=== PATIENT | female | born 1945 | race Caucasian/White ===

== ENCOUNTER → 2016-06-07 | Outpatient (CLI) | payer MEDICARE, BC, OTHER ==
[~2016-06-07] MED LIST: ALBU0.63 NEB; AMIT25TA PO; CETI-17 PO; CYCL10TA2 PO; ESOM40CA PO; ETAN50DI SQ; FLUC150T PO; FLUT1DIS3 IH; FLUT9.9S NS; HYDR25TA9 PO; INSU100V10 IJ; INSU100V8 SQ; LIRA0.6P SQ; NITR50CA11 PO; OMEP20CA9 PO; OXYM15MI4 NS; PHEN100T91 PO; POTA20PA PO; TRIA63AE TP; ZOLP10TA PO
--- NOTE | 2016-06-07 13:48 | KCIC ---
PROCEDURE MRI lumbar spine without contrast. HISTORY Low back pain and bilateral radiculopathy for 3 months. No known injury. TECHNIQUE Sagittal T1, sagittal T2, sagittal STIR, axial T1, and axial T2 sequences are provided. COMPARISON None. FINDINGS There is 4 millimeters of anterolisthesis at L4-L5. There is otherwise no malalignment. There is fatty replacement of the endplates most notably at L2-L3 and L5-S1. There are vacuum discs throughout the lumbar spine. There is diffuse disc desiccation. Disc height is narrowed diffusely as well. The conus medullaris is normal in signal intensity and in position. Subcutaneous edema is noted. Numbering system assumes 5 lumbar type vertebral bodies. Findings by individual level are as follows: L1-L2: There is no canal or foraminal compromise. L2-L3: There is a diffuse disc bulge. There is mild facet and ligamentum flavum hypertrophy. There is prominent epidural fat indenting on the thecal sac. Midline AP diameter of the thecal sac is narrowed to 7-8 millimeters. There is mild left lateral recess narrowing. There is minimal foraminal narrowing inferiorly bilaterally. L3-L4: Minimal disc bulge and mild facet and ligamentum flavum hypertrophy are noted. This does not result in canal or foraminal compromise. L4-L5: Disc bulge is eccentric to the left. There is facet hypertrophy. Epidural fat is mildly prominent. Midline AP diameter of the thecal sac is narrowed to 9-10 millimeters. There is mild left lateral recess narrowing, disc bulge is in contact with the left L5 nerve root. There is mild to moderate left foraminal narrowing. L5-S1: Disc osteophyte complex and facet hypertrophy are noted. There is no canal stenosis. There is mild left foraminal narrowing. IMPRESSION Degenerative disc disease, facet hypertrophy, and prominent epidural fat are noted throughout the lumbar spine. Canal stenosis is most notable at L2-L3. Electronically signed by: Prakash Davis MD (Jun 07, 2016 13:46:39)
== END | disposition home or self-care (01) ==
LOC: KCIC MRI 12:22
PROVIDERS: ATTEND Anesthesiology
DX: M54.16 Radiculopathy, lumbar region (principal)
CPT/HCPCS: 72148

== ENCOUNTER → 2017-09-03 | Outpatient (CLI) | payer MEDICARE, OTHER | END | disposition home or self-care (01) | LOC: PMGWOUND 09:09 | DX: T81.31XA Disruption of external operation (surgical) wound, not elsewhere classified, initial encounter (principal); E11.42 Type 2 diabetes mellitus with diabetic polyneuropathy; E11.22 Type 2 diabetes mellitus with diabetic chronic kidney disease; I12.9 Hypertensive chronic kidney disease with stage 1 through stage 4 chronic kidney disease, or unspecified chronic kidney disease; N18.3 Chronic kidney disease, stage 3 (moderate); E11.36 Type 2 diabetes mellitus with diabetic cataract; M06.9 Rheumatoid arthritis, unspecified; E27.40 Unspecified adrenocortical insufficiency; E78.5 Hyperlipidemia, unspecified; J44.9 Chronic obstructive pulmonary disease, unspecified; M17.0 Bilateral primary osteoarthritis of knee; E66.9 Obesity, unspecified; Z79.4 Long term (current) use of insulin; Z90.710 Acquired absence of both cervix and uterus; Z68.31 Body mass index [BMI] 31.0-31.9, adult; Z96.651 Presence of right artificial knee joint; Z98.42 Cataract extraction status, left eye; Z98.41 Cataract extraction status, right eye; Y83.8 Other surgical procedures as the cause of abnormal reaction of the patient, or of later complication, without mention of misadventure at the time of the procedure; Y92.89 Other specified places as the place of occurrence of the external cause | CPT/HCPCS: 99204 ==

== ENCOUNTER → 2017-09-10 | Outpatient (CLI) | payer MEDICARE, OTHER | END | disposition home or self-care (01) | LOC: PMGWOUND 09:23 | DX: T81.31XD Disruption of external operation (surgical) wound, not elsewhere classified, subsequent encounter (principal); E11.42 Type 2 diabetes mellitus with diabetic polyneuropathy; E11.22 Type 2 diabetes mellitus with diabetic chronic kidney disease; I12.9 Hypertensive chronic kidney disease with stage 1 through stage 4 chronic kidney disease, or unspecified chronic kidney disease; N18.3 Chronic kidney disease, stage 3 (moderate); E11.36 Type 2 diabetes mellitus with diabetic cataract; M06.9 Rheumatoid arthritis, unspecified; E27.40 Unspecified adrenocortical insufficiency; E78.5 Hyperlipidemia, unspecified; J44.9 Chronic obstructive pulmonary disease, unspecified; M17.0 Bilateral primary osteoarthritis of knee; E66.9 Obesity, unspecified; Z79.4 Long term (current) use of insulin; Z90.710 Acquired absence of both cervix and uterus; Z68.31 Body mass index [BMI] 31.0-31.9, adult; Z96.651 Presence of right artificial knee joint; Z98.42 Cataract extraction status, left eye; Z98.41 Cataract extraction status, right eye; Y83.8 Other surgical procedures as the cause of abnormal reaction of the patient, or of later complication, without mention of misadventure at the time of the procedure | CPT/HCPCS: 97605 ==

== ENCOUNTER → 2017-09-12 | Outpatient (CLI) | payer MEDICARE, OTHER | END | disposition home or self-care (01) | LOC: PMGWOUND 12:55 | DX: T81.31XD Disruption of external operation (surgical) wound, not elsewhere classified, subsequent encounter (principal); E11.42 Type 2 diabetes mellitus with diabetic polyneuropathy; E11.22 Type 2 diabetes mellitus with diabetic chronic kidney disease; I12.9 Hypertensive chronic kidney disease with stage 1 through stage 4 chronic kidney disease, or unspecified chronic kidney disease; N18.3 Chronic kidney disease, stage 3 (moderate); E11.36 Type 2 diabetes mellitus with diabetic cataract; M06.9 Rheumatoid arthritis, unspecified; E27.40 Unspecified adrenocortical insufficiency; R20.2 Paresthesia of skin; E78.5 Hyperlipidemia, unspecified; J44.9 Chronic obstructive pulmonary disease, unspecified; M17.0 Bilateral primary osteoarthritis of knee; E66.9 Obesity, unspecified; Z79.4 Long term (current) use of insulin; Z90.710 Acquired absence of both cervix and uterus; Z68.31 Body mass index [BMI] 31.0-31.9, adult; Z96.651 Presence of right artificial knee joint; Z98.42 Cataract extraction status, left eye; Z98.41 Cataract extraction status, right eye; Y83.8 Other surgical procedures as the cause of abnormal reaction of the patient, or of later complication, without mention of misadventure at the time of the procedure | CPT/HCPCS: 99213 ==

== ENCOUNTER → 2017-09-17 | Outpatient (CLI) | payer MEDICARE, OTHER | END | disposition home or self-care (01) | LOC: PMGWOUND 08:56 | DX: T81.31XD Disruption of external operation (surgical) wound, not elsewhere classified, subsequent encounter (principal); E11.42 Type 2 diabetes mellitus with diabetic polyneuropathy; E11.22 Type 2 diabetes mellitus with diabetic chronic kidney disease; I12.9 Hypertensive chronic kidney disease with stage 1 through stage 4 chronic kidney disease, or unspecified chronic kidney disease; N18.3 Chronic kidney disease, stage 3 (moderate); E11.36 Type 2 diabetes mellitus with diabetic cataract; M06.9 Rheumatoid arthritis, unspecified; E27.40 Unspecified adrenocortical insufficiency; R20.2 Paresthesia of skin; E78.5 Hyperlipidemia, unspecified; J44.9 Chronic obstructive pulmonary disease, unspecified; M17.0 Bilateral primary osteoarthritis of knee; E66.9 Obesity, unspecified; Z79.4 Long term (current) use of insulin; Z90.710 Acquired absence of both cervix and uterus; Z68.31 Body mass index [BMI] 31.0-31.9, adult; Z96.651 Presence of right artificial knee joint; Z98.42 Cataract extraction status, left eye; Z98.41 Cataract extraction status, right eye; Y83.8 Other surgical procedures as the cause of abnormal reaction of the patient, or of later complication, without mention of misadventure at the time of the procedure | CPT/HCPCS: 97605 ==

== ENCOUNTER → 2017-09-20 | Outpatient (CLI) | payer MEDICARE, OTHER | END | disposition home or self-care (01) | LOC: PMGWOUND 11:00 | DX: T81.31XD Disruption of external operation (surgical) wound, not elsewhere classified, subsequent encounter (principal); R20.2 Paresthesia of skin; M17.0 Bilateral primary osteoarthritis of knee; J44.9 Chronic obstructive pulmonary disease, unspecified; E78.5 Hyperlipidemia, unspecified; E66.9 Obesity, unspecified; M06.9 Rheumatoid arthritis, unspecified; E11.36 Type 2 diabetes mellitus with diabetic cataract; E11.42 Type 2 diabetes mellitus with diabetic polyneuropathy; E11.22 Type 2 diabetes mellitus with diabetic chronic kidney disease; I12.9 Hypertensive chronic kidney disease with stage 1 through stage 4 chronic kidney disease, or unspecified chronic kidney disease; N18.3 Chronic kidney disease, stage 3 (moderate); Z96.651 Presence of right artificial knee joint; Z90.710 Acquired absence of both cervix and uterus; Z68.31 Body mass index [BMI] 31.0-31.9, adult; Z79.4 Long term (current) use of insulin; Y83.8 Other surgical procedures as the cause of abnormal reaction of the patient, or of later complication, without mention of misadventure at the time of the procedure | CPT/HCPCS: 97605 ==

== ENCOUNTER → 2017-09-24 | Outpatient (CLI) | payer MEDICARE, OTHER | END | disposition home or self-care (01) | LOC: PMGWOUND 11:09 | DX: T81.31XD Disruption of external operation (surgical) wound, not elsewhere classified, subsequent encounter (principal); J44.9 Chronic obstructive pulmonary disease, unspecified; E78.5 Hyperlipidemia, unspecified; E11.22 Type 2 diabetes mellitus with diabetic chronic kidney disease; I12.9 Hypertensive chronic kidney disease with stage 1 through stage 4 chronic kidney disease, or unspecified chronic kidney disease; N18.3 Chronic kidney disease, stage 3 (moderate); E66.9 Obesity, unspecified; M06.9 Rheumatoid arthritis, unspecified; E11.42 Type 2 diabetes mellitus with diabetic polyneuropathy; E11.36 Type 2 diabetes mellitus with diabetic cataract; M17.0 Bilateral primary osteoarthritis of knee; Z90.710 Acquired absence of both cervix and uterus; Z96.651 Presence of right artificial knee joint; Z68.31 Body mass index [BMI] 31.0-31.9, adult; Z79.4 Long term (current) use of insulin; Y83.8 Other surgical procedures as the cause of abnormal reaction of the patient, or of later complication, without mention of misadventure at the time of the procedure | CPT/HCPCS: 97605 ==

== ENCOUNTER → 2017-09-27 | Outpatient (CLI) | payer MEDICARE, OTHER | END | disposition home or self-care (01) | LOC: PMGWOUND 11:47 | DX: T81.31XD Disruption of external operation (surgical) wound, not elsewhere classified, subsequent encounter (principal); M17.0 Bilateral primary osteoarthritis of knee; E78.5 Hyperlipidemia, unspecified; E11.22 Type 2 diabetes mellitus with diabetic chronic kidney disease; I12.9 Hypertensive chronic kidney disease with stage 1 through stage 4 chronic kidney disease, or unspecified chronic kidney disease; N18.3 Chronic kidney disease, stage 3 (moderate); E66.9 Obesity, unspecified; M06.9 Rheumatoid arthritis, unspecified; E11.42 Type 2 diabetes mellitus with diabetic polyneuropathy; E11.36 Type 2 diabetes mellitus with diabetic cataract; Z90.710 Acquired absence of both cervix and uterus; Z96.651 Presence of right artificial knee joint; Z68.31 Body mass index [BMI] 31.0-31.9, adult; Z79.4 Long term (current) use of insulin; Y83.8 Other surgical procedures as the cause of abnormal reaction of the patient, or of later complication, without mention of misadventure at the time of the procedure | CPT/HCPCS: 97605 ==

== ENCOUNTER → 2017-10-01 | Outpatient (CLI) | payer MEDICARE, OTHER | END | disposition home or self-care (01) | LOC: PMGWOUND 11:32 | DX: T81.31XD Disruption of external operation (surgical) wound, not elsewhere classified, subsequent encounter (principal); M17.0 Bilateral primary osteoarthritis of knee; E78.5 Hyperlipidemia, unspecified; E11.22 Type 2 diabetes mellitus with diabetic chronic kidney disease; I12.9 Hypertensive chronic kidney disease with stage 1 through stage 4 chronic kidney disease, or unspecified chronic kidney disease; N18.3 Chronic kidney disease, stage 3 (moderate); E66.9 Obesity, unspecified; M06.9 Rheumatoid arthritis, unspecified; E11.42 Type 2 diabetes mellitus with diabetic polyneuropathy; E11.36 Type 2 diabetes mellitus with diabetic cataract; J44.9 Chronic obstructive pulmonary disease, unspecified; Z96.651 Presence of right artificial knee joint; Z90.710 Acquired absence of both cervix and uterus; Z68.31 Body mass index [BMI] 31.0-31.9, adult; Z79.4 Long term (current) use of insulin; Y83.8 Other surgical procedures as the cause of abnormal reaction of the patient, or of later complication, without mention of misadventure at the time of the procedure | CPT/HCPCS: 97605 ==

== ENCOUNTER → 2017-10-04 | Outpatient (CLI) | payer MEDICARE, OTHER | END | disposition home or self-care (01) | LOC: PMGWOUND 11:13 | DX: T81.31XD Disruption of external operation (surgical) wound, not elsewhere classified, subsequent encounter (principal); E78.5 Hyperlipidemia, unspecified; E11.22 Type 2 diabetes mellitus with diabetic chronic kidney disease; I12.9 Hypertensive chronic kidney disease with stage 1 through stage 4 chronic kidney disease, or unspecified chronic kidney disease; N18.3 Chronic kidney disease, stage 3 (moderate); E66.9 Obesity, unspecified; M17.0 Bilateral primary osteoarthritis of knee; M06.9 Rheumatoid arthritis, unspecified; E11.42 Type 2 diabetes mellitus with diabetic polyneuropathy; E11.36 Type 2 diabetes mellitus with diabetic cataract; J44.9 Chronic obstructive pulmonary disease, unspecified; Z96.651 Presence of right artificial knee joint; Z90.710 Acquired absence of both cervix and uterus; Z68.31 Body mass index [BMI] 31.0-31.9, adult; Z79.4 Long term (current) use of insulin; Y83.8 Other surgical procedures as the cause of abnormal reaction of the patient, or of later complication, without mention of misadventure at the time of the procedure | CPT/HCPCS: 97605 ==

== ENCOUNTER → 2017-10-08 | Outpatient (CLI) | payer MEDICARE, OTHER | END | disposition home or self-care (01) | LOC: PMGWOUND 10:30 | DX: T81.31XD Disruption of external operation (surgical) wound, not elsewhere classified, subsequent encounter (principal); E78.5 Hyperlipidemia, unspecified; E11.22 Type 2 diabetes mellitus with diabetic chronic kidney disease; I12.9 Hypertensive chronic kidney disease with stage 1 through stage 4 chronic kidney disease, or unspecified chronic kidney disease; N18.3 Chronic kidney disease, stage 3 (moderate); E66.9 Obesity, unspecified; M17.0 Bilateral primary osteoarthritis of knee; M06.9 Rheumatoid arthritis, unspecified; E11.42 Type 2 diabetes mellitus with diabetic polyneuropathy; E11.36 Type 2 diabetes mellitus with diabetic cataract; J44.9 Chronic obstructive pulmonary disease, unspecified; Z96.651 Presence of right artificial knee joint; Z90.710 Acquired absence of both cervix and uterus; Z68.31 Body mass index [BMI] 31.0-31.9, adult; Z79.4 Long term (current) use of insulin; Y83.8 Other surgical procedures as the cause of abnormal reaction of the patient, or of later complication, without mention of misadventure at the time of the procedure | CPT/HCPCS: 99214 ==

== ENCOUNTER → 2017-10-11 | Outpatient (CLI) | payer MEDICARE, OTHER | END | disposition home or self-care (01) | LOC: PMGWOUND 11:45 | DX: T81.31XD Disruption of external operation (surgical) wound, not elsewhere classified, subsequent encounter (principal); E78.5 Hyperlipidemia, unspecified; E11.22 Type 2 diabetes mellitus with diabetic chronic kidney disease; I12.9 Hypertensive chronic kidney disease with stage 1 through stage 4 chronic kidney disease, or unspecified chronic kidney disease; N18.3 Chronic kidney disease, stage 3 (moderate); E66.9 Obesity, unspecified; M17.0 Bilateral primary osteoarthritis of knee; M06.9 Rheumatoid arthritis, unspecified; E11.42 Type 2 diabetes mellitus with diabetic polyneuropathy; E11.36 Type 2 diabetes mellitus with diabetic cataract; J44.9 Chronic obstructive pulmonary disease, unspecified; Z96.651 Presence of right artificial knee joint; Z90.710 Acquired absence of both cervix and uterus; Z68.31 Body mass index [BMI] 31.0-31.9, adult; Z79.4 Long term (current) use of insulin; Y83.8 Other surgical procedures as the cause of abnormal reaction of the patient, or of later complication, without mention of misadventure at the time of the procedure | CPT/HCPCS: 99213 ==

== ENCOUNTER → 2017-10-15 | Outpatient (CLI) | payer MEDICARE, OTHER | END | disposition home or self-care (01) | LOC: PMGWOUND 10:07 | DX: T81.31XD Disruption of external operation (surgical) wound, not elsewhere classified, subsequent encounter (principal); E78.5 Hyperlipidemia, unspecified; E11.22 Type 2 diabetes mellitus with diabetic chronic kidney disease; I12.9 Hypertensive chronic kidney disease with stage 1 through stage 4 chronic kidney disease, or unspecified chronic kidney disease; N18.3 Chronic kidney disease, stage 3 (moderate); E66.9 Obesity, unspecified; M17.0 Bilateral primary osteoarthritis of knee; M06.9 Rheumatoid arthritis, unspecified; E11.42 Type 2 diabetes mellitus with diabetic polyneuropathy; E11.36 Type 2 diabetes mellitus with diabetic cataract; J44.9 Chronic obstructive pulmonary disease, unspecified; Z96.651 Presence of right artificial knee joint; Z90.710 Acquired absence of both cervix and uterus; Z68.31 Body mass index [BMI] 31.0-31.9, adult; Z79.4 Long term (current) use of insulin; Y83.8 Other surgical procedures as the cause of abnormal reaction of the patient, or of later complication, without mention of misadventure at the time of the procedure | CPT/HCPCS: 99214 ==

== ENCOUNTER → 2017-10-18 | Outpatient (CLI) | payer MEDICARE, OTHER ==
[2017-05-18 11:00] VITALS: BP 129/86
[~2017-10-18] MED LIST changes: +AMOX1TAB61 PO; -ETAN50DI SQ; +ETAN50DI2 SQ; +INSU100I30 SQ; -INSU100V10 IJ; +INSU100V11 IJ; +PHEN-443 PO; -PHEN100T91 PO; +PRED20TA PO; +[UNRECOGNIZED DRUG - OTHER] SUBCUT
== END | disposition home or self-care (01) ==
LOC: PMGWOUND 10:20
PROVIDERS: ATTEND Preventive Medicine Undersea and Hyperbaric Medicine
DX: T81.31XD Disruption of external operation (surgical) wound, not elsewhere classified, subsequent encounter (principal); E78.5 Hyperlipidemia, unspecified; E11.22 Type 2 diabetes mellitus with diabetic chronic kidney disease; I12.9 Hypertensive chronic kidney disease with stage 1 through stage 4 chronic kidney disease, or unspecified chronic kidney disease; N18.3 Chronic kidney disease, stage 3 (moderate); E66.9 Obesity, unspecified; M17.0 Bilateral primary osteoarthritis of knee; M06.9 Rheumatoid arthritis, unspecified; E11.42 Type 2 diabetes mellitus with diabetic polyneuropathy; E11.36 Type 2 diabetes mellitus with diabetic cataract; J44.9 Chronic obstructive pulmonary disease, unspecified; Z96.651 Presence of right artificial knee joint; Z90.710 Acquired absence of both cervix and uterus; Z68.31 Body mass index [BMI] 31.0-31.9, adult; Z79.4 Long term (current) use of insulin; Y83.8 Other surgical procedures as the cause of abnormal reaction of the patient, or of later complication, without mention of misadventure at the time of the procedure
CPT/HCPCS: 99214; G0463

== ENCOUNTER 2019-08-06 16:09 | Inpatient (IN) | payer MEDICARE, OTHER ==
[~2019-08-06] VITALS: Ht 170.2 cm; Wt 91.3 kg
[2019-08-06] VITALS (7 sets, daily range): BP systolic 74–106; BP diastolic 43–67
[~2019-08-06 16:09] MED LIST changes: +HYDR-2145 PO; -HYDR25TA9 PO; +LINE600T12 PO; +OMEP20CA16 PO; -OMEP20CA9 PO; -POTA20PA PO; +POTA20PA30 PO
[2019-08-06] MEDS ORDERED: INSU100C SQ (17:23)
[2019-08-06] MEDS ORDERED: FURO-68 PO (17:23)
[2019-08-06] MEDS ORDERED: CALC-31 PO (17:23)
[2019-08-06] MEDS ORDERED: ASPI-612 PO (17:23)
[2019-08-06] MEDS ORDERED: VENL37.56 PO (17:23)
[2019-08-06] MEDS ORDERED: PANT40TA77 PO (17:23)
[2019-08-06] MEDS ORDERED: TRAM50TA PO (17:23)
[2019-08-06] MEDS ORDERED: LISI-338 PO (17:23)
[2019-08-06] MEDS ORDERED: MECL-75 PO (17:23)
[2019-08-06] MEDS ORDERED: METO25TA4 PO (17:23)
[2019-08-06] MEDS ORDERED: IV NORMAL SALINE 1000ML BAG 1,000 ML IV SCH (18:15)
[2019-08-06] MEDS ORDERED: PIP/TAZO PER PHARMACY MC PRN (18:15)
[2019-08-06] MEDS ORDERED: ACETAMINOPHEN 650 MG SUPP.RECT. PR PRN (18:15)
[2019-08-06] MEDS ORDERED: VANCOMYCIN PER PHARMACY MC PRN (18:15)
--- NOTE | 2019-08-06 18:21 | NUR ---
Pharmacy Vancomycin Dosing Note S:Consulted to monitor and dose vancomycin started 08/06/19. O:CHEIKH DUMONT is a 74 year old F with HCAP. Height: 5 feet, 7 inches Weight: 94 kg [place] Body Weight: 61.60 Adjusted Body Weight: 74.56 Dosing Weight: Actual Other Antibiotics: ZOSYN 3.375 gm q6hrs LABS: Last BUN: 41 Last Creatinine: 2.5 Creatinine Clearance: 23 mL/min Last WBC: 9 Last Procalcitonin: -- Tmax (past 24 hours): 103.1 Microbiology: 08/05: Blood cx pending (from [facility]) 08/05: Urine cx pending (from [facility]) I/O: -- Drug Levels: Vancomycin Dosing: Dosing Weight: Actual Target Trough: 15-20 A: Based on: patient's age, weight and renal function. P: 1. Initiate Vancomycin 1500 mg IV q48h 2. Follow up Trough level on 08/10/19 at 1930 3. Pharmacy will continue to monitor, follow and adjust therapy as needed. ANNE SAAVEDRA [facility], 08/06/19 [id number]
--- NOTE | 2019-08-06 18:26 | NUR ---
Notified Dr. Pyle of patient's temp and +Sepsis screen per Emerald ARAYA on 6S. Orders received for IVF, Zosyn and Vanc per Rx, labs, I.D. consult, Tylenol, BLE US per possible "clot" in leg per daughter, repeat ABG from [facility]. RN called lab and RT and asked for labs, ABG to be drawn STAT. See orders, labs. Assessments by Emerald ARAYA.
--- NOTE | 2019-08-06 18:29 | NUR ---
CXR negative, patient positive for UTI-- was patient at [facility] being treated for UTI earlier in month. SpO2 adequate on 2L NC, order confirmed with Dr. Pyle to keep patient on 6S and not do further testing r/t COVD due to fever at this time. Will continue to monitor VS, labs. Hypotension from [facility] has resolved. Received 3L NS -- which meets Sepsis criteria.
[2019-08-06] MEDS: PIPERACILLIN/TAZOBACTAM 3.375 GM in IV NORMAL SALINE 50ML 50 ML IV SCH (19:00)
[2019-08-06 19:01] LABS: BASE EXCESS ABG -3 mmol/L (-3-3); CORRECTED PCO2 ABG 34 mmHg; CORRECTED PO2 ABG 106 mmHg; HCO3 ABG 20 mmol/L (21-28); SAT O2 ABG 97 % (92-99)
[2019-08-06 19:02] LABS: PCO2 ABG 34 mmHg (35-46); PO2 ABG 106 mmHg (65-108)
[2019-08-06 19:11] LABS: HEMATOCRIT 30.7 % (36.0-47.0); RED BLOOD COUNT 3.72 x10^6/uL (3.50-5.40); RED CELL DISTRIBUTION WIDTH 16.1 % (11.5-14.5); WHITE BLOOD COUNT 10.8 x10^3/uL (4.0-11.0)
[2019-08-06 19:27] LABS: ALBUMIN 2.7 g/dL (3.4-5.0); ALBUMIN/GLOBULIN RATIO 0.7 (1.0-1.7); CALCIUM 7.8 mg/dL (8.5-10.1); CREATININE 2.3 mg/dL (0.6-1.0); GFR 20.8; TOTAL BILIRUBIN 0.3 mg/dL (0.2-1.0); TOTAL PROTEIN 6.4 g/dL (6.4-8.2)
[2019-08-06 19:29] LABS: POTASSIUM 6.3 mmol/L (3.5-5.1)
--- NOTE | 2019-08-06 19:36 | NUR ---
The patient, CHEIKH DUMONT, 74 y/o, F admitted by THAD WHIPPLE III, DO, was given written information regarding hospital policies, unit procedures and contact persons. Valuables were checked and left at beside. Patient upon admit unable to state name or any information. MD Lashanda paged. No return call page sent to Elizabeth ARAYA in ICU for positive sepsis screen. Orders received. MD Lashanda seen patient orders to send to ICU to rule out COVID 19.
--- NOTE | 2019-08-06 19:38 | RAD ---
VENOUS LOWER EXT BILATERAL 08/06/2019 6:10 PM Clinical Information: Left lower extremity pain, shortness of air and fever. Elevated d-dimer. Comparison: None. Technique: Multiple grayscale, color Doppler, and spectral Doppler sonographic images of the lower extremity venous structures were obtained. Findings: The right common femoral, femoral, and popliteal veins exhibit normal compression, respiratory phasicity, and augmentation. No intraluminal thrombi are identified. Color Doppler flow is demonstrated in the right posterior tibial veins. The left common femoral, femoral, and popliteal veins exhibit normal compression, respiratory phasicity, and augmentation. No intraluminal thrombi are identified. Color Doppler flow is demonstrated in the left posterior tibial veins. Greater saphenous veins are patent at the saphenofemoral junction. Impression: 1. No evidence of deep venous thrombosis. Electronically signed by: Jessica Clemons MD (08/06/2019 7:36 PM) REBECCA
[2019-08-06 19:53] LABS: BILIRUBIN,URINE NEGATIVE (NEG); CLARITY,URINE CLEAR; COLOR,URINE YELLOW; NITRITE,URINE NEGATIVE (NEG); PH,URINE 5.5 (<5.0-8.0); PROTEIN,URINE NEGATIVE (NEG-TRACE); UROBILINOGEN,URINE 0.2 mg/dL (0.2 mg/dL)
[2019-08-06 19:58] LABS: HYALINE CASTS, URINE FEW /HPF
[2019-08-06 19:59] LABS: BACTERIA,URINE 0 /HPF (0-FEW); RBC,URINE 0 /HPF (0-2); YEAST,URINE PRESENT /HPF
[2019-08-06] MEDS ORDERED: VANCOMYCIN 1.5 GM in IV NORMAL SALINE 500ML BAG 500 ML IV SCH (20:00)
--- NOTE | 2019-08-06 20:08 | HP ---
ADMIT DATE: 08/06/2019 CHIEF COMPLAINT: Shortness of breath, fever, weakness, mental status change, hypoxia. HISTORY OF PRESENT ILLNESS: The patient is a pleasant elderly female who was at [facility] ER, the physician in the Emergency Room called me and explained that she is hypoxic. She is having some fevers. He is concerned she could have a PE, but her creatinine is elevated. She also has a potassium of 6.3. We have transferred the patient here. I am going to be consulting Infectious Disease, Pulmonary and Nephrology. PAST MEDICAL HISTORY: Allergic rhinitis, muscle spasms, hypertension, chronic pain, arthritis, depression, anxiety, GERD and diabetes. ALLERGIES: MULTIPLE INCLUDING SULFA, CAPSAICIN, CLINDAMYCIN, CODEINE, IODINE, LEVAQUIN, METHANOL, METFORMIN, NAPROXEN. PLEASE SEE THE CHART. FAMILY HISTORY: Coronary artery disease. SOCIAL HISTORY: She does not drink, smoke or take drugs. MEDICATIONS: Reviewed, please refer to the MRAD. REVIEW OF SYSTEMS: Unable to obtain. The patient is too confused, but she complains of weakness, shortness of breath and fevers. PHYSICAL EXAMINATION: VITALS: She has a temperature of 101.3. GENERAL: No apparent distress. Alert and oriented. HEENT: Normal cephalic atraumatic, external auditory canals are patent EYES: Extraocular muscles are intact, pupils are equally round and reactive to light and accommodation MUSCULOSKELETAL: Well developed, well nourished, good range of motion ENDOCRINE: No thyromegaly was palpated LYMPHATICS: No cervical chain or axillary nodes were noted HEMATOPOIETIC: No bruising NECK: Supple, no JVD, no thyromegaly was noted. LUNGS: She has bibasilar crackles. HEART: She is little tachycardic. Peripheral pulses intact, no obvious murmurs were noted. ABDOMEN: Soft, nontender. Positive bowel sounds no organomegaly, normal bowel sounds. EXTREMITIES: Without any cyanosis, clubbing, or edema. Pedal pulses intact, Homans sign is negative. NEUROLOGIC: Normal speech, normal tone. A & O x3, moves all extremities, no obvious focal deficits. PSYCHIATRIC: Normal affect, normal mood. Stable. SKIN: No ulcerations or rashes, good skin turgor, no jaundice. VASCULAR: Good capillary refill, neurovascular bundle appears to be intact. LABORATORY DATA: Potassium 6.3. ASSESSMENT: Shortness of breath, hypoxia, hyperkalemia, renal failure, fevers, suspect possible COVID versus pulmonary embolism with acute renal failure. PLAN: The patient will be admitted. We will consult Pulmonary Medicine, Infectious Disease and Nephrology. Home meds, IV fluids, DVT prophylaxis. Full code. Prognosis is guarded. I discussed the case with her nurse. THAD WHIPPLE DO DR: RICK/samantha JOB#: [id number] / [id number]
--- NOTE | 2019-08-06 20:30 | NUR ---
Admitted patient to ICU 108, Pt awake oriented to self place and confused. Covid swab sent. Spoke to family and updated on plan of care.
[2019-08-06] MEDS ORDERED: IV NORMAL SALINE 1000ML BAG 1,000 ML IV ONE (22:00)
--- NOTE | 2019-08-06 22:14 | CONS ---
DATE OF CONSULTATION: 08/06/2019 PULMONARY CONSULTATION ATTENDING PHYSICIAN: Dr. Pyle. REASON FOR CONSULTATION: Sepsis, fever, and hypoxia. HISTORY OF PRESENT ILLNESS: The patient is a 74-year-old morbidly obese patient who has no history of tobacco use. She was brought in from [facility] Emergency Room when she presented with some dyspnea and she was noted to be hypoxic. She had high-grade fevers. The patient also had a potassium of 6.3. The patient was hospitalized about a week to 10 days ago. At that time, she had a chest x-ray, which was reviewed by me on ____. She had some mild upper lobe and lower lobe infiltrates. She had a CT chest on 07/24/2019, which was also reviewed by me. It showed some ground-glass infiltrates in the upper lobes and minimally in the lower lobes. She was treated for pneumonia and also apparently had a UTI and was subsequently discharged home. She was brought in with these complaints. I have reviewed the patient's chest x-ray, and the previously seen infiltrates have resolved. Her urinalysis also to be without any significant wbc's or bacteria. At present, she is on 3 liters of oxygen and saturations are 100%. Her T-max was 103. Infectious Disease has been consulted, and broad-spectrum antibiotics have been initiated. She also has been receiving IV fluids at 150 mL an hour. The patient's systolic blood pressure is 81 at present, I have done her consultation via telemedicine. PAST MEDICAL HISTORY: Significant for allergic rhinitis, history of hypertension, history of chronic pain, arthritis, depression, anxiety, GERD, and diabetes./ RA PAST SURGICAL HISTORY: No recent surgeries. ALLERGIES: Multiple including SULFA, CAPSAICIN, CLINDAMYCIN, CODEINE, IODINE, LEVAQUIN, METHANOL, METFORMIN, NAPROXEN, AND PIOGLITAZONE. REVIEW OF SYSTEMS: A 10-point system review obtained via telemedicine. Pertinent positives discussed in my history of present illness, otherwise, noncontributory. She denies any nausea, denies any vomiting. No diarrhea, no abdominal pain. Denies any cough, chest pains. She appears to be oriented x 2. FAMILY HISTORY: Coronary artery disease. SOCIAL HISTORY: Nonsmoker, nonalcoholic. PHYSICAL EXAMINATION: GENERAL: On examination, which was done via telemedicine, she appears to be in no obvious respiratory distress. VITAL SIGNS: Pulse ox is 100% on 3 liters. T-max of 103.1. Blood pressure in the low 80s systolic. SKIN: There is no obvious rash. She is obese. EXTREMITIES: Lower extremities have 1+ edema and signs of venous stasis. LABORATORY DATA: Reviewed. Her white blood cell count is 10.8, hemoglobin 10.0, and platelets are 233. BUN 42, creatinine 2.3, potassium 6.3. Albumin 2.7. IMPRESSION: 1. Acute hypoxic respiratory failure secondary to septic shock. 2. Fever of 103. Source is not so obvious. The chest x-ray is clear. She did have mild ground-glass infiltrates on 07/24/[address] chest and chest x-ray and these are no longer visible. One should look for other sources of infection. The urine appears to be benign so far. She needs to be ruled out for COVID. There are no obvious wounds. Infectious Disease has also been consulted. 3. No significant tobacco history. 4. Obesity contributing to hypoxia as well. 5. Hyperkalemia and acute kidney injury related to septic shock. Renal has been consulted for acute management of hyperkalemia. 6. Moderate protein-calorie malnutrition. 7. Venous Dopplers with no evidence of deep venous thrombosis. Clinical suspicion for thromboembolic disease is low and would not pursue at this point for a V/Q scan. RECOMMENDATIONS: 1. Continue with present oxygen, keep saturation 94 and above. 2. Broad-spectrum antibiotics. 3. Blood cultures and urine cultures and follow the results. 4. COVID-19 testing has been ordered and is pending. We will keep her under isolation until then. 5. Follow renal recommendation regarding hyperkalemia and AVI. 6. P.r.n. bronchodilators. 7. Aggressive IV fluid resuscitation, and if needed, initiate vasopressors. may need hydrocortisone 8. Discussed with RN, detail plan discussed. Total critical care time 35 minutes including review of the chart, lab values, imaging studies from previous admission as well as current admission, and discussion regarding plan of care and complex medical decision making. We will follow along with you. GLORIA BENNETT MD DR: COOPER/samantha JOB#: [id number] / [id number] MTDD
[2019-08-06] MEDS: NOREPINEPHRINE VIAL 8 MG in IV DEXTROSE 5% 250 ML IV PRN (22:30)
[2019-08-06] MEDS: SODIUM BICARBONATE VIAL 50 MEQ in IV 1/2 NORMAL SALINE 1,000 ML IV SCH (22:42)
[2019-08-06 23:25] LABS: CALCIUM 7.9 mg/dL (8.5-10.1); CREATININE 2.7 mg/dL (0.6-1.0); GFR 17.3; POTASSIUM 5.9 mmol/L (3.5-5.1)
[2019-08-07] VITALS (40 sets, daily range): BP systolic 79–171; BP diastolic 44–108
[2019-08-07] MEDS: PIPERACILLIN/TAZOBACTAM 3.375 GM in IV NORMAL SALINE 50ML 50 ML IV SCH ×2 (00:06→06:09)
[2019-08-07] MEDS: MORPHINE SULFATE 2 MG/ML VIAL. IV PRN ×4 (00:07→22:28)
[2019-08-07] MEDS: SODIUM BICARBONATE VIAL 50 MEQ in IV 1/2 NORMAL SALINE 1,000 ML IV SCH ×3 (05:30→21:06)
[2019-08-07] MEDS: NOREPINEPHRINE VIAL 8 MG in IV DEXTROSE 5% 250 ML IV PRN (06:08)
[2019-08-07 06:20] LABS: CREATININE 2.6 mg/dL (0.6-1.0); GFR 18.1
[2019-08-07 06:27] LABS: POTASSIUM 6.3 mmol/L (3.5-5.1)
[2019-08-07] MEDS: SODIUM POLYSTYRENE SULFON/SORB 15 GM/60 ML ORAL.SUSP PO SCH ×2 (07:00→12:51)
--- NOTE | 2019-08-07 09:01 | PDOC ---
[employer] PROGRESS NOTE Chief Complaint Chief Complaint Shortness of breath, hypoxia, hyperkalemia, renal failure, fevers, suspect possible COVID versus pulmonary embolism with acute renal failure. Allergic rhinitis, muscle spasms, hypertension, chronic pain, arthritis, depression, anxiety, GERD and diabetes. History of Present Illness History of Present Illness 08/07/2019 Patient seen and examined in the [facility]19 ICU Chart reviewed Discussed with RN She still remains quite ill and extremely confused Vitals/I&O Vitals/I&O: Vital Signs Date Time Temp Pulse Resp B/P (MAP) Pulse Ox O2 Delivery O2 Flow Rate FiO2 08/07/19 08:22 Nasal Cannula 08/07/19 08:15 122 111/58 (75) 08/07/19 08:00 99.2 31 96 2.0 99.2 I & O 08/06/19 08/06/19 08/07/19 15:00 23:00 07:00 Intake Total 2600 ml Output Total 40 ml 360 ml Balance -40 ml 2240 ml Physical Exam General: moderate distress Heart: Normal S1 Lungs: Clear, Crackles Abdomen: Soft Extremities: No clubbing Skin: No rashes, No breakdown Labs Labs: Laboratory Tests Test 08/06/19 18:30 08/06/19 18:45 08/06/19 19:40 08/06/19 23:00 O2 Saturation 97 % (92-99) Arterial Blood pH 7.40 (7.35-7.45) Arterial Blood pH (Temp corrected) 7.40 Arterial Blood pCO2 at Patient Temp 34 mmHg (35-46) Arterial Blood pCO2 (Temp correct) 34 mmHg Arterial Blood pO2 at Patient Temp 106 mmHg (65-108) Arterial Blood pO2 (Temp corrected) 106 mmHg Arterial Blood HCO3 20 mmol/L (21-28) Arterial Blood Base Excess -3 mmol/L (-3-3) White Blood Count 10.8 x10^3/uL (4.0-11.0) Red Blood Count 3.72 x10^6/uL (3.50-5.40) Hemoglobin 10.0 g/dL (12.0-15.5) Hematocrit 30.7 % (36.0-47.0) Mean Corpuscular Volume 82 fL (79-100) Mean Corpuscular Hemoglobin 27 pg (25-35) Mean Corpuscular Hemoglobin Concent 33 g/dL (31-37) Red Cell Distribution Width 16.1 % (11.5-14.5) Platelet Count 233 x10^3/uL (140-400) Sodium Level 138 mmol/L (136-145) 138 mmol/L (136-145) Potassium Level 6.3 mmol/L (3.5-5.1) 5.9 mmol/L (3.5-5.1) Chloride Level 105 mmol/L (98-107) 106 mmol/L (98-107) Carbon Dioxide Level 21 mmol/L (21-32) 21 mmol/L (21-32) Anion Gap 12 (6-14) 11 (6-14) Blood Urea Nitrogen 42 mg/dL (7-20) 41 mg/dL (7-20) Creatinine 2.3 mg/dL (0.6-1.0) 2.7 mg/dL (0.6-1.0) Estimated GFR (Cockcroft-Gault) 20.8 17.3 BUN/Creatinine Ratio 18 (6-20) Glucose Level 135 mg/dL (70-99) 112 mg/dL (70-99) Lactic Acid Level 2.3 mmol/L (0.4-2.0) 3.7 mmol/L (0.4-2.0) Calcium Level 7.8 mg/dL (8.5-10.1) 7.9 mg/dL (8.5-10.1) Total Bilirubin 0.3 mg/dL (0.2-1.0) Aspartate Amino Transf (AST/SGOT) 34 U/L (15-37) Alanine Aminotransferase (ALT/SGPT) 31 U/L (14-59) Alkaline Phosphatase 89 U/L (46-116) Total Protein 6.4 g/dL (6.4-8.2) Albumin 2.7 g/dL (3.4-5.0) Albumin/Globulin Ratio 0.7 (1.0-1.7) Urine Collection Type Unknown Urine Color Yellow Urine Clarity Clear Urine pH 5.5 (<5.0-8.0) Urine Specific Crawford 1.015 (1.000-1.030) Urine Protein Negative mg/dL (NEG-TRACE) Urine Glucose (UA) Negative mg/dL (NEG) Urine Ketones (Stick) Negative mg/dL (NEG) Urine Blood Negative (NEG) Urine Nitrite Negative (NEG) Urine Bilirubin Negative (NEG) Urine Urobilinogen Dipstick 0.2 mg/dL (0.2 mg/dL) Urine Leukocyte Esterase Small (NEG) Urine RBC 0 /HPF (0-2) Urine WBC 5-10 /HPF (0-4) Urine Bacteria 0 /HPF (0-FEW) Urine Hyaline Casts Few /HPF Urine Mucus Mod /LPF Urine Yeast Present /HPF Test 08/07/19 04:30 White Blood Count 22.4 x10^3/uL (4.0-11.0) Red Blood Count 3.38 x10^6/uL (3.50-5.40) Hemoglobin 9.0 g/dL (12.0-15.5) Hematocrit 28.1 % (36.0-47.0) Mean Corpuscular Volume 83 fL (79-100) Mean Corpuscular Hemoglobin 27 pg (25-35) Mean Corpuscular Hemoglobin Concent 32 g/dL (31-37) Red Cell Distribution Width 16.1 % (11.5-14.5) Platelet Count 242 x10^3/uL (140-400) Sodium Level 134 mmol/L (136-145) Potassium Level 6.3 mmol/L (3.5-5.1) Chloride Level 103 mmol/L (98-107) Carbon Dioxide Level 22 mmol/L (21-32) Anion Gap 9 (6-14) Blood Urea Nitrogen 41 mg/dL (7-20) Creatinine 2.6 mg/dL (0.6-1.0) Estimated GFR (Cockcroft-Gault) 18.1 Glucose Level 175 mg/dL (70-99) Lactic Acid Level 2.9 mmol/L (0.4-2.0) Calcium Level 8.0 mg/dL (8.5-10.1) Procalcitonin 39.80 ng/mL (0.00-0.10) Review of Systems Review of Systems: Unable to obtain she is too confused Assessment and Plan Assessmemt and Plan Shortness of breath, hypoxia, hyperkalemia, renal failure, fevers, suspect possible COVID versus pulmonary embolism with acute renal failure. Allergic rhinitis, muscle spasms, hypertension, chronic pain, arthritis, depression, anxiety, GERD and diabetes. Plan COVID-19 ICU monitoring Await subspecialist input (infectious disease pulmonary and nephrology) IV Zosyn O2 per nasal cannula IV fluids Await Covid-19 testing Home meds DVT prophylaxis Full code She remains critically ill Total time 31min Comment Review of Relevant I have reviewed the following items jasper (where applicable) has been applied. Medications: Current Medications Medications (Trade) Dose Ordered Sig/Manish Route PRN Reason Start Time Stop Time Status Last Admin Dose Admin Vancomycin HCl (Vanco Per Pharmacy) 1 each PRN DAILY PRN MC SEE COMMENTS 08/06/19 18:15 08/06/19 18:16 Acetaminophen (Tylenol Supp) 650 mg PRN Q6HRS PRN PA MILD PAIN / TEMP > 100.3'F 08/06/19 18:15 08/06/19 21:01 Sodium Chloride 1,000 ml @ 100 mls/hr Q10H IV 08/06/19 18:15 08/07/19 07:40 DC 08/06/19 18:15 Piperacillin Sod/ Tazobactam Sod 3.375 gm/Sodium Chloride 50 ml @ 100 mls/hr Q6HRS IV 08/06/19 19:00 08/07/19 06:09 Vancomycin HCl 1.5 gm/Sodium Chloride 500 ml @ 250 mls/hr Q48H IV 08/06/19 20:00 08/06/19 21:13 Sodium Chloride 1,000 ml @ 125 mls/hr 1X ONCE IV 08/06/19 22:00 08/07/19 05:59 DC 08/06/19 22:00 Norepinephrine Bitartrate 8 mg/ Dextrose 258 ml @ 17.454 mls/ hr CONT PRN IV PER PROTOCOL 08/06/19 22:00 08/06/19 22:30 Sodium Bicarbonate 50 meq/Sodium Chloride 1,050 ml @ 150 mls/hr Q7H IV 08/06/19 22:30 08/07/19 05:30 Morphine Sulfate (Morphine Sulfate) 4 mg PRN Q2HR PRN IV PAIN 08/06/19 23:45 08/07/19 06:45 Lorazepam (Ativan Inj) 1 mg PRN Q6HRS PRN IVP ANXIETY / AGITATION 08/06/19 23:45 08/07/19 00:59 Sodium Polystyrene Sulfonate (Kayexalate) 30 gm Q6H PO 08/07/19 07:00 08/07/19 13:01 08/07/19 07:00 THAD WHIPPLE III DO August 07, 2019 09:01
[2019-08-07 10:28] LABS: BASO # 0.2 x10^3/uL (0.0-0.2); BASO % 1 % (0-3); EOS # 0.1 x10^3/uL (0.0-0.7); EOS % 0 % (0-3); HEMATOCRIT 28.4 % (36.0-47.0); HEMOGLOBIN 8.9 g/dL (12.0-15.5); LYMPH # 1.9 x10^3/uL (1.0-4.8); LYMPH % 9 % (24-48); MEAN CORPUSCULAR HEMOGLOBIN 27 pg (25-35); MEAN CORPUSCULAR HGB CONC 32 g/dL (31-37); MEAN CORPUSCULAR VOLUME 85 fL (79-100); MONO # 1.7 x10^3/uL (0.0-1.1); MONO % 8 % (0-9); NEUT # 18.3 x10^3/uL (1.8-7.7); NEUT % 82 % (31-73); PLATELET COUNT 242 x10^3/uL (140-400); RED BLOOD COUNT 3.35 x10^6/uL (3.50-5.40); RED CELL DISTRIBUTION WIDTH 15.9 % (11.5-14.5); WHITE BLOOD COUNT 22.3 x10^3/uL (4.0-11.0)
[2019-08-07 10:30] LABS: CALCIUM 7.6 mg/dL (8.5-10.1); CREATININE 2.1 mg/dL (0.6-1.0); GFR 23.2
--- NOTE | 2019-08-07 10:30 | CONS ---
DATE OF CONSULTATION: 08/07/2019 REFERRING PHYSICIAN: Dr. Pyle. REASON FOR CONSULTATION: Antibiotic management. HISTORY OF PRESENT ILLNESS: A 74-year-old morbidly obese female with multiple medical problems, coronary artery disease, morbid obesity, hyperlipidemia, type 2 diabetes, irritable bowel syndrome, GERD, rheumatoid arthritis, recurrent urinary tract infection, depression, anxiety, recently discharged from [facility] where she was treated with pneumonia and UTI about 10 days ago, was brought in from [place] [facility] where she presented with dyspnea and was found to be hypoxic. She was febrile. Potassium was 6.3 with AVI, lactic acidosis. UA was negative. She required 3 liters of oxygen. Upon arrival to [facility], her temperature was 103. Blood culture and urine culture ordered. She was started on vancomycin and Zosyn. COVID-19 is ordered. Pulmonary was consulted. ID consult has been requested for antibiotic management. Blood culture and urine culture remained negative so far. The patient is extremely confused, states she has pain, but does not answer all the questions. Temperature is 99.2 this morning. She remains tachycardic. She is on low dose Levophed, being weaned off per RN. PAST MEDICAL HISTORY: Coronary artery disease, morbid obesity, hyperlipidemia, type 2 diabetes, irritable bowel syndrome, GERD, rheumatoid arthritis, history of recurrent urinary tract infection, history of recent pneumonia and history of recent fall. PAST SURGICAL HISTORY: Total abdominal hysterectomy, cholecystectomy, bilateral cataract extraction, bilateral foot surgery, bilateral total knee arthroplasty. SOCIAL HISTORY: , lives with her . No smoking, no alcohol, no recreational drugs. ALLERGIES: LISTED GADOLINIUM CONTRAST, INFLUENZA VACCINE, SULFA DRUGS, ALOGLIPTIN, CAPSAICIN CREAM, CLINDAMYCIN AND CODEINE. FAMILY HISTORY: As per HPI. REVIEW OF SYSTEMS: Unable to obtain. PHYSICAL EXAMINATION: VITAL SIGNS: Temperature 99.2, T-max 103, pulse 122, respiratory rate 31, blood pressure 111/58, oxygen saturation 96% on 2 liters by nasal cannula. GENERAL: Alert, awake, confused female, does not answer most of the questions, in mild distress. HEENT: Normocephalic, atraumatic, anicteric. NECK: Supple, no lymphadenopathy. LUNGS: Decreased breath sounds at the bases. No wheezing. No accessory muscle use. HEART: S1, S2. No gallops or murmurs. ABDOMEN: Mildly distended, obese, soft, nontender. No guarding, no rigidity. Bowel sounds present. DERMATOLOGIC: Warm, dry. No generalized rash. EXTREMITIES: No edema, no clubbing, no cyanosis. CENTRAL NERVOUS SYSTEM: Moves all 4 extremities. Confused. LABORATORY DATA: WBC 22.4, was 10.8, hemoglobin 9, was 10, hematocrit 28.1, platelets 242. Sodium 134, potassium 6.3, chloride 103, bicarbonate 22, BUN 41, creatinine 2.6, glucose 165. Procalcitonin 39.84. Lactate 2.9. UA: Small leukocyte esterase, wbc's 5-10. MICRO: Blood culture and urine culture pending at this time. IMAGING: Diagnostic lower extremity ultrasound negative for DVT. IMPRESSION: 1. Fever. 2. Leukocytosis and lactic acidosis. 3. Sepsis, source unclear. 4. Acute hypoxic respiratory failure. 5. Acute kidney injury, hyperkalemia. 6. History of ALLERGIES TO SULFA, CLINDAMYCIN. 7. History of kidney stone. 8. History of recent pneumonia and urinary tract infection. 9. Diabetes mellitus. 10. History of kidney stones. 11. Coronary artery disease. 12. Rheumatoid arthritis. 13. Irritable bowel syndrome, gastroesophageal reflux disease. 14. History of recurrent urinary tract infection. 15. Encephalopathy. 16. Anemia. 17. Rule out COVID. RECOMMENDATIONS: 1. Discontinue vancomycin due to AVI. 2. Continue Zosyn, adjust dose per renal function. 3. Dose daptomycin. 4. Repeat CBC. 5. Obtain abdominal ultrasound. 6. Follow up cultures and lab. 7. Maintain aspiration precaution. 8. Continue supportive care. 9. Discussed with RN. Thank you, Dr. Pyle, for consulting Infectious Disease to participate in this patient's care. If you have any questions, do not hesitate to contact me. CCT time 35 minutes. MAEGAN FRITZ MD DR: OPAL/samantha JOB#: [id number] / [id number]
[2019-08-07 10:32] LABS: POTASSIUM 6.4 mmol/L (3.5-5.1)
[2019-08-07] MEDS: MEROPENEM 500 MG in IV NORMAL SALINE 50ML 50 ML IV SCH (10:36)
[2019-08-07] MEDS ORDERED: DEXTROSE 50% 25 GM / 50ML DISP.SYRIN. IV ONE (10:45)
[2019-08-07] MEDS ORDERED: SODIUM BICARB ADULT 8.4% 50 MEQ/50 ML DISP.SYRIN. IV ONE (10:45)
--- NOTE | 2019-08-07 10:45 | NUR ---
Paged Dr. Sandoval w/ Critical K+ results 6.4. Orders received and placed.
--- NOTE | 2019-08-07 10:59 | PDOC2 ---
CONSULT Date of Consult Date of Consult DATE: 08/07/19 TIME: 10:41 Reason for Consult Reason for Consult: AVI Referring Physician Referring Physician: [email or web address] Identification/Chief Complaint Chief Complaint CONFUSION Source Source: Chart review History of Present Illness Reason for Visit: THIS IS A 74 YR OLD PT WITH FEVER AND SOB. TEMP OF 103 AT [facility]. CURRENTLY IN THE ICU SEPTIC WITH HYPOTENSION. NO CKD HX NOTED. SHE HAS AVI WITH CR OF 2.3 AND K OF 6.3. HAS BEEN NON OLIGURIC BUT HYPOTENSIVE AND HAS HAD FLUID RESUSCITATION AND NOW ON PRESSORS. RECENTLY SHE WAS DISCHARGED FROM HERE AFTER TX FOR PNEUMONIA AND AN UTI. PULMONARY AND ID EVALUATION ARE ONGOING. COVID 19 IS PENDING. SHE HAS SEVERE LEUCOCYTOSIS AND MET ACIDOSIS WELL. SHE HAS BEEN ON AN MAYNOR-I AND K SUPPLEMENTS AT HOME Past Medical History Cardiovascular: HTN Renal/: No pertinent hx, Other Endocrine: Diabetes Past Surgical History Past Surgical History: No pertinent history Family History Family History: No Significant, Stroke Social History ALCOHOL: none Drugs: None Lives: with Family Domestic Violence: Neg Current Medications Current Medications Current Medications Piperacillin Sod/ Tazobactam Sod (Zosyn Per Pharmacy) 1 each PRN DAILY PRN MC SEE COMMENTS; Start 08/06/19 at 18:15; Stop 08/07/19 at 09:50; Status DC Vancomycin HCl (Vanco Per Pharmacy) 1 each PRN DAILY PRN MC SEE COMMENTS Last administered on 08/06/19at 18:16; Start 08/06/19 at 18:15; Stop 08/07/19 at 09:50; Status DC Acetaminophen (Tylenol Supp) 650 mg PRN Q6HRS PRN ME MILD PAIN / TEMP > 100.3'F Last administered on 08/06/19at 21:01; Start 08/06/19 at 18:15 Sodium Chloride 1,000 ml @ 100 mls/hr Q10H IV Last administered on 08/06/19at 18:15; Start 08/06/19 at 18:15; Stop 08/07/19 at 07:40; Status DC Piperacillin Sod/ Tazobactam Sod 3.375 gm/Sodium Chloride 50 ml @ 100 mls/hr Q6HRS IV Last administered on 08/07/19at 06:09; Start 08/06/19 at 19:00; Stop 08/07/19 at 09:50; Status DC Vancomycin HCl 1.5 gm/Sodium Chloride 500 ml @ 250 mls/hr Q48H IV Last administered on 08/06/19at 21:13; Start 08/06/19 at 20:00; Stop 08/07/19 at 09:50; Status DC Vancomycin HCl (Vancomycin Trough Level) 1 each 1X ONCE MC ; Start 08/10/19 at 19:30; Stop 08/07/19 at 09:59; Status DC Sodium Chloride 1,000 ml @ 125 mls/hr 1X ONCE IV Last administered on 08/06/19at 22:00; Start 08/06/19 at 22:00; Stop 08/07/19 at 05:59; Status DC Norepinephrine Bitartrate 8 mg/ Dextrose 258 ml @ 17.454 mls/ hr CONT PRN IV PER PROTOCOL Last administered on 08/06/19at 22:30; Start 08/06/19 at 22:00 Sodium Bicarbonate 50 meq/Sodium Chloride 1,050 ml @ 150 mls/hr Q7H IV Last administered on 08/07/19at 05:30; Start 08/06/19 at 22:30 Morphine Sulfate (Morphine Sulfate) 4 mg PRN Q2HR PRN IV PAIN Last administered on 08/07/19at 06:45; Start 08/06/19 at 23:45 Lorazepam (Ativan Inj) 1 mg PRN Q6HRS PRN IVP ANXIETY / AGITATION Last administered on 08/07/19at 00:59; Start 08/06/19 at 23:45 Sodium Polystyrene Sulfonate (Kayexalate) 30 gm Q6H PO Last administered on 08/07/19at 07:00; Start 08/07/19 at 07:00; Stop 08/07/19 at 13:01 Meropenem 500 mg/ Sodium Chloride 50 ml @ 100 mls/hr DAILY IV Last administered on 08/07/19at 10:36; Start 08/07/19 at 10:00 Daptomycin 500 mg/ Sodium Chloride 50 ml @ 100 mls/hr QODAY IV Last administered on 08/07/19at 10:36; Start 08/07/19 at 11:00 Heparin Sodium (Porcine) (Heparin Sodium) 5,000 unit Q12HR SQ ; Start 08/07/19 at 11:00 Active Scripts Active Reported Humalog (Insulin Lispro) 100 Unit/1 Ml Cartridge 20 Unit SQ TID Tramadol Hcl 50 Mg Tablet 50 Mg PO DAILY PRN Lasix (Furosemide) 40 Mg Tablet 1 Tab PO DAILY 30 Days Lisinopril 5 Mg Tablet 1 Tab PO DAILY Meclizine Hcl 25 Mg Tablet 1 Tab PO TID Pantoprazole Sodium (Pantoprazole Sodium) 40 Mg Tablet.dr 40 Mg PO DAILYAC Venlafaxine Hcl 37.5 Mg Tablet 1 Tab PO DAILY Calcium 500 + D Tablet (Calcium Carbonate/Vitamin D3) 1 Each Tablet 1 Tab PO DAILY 30 Days Aspirin Ec (Aspirin) 81 Mg Tablet.dr 1 Tab PO DAILY Metoprolol Tartrate 25 Mg Tablet 1 Tab PO BID Prednisone 20 Mg Tablet 10 Mg PO DAILY Tresiba Flextouch U-100 (Insulin Degludec) 100 Unit/1 Ml Insuln.pen 85 Unit SQ DAILY08 Zyrtec (Cetirizine Hcl) 10 Mg Tab.chew 10 Mg PO DAILY Amitriptyline Hcl 25 Mg Tablet 25 Mg PO HS Cyclobenzaprine Hcl 10 Mg Tablet 10 Mg PO HS Klor-Con (Potassium Chloride) 20 Meq Packet Unknown Dose PO DAILY Enbrel (Etanercept) 50 Mg/1 Ml Disp.syrin 50 Mg SQ WEEKLY Allergies Allergies: Coded Allergies: Gadolinium-Containing Contrast Medi (Verified Allergy, Intermediate, Itching, 07/21/19) Pt states she has had MRI contrast here in the past and was itching afterward but did not report it to anyone until today. Office was notified. mb Sulfa (Sulfonamide Antibiotics) (Verified Allergy, Intermediate, 05/17/17) alogliptin (Verified Allergy, Intermediate, 05/17/17) capsaicin (Verified Allergy, Intermediate, 05/17/17) clindamycin (Verified Allergy, Intermediate, 05/17/17) codeine (Verified Allergy, Intermediate, 05/17/17) iodine (Verified Allergy, Intermediate, 05/18/17) levofloxacin (Verified Allergy, Intermediate, 05/17/17) menthol (Verified Allergy, Intermediate, 05/17/17) metformin (Verified Allergy, Intermediate, 05/17/17) naproxen (Verified Allergy, Intermediate, 05/17/17) pioglitazone (Verified Allergy, Intermediate, 05/17/17) ROS Review of System UNABLE TO OBTAIN Physical Exam General: Cooperative, mild distress HEENT: Atraumatic, PERRLA Lungs: Clear to auscultation, Other (TACHYPNEIC) Heart: Regular rate, Other (OCC TACHY) Abdomen: Normal bowel sounds Extremities: No clubbing, No cyanosis, No edema Skin: No breakdown Neuro: Other (CONFUSED WITH NO ASYMMETRY) Psych/Mental Status: Other (CONFUSED) MUSCULOSKELETAL: No joint tenderness, No deformity Vitals VITALS Vital Signs Date Time Temp Pulse Resp B/P (MAP) Pulse Ox O2 Delivery O2 Flow Rate FiO2 08/07/19 08:22 Nasal Cannula 08/07/19 08:15 122 111/58 (75) 08/07/19 08:00 99.2 31 96 2.0 99.2 Labs Labs Laboratory Tests Test 08/06/19 18:30 08/06/19 18:45 08/06/19 19:40 08/06/19 23:00 O2 Saturation 97 % (92-99) Arterial Blood pH 7.40 (7.35-7.45) Arterial Blood pH (Temp corrected) 7.40 Arterial Blood pCO2 at Patient Temp 34 mmHg (35-46) Arterial Blood pCO2 (Temp correct) 34 mmHg Arterial Blood pO2 at Patient Temp 106 mmHg (65-108) Arterial Blood pO2 (Temp corrected) 106 mmHg Arterial Blood HCO3 20 mmol/L (21-28) Arterial Blood Base Excess -3 mmol/L (-3-3) White Blood Count 10.8 x10^3/uL (4.0-11.0) Red Blood Count 3.72 x10^6/uL (3.50-5.40) Hemoglobin 10.0 g/dL (12.0-15.5) Hematocrit 30.7 % (36.0-47.0) Mean Corpuscular Volume 82 fL (79-100) Mean Corpuscular Hemoglobin 27 pg (25-35) Mean Corpuscular Hemoglobin Concent 33 g/dL (31-37) Red Cell Distribution Width 16.1 % (11.5-14.5) Platelet Count 233 x10^3/uL (140-400) Sodium Level 138 mmol/L (136-145) 138 mmol/L (136-145) Potassium Level 6.3 mmol/L (3.5-5.1) 5.9 mmol/L (3.5-5.1) Chloride Level 105 mmol/L (98-107) 106 mmol/L (98-107) Carbon Dioxide Level 21 mmol/L (21-32) 21 mmol/L (21-32) Anion Gap 12 (6-14) 11 (6-14) Blood Urea Nitrogen 42 mg/dL (7-20) 41 mg/dL (7-20) Creatinine 2.3 mg/dL (0.6-1.0) 2.7 mg/dL (0.6-1.0) Estimated GFR (Cockcroft-Gault) 20.8 17.3 BUN/Creatinine Ratio 18 (6-20) Glucose Level 135 mg/dL (70-99) 112 mg/dL (70-99) Lactic Acid Level 2.3 mmol/L (0.4-2.0) 3.7 mmol/L (0.4-2.0) Calcium Level 7.8 mg/dL (8.5-10.1) 7.9 mg/dL (8.5-10.1) Total Bilirubin 0.3 mg/dL (0.2-1.0) Aspartate Amino Transf (AST/SGOT) 34 U/L (15-37) Alanine Aminotransferase (ALT/SGPT) 31 U/L (14-59) Alkaline Phosphatase 89 U/L (46-116) Total Protein 6.4 g/dL (6.4-8.2) Albumin 2.7 g/dL (3.4-5.0) Albumin/Globulin Ratio 0.7 (1.0-1.7) Urine Collection Type Unknown Urine Color Yellow Urine Clarity Clear Urine pH 5.5 (<5.0-8.0) Urine Specific [place] 1.015 (1.000-1.030) Urine Protein Negative mg/dL (NEG-TRACE) Urine Glucose (UA) Negative mg/dL (NEG) Urine Ketones (Stick) Negative mg/dL (NEG) Urine Blood Negative (NEG) Urine Nitrite Negative (NEG) Urine Bilirubin Negative (NEG) Urine Urobilinogen Dipstick 0.2 mg/dL (0.2 mg/dL) Urine Leukocyte Esterase Small (NEG) Urine RBC 0 /HPF (0-2) Urine WBC 5-10 /HPF (0-4) Urine Bacteria 0 /HPF (0-FEW) Urine Hyaline Casts Few /HPF Urine Mucus Mod /LPF Urine Yeast Present /HPF Test 08/07/19 04:30 08/07/19 09:15 White Blood Count 22.3 x10^3/uL (4.0-11.0) Red Blood Count 3.35 x10^6/uL (3.50-5.40) Hemoglobin 8.9 g/dL (12.0-15.5) Hematocrit 28.4 % (36.0-47.0) Mean Corpuscular Volume 85 fL (79-100) Mean Corpuscular Hemoglobin 27 pg (25-35) Mean Corpuscular Hemoglobin Concent 32 g/dL (31-37) Red Cell Distribution Width 15.9 % (11.5-14.5) Platelet Count 242 x10^3/uL (140-400) Neutrophils (%) (Auto) 82 % (31-73) Lymphocytes (%) (Auto) 9 % (24-48) Monocytes (%) (Auto) 8 % (0-9) Eosinophils (%) (Auto) 0 % (0-3) Basophils (%) (Auto) 1 % (0-3) Neutrophils # (Auto) 18.3 x10^3/uL (1.8-7.7) Lymphocytes # (Auto) 1.9 x10^3/uL (1.0-4.8) Monocytes # (Auto) 1.7 x10^3/uL (0.0-1.1) Eosinophils # (Auto) 0.1 x10^3/uL (0.0-0.7) Basophils # (Auto) 0.2 x10^3/uL (0.0-0.2) Sodium Level 134 mmol/L (136-145) 136 mmol/L (136-145) Potassium Level 6.3 mmol/L (3.5-5.1) 6.4 mmol/L (3.5-5.1) Chloride Level 103 mmol/L (98-107) 103 mmol/L (98-107) Carbon Dioxide Level 22 mmol/L (21-32) 20 mmol/L (21-32) Anion Gap 9 (6-14) 13 (6-14) Blood Urea Nitrogen 41 mg/dL (7-20) 37 mg/dL (7-20) Creatinine 2.6 mg/dL (0.6-1.0) 2.1 mg/dL (0.6-1.0) Estimated GFR (Cockcroft-Gault) 18.1 23.2 Glucose Level 175 mg/dL (70-99) 208 mg/dL (70-99) Lactic Acid Level 2.9 mmol/L (0.4-2.0) 2.9 mmol/L (0.4-2.0) Calcium Level 8.0 mg/dL (8.5-10.1) 7.6 mg/dL (8.5-10.1) Procalcitonin 39.80 ng/mL (0.00-0.10) Laboratory Tests Test 08/06/19 18:30 08/06/19 18:45 08/06/19 19:40 08/06/19 23:00 O2 Saturation 97 % (92-99) Arterial Blood pH 7.40 (7.35-7.45) Arterial Blood pH (Temp corrected) 7.40 Arterial Blood pCO2 at Patient Temp 34 mmHg (35-46) Arterial Blood pCO2 (Temp correct) 34 mmHg Arterial Blood pO2 at Patient Temp 106 mmHg (65-108) Arterial Blood pO2 (Temp corrected) 106 mmHg Arterial Blood HCO3 20 mmol/L (21-28) Arterial Blood Base Excess -3 mmol/L (-3-3) White Blood Count 10.8 x10^3/uL (4.0-11.0) Red Blood Count 3.72 x10^6/uL (3.50-5.40) Hemoglobin 10.0 g/dL (12.0-15.5) Hematocrit 30.7 % (36.0-47.0) Mean Corpuscular Volume 82 fL (79-100) Mean Corpuscular Hemoglobin 27 pg (25-35) Mean Corpuscular Hemoglobin Concent 33 g/dL (31-37) Red Cell Distribution Width 16.1 % (11.5-14.5) Platelet Count 233 x10^3/uL (140-400) Sodium Level 138 mmol/L (136-145) 138 mmol/L (136-145) Potassium Level 6.3 mmol/L (3.5-5.1) 5.9 mmol/L (3.5-5.1) Chloride Level 105 mmol/L (98-107) 106 mmol/L (98-107) Carbon Dioxide Level 21 mmol/L (21-32) 21 mmol/L (21-32) Anion Gap 12 (6-14) 11 (6-14) Blood Urea Nitrogen 42 mg/dL (7-20) 41 mg/dL (7-20) Creatinine 2.3 mg/dL (0.6-1.0) 2.7 mg/dL (0.6-1.0) Estimated GFR (Cockcroft-Gault) 20.8 17.3 BUN/Creatinine Ratio 18 (6-20) Glucose Level 135 mg/dL (70-99) 112 mg/dL (70-99) Lactic Acid Level 2.3 mmol/L (0.4-2.0) 3.7 mmol/L (0.4-2.0) Calcium Level 7.8 mg/dL (8.5-10.1) 7.9 mg/dL (8.5-10.1) Total Bilirubin 0.3 mg/dL (0.2-1.0) Aspartate Amino Transf (AST/SGOT) 34 U/L (15-37) Alanine Aminotransferase (ALT/SGPT) 31 U/L (14-59) Alkaline Phosphatase 89 U/L (46-116) Total Protein 6.4 g/dL (6.4-8.2) Albumin 2.7 g/dL (3.4-5.0) Albumin/Globulin Ratio 0.7 (1.0-1.7) Urine Collection Type Unknown Urine Color Yellow Urine Clarity Clear Urine pH 5.5 (<5.0-8.0) Urine Specific [place] 1.015 (1.000-1.030) Urine Protein Negative mg/dL (NEG-TRACE) Urine Glucose (UA) Negative mg/dL (NEG) Urine Ketones (Stick) Negative mg/dL (NEG) Urine Blood Negative (NEG) Urine Nitrite Negative (NEG) Urine Bilirubin Negative (NEG) Urine Urobilinogen Dipstick 0.2 mg/dL (0.2 mg/dL) Urine Leukocyte Esterase Small (NEG) Urine RBC 0 /HPF (0-2) Urine WBC 5-10 /HPF (0-4) Urine Bacteria 0 /HPF (0-FEW) Urine Hyaline Casts Few /HPF Urine Mucus Mod /LPF Urine Yeast Present /HPF Test 08/07/19 04:30 08/07/19 09:15 White Blood Count 22.3 x10^3/uL (4.0-11.0) Red Blood Count 3.35 x10^6/uL (3.50-5.40) Hemoglobin 8.9 g/dL (12.0-15.5) Hematocrit 28.4 % (36.0-47.0) Mean Corpuscular Volume 85 fL (79-100) Mean Corpuscular Hemoglobin 27 pg (25-35) Mean Corpuscular Hemoglobin Concent 32 g/dL (31-37) Red Cell Distribution Width 15.9 % (11.5-14.5) Platelet Count 242 x10^3/uL (140-400) Neutrophils (%) (Auto) 82 % (31-73) Lymphocytes (%) (Auto) 9 % (24-48) Monocytes (%) (Auto) 8 % (0-9) Eosinophils (%) (Auto) 0 % (0-3) Basophils (%) (Auto) 1 % (0-3) Neutrophils # (Auto) 18.3 x10^3/uL (1.8-7.7) Lymphocytes # (Auto) 1.9 x10^3/uL (1.0-4.8) Monocytes # (Auto) 1.7 x10^3/uL (0.0-1.1) Eosinophils # (Auto) 0.1 x10^3/uL (0.0-0.7) Basophils # (Auto) 0.2 x10^3/uL (0.0-0.2) Sodium Level 134 mmol/L (136-145) 136 mmol/L (136-145) Potassium Level 6.3 mmol/L (3.5-5.1) 6.4 mmol/L (3.5-5.1) Chloride Level 103 mmol/L (98-107) 103 mmol/L (98-107) Carbon Dioxide Level 22 mmol/L (21-32) 20 mmol/L (21-32) Anion Gap 9 (6-14) 13 (6-14) Blood Urea Nitrogen 41 mg/dL (7-20) 37 mg/dL (7-20) Creatinine 2.6 mg/dL (0.6-1.0) 2.1 mg/dL (0.6-1.0) Estimated GFR (Cockcroft-Gault) 18.1 23.2 Glucose Level 175 mg/dL (70-99) 208 mg/dL (70-99) Lactic Acid Level 2.9 mmol/L (0.4-2.0) 2.9 mmol/L (0.4-2.0) Calcium Level 8.0 mg/dL (8.5-10.1) 7.6 mg/dL (8.5-10.1) Procalcitonin 39.80 ng/mL (0.00-0.10) Assessment/Plan Assessment/Plan IMP AVI - ATN-CR OF 2.3 WITH NO CKD-NON OLIGURIC HYPERKALEMIA MET ACIDOSIS SEPSIS HYPOTENSION ACUTE RESP FAILURE LEUKOCYTOSIS MET ENCEPHALOPATHY DM II PLAN ANTIBIOTICS TX HIGH K KAYEXALATE DONE EARLY TODAY WILL ALSO GIVE D50, INSULIN, HCO3 AND CALCIUM PRESSORS HCO3 GTT MAY NEED DIALYSIS HOLD LASIX, MAYNOR-I, KCL AND ANTIHYPERTENSIVES WILL FOLLOW PT IS CRITICALLY ILL JOANN LUNSFORD MD August 07, 2019 10:59
[2019-08-07] MEDS ORDERED: INSULIN REGULAR 100 UNIT/ML 3ML VIAL. IV ONE (11:00)
[2019-08-07] MEDS ORDERED: CALCIUM GLUCONATE 1,000 MG in IV NORMAL SALINE 100ML 100 ML IV ONE (11:00)
[2019-08-07] MEDS ORDERED: DAPTOmycin (GENERIC) IVPB 500 MG in IV NORMAL SALINE 50ML 50 ML IV SCH (11:00)
[2019-08-07] MEDS: HEPARIN for SUB-Q USE 5,000 UNIT/ML VIAL. SQ SCH ×2 (11:18→21:05)
[2019-08-07 11:36] LABS: % BANDS 33 % (0-9); % LYMPHS 7 % (24-48); % METAS 7 % (0-0); % MONOS 9 % (0-10); % SEGS 44 % (35-66)
[2019-08-07 11:37] LABS: PLT ESTIMATE ADEQUATE (ADEQUATE)
--- NOTE | 2019-08-07 11:45 | PDOC ---
PULMONARY PROGRESS NOTES Subjective no soa, on NC on levophed Vitals Vital Signs Date Time Temp Pulse Resp B/P (MAP) Pulse Ox O2 Delivery O2 Flow Rate FiO2 08/07/19 09:15 127/59 (81) 08/07/19 09:00 120 34 98 Nasal Cannula 2.0 08/07/19 08:00 99.2 99.2 General: Alert, No acute distress HEENT: Other Cardiovascular: S1, S2 Abdomen: Soft, Non-tender Extremities: No Edema Labs Laboratory Tests Test 08/06/19 18:30 08/06/19 18:45 08/06/19 19:40 08/06/19 23:00 O2 Saturation 97 % (92-99) Arterial Blood pH 7.40 (7.35-7.45) Arterial Blood pH (Temp corrected) 7.40 Arterial Blood pCO2 at Patient Temp 34 mmHg (35-46) Arterial Blood pCO2 (Temp correct) 34 mmHg Arterial Blood pO2 at Patient Temp 106 mmHg (65-108) Arterial Blood pO2 (Temp corrected) 106 mmHg Arterial Blood HCO3 20 mmol/L (21-28) Arterial Blood Base Excess -3 mmol/L (-3-3) White Blood Count 10.8 x10^3/uL (4.0-11.0) Red Blood Count 3.72 x10^6/uL (3.50-5.40) Hemoglobin 10.0 g/dL (12.0-15.5) Hematocrit 30.7 % (36.0-47.0) Mean Corpuscular Volume 82 fL (79-100) Mean Corpuscular Hemoglobin 27 pg (25-35) Mean Corpuscular Hemoglobin Concent 33 g/dL (31-37) Red Cell Distribution Width 16.1 % (11.5-14.5) Platelet Count 233 x10^3/uL (140-400) Sodium Level 138 mmol/L (136-145) 138 mmol/L (136-145) Potassium Level 6.3 mmol/L (3.5-5.1) 5.9 mmol/L (3.5-5.1) Chloride Level 105 mmol/L (98-107) 106 mmol/L (98-107) Carbon Dioxide Level 21 mmol/L (21-32) 21 mmol/L (21-32) Anion Gap 12 (6-14) 11 (6-14) Blood Urea Nitrogen 42 mg/dL (7-20) 41 mg/dL (7-20) Creatinine 2.3 mg/dL (0.6-1.0) 2.7 mg/dL (0.6-1.0) Estimated GFR (Cockcroft-Gault) 20.8 17.3 BUN/Creatinine Ratio 18 (6-20) Glucose Level 135 mg/dL (70-99) 112 mg/dL (70-99) Lactic Acid Level 2.3 mmol/L (0.4-2.0) 3.7 mmol/L (0.4-2.0) Calcium Level 7.8 mg/dL (8.5-10.1) 7.9 mg/dL (8.5-10.1) Total Bilirubin 0.3 mg/dL (0.2-1.0) Aspartate Amino Transf (AST/SGOT) 34 U/L (15-37) Alanine Aminotransferase (ALT/SGPT) 31 U/L (14-59) Alkaline Phosphatase 89 U/L (46-116) Total Protein 6.4 g/dL (6.4-8.2) Albumin 2.7 g/dL (3.4-5.0) Albumin/Globulin Ratio 0.7 (1.0-1.7) Urine Collection Type Unknown Urine Color Yellow Urine Clarity Clear Urine pH 5.5 (<5.0-8.0) Urine Specific [place] 1.015 (1.000-1.030) Urine Protein Negative mg/dL (NEG-TRACE) Urine Glucose (UA) Negative mg/dL (NEG) Urine Ketones (Stick) Negative mg/dL (NEG) Urine Blood Negative (NEG) Urine Nitrite Negative (NEG) Urine Bilirubin Negative (NEG) Urine Urobilinogen Dipstick 0.2 mg/dL (0.2 mg/dL) Urine Leukocyte Esterase Small (NEG) Urine RBC 0 /HPF (0-2) Urine WBC 5-10 /HPF (0-4) Urine Bacteria 0 /HPF (0-FEW) Urine Hyaline Casts Few /HPF Urine Mucus Mod /LPF Urine Yeast Present /HPF Test 08/07/19 04:30 08/07/19 09:15 White Blood Count 22.3 x10^3/uL (4.0-11.0) Red Blood Count 3.35 x10^6/uL (3.50-5.40) Hemoglobin 8.9 g/dL (12.0-15.5) Hematocrit 28.4 % (36.0-47.0) Mean Corpuscular Volume 85 fL (79-100) Mean Corpuscular Hemoglobin 27 pg (25-35) Mean Corpuscular Hemoglobin Concent 32 g/dL (31-37) Red Cell Distribution Width 15.9 % (11.5-14.5) Platelet Count 242 x10^3/uL (140-400) Neutrophils (%) (Auto) 82 % (31-73) Lymphocytes (%) (Auto) 9 % (24-48) Monocytes (%) (Auto) 8 % (0-9) Eosinophils (%) (Auto) 0 % (0-3) Basophils (%) (Auto) 1 % (0-3) Neutrophils # (Auto) 18.3 x10^3/uL (1.8-7.7) Lymphocytes # (Auto) 1.9 x10^3/uL (1.0-4.8) Monocytes # (Auto) 1.7 x10^3/uL (0.0-1.1) Eosinophils # (Auto) 0.1 x10^3/uL (0.0-0.7) Basophils # (Auto) 0.2 x10^3/uL (0.0-0.2) Segmented Neutrophils % 44 % (35-66) Band Neutrophils % 33 % (0-9) Lymphocytes % 7 % (24-48) Monocytes % 9 % (0-10) Metamyelocytes % 7 % (0-0) Platelet Estimate Adequate (ADEQUATE) Sodium Level 134 mmol/L (136-145) 136 mmol/L (136-145) Potassium Level 6.3 mmol/L (3.5-5.1) 6.4 mmol/L (3.5-5.1) Chloride Level 103 mmol/L (98-107) 103 mmol/L (98-107) Carbon Dioxide Level 22 mmol/L (21-32) 20 mmol/L (21-32) Anion Gap 9 (6-14) 13 (6-14) Blood Urea Nitrogen 41 mg/dL (7-20) 37 mg/dL (7-20) Creatinine 2.6 mg/dL (0.6-1.0) 2.1 mg/dL (0.6-1.0) Estimated GFR (Cockcroft-Gault) 18.1 23.2 Glucose Level 175 mg/dL (70-99) 208 mg/dL (70-99) Lactic Acid Level 2.9 mmol/L (0.4-2.0) 2.9 mmol/L (0.4-2.0) Calcium Level 8.0 mg/dL (8.5-10.1) 7.6 mg/dL (8.5-10.1) Procalcitonin 39.80 ng/mL (0.00-0.10) Creatine Kinase 560 U/L (26-192) Laboratory Tests Test 08/06/19 18:30 08/06/19 18:45 08/06/19 19:40 08/06/19 23:00 O2 Saturation 97 % (92-99) Arterial Blood pH 7.40 (7.35-7.45) Arterial Blood pH (Temp corrected) 7.40 Arterial Blood pCO2 at Patient Temp 34 mmHg (35-46) Arterial Blood pCO2 (Temp correct) 34 mmHg Arterial Blood pO2 at Patient Temp 106 mmHg (65-108) Arterial Blood pO2 (Temp corrected) 106 mmHg Arterial Blood HCO3 20 mmol/L (21-28) Arterial Blood Base Excess -3 mmol/L (-3-3) White Blood Count 10.8 x10^3/uL (4.0-11.0) Red Blood Count 3.72 x10^6/uL (3.50-5.40) Hemoglobin 10.0 g/dL (12.0-15.5) Hematocrit 30.7 % (36.0-47.0) Mean Corpuscular Volume 82 fL (79-100) Mean Corpuscular Hemoglobin 27 pg (25-35) Mean Corpuscular Hemoglobin Concent 33 g/dL (31-37) Red Cell Distribution Width 16.1 % (11.5-14.5) Platelet Count 233 x10^3/uL (140-400) Sodium Level 138 mmol/L (136-145) 138 mmol/L (136-145) Potassium Level 6.3 mmol/L (3.5-5.1) 5.9 mmol/L (3.5-5.1) Chloride Level 105 mmol/L (98-107) 106 mmol/L (98-107) Carbon Dioxide Level 21 mmol/L (21-32) 21 mmol/L (21-32) Anion Gap 12 (6-14) 11 (6-14) Blood Urea Nitrogen 42 mg/dL (7-20) 41 mg/dL (7-20) Creatinine 2.3 mg/dL (0.6-1.0) 2.7 mg/dL (0.6-1.0) Estimated GFR (Cockcroft-Gault) 20.8 17.3 BUN/Creatinine Ratio 18 (6-20) Glucose Level 135 mg/dL (70-99) 112 mg/dL (70-99) Lactic Acid Level 2.3 mmol/L (0.4-2.0) 3.7 mmol/L (0.4-2.0) Calcium Level 7.8 mg/dL (8.5-10.1) 7.9 mg/dL (8.5-10.1) Total Bilirubin 0.3 mg/dL (0.2-1.0) Aspartate Amino Transf (AST/SGOT) 34 U/L (15-37) Alanine Aminotransferase (ALT/SGPT) 31 U/L (14-59) Alkaline Phosphatase 89 U/L (46-116) Total Protein 6.4 g/dL (6.4-8.2) Albumin 2.7 g/dL (3.4-5.0) Albumin/Globulin Ratio 0.7 (1.0-1.7) Urine Collection Type Unknown Urine Color Yellow Urine Clarity Clear Urine pH 5.5 (<5.0-8.0) Urine Specific [place] 1.015 (1.000-1.030) Urine Protein Negative mg/dL (NEG-TRACE) Urine Glucose (UA) Negative mg/dL (NEG) Urine Ketones (Stick) Negative mg/dL (NEG) Urine Blood Negative (NEG) Urine Nitrite Negative (NEG) Urine Bilirubin Negative (NEG) Urine Urobilinogen Dipstick 0.2 mg/dL (0.2 mg/dL) Urine Leukocyte Esterase Small (NEG) Urine RBC 0 /HPF (0-2) Urine WBC 5-10 /HPF (0-4) Urine Bacteria 0 /HPF (0-FEW) Urine Hyaline Casts Few /HPF Urine Mucus Mod /LPF Urine Yeast Present /HPF Test 08/07/19 04:30 08/07/19 09:15 White Blood Count 22.3 x10^3/uL (4.0-11.0) Red Blood Count 3.35 x10^6/uL (3.50-5.40) Hemoglobin 8.9 g/dL (12.0-15.5) Hematocrit 28.4 % (36.0-47.0) Mean Corpuscular Volume 85 fL (79-100) Mean Corpuscular Hemoglobin 27 pg (25-35) Mean Corpuscular Hemoglobin Concent 32 g/dL (31-37) Red Cell Distribution Width 15.9 % (11.5-14.5) Platelet Count 242 x10^3/uL (140-400) Neutrophils (%) (Auto) 82 % (31-73) Lymphocytes (%) (Auto) 9 % (24-48) Monocytes (%) (Auto) 8 % (0-9) Eosinophils (%) (Auto) 0 % (0-3) Basophils (%) (Auto) 1 % (0-3) Neutrophils # (Auto) 18.3 x10^3/uL (1.8-7.7) Lymphocytes # (Auto) 1.9 x10^3/uL (1.0-4.8) Monocytes # (Auto) 1.7 x10^3/uL (0.0-1.1) Eosinophils # (Auto) 0.1 x10^3/uL (0.0-0.7) Basophils # (Auto) 0.2 x10^3/uL (0.0-0.2) Segmented Neutrophils % 44 % (35-66) Band Neutrophils % 33 % (0-9) Lymphocytes % 7 % (24-48) Monocytes % 9 % (0-10) Metamyelocytes % 7 % (0-0) Platelet Estimate Adequate (ADEQUATE) Sodium Level 134 mmol/L (136-145) 136 mmol/L (136-145) Potassium Level 6.3 mmol/L (3.5-5.1) 6.4 mmol/L (3.5-5.1) Chloride Level 103 mmol/L (98-107) 103 mmol/L (98-107) Carbon Dioxide Level 22 mmol/L (21-32) 20 mmol/L (21-32) Anion Gap 9 (6-14) 13 (6-14) Blood Urea Nitrogen 41 mg/dL (7-20) 37 mg/dL (7-20) Creatinine 2.6 mg/dL (0.6-1.0) 2.1 mg/dL (0.6-1.0) Estimated GFR (Cockcroft-Gault) 18.1 23.2 Glucose Level 175 mg/dL (70-99) 208 mg/dL (70-99) Lactic Acid Level 2.9 mmol/L (0.4-2.0) 2.9 mmol/L (0.4-2.0) Calcium Level 8.0 mg/dL (8.5-10.1) 7.6 mg/dL (8.5-10.1) Procalcitonin 39.80 ng/mL (0.00-0.10) Creatine Kinase 560 U/L (26-192) Medications Active Scripts Medications Dose Route/Sig Max Daily Dose Days Date Category Humalog (Insulin Lispro) 100 Unit/1 Ml Cartridge 20 Unit SQ TID 08/06/19 Reported Tramadol Hcl 50 Mg Tablet 50 Mg PO DAILY PRN 08/06/19 Reported Lasix (Furosemide) 40 Mg Tablet 1 Tab PO DAILY 30 08/06/19 Reported Lisinopril 5 Mg Tablet 1 Tab PO DAILY 08/06/19 Reported Meclizine Hcl 25 Mg Tablet 1 Tab PO TID 08/06/19 Reported Pantoprazole Sodium (Pantoprazole Sodium) 40 Mg Tablet.dr 40 Mg PO DAILYAC 08/06/19 Reported Venlafaxine Hcl 37.5 Mg Tablet 1 Tab PO DAILY 08/06/19 Reported Calcium 500 + D Tablet (Calcium Carbonate/Vitamin D3) 1 Each Tablet 1 Tab PO DAILY 30 08/06/19 Reported Aspirin Ec (Aspirin) 81 Mg Tablet.dr 1 Tab PO DAILY 08/06/19 Reported Metoprolol Tartrate 25 Mg Tablet 1 Tab PO BID 08/06/19 Reported Prednisone 20 Mg Tablet 10 Mg PO DAILY 05/16/17 Reported Tresiba Flextouch U-100 (Insulin Degludec) 100 Unit/1 Ml Insuln.pen 85 Unit SQ DAILY08 05/16/17 Reported Zyrtec (Cetirizine Hcl) 10 Mg Tab.chew 10 Mg PO DAILY 07/01/15 Reported Amitriptyline Hcl 25 Mg Tablet 25 Mg PO HS 07/01/15 Reported Cyclobenzaprine Hcl 10 Mg Tablet 10 Mg PO HS 07/01/15 Reported Klor-Con (Potassium Chloride) 20 Meq Packet Unknown Dose PO DAILY 07/01/15 Reported Enbrel (Etanercept) 50 Mg/1 Ml Disp.syrin 50 Mg SQ WEEKLY 07/01/15 Reported Impression . 1. Acute hypoxic respiratory failure secondary to septic shock. 2. Fever of 103. Source is not so obvious. The chest x-ray is clear. She did have mild ground-glass infiltrates on 07/24/[address] chest and chest x-ray and these are no longer visible. One should look for other sources of infection. The urine appears to be benign so far. She needs to be ruled out for COVID. There are no obvious wounds. Infectious Disease following. Pt is immuno-suppresed (on chronic steroids for RA.) 3. No significant tobacco history. 4. Obesity contributing to hypoxia as well. 5. Hyperkalemia and acute kidney injury related to septic shock. Renal has been consulted for acute management of hyperkalemia. 6. Moderate protein-calorie malnutrition. 7. Venous Dopplers with no evidence of deep venous thrombosis. Clinical suspicion for thromboembolic disease is low and would not pursue at this point for a V/Q scan. 8. RA, on chronic steroids Plan . 1. Continue with present oxygen, keep saturation 94 and above. 2. Broad-spectrum antibiotics per ID 3. Blood cultures and urine cultures and follow the results. 4. COVID-19 testing has been ordered and is pending. We will keep her under isolation until then. 5. Follow renal recommendation regarding hyperkalemia and AVI. 6. P.r.n. bronchodilators. 7. Aggressive IV fluid resuscitation, and vasopressors. ADD Hydrocortisone ( Pt on chronic steroids for RA) 8. Discussed with RN, detail plan discussed. Total critical care time 35 minutes including review of the chart, lab values, GLORIA BENNETT MD August 07, 2019 11:45
[2019-08-07] MEDS: ACETAMINOPHEN 325 MG TABLET. PO PRN (12:51)
[2019-08-07] MEDS: HYDROCORTISONE SOD SUCC/PF 100 MG/2 ML VIAL. IVP SCH ×2 (12:51→22:00)
--- NOTE | 2019-08-07 13:45 | NUR ---
This RN spoke on the phone with Daughter Valerie and Bereket this AM. Family voiced some concern over home medications being re-started as pt has bad RA flare ups. Pt takes Prednisone at home daily. Dr. Nolasco ordered hydrocortisone in place of prednisone due to pt's hypotension. This RN informed family that she would page the Dr. and get home medications restarted that we were able to give. Dr. Pyle paged at 1100. No call back. Dr. Pyle paged again at 1330, awaiting call back. Dr. Nolasco ordered Tylenol PO for pain management for now instead of home medication Tramadol due to kidney function. Medications administered to pt. Pt refusing to eat lunch, saying she isn't hungry. Pt drank a few drinks of water and had a few bites of rice.
--- NOTE | 2019-08-07 14:29 | NUR ---
CT called this RN wanted to wait until results of covid are back until they run her in CT scanner.
[2019-08-07] MEDS ORDERED: MECLIZINE HCL 12.5 MG TABLET. PO PRN (14:30)
--- NOTE | 2019-08-07 16:06 | NUR ---
SS following for discharge planning. SS reviewed pt chart. Pt's RN unavailable. Pt is from home with spouse and is currently requiring oxygen. Pt is on IV Daptomycin and Meropenem. Pt is COVID19 pending. SS will continue to follow for discharge planning.
--- NOTE | 2019-08-07 17:17 | NUR ---
This RN spoke with Daughter Valerie and Bereket and updated them on pt condition. Repeat K+ 5.5, covid test pending. Unable to obtain CT until covid test comes back. We discussed what home medications were restarted and what medications were substituted. Pt asleep in room, resting well.
[2019-08-07] MEDS: INSULIN LISPRO 300 UNITS/3 ML VIAL. SQ SCH (18:11)
--- NOTE | 2019-08-07 18:17 | NUR ---
Pt refusing to eat dinner-- stating "leave me alone".
[2019-08-07] MEDS: CYCLOBENZAPRINE 10 MG TABLET. PO SCH (21:05)
[2019-08-07] MEDS: AMITRIPTYLINE HCL 25 MG TABLET. PO SCH (21:05)
[2019-08-08] VITALS (14 sets, daily range): BP systolic 128–168; BP diastolic 64–92
[2019-08-08 05:20] LABS: CALCIUM 7.8 mg/dL (8.5-10.1); CREATININE 1.3 mg/dL (0.6-1.0); GFR 40.3; MAGNESIUM 1.5 mg/dL (1.8-2.4); PHOSPHORUS 3.4 mg/dL (2.6-4.7)
[2019-08-08] MEDS: HYDROCORTISONE SOD SUCC/PF 100 MG/2 ML VIAL. IVP SCH ×3 (06:16→21:20)
[2019-08-08] MEDS: SODIUM BICARBONATE VIAL 50 MEQ in IV 1/2 NORMAL SALINE 1,000 ML IV SCH (06:16)
[2019-08-08] MEDS ORDERED: INSULIN GLARGINE SYRINGE. SQ SCH (08:00)
--- NOTE | 2019-08-08 08:40 | PDOC ---
Infectious Disease Note Subjective Subjective Less fever, Tmax 100.0 2L O2 ROS ROS unobtainable Vital Sign Vital Signs Vital Signs Date Time Temp Pulse Resp B/P (MAP) Pulse Ox O2 Delivery O2 Flow Rate FiO2 08/08/19 06:00 114 18 162/87 (112) 100 Nasal Cannula 2.0 08/08/19 04:00 98.6 98.6 Physical Exam PHYSICAL EXAM GENERAL: Resting quietly, appears comfortable NECK: Supple LUNGS: Decreased breath sounds at the bases. No accessory muscle use. HEART: S1, S2. regular, tachy ABDOMEN: Obese, soft, no guarding, bowel sounds present : Benson in place EXTREMITIES: No edema, no clubbing, no cyanosis. SKIN: Warm, dry. No generalized rash. 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 PIV ok Labs Lab Laboratory Tests Test 08/07/19 09:15 08/07/19 13:07 08/07/19 14:50 08/07/19 18:06 Sodium Level 136 mmol/L (136-145) Potassium Level 6.4 mmol/L (3.5-5.1) 5.5 mmol/L (3.5-5.1) Chloride Level 103 mmol/L (98-107) Carbon Dioxide Level 20 mmol/L (21-32) Anion Gap 13 (6-14) Blood Urea Nitrogen 37 mg/dL (7-20) Creatinine 2.1 mg/dL (0.6-1.0) Estimated GFR (Cockcroft-Gault) 23.2 Glucose Level 208 mg/dL (70-99) Lactic Acid Level 2.9 mmol/L (0.4-2.0) Calcium Level 7.6 mg/dL (8.5-10.1) Creatine Kinase 560 U/L (26-192) Glucose (Fingerstick) 208 mg/dL (70-99) 250 mg/dL (70-99) Test 08/07/19 21:47 08/08/19 04:30 Glucose (Fingerstick) 215 mg/dL (70-99) Sodium Level 142 mmol/L (136-145) Potassium Level 4.0 mmol/L (3.5-5.1) Chloride Level 106 mmol/L (98-107) Carbon Dioxide Level 27 mmol/L (21-32) Anion Gap 9 (6-14) Blood Urea Nitrogen 24 mg/dL (7-20) Creatinine 1.3 mg/dL (0.6-1.0) Estimated GFR (Cockcroft-Gault) 40.3 Glucose Level 258 mg/dL (70-99) Calcium Level 7.8 mg/dL (8.5-10.1) Phosphorus Level 3.4 mg/dL (2.6-4.7) Magnesium Level 1.5 mg/dL (1.8-2.4) Impression: 1. No evidence of deep venous thrombosis. Micro Microbiology 08/06/19 Urine Culture No Growth on 08/08/19 at 0816 08/06/19 Blood Culture - Preliminary, Resulted NO GROWTH AFTER 1 DAY Objective Assessment Fever. Leukocytosis and lactic acidosis. Sepsis, source unclear. Acute hypoxic respiratory failure. Acute kidney injury, hyperkalemia. History of ALLERGIES TO SULFA, CLINDAMYCIN. History of kidney stone. History of recent pneumonia and urinary tract infection. Diabetes mellitus. History of kidney stones. Coronary artery disease. Rheumatoid arthritis. Irritable bowel syndrome, gastroesophageal reflux disease. History of recurrent urinary tract infection. Encephalopathy. Anemia. COVID-19 neg Plan Plan of Care Dapto and Zosyn, renal dosing. CPK 560 off vancomycin due to AVI. f/u today's CBC. Cultures neg to date Maintain aspiration precaution. Supportive care. D/w nursing Attending Co-Sign The patient was seen and interviewed as well as examined at the bedside. The chart was reviewed. The case was discussed. Agree with the plan of care. SHILPI CHAN APRN August 08, 2019 08:40 SUZIE FRITZ MD August 08, 2019 12:30
[2019-08-08] MEDS: MEROPENEM 500 MG in IV NORMAL SALINE 50ML 50 ML IV SCH ×3 (09:19→21:36)
[2019-08-08] MEDS: ASPIRIN ENTERIC COATED 81 MG TABLET.DR. PO SCH (09:19)
[2019-08-08] MEDS: CETIRIZINE HCL 10 MG TABLET. PO SCH (09:19)
[2019-08-08] MEDS: VENLAFAXINE XR 37.5 MG CAP.ER.24H. PO SCH (09:19)
[2019-08-08] MEDS: PANTOPRAZOLE 40 MG TABLET.DR. PO SCH (09:19)
[2019-08-08] MEDS: MORPHINE SULFATE 2 MG/ML VIAL. IV PRN ×3 (09:20→21:27)
[2019-08-08] MEDS: HEPARIN for SUB-Q USE 5,000 UNIT/ML VIAL. SQ SCH ×3 (09:26→21:30)
[2019-08-08] MEDS: INSULIN LISPRO 300 UNITS/3 ML VIAL. SQ SCH ×3 (10:18→17:38)
[2019-08-08] MEDS: DAPTOmycin (GENERIC) IVPB 500 MG in IV NORMAL SALINE 50ML 50 ML IV SCH (11:38)
[2019-08-08] MEDS: INSULIN GLARGINE SYRINGE. SQ SCH (11:39)
--- NOTE | 2019-08-08 12:18 | PDOC ---
PULMONARY PROGRESS NOTES Subjective no soa, on NC, sob cough better 0ff levophed Vitals Vital Signs Date Time Temp Pulse Resp B/P (MAP) Pulse Ox O2 Delivery O2 Flow Rate FiO2 08/08/19 11:00 116 18 160/65 (96) 100 Nasal Cannula 2.0 08/08/19 08:00 98.4 98.4 Comments ros as mentioned as above other sys otherwise neg General: Alert, No acute distress HEENT: Other (nc at perrl nose throat clear neck no lad no thyromegaly) Lungs: Clear Cardiovascular: S1, S2 Abdomen: Soft, Non-tender Neuro Exam: Alert Extremities: No Edema Skin: Warm Labs Laboratory Tests Test 08/06/19 18:30 08/06/19 18:45 08/06/19 19:40 08/06/19 20:45 O2 Saturation 97 % (92-99) Arterial Blood pH 7.40 (7.35-7.45) Arterial Blood pH (Temp corrected) 7.40 Arterial Blood pCO2 at Patient Temp 34 mmHg (35-46) Arterial Blood pCO2 (Temp correct) 34 mmHg Arterial Blood pO2 at Patient Temp 106 mmHg (65-108) Arterial Blood pO2 (Temp corrected) 106 mmHg Arterial Blood HCO3 20 mmol/L (21-28) Arterial Blood Base Excess -3 mmol/L (-3-3) White Blood Count 10.8 x10^3/uL (4.0-11.0) Red Blood Count 3.72 x10^6/uL (3.50-5.40) Hemoglobin 10.0 g/dL (12.0-15.5) Hematocrit 30.7 % (36.0-47.0) Mean Corpuscular Volume 82 fL (79-100) Mean Corpuscular Hemoglobin 27 pg (25-35) Mean Corpuscular Hemoglobin Concent 33 g/dL (31-37) Red Cell Distribution Width 16.1 % (11.5-14.5) Platelet Count 233 x10^3/uL (140-400) Sodium Level 138 mmol/L (136-145) Potassium Level 6.3 mmol/L (3.5-5.1) Chloride Level 105 mmol/L (98-107) Carbon Dioxide Level 21 mmol/L (21-32) Anion Gap 12 (6-14) Blood Urea Nitrogen 42 mg/dL (7-20) Creatinine 2.3 mg/dL (0.6-1.0) Estimated GFR (Cockcroft-Gault) 20.8 BUN/Creatinine Ratio 18 (6-20) Glucose Level 135 mg/dL (70-99) Lactic Acid Level 2.3 mmol/L (0.4-2.0) Calcium Level 7.8 mg/dL (8.5-10.1) Total Bilirubin 0.3 mg/dL (0.2-1.0) Aspartate Amino Transf (AST/SGOT) 34 U/L (15-37) Alanine Aminotransferase (ALT/SGPT) 31 U/L (14-59) Alkaline Phosphatase 89 U/L (46-116) Total Protein 6.4 g/dL (6.4-8.2) Albumin 2.7 g/dL (3.4-5.0) Albumin/Globulin Ratio 0.7 (1.0-1.7) Urine Collection Type Unknown Urine Color Yellow Urine Clarity Clear Urine pH 5.5 (<5.0-8.0) Urine Specific [place] 1.015 (1.000-1.030) Urine Protein Negative mg/dL (NEG-TRACE) Urine Glucose (UA) Negative mg/dL (NEG) Urine Ketones (Stick) Negative mg/dL (NEG) Urine Blood Negative (NEG) Urine Nitrite Negative (NEG) Urine Bilirubin Negative (NEG) Urine Urobilinogen Dipstick 0.2 mg/dL (0.2 mg/dL) Urine Leukocyte Esterase Small (NEG) Urine RBC 0 /HPF (0-2) Urine WBC 5-10 /HPF (0-4) Urine Bacteria 0 /HPF (0-FEW) Urine Hyaline Casts Few /HPF Urine Mucus Mod /LPF Urine Yeast Present /HPF Coronavirus (COVID-19)(PCR) Not detected (NOT DETECT.) Test 08/06/19 23:00 08/07/19 04:30 08/07/19 09:15 08/07/19 13:07 Sodium Level 138 mmol/L (136-145) 134 mmol/L (136-145) 136 mmol/L (136-145) Potassium Level 5.9 mmol/L (3.5-5.1) 6.3 mmol/L (3.5-5.1) 6.4 mmol/L (3.5-5.1) Chloride Level 106 mmol/L (98-107) 103 mmol/L (98-107) 103 mmol/L (98-107) Carbon Dioxide Level 21 mmol/L (21-32) 22 mmol/L (21-32) 20 mmol/L (21-32) Anion Gap 11 (6-14) 9 (6-14) 13 (6-14) Blood Urea Nitrogen 41 mg/dL (7-20) 41 mg/dL (7-20) 37 mg/dL (7-20) Creatinine 2.7 mg/dL (0.6-1.0) 2.6 mg/dL (0.6-1.0) 2.1 mg/dL (0.6-1.0) Estimated GFR (Cockcroft-Gault) 17.3 18.1 23.2 Glucose Level 112 mg/dL (70-99) 175 mg/dL (70-99) 208 mg/dL (70-99) Lactic Acid Level 3.7 mmol/L (0.4-2.0) 2.9 mmol/L (0.4-2.0) 2.9 mmol/L (0.4-2.0) Calcium Level 7.9 mg/dL (8.5-10.1) 8.0 mg/dL (8.5-10.1) 7.6 mg/dL (8.5-10.1) White Blood Count 22.3 x10^3/uL (4.0-11.0) Red Blood Count 3.35 x10^6/uL (3.50-5.40) Hemoglobin 8.9 g/dL (12.0-15.5) Hematocrit 28.4 % (36.0-47.0) Mean Corpuscular Volume 85 fL (79-100) Mean Corpuscular Hemoglobin 27 pg (25-35) Mean Corpuscular Hemoglobin Concent 32 g/dL (31-37) Red Cell Distribution Width 15.9 % (11.5-14.5) Platelet Count 242 x10^3/uL (140-400) Neutrophils (%) (Auto) 82 % (31-73) Lymphocytes (%) (Auto) 9 % (24-48) Monocytes (%) (Auto) 8 % (0-9) Eosinophils (%) (Auto) 0 % (0-3) Basophils (%) (Auto) 1 % (0-3) Neutrophils # (Auto) 18.3 x10^3/uL (1.8-7.7) Lymphocytes # (Auto) 1.9 x10^3/uL (1.0-4.8) Monocytes # (Auto) 1.7 x10^3/uL (0.0-1.1) Eosinophils # (Auto) 0.1 x10^3/uL (0.0-0.7) Basophils # (Auto) 0.2 x10^3/uL (0.0-0.2) Segmented Neutrophils % 44 % (35-66) Band Neutrophils % 33 % (0-9) Lymphocytes % 7 % (24-48) Monocytes % 9 % (0-10) Metamyelocytes % 7 % (0-0) Platelet Estimate Adequate (ADEQUATE) Procalcitonin 39.80 ng/mL (0.00-0.10) Creatine Kinase 560 U/L (26-192) Glucose (Fingerstick) 208 mg/dL (70-99) Test 08/07/19 14:50 08/07/19 18:06 08/07/19 21:47 08/08/19 04:30 Potassium Level 5.5 mmol/L (3.5-5.1) 4.0 mmol/L (3.5-5.1) Glucose (Fingerstick) 250 mg/dL (70-99) 215 mg/dL (70-99) Sodium Level 142 mmol/L (136-145) Chloride Level 106 mmol/L (98-107) Carbon Dioxide Level 27 mmol/L (21-32) Anion Gap 9 (6-14) Blood Urea Nitrogen 24 mg/dL (7-20) Creatinine 1.3 mg/dL (0.6-1.0) Estimated GFR (Cockcroft-Gault) 40.3 Glucose Level 258 mg/dL (70-99) Calcium Level 7.8 mg/dL (8.5-10.1) Phosphorus Level 3.4 mg/dL (2.6-4.7) Magnesium Level 1.5 mg/dL (1.8-2.4) Test 08/08/19 10:13 08/08/19 12:11 Glucose (Fingerstick) 232 mg/dL (70-99) 268 mg/dL (70-99) Laboratory Tests Test 08/07/19 13:07 08/07/19 14:50 08/07/19 18:06 08/07/19 21:47 Glucose (Fingerstick) 208 mg/dL (70-99) 250 mg/dL (70-99) 215 mg/dL (70-99) Potassium Level 5.5 mmol/L (3.5-5.1) Test 08/08/19 04:30 08/08/19 10:13 08/08/19 12:11 Sodium Level 142 mmol/L (136-145) Potassium Level 4.0 mmol/L (3.5-5.1) Chloride Level 106 mmol/L (98-107) Carbon Dioxide Level 27 mmol/L (21-32) Anion Gap 9 (6-14) Blood Urea Nitrogen 24 mg/dL (7-20) Creatinine 1.3 mg/dL (0.6-1.0) Estimated GFR (Cockcroft-Gault) 40.3 Glucose Level 258 mg/dL (70-99) Calcium Level 7.8 mg/dL (8.5-10.1) Phosphorus Level 3.4 mg/dL (2.6-4.7) Magnesium Level 1.5 mg/dL (1.8-2.4) Glucose (Fingerstick) 232 mg/dL (70-99) 268 mg/dL (70-99) Medications Active Scripts Medications Dose Route/Sig Max Daily Dose Days Date Category Humalog (Insulin Lispro) 100 Unit/1 Ml Cartridge 20 Unit SQ TID 08/06/19 Reported Tramadol Hcl 50 Mg Tablet 50 Mg PO DAILY PRN 08/06/19 Reported Lasix (Furosemide) 40 Mg Tablet 1 Tab PO DAILY 30 08/06/19 Reported Lisinopril 5 Mg Tablet 1 Tab PO DAILY 08/06/19 Reported Meclizine Hcl 25 Mg Tablet 1 Tab PO TID 08/06/19 Reported Pantoprazole Sodium (Pantoprazole Sodium) 40 Mg Tablet.dr 40 Mg PO DAILYAC 08/06/19 Reported Venlafaxine Hcl 37.5 Mg Tablet 1 Tab PO DAILY 08/06/19 Reported Calcium 500 + D Tablet (Calcium Carbonate/Vitamin D3) 1 Each Tablet 1 Tab PO DAILY 30 08/06/19 Reported Aspirin Ec (Aspirin) 81 Mg Tablet.dr 1 Tab PO DAILY 08/06/19 Reported Metoprolol Tartrate 25 Mg Tablet 1 Tab PO BID 08/06/19 Reported Prednisone 20 Mg Tablet 10 Mg PO DAILY 05/16/17 Reported Tresiba Flextouch U-100 (Insulin Degludec) 100 Unit/1 Ml Insuln.pen 85 Unit SQ DAILY08 05/16/17 Reported Zyrtec (Cetirizine Hcl) 10 Mg Tab.chew 10 Mg PO DAILY 07/01/15 Reported Amitriptyline Hcl 25 Mg Tablet 25 Mg PO HS 07/01/15 Reported Cyclobenzaprine Hcl 10 Mg Tablet 10 Mg PO HS 07/01/15 Reported Klor-Con (Potassium Chloride) 20 Meq Packet Unknown Dose PO DAILY 07/01/15 Reported Enbrel (Etanercept) 50 Mg/1 Ml Disp.syrin 50 Mg SQ WEEKLY 07/01/15 Reported Comments le doppelr neg Impression . 1. Acute hypoxic respiratory failure secondary to septic shock. 2. Fever of 103. Source is not so obvious. The chest x-ray is clear. She did have mild ground-glass infiltrates on 07/24/[address] chest and chest x-ray and these are no longer visible. One should look for other sources of infection. The urine appears to be benign so far. COVID neg. There are no obvious wounds. Infectious Disease following. Pt is immuno-suppresed (on chronic steroids for RA.) 3. No significant tobacco history. 4. Obesity contributing to hypoxia as well. 5. Hyperkalemia and acute kidney injury related to septic shock. Renal has been consulted for acute management of hyperkalemia. 6. Moderate protein-calorie malnutrition. 7. Venous Dopplers with no evidence of deep venous thrombosis. Clinical suspicion for thromboembolic disease is low and would not pursue at this point for a V/Q scan. 8. RA, on chronic steroids Plan . 1. Continue with present oxygen, keep saturation 94 and above. 2. Broad-spectrum antibiotics per ID 3. fu Blood cultures and urine cultures 4. COVID-19 neg, last week covid19 neg 5. Follow renal recommendation regarding hyperkalemia and AVI. 6. P.r.n. bronchodilators. 7. IV fluid resuscitation, off vasopressors. Hydrocortisone ( Pt on chronic steroids for RA) 8. hep sq and protonix for prophylaxis Discussed with RN, detail plan discussed. ELEANOR WING MD August 08, 2019 12:17
--- NOTE | 2019-08-08 12:40 | PDOC ---
SUBJECTIVE ROS Stable OBJECTIVE Vital Signs Vital Signs Date Time Temp Pulse Resp B/P (MAP) Pulse Ox O2 Delivery O2 Flow Rate FiO2 08/08/19 11:00 116 18 160/65 (96) 100 Nasal Cannula 2.0 08/08/19 08:00 98.4 98.4 I & 0 Intake and Output 08/08/19 07:00 Intake Total 3766 ml Output Total 2585 ml Balance 1181 ml Intake Oral 330 ml IV Total 3436 ml Output Urine Total 2585 ml # Bowel Movements 7 PHYSICAL EXAM Physical Exam GENERAL: NAD NECK: Supple LUNGS: Decreased breath sounds at the bases. No accessory muscle use. HEART: S1, S2. regular, tachy ABDOMEN: Obese, soft, EXTREMITIES: No edema, no clubbing, no cyanosis. SKIN: Warm, dry. No generalized rash. 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 Supportive care, Strict I/O, avoid nephrotoxins , DC IVF if oral intake adequate Hyperkalemia- resolved Met Acidosis - Currently on IV bicarb , dc Resolved Sepsis Abx Hypotension -Off pressors Resolved, BP high Ac resp Failure DM II COVID negative COMMENT/RELEVANT DATA Meds Current Medications Medications (Trade) Dose Ordered Sig/Manish Start Time Stop Time Status Last Admin Dose Admin Acetaminophen (Tylenol Supp) 650 mg PRN Q6HRS PRN 08/06/19 18:15 08/06/19 21:01 650 MG Acetaminophen (Tylenol) 650 mg PRN Q6HRS PRN 08/07/19 12:15 08/07/19 12:51 650 MG Amitriptyline HCl (Elavil) 25 mg HS 08/07/19 21:00 08/07/19 21:05 25 MG Aspirin (Ecotrin) 81 mg DAILY 08/08/19 09:00 08/08/19 09:19 81 MG Calcium Gluconate 1000 mg/Sodium Chloride 110 ml @ 220 mls/hr 1X ONCE 08/07/19 11:00 08/07/19 11:29 DC 08/07/19 11:14 220 MLS/HR Cetirizine HCl (ZyrTEC) 10 mg DAILY 08/08/19 09:00 08/08/19 09:19 10 MG Cyclobenzaprine HCl (Flexeril) 10 mg HS 08/07/19 21:00 08/07/19 21:05 10 MG Daptomycin 500 mg/ Sodium Chloride 50 ml @ 100 mls/hr Q24H 08/08/19 11:00 08/08/19 11:38 100 MLS/HR Dextrose (Dextrose 50%-Water Syringe) 25 gm 1X ONCE 08/07/19 10:45 08/07/19 10:46 DC 08/07/19 11:14 25 GM Heparin Sodium (Porcine) (Heparin Sodium) 5,000 unit Q8HRS 08/08/19 14:00 Hydrocortisone Sodium Succinate (Solu-CORTEF) 100 mg Q8HRS 08/07/19 12:19 08/08/19 06:16 100 MG Insulin Glargine (Lantus Syringe) 85 unit DAILY 08/08/19 10:18 08/08/19 11:39 85 UNIT Insulin Human Lispro (HumaLOG) 20 units TIDWMEALS 08/07/19 17:00 08/08/19 12:21 20 UNITS Insulin Human Regular (HumuLIN R VIAL) 10 unit 1X ONCE 08/07/19 11:00 08/07/19 11:01 DC 08/07/19 11:19 10 UNIT Lorazepam (Ativan Inj) 1 mg PRN Q6HRS PRN 08/06/19 23:45 08/07/19 00:59 1 MG Meclizine HCl (Antivert) 25 mg PRN Q8HRS PRN 08/07/19 14:30 Meropenem 500 mg/ Sodium Chloride 50 ml @ 100 mls/hr Q8HRS 08/08/19 15:00 Morphine Sulfate (Morphine Sulfate) 4 mg PRN Q2HR PRN 08/06/19 23:45 08/08/19 09:20 4 MG Norepinephrine Bitartrate 8 mg/ Dextrose 258 ml @ 17.454 mls/ hr CONT PRN 08/06/19 22:00 08/06/19 22:30 17.454 MLS/HR Pantoprazole Sodium (Protonix) 40 mg DAILYAC 08/08/19 07:30 08/08/19 09:19 40 MG Piperacillin Sod/ Tazobactam Sod (Zosyn Per Pharmacy) 1 each PRN DAILY PRN 08/06/19 18:15 08/07/19 09:50 DC Piperacillin Sod/ Tazobactam Sod 3.375 gm/Sodium Chloride 50 ml @ 100 mls/hr Q6HRS 08/06/19 19:00 08/07/19 09:50 DC 08/07/19 06:09 100 MLS/HR Sodium Bicarbonate 50 meq/Sodium Chloride 1,050 ml @ 150 mls/hr Q7H 08/06/19 22:30 08/08/19 06:16 150 MLS/HR Sodium Polystyrene Sulfonate (Kayexalate) 30 gm Q6H 08/07/19 07:00 08/07/19 13:01 DC 08/07/19 12:51 30 GM Sodium Bicarbonate (Sodium Bicarb Adult 8.4% Syr) 50 meq 1X ONCE 08/07/19 10:45 08/07/19 10:46 DC 08/07/19 11:14 50 MEQ Sodium Chloride 1,000 ml @ 125 mls/hr 1X ONCE 08/06/19 22:00 08/07/19 05:59 DC 08/06/19 22:00 125 MLS/HR Vancomycin HCl (Vanco Per Pharmacy) 1 each PRN DAILY PRN 08/06/19 18:15 08/07/19 09:50 DC 08/06/19 18:16 1 EACH Vancomycin HCl (Vancomycin Trough Level) 1 each 1X ONCE 08/10/19 19:30 08/07/19 09:59 DC Vancomycin HCl 1.5 gm/Sodium Chloride 500 ml @ 250 mls/hr Q48H 08/06/19 20:00 08/07/19 09:50 DC 08/06/19 21:13 250 MLS/HR Venlafaxine HCl (Effexor Xr) 37.5 mg DAILY 08/08/19 09:00 08/08/19 09:19 37.5 MG Lab Laboratory Tests Test 08/07/19 13:07 08/07/19 14:50 08/07/19 18:06 08/07/19 21:47 Glucose (Fingerstick) 208 mg/dL (70-99) 250 mg/dL (70-99) 215 mg/dL (70-99) Potassium Level 5.5 mmol/L (3.5-5.1) Test 5/30/20 04:30 08/08/19 10:13 08/08/19 12:11 Sodium Level 142 mmol/L (136-145) Potassium Level 4.0 mmol/L (3.5-5.1) Chloride Level 106 mmol/L (98-107) Carbon Dioxide Level 27 mmol/L (21-32) Anion Gap 9 (6-14) Blood Urea Nitrogen 24 mg/dL (7-20) Creatinine 1.3 mg/dL (0.6-1.0) Estimated GFR (Cockcroft-Gault) 40.3 Glucose Level 258 mg/dL (70-99) Calcium Level 7.8 mg/dL (8.5-10.1) Phosphorus Level 3.4 mg/dL (2.6-4.7) Magnesium Level 1.5 mg/dL (1.8-2.4) Glucose (Fingerstick) 232 mg/dL (70-99) 268 mg/dL (70-99) Results All relevant outside records, renal labs, imaging studies, telemetry/EKG's were reviewed. SHRUTI KILGORE MD August 08, 2019 12:40
--- NOTE | 2019-08-08 13:26 | PDOC ---
[facility] PROGRESS NOTE Chief Complaint Chief Complaint Shortness of breath, hypoxia, hyperkalemia, renal failure, fevers, suspect possible COVID versus pulmonary embolism with acute renal failure. Allergic rhinitis, muscle spasms, hypertension, chronic pain, arthritis, depression, anxiety, GERD and diabetes. History of Present Illness History of Present Illness 08/08/2019 Patient seen and examined in the [place] [address] ICU Her COVID test just came back negative Discussed with RN Chart reviewed 08/07/2019 Patient seen and examined in the [place] [address] ICU Chart reviewed Discussed with RN She still remains quite ill and extremely confused Vitals/I&O Vitals/I&O: Vital Signs Date Time Temp Pulse Resp B/P (MAP) Pulse Ox O2 Delivery O2 Flow Rate FiO2 08/08/19 11:00 116 18 160/65 (96) 100 Nasal Cannula 2.0 08/08/19 08:00 98.4 98.4 I & O 08/07/19 08/07/19 08/08/19 15:00 23:00 07:00 Intake Total 190 ml 2572 ml 1004 ml Output Total 1030 ml 805 ml 750 ml Balance -840 ml 1767 ml 254 ml Physical Exam Physical Exam: GENERAL: Resting quietly, appears comfortable NECK: Supple LUNGS: Decreased breath sounds at the bases. No accessory muscle use. HEART: S1, S2. regular, tachy ABDOMEN: Obese, soft, no guarding, bowel sounds present : Benson in place EXTREMITIES: No edema, no clubbing, no cyanosis. SKIN: Warm, dry. No generalized rash. 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 PIV ok General: Cooperative, mild distress Heart: Regular rate, Other (OCC TACHY) Abdomen: Normal bowel sounds Extremities: No clubbing, No cyanosis, No edema Skin: No breakdown Labs Labs: Laboratory Tests Test 08/07/19 14:50 08/07/19 18:06 08/07/19 21:47 08/08/19 04:30 Potassium Level 5.5 mmol/L (3.5-5.1) 4.0 mmol/L (3.5-5.1) Glucose (Fingerstick) 250 mg/dL (70-99) 215 mg/dL (70-99) Sodium Level 142 mmol/L (136-145) Chloride Level 106 mmol/L (98-107) Carbon Dioxide Level 27 mmol/L (21-32) Anion Gap 9 (6-14) Blood Urea Nitrogen 24 mg/dL (7-20) Creatinine 1.3 mg/dL (0.6-1.0) Estimated GFR (Cockcroft-Gault) 40.3 Glucose Level 258 mg/dL (70-99) Calcium Level 7.8 mg/dL (8.5-10.1) Phosphorus Level 3.4 mg/dL (2.6-4.7) Magnesium Level 1.5 mg/dL (1.8-2.4) Test 08/08/19 10:13 08/08/19 12:11 Glucose (Fingerstick) 232 mg/dL (70-99) 268 mg/dL (70-99) Assessment and Plan Assessmemt and Plan Shortness of breath, hypoxia, hyperkalemia, renal failure, fevers, suspect possible COVID versus pulmonary embolism with acute renal failure. Allergic rhinitis, muscle spasms, hypertension, chronic pain, arthritis, depression, anxiety, GERD and diabetes. Plan Will transfer out of the COVID-19 unit as her test was negative Await further subspecialist input (infectious disease pulmonary and nephrology) IV Zosyn O2 per nasal cannula IV fluids Home meds DVT prophylaxis Full code Family does not want senior living on discharge Comment Review of Relevant I have reviewed the following items jasper (where applicable) has been applied. Medications: Current Medications Medications (Trade) Dose Ordered Sig/Manish Route PRN Reason Start Time Stop Time Status Last Admin Dose Admin Amitriptyline HCl (Elavil) 25 mg HS PO 08/07/19 21:00 08/07/19 21:05 Aspirin (Ecotrin) 81 mg DAILY PO 08/08/19 09:00 08/08/19 09:19 Cyclobenzaprine HCl (Flexeril) 10 mg HS PO 08/07/19 21:00 08/07/19 21:05 Pantoprazole Sodium (Protonix) 40 mg DAILYAC PO 08/08/19 07:30 08/08/19 09:19 Cetirizine HCl (ZyrTEC) 10 mg DAILY PO 08/08/19 09:00 08/08/19 09:19 Insulin Human Lispro (HumaLOG) 20 units TIDWMEALS SQ 08/07/19 17:00 08/08/19 12:21 Venlafaxine HCl (Effexor Xr) 37.5 mg DAILY PO 08/08/19 09:00 08/08/19 09:19 Daptomycin 500 mg/ Sodium Chloride 50 ml @ 100 mls/hr Q24H IV 08/08/19 11:00 08/08/19 11:38 Insulin Glargine (Lantus Syringe) 85 unit DAILY SQ 08/08/19 10:18 08/08/19 11:39 THAD WHIPPLE III DO August 08, 2019 13:26
[2019-08-08] MEDS ORDERED: IV NORMAL SALINE 1000ML BAG 1,000 ML IV SCH (14:00)
--- NOTE | 2019-08-08 14:44 | NUR ---
Rehab screen completed. Pt would benefit from PT/OT eval and treat. Please order if you agree. Addendum: 08/08/19 at 1445 by JACKY PHILLIPS PT Amended: Links added.
--- NOTE | 2019-08-08 19:03 | RAD ---
EXAM: CT Chest, Abdomen, and Pelvis without IV contrast INDICATION: Reason: fever, kidney stones, sepsis-RN WILL BRING WHEN PT DOWNGRADED / Spl. Instructions: / History: TECHNIQUE: Multi-detector row CT images were acquired from the thoracic inlet through the ischial tuberosities without the use of IV contrast. Sagittal and coronal images were acquired from the transaxial data. All CT scans performed at this facility utilize dose optimization techniques as appropriate to the exam, including the following: Automated exposure control and adjustment of the mA and/or KV according to patient size (this includes techniques or standardized protocols for targeted exams where dose is indication/reason for exam). ORAL CONTRAST: Not administered COMPARISON: Noncontrast chest CT 07/24/2019. FINDINGS: The absence of IV contrast limits evaluation of soft tissue pathology. CHEST: CARDIOVASCULAR: Multivessel coronary calcifications. Normal heart size. No pericardial effusion. Normal caliber MEDIASTINUM & LAUREN: No adenopathy or masses. LUNGS: Mild diffuse interstitial prominence with patchy areas of groundglass attenuation most conspicuous in the bilateral upper lobes and right middle lobe. PLEURAL SPACE: No pleural effusions or pneumothorax. OSSEOUS & SOFT TISSUE: Unremarkable ABDOMEN/PELVIS: LIVER: Mild diffuse hypoattenuation to the liver compatible with diffuse fatty infiltration. Borderline hepatomegaly with the liver measuring 18 cm in craniocaudal extent. BILIARY SYSTEM: Postcholecystectomy biliary distention up to 10 mm in diameter. No radiopaque stones or intrahepatic biliary ablation. PANCREAS: Unremarkable SPLEEN: Unremarkable ADRENALS: Unremarkable KIDNEYS & URETERS: Unremarkable BLADDER: Decompressed by an indwelling Benson catheter. REPRODUCTIVE ORGANS: Unremarkable GASTROINTESTINAL: Increased density in the luminal contents of the cecum and ascending colon is present. The distal descending colon shows abnormal wall thickening [facility] fold patterns with spasm extending distally to the mid sigmoid colon. The appendix is normal. MESENTERY/PERITONEUM/RETROPERITONEUM: Unremarkable VASCULAR: Unremarkable LYMPH NODES: Calcified periportal and gastrohepatic and lymph nodes. No abdominal adenopathy. OSSEOUS & SOFT TISSUES: Unremarkable IMPRESSION: 1. CT chest shows patchy airspace opacities that could represent atypical pneumonia. Correlate clinically. 2. CT abdomen and pelvis shows findings of acute colitis in the descending colon with increased luminal density in the cecum and ascending colon of uncertain significance. Ingested diluted contrast material, medication, or intraluminal hemorrhage can all appear similar. No evidence of abscess formation or findings of bowel perforation Electronically signed by: Sue Lyons MD (08/08/2019 7:00 PM) [facility] [place]
[2019-08-08] MEDS: CYCLOBENZAPRINE 10 MG TABLET. PO SCH (21:20)
[2019-08-08] MEDS: AMITRIPTYLINE HCL 25 MG TABLET. PO SCH (21:20)
[2019-08-08] MEDS: METOPROLOL TART IMMED RELEASE 25 MG TABLET. PO SCH (21:23)
[2019-08-09] VITALS (8 sets, daily range): BP systolic 148–195; BP diastolic 71–96
[2019-08-09] MEDS: MORPHINE SULFATE 2 MG/ML VIAL. IV PRN ×2 (03:31→07:25)
[2019-08-09 04:57] LABS: BASO % 0 % (0-3); EOS % 0 % (0-3); HEMATOCRIT 25.6 % (36.0-47.0); HEMOGLOBIN 8.3 g/dL (12.0-15.5); LYMPH # 1.3 x10^3/uL (1.0-4.8); LYMPH % 11 % (24-48); MEAN CORPUSCULAR HEMOGLOBIN 27 pg (25-35); MEAN CORPUSCULAR HGB CONC 32 g/dL (31-37); MEAN CORPUSCULAR VOLUME 83 fL (79-100); MONO # 0.7 x10^3/uL (0.0-1.1); MONO % 6 % (0-9); NEUT # 10.3 x10^3/uL (1.8-7.7); NEUT % 83 % (31-73); PLATELET COUNT 196 x10^3/uL (140-400); RED BLOOD COUNT 3.11 x10^6/uL (3.50-5.40); RED CELL DISTRIBUTION WIDTH 16.4 % (11.5-14.5); WHITE BLOOD COUNT 12.4 x10^3/uL (4.0-11.0)
[2019-08-09 05:24] LABS: CALCIUM 8.2 mg/dL (8.5-10.1); CREATININE 1.2 mg/dL (0.6-1.0); GFR 44.2; POTASSIUM 3.6 mmol/L (3.5-5.1)
[2019-08-09] MEDS: HYDROCORTISONE SOD SUCC/PF 100 MG/2 ML VIAL. IVP SCH ×3 (05:42→21:48)
[2019-08-09] MEDS: MEROPENEM 500 MG in IV NORMAL SALINE 50ML 50 ML IV SCH (05:42)
[2019-08-09] MEDS: HEPARIN for SUB-Q USE 5,000 UNIT/ML VIAL. SQ SCH ×3 (06:04→21:59)
[2019-08-09] MEDS: VENLAFAXINE XR 37.5 MG CAP.ER.24H. PO SCH (07:24)
[2019-08-09] MEDS: ASPIRIN ENTERIC COATED 81 MG TABLET.DR. PO SCH (07:24)
[2019-08-09] MEDS: METOPROLOL TART IMMED RELEASE 25 MG TABLET. PO SCH ×2 (07:24→20:13)
[2019-08-09] MEDS: PANTOPRAZOLE 40 MG TABLET.DR. PO SCH (07:25)
[2019-08-09] MEDS: ACETAMINOPHEN 325 MG TABLET. PO PRN ×3 (07:25→20:13)
[2019-08-09] MEDS: CETIRIZINE HCL 10 MG TABLET. PO SCH (07:25)
[2019-08-09] MEDS: INSULIN GLARGINE SYRINGE. SQ SCH (08:15)
[2019-08-09] MEDS: INSULIN LISPRO 300 UNITS/3 ML VIAL. SQ SCH ×3 (08:16→16:38)
--- NOTE | 2019-08-09 08:58 | PDOC ---
Infectious Disease Note Subjective Subjective Transferred to Feeling good No fevers last 24 hrs Remains on 2L O2 ate 25% breakfast Recent BM ROS ROS as mentioned above Vital Sign Vital Signs Vital Signs Date Time Temp Pulse Resp B/P (MAP) Pulse Ox O2 Delivery O2 Flow Rate FiO2 08/09/19 07:38 Room Air 08/09/19 07:24 107 195/95 08/09/19 07:00 98.3 20 94 98.3 08/08/19 14:17 2.0 Physical Exam PHYSICAL EXAM GENERAL: Sitting in the chair, alert, bathing NECK: Supple LUNGS: Decreased breath sounds at the bases. No accessory muscle use. HEART: S1, S2. regular ABDOMEN: Obese, soft, no guarding, bowel sounds present : Benson in place EXTREMITIES: No edema, no clubbing, no cyanosis. SKIN: Warm, dry. No generalized rash. 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, answering appropriately PIV ok Labs Lab Laboratory Tests Test 08/08/19 10:13 08/08/19 12:11 08/08/19 16:28 08/08/19 20:42 Glucose (Fingerstick) 232 mg/dL (70-99) 268 mg/dL (70-99) 123 mg/dL (70-99) 75 mg/dL (70-99) Test 08/09/19 03:11 08/09/19 04:00 08/09/19 07:33 Glucose (Fingerstick) 129 mg/dL (70-99) 221 mg/dL (70-99) White Blood Count 12.4 x10^3/uL (4.0-11.0) Red Blood Count 3.11 x10^6/uL (3.50-5.40) Hemoglobin 8.3 g/dL (12.0-15.5) Hematocrit 25.6 % (36.0-47.0) Mean Corpuscular Volume 83 fL (79-100) Mean Corpuscular Hemoglobin 27 pg (25-35) Mean Corpuscular Hemoglobin Concent 32 g/dL (31-37) Red Cell Distribution Width 16.4 % (11.5-14.5) Platelet Count 196 x10^3/uL (140-400) Neutrophils (%) (Auto) 83 % (31-73) Lymphocytes (%) (Auto) 11 % (24-48) Monocytes (%) (Auto) 6 % (0-9) Eosinophils (%) (Auto) 0 % (0-3) Basophils (%) (Auto) 0 % (0-3) Neutrophils # (Auto) 10.3 x10^3/uL (1.8-7.7) Lymphocytes # (Auto) 1.3 x10^3/uL (1.0-4.8) Monocytes # (Auto) 0.7 x10^3/uL (0.0-1.1) Eosinophils # (Auto) 0.0 x10^3/uL (0.0-0.7) Basophils # (Auto) 0.0 x10^3/uL (0.0-0.2) Sodium Level 142 mmol/L (136-145) Potassium Level 3.6 mmol/L (3.5-5.1) Chloride Level 106 mmol/L (98-107) Carbon Dioxide Level 29 mmol/L (21-32) Anion Gap 7 (6-14) Blood Urea Nitrogen 24 mg/dL (7-20) Creatinine 1.2 mg/dL (0.6-1.0) Estimated GFR (Cockcroft-Gault) 44.2 Glucose Level 182 mg/dL (70-99) Calcium Level 8.2 mg/dL (8.5-10.1) Micro Microbiology 08/06/19 Urine Culture No Growth on 08/08/19 at 0816 08/06/19 Blood Culture - Preliminary, Resulted NO GROWTH AFTER 2 DAY Objective Assessment Fever - better Leukocytosis and lactic acidosis - better Sepsis, source unclear - improving Acute hypoxic respiratory failure Acute kidney injury, hyperkalemia. History of ALLERGIES TO SULFA, CLINDAMYCIN. History of kidney stone. History of recent pneumonia and urinary tract infection. Diabetes mellitus. History of kidney stones. Coronary artery disease. Rheumatoid arthritis. Irritable bowel syndrome, gastroesophageal reflux disease. History of recurrent urinary tract infection. Encephalopathy - improving Anemia. COVID-19 neg Plan Plan of Care Dapto and Zosyn, renal dosing. CPK 560 off vancomycin due to AVI. Cultures neg to date Maintain aspiration precaution. Supportive care. PT/OT D/w nursing Attending Co-Sign The patient was seen and interviewed as well as examined at the bedside. The chart was reviewed. The case was discussed. Agree with the plan of care. SHILPI CHAN APRN August 09, 2019 08:58 SUZIE FRITZ MD August 09, 2019 12:00
[2019-08-09] MEDS: DAPTOmycin (GENERIC) IVPB 500 MG in IV NORMAL SALINE 50ML 50 ML IV SCH (11:12)
--- NOTE | 2019-08-09 11:13 | PDOC ---
SUBJECTIVE ROS No complaints,states feeling good OBJECTIVE Vital Signs Vital Signs Date Time Temp Pulse Resp B/P (MAP) Pulse Ox O2 Delivery O2 Flow Rate FiO2 08/09/19 10:59 98.6 92 22 159/74 (102) 95 Room Air 98.6 08/08/19 14:17 2.0 I & 0 Intake and Output 08/09/19 07:00 Intake Total 1891 ml Output Total 980 ml Balance 911 ml Intake Oral 590 ml IV Total 1301 ml Output Urine Total 980 ml # Bowel Movements 1 PHYSICAL EXAM Physical Exam GENERAL: NAD NECK: Supple LUNGS: Decreased breath sounds at the bases. No accessory muscle use. HEART: S1, S2. regular, tachy ABDOMEN: Obese, soft, EXTREMITIES: No edema, no clubbing, no cyanosis. SKIN: Warm, dry. No generalized rash. 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 : Iniguez in place DIAGNOSIS/ASSESSMENT Assessment & Plan AVI - ATN, non oliguric Lasix , MAYNOR-I held Improving renal function,back to baseline , Cr peaked at 2.3 ,good uop Supportive care, Strict I/O, avoid nephrotoxins , dc iniguez, voiding trial prior to dc Hyperkalemia- at presentation, resolved Met Acidosis - Resolved Sepsis Abx Hypotension -Off pressors Resolved, BP high Ac resp Failure - resolved , On RA DM II COVID negative COMMENT/RELEVANT DATA Meds Current Medications Medications (Trade) Dose Ordered Sig/Manish Start Time Stop Time Status Last Admin Dose Admin Acetaminophen (Tylenol Supp) 650 mg PRN Q6HRS PRN 08/06/19 18:15 08/06/19 21:01 650 MG Acetaminophen (Tylenol) 650 mg PRN Q6HRS PRN 08/07/19 12:15 08/09/19 07:25 650 MG Amitriptyline HCl (Elavil) 25 mg HS 08/07/19 21:00 08/08/19 21:20 25 MG Aspirin (Ecotrin) 81 mg DAILY 08/08/19 09:00 08/09/19 07:24 81 MG Calcium Gluconate 1000 mg/Sodium Chloride 110 ml @ 220 mls/hr 1X ONCE 08/07/19 11:00 08/07/19 11:29 DC 08/07/19 11:14 220 MLS/HR Cetirizine HCl (ZyrTEC) 10 mg DAILY 08/08/19 09:00 08/09/19 07:25 10 MG Cyclobenzaprine HCl (Flexeril) 10 mg HS 08/07/19 21:00 08/08/19 21:20 10 MG Daptomycin 500 mg/ Sodium Chloride 50 ml @ 100 mls/hr Q24H 08/08/19 11:00 08/08/19 11:38 100 MLS/HR Dextrose (Dextrose 50%-Water Syringe) 25 gm 1X ONCE 08/07/19 10:45 08/07/19 10:46 DC 08/07/19 11:14 25 GM Heparin Sodium (Porcine) (Heparin Sodium) 5,000 unit Q8HRS 08/08/19 14:00 08/09/19 06:04 5,000 UNIT Hydrocortisone Sodium Succinate (Solu-CORTEF) 100 mg Q8HRS 08/07/19 12:19 08/09/19 05:42 100 MG Insulin Glargine (Lantus Syringe) 85 unit DAILY 08/08/19 10:18 08/09/19 08:15 85 UNIT Insulin Human Lispro (HumaLOG) 20 units TIDWMEALS 08/07/19 17:00 08/09/19 08:16 20 UNITS Insulin Human Regular (HumuLIN R VIAL) 10 unit 1X ONCE 08/07/19 11:00 08/07/19 11:01 DC 08/07/19 11:19 10 UNIT Lorazepam (Ativan Inj) 1 mg PRN Q6HRS PRN 08/06/19 23:45 08/07/19 00:59 1 MG Meclizine HCl (Antivert) 25 mg PRN Q8HRS PRN 08/07/19 14:30 Meropenem 500 mg/ Sodium Chloride 50 ml @ 100 mls/hr Q8HRS 08/08/19 15:00 08/09/19 05:42 100 MLS/HR Metoprolol Tartrate (Lopressor) 25 mg BID 08/08/19 21:00 08/09/19 07:24 25 MG Morphine Sulfate (Morphine Sulfate) 4 mg PRN Q2HR PRN 08/06/19 23:45 08/09/19 07:25 4 MG Norepinephrine Bitartrate 8 mg/ Dextrose 258 ml @ 17.454 mls/ hr CONT PRN 08/06/19 22:00 08/06/19 22:30 17.454 MLS/HR Pantoprazole Sodium (Protonix) 40 mg DAILYAC 08/08/19 07:30 08/09/19 07:25 40 MG Piperacillin Sod/ Tazobactam Sod (Zosyn Per Pharmacy) 1 each PRN DAILY PRN 08/06/19 18:15 08/07/19 09:50 DC Piperacillin Sod/ Tazobactam Sod 3.375 gm/Sodium Chloride 50 ml @ 100 mls/hr Q6HRS 08/06/19 19:00 08/07/19 09:50 DC 08/07/19 06:09 100 MLS/HR Sodium Bicarbonate 50 meq/Sodium Chloride 1,050 ml @ 150 mls/hr Q7H 08/06/19 22:30 08/08/19 13:54 DC 08/08/19 06:16 150 MLS/HR Sodium Polystyrene Sulfonate (Kayexalate) 30 gm Q6H 08/07/19 07:00 08/07/19 13:01 DC 08/07/19 12:51 30 GM Sodium Bicarbonate (Sodium Bicarb Adult 8.4% Syr) 50 meq 1X ONCE 08/07/19 10:45 08/07/19 10:46 DC 08/07/19 11:14 50 MEQ Sodium Chloride 1,000 ml @ 0 mls/hr Q0M 08/08/19 14:00 08/08/19 15:33 DC Vancomycin HCl (Vanco Per Pharmacy) 1 each PRN DAILY PRN 08/06/19 18:15 08/07/19 09:50 DC 08/06/19 18:16 1 EACH Vancomycin HCl (Vancomycin Trough Level) 1 each 1X ONCE 08/10/19 19:30 08/07/19 09:59 DC Vancomycin HCl 1.5 gm/Sodium Chloride 500 ml @ 250 mls/hr Q48H 08/06/19 20:00 08/07/19 09:50 DC 08/06/19 21:13 250 MLS/HR Venlafaxine HCl (Effexor Xr) 37.5 mg DAILY 08/08/19 09:00 08/09/19 07:24 37.5 MG Lab Laboratory Tests Test 08/08/19 12:11 08/08/19 16:28 08/08/19 20:42 08/09/19 03:11 Glucose (Fingerstick) 268 mg/dL (70-99) 123 mg/dL (70-99) 75 mg/dL (70-99) 129 mg/dL (70-99) Test 08/09/19 04:00 08/09/19 07:33 White Blood Count 12.4 x10^3/uL (4.0-11.0) Red Blood Count 3.11 x10^6/uL (3.50-5.40) Hemoglobin 8.3 g/dL (12.0-15.5) Hematocrit 25.6 % (36.0-47.0) Mean Corpuscular Volume 83 fL (79-100) Mean Corpuscular Hemoglobin 27 pg (25-35) Mean Corpuscular Hemoglobin Concent 32 g/dL (31-37) Red Cell Distribution Width 16.4 % (11.5-14.5) Platelet Count 196 x10^3/uL (140-400) Neutrophils (%) (Auto) 83 % (31-73) Lymphocytes (%) (Auto) 11 % (24-48) Monocytes (%) (Auto) 6 % (0-9) Eosinophils (%) (Auto) 0 % (0-3) Basophils (%) (Auto) 0 % (0-3) Neutrophils # (Auto) 10.3 x10^3/uL (1.8-7.7) Lymphocytes # (Auto) 1.3 x10^3/uL (1.0-4.8) Monocytes # (Auto) 0.7 x10^3/uL (0.0-1.1) Eosinophils # (Auto) 0.0 x10^3/uL (0.0-0.7) Basophils # (Auto) 0.0 x10^3/uL (0.0-0.2) Sodium Level 142 mmol/L (136-145) Potassium Level 3.6 mmol/L (3.5-5.1) Chloride Level 106 mmol/L (98-107) Carbon Dioxide Level 29 mmol/L (21-32) Anion Gap 7 (6-14) Blood Urea Nitrogen 24 mg/dL (7-20) Creatinine 1.2 mg/dL (0.6-1.0) Estimated GFR (Cockcroft-Gault) 44.2 Glucose Level 182 mg/dL (70-99) Calcium Level 8.2 mg/dL (8.5-10.1) Glucose (Fingerstick) 221 mg/dL (70-99) Results All relevant outside records, renal labs, imaging studies, telemetry/EKG's were reviewed. SHRUTI KILGORE MD August 09, 2019 11:13
--- NOTE | 2019-08-09 12:16 | PDOC ---
PULMONARY PROGRESS NOTES Subjective denies sob, has occ cough, no cp, on ra Vitals Vital Signs Date Time Temp Pulse Resp B/P (MAP) Pulse Ox O2 Delivery O2 Flow Rate FiO2 08/09/19 10:59 98.6 92 22 159/74 (102) 95 Room Air 98.6 08/08/19 14:17 2.0 Comments ros as mentioned as above other sys otherwise neg General: Alert, No acute distress HEENT: Other (nc at perrl nose throat clear neck no lad no thyromegaly) Lungs: Clear Cardiovascular: S1, S2 Abdomen: Soft, Non-tender Neuro Exam: Alert Extremities: No Edema Skin: Warm Labs Laboratory Tests Test 08/07/19 13:07 08/07/19 14:50 08/07/19 18:06 08/07/19 21:47 Glucose (Fingerstick) 208 mg/dL (70-99) 250 mg/dL (70-99) 215 mg/dL (70-99) Potassium Level 5.5 mmol/L (3.5-5.1) Test 08/08/19 04:30 08/08/19 10:13 08/08/19 12:11 08/08/19 16:28 Sodium Level 142 mmol/L (136-145) Potassium Level 4.0 mmol/L (3.5-5.1) Chloride Level 106 mmol/L (98-107) Carbon Dioxide Level 27 mmol/L (21-32) Anion Gap 9 (6-14) Blood Urea Nitrogen 24 mg/dL (7-20) Creatinine 1.3 mg/dL (0.6-1.0) Estimated GFR (Cockcroft-Gault) 40.3 Glucose Level 258 mg/dL (70-99) Calcium Level 7.8 mg/dL (8.5-10.1) Phosphorus Level 3.4 mg/dL (2.6-4.7) Magnesium Level 1.5 mg/dL (1.8-2.4) Glucose (Fingerstick) 232 mg/dL (70-99) 268 mg/dL (70-99) 123 mg/dL (70-99) Test 08/08/19 20:42 08/09/19 03:11 08/09/19 04:00 08/09/19 07:33 Glucose (Fingerstick) 75 mg/dL (70-99) 129 mg/dL (70-99) 221 mg/dL (70-99) White Blood Count 12.4 x10^3/uL (4.0-11.0) Red Blood Count 3.11 x10^6/uL (3.50-5.40) Hemoglobin 8.3 g/dL (12.0-15.5) Hematocrit 25.6 % (36.0-47.0) Mean Corpuscular Volume 83 fL (79-100) Mean Corpuscular Hemoglobin 27 pg (25-35) Mean Corpuscular Hemoglobin Concent 32 g/dL (31-37) Red Cell Distribution Width 16.4 % (11.5-14.5) Platelet Count 196 x10^3/uL (140-400) Neutrophils (%) (Auto) 83 % (31-73) Lymphocytes (%) (Auto) 11 % (24-48) Monocytes (%) (Auto) 6 % (0-9) Eosinophils (%) (Auto) 0 % (0-3) Basophils (%) (Auto) 0 % (0-3) Neutrophils # (Auto) 10.3 x10^3/uL (1.8-7.7) Lymphocytes # (Auto) 1.3 x10^3/uL (1.0-4.8) Monocytes # (Auto) 0.7 x10^3/uL (0.0-1.1) Eosinophils # (Auto) 0.0 x10^3/uL (0.0-0.7) Basophils # (Auto) 0.0 x10^3/uL (0.0-0.2) Sodium Level 142 mmol/L (136-145) Potassium Level 3.6 mmol/L (3.5-5.1) Chloride Level 106 mmol/L (98-107) Carbon Dioxide Level 29 mmol/L (21-32) Anion Gap 7 (6-14) Blood Urea Nitrogen 24 mg/dL (7-20) Creatinine 1.2 mg/dL (0.6-1.0) Estimated GFR (Cockcroft-Gault) 44.2 Glucose Level 182 mg/dL (70-99) Calcium Level 8.2 mg/dL (8.5-10.1) Test 08/09/19 11:14 Glucose (Fingerstick) 205 mg/dL (70-99) Laboratory Tests Test 08/08/19 16:28 08/08/19 20:42 08/09/19 03:11 08/09/19 04:00 Glucose (Fingerstick) 123 mg/dL (70-99) 75 mg/dL (70-99) 129 mg/dL (70-99) White Blood Count 12.4 x10^3/uL (4.0-11.0) Red Blood Count 3.11 x10^6/uL (3.50-5.40) Hemoglobin 8.3 g/dL (12.0-15.5) Hematocrit 25.6 % (36.0-47.0) Mean Corpuscular Volume 83 fL (79-100) Mean Corpuscular Hemoglobin 27 pg (25-35) Mean Corpuscular Hemoglobin Concent 32 g/dL (31-37) Red Cell Distribution Width 16.4 % (11.5-14.5) Platelet Count 196 x10^3/uL (140-400) Neutrophils (%) (Auto) 83 % (31-73) Lymphocytes (%) (Auto) 11 % (24-48) Monocytes (%) (Auto) 6 % (0-9) Eosinophils (%) (Auto) 0 % (0-3) Basophils (%) (Auto) 0 % (0-3) Neutrophils # (Auto) 10.3 x10^3/uL (1.8-7.7) Lymphocytes # (Auto) 1.3 x10^3/uL (1.0-4.8) Monocytes # (Auto) 0.7 x10^3/uL (0.0-1.1) Eosinophils # (Auto) 0.0 x10^3/uL (0.0-0.7) Basophils # (Auto) 0.0 x10^3/uL (0.0-0.2) Sodium Level 142 mmol/L (136-145) Potassium Level 3.6 mmol/L (3.5-5.1) Chloride Level 106 mmol/L (98-107) Carbon Dioxide Level 29 mmol/L (21-32) Anion Gap 7 (6-14) Blood Urea Nitrogen 24 mg/dL (7-20) Creatinine 1.2 mg/dL (0.6-1.0) Estimated GFR (Cockcroft-Gault) 44.2 Glucose Level 182 mg/dL (70-99) Calcium Level 8.2 mg/dL (8.5-10.1) Test 08/09/19 07:33 08/09/19 11:14 Glucose (Fingerstick) 221 mg/dL (70-99) 205 mg/dL (70-99) Medications Active Scripts Medications Dose Route/Sig Max Daily Dose Days Date Category Humalog (Insulin Lispro) 100 Unit/1 Ml Cartridge 20 Unit SQ TID 08/06/19 Reported Tramadol Hcl 50 Mg Tablet 50 Mg PO DAILY PRN 08/06/19 Reported Lasix (Furosemide) 40 Mg Tablet 1 Tab PO DAILY 30 08/06/19 Reported Lisinopril 5 Mg Tablet 1 Tab PO DAILY 08/06/19 Reported Meclizine Hcl 25 Mg Tablet 1 Tab PO TID 08/06/19 Reported Pantoprazole Sodium (Pantoprazole Sodium) 40 Mg Tablet.dr 40 Mg PO DAILYAC 08/06/19 Reported Venlafaxine Hcl 37.5 Mg Tablet 1 Tab PO DAILY 08/06/19 Reported Calcium 500 + D Tablet (Calcium Carbonate/Vitamin D3) 1 Each Tablet 1 Tab PO DAILY 30 08/06/19 Reported Aspirin Ec (Aspirin) 81 Mg Tablet.dr 1 Tab PO DAILY 08/06/19 Reported Metoprolol Tartrate 25 Mg Tablet 1 Tab PO BID 08/06/19 Reported Prednisone 20 Mg Tablet 10 Mg PO DAILY 05/16/17 Reported Tresiba Flextouch U-100 (Insulin Degludec) 100 Unit/1 Ml Insuln.pen 85 Unit SQ DAILY08 05/16/17 Reported Zyrtec (Cetirizine Hcl) 10 Mg Tab.chew 10 Mg PO DAILY 07/01/15 Reported Amitriptyline Hcl 25 Mg Tablet 25 Mg PO HS 07/01/15 Reported Cyclobenzaprine Hcl 10 Mg Tablet 10 Mg PO HS 07/01/15 Reported Klor-Con (Potassium Chloride) 20 Meq Packet Unknown Dose PO DAILY 07/01/15 Reported Enbrel (Etanercept) 50 Mg/1 Ml Disp.syrin 50 Mg SQ WEEKLY 07/01/15 Reported Comments le doppelr neg Impression . 1. Acute hypoxic respiratory failure secondary to septic shock. 2. Fever of 103, resolved. Source is not so obvious. The chest x-ray is clear. She did have mild ground-glass infiltrates on 07/24/[address] chest and chest x-ray and these are no longer visible. One should look for other sources of infection. The urine appears to be benign so far. COVID neg. There are no obvious wounds. Infectious Disease following. Pt is immuno-suppresed (on chronic steroids for RA.) 3. No significant tobacco history. 4. Obesity contributing to hypoxia as well. 5. Hyperkalemia and acute kidney injury related to septic shock. Renal has been consulted for acute management of hyperkalemia. 6. Moderate protein-calorie malnutrition. 7. Venous Dopplers with no evidence of deep venous thrombosis. Clinical suspicion for thromboembolic disease is low and would not pursue at this point for a V/Q scan. 8. RA, on chronic steroids Plan . 1. Continue with present oxygen, keep saturation 94 and above. 2. Broad-spectrum antibiotics per ID, Dapto and Zosyn, renal dosing. CPK 560 off vancomycin due to AVI. 3. fu Blood cultures and urine cultures, Cultures neg to date 4. COVID-19 neg, last week covid19 neg 5. Follow renal recommendation regarding hyperkalemia and AVI. 6. P.r.n. bronchodilators. 7. taper Hydrocortisone ( Pt on chronic steroids for RA) 8. hep sq and protonix for prophylaxis Discussed with RN, detail plan discussed. ELEANOR WING MD August 09, 2019 12:16
--- NOTE | 2019-08-09 12:58 | PDOC ---
[employer] PROGRESS NOTE Chief Complaint Chief Complaint Respiratory failure Shortness of breath, hypoxia, hyperkalemia, renal failure, fevers, suspect possible acute renal failure. Allergic rhinitis, muscle spasms, hypertension, chronic pain, arthritis, depression, anxiety, GERD and diabetes. Her COVID test was negative1. Acute hypoxic respiratory failure secondary to septic shock. Fever of 103. ( Fever of unknown origin) Obesity Hyperkalemia Acute kidney injury Resolving sepsis Malnutrition Rheumatoid arthritis on steroids chronically History of Present Illness History of Present Illness 08/09/2019 Patient seen and examined She is resting with no apparent stress Chart reviewed 08/08/2019 Patient seen and examined in the [facility] [id number] ICU Her COVID test just came back negative Discussed with RN Chart reviewed 08/07/2019 Patient seen and examined in the [facility] [id number] ICU Chart reviewed Discussed with RN She still remains quite ill and extremely confused Vitals/I&O Vitals/I&O: Vital Signs Date Time Temp Pulse Resp B/P (MAP) Pulse Ox O2 Delivery O2 Flow Rate FiO2 08/09/19 10:59 98.6 92 22 159/74 (102) 95 Room Air 98.6 08/08/19 14:17 2.0 I & O 08/08/19 08/08/19 08/09/19 15:00 23:00 07:00 Intake Total 1551 ml 100 ml 240 ml Output Total 430 ml 150 ml 400 ml Balance 1121 ml -50 ml -160 ml Physical Exam Physical Exam: GENERAL: Resting with no apparent distress NECK: Supple LUNGS: Decreased breath sounds at the bases. No accessory muscle use. HEART: S1, S2. regular ABDOMEN: Obese, soft, no guarding, bowel sounds present : Benson in place EXTREMITIES: No edema, no clubbing, no cyanosis. SKIN: Warm, dry. No generalized rash. General: No acute distress Heart: Regular rate, Other (OCC TACHY) Lungs: Clear Abdomen: Normal bowel sounds Extremities: No clubbing, No cyanosis, No edema Skin: No breakdown Labs Labs: Laboratory Tests Test 08/08/19 16:28 08/08/19 20:42 08/09/19 03:11 08/09/19 04:00 Glucose (Fingerstick) 123 mg/dL (70-99) 75 mg/dL (70-99) 129 mg/dL (70-99) White Blood Count 12.4 x10^3/uL (4.0-11.0) Red Blood Count 3.11 x10^6/uL (3.50-5.40) Hemoglobin 8.3 g/dL (12.0-15.5) Hematocrit 25.6 % (36.0-47.0) Mean Corpuscular Volume 83 fL (79-100) Mean Corpuscular Hemoglobin 27 pg (25-35) Mean Corpuscular Hemoglobin Concent 32 g/dL (31-37) Red Cell Distribution Width 16.4 % (11.5-14.5) Platelet Count 196 x10^3/uL (140-400) Neutrophils (%) (Auto) 83 % (31-73) Lymphocytes (%) (Auto) 11 % (24-48) Monocytes (%) (Auto) 6 % (0-9) Eosinophils (%) (Auto) 0 % (0-3) Basophils (%) (Auto) 0 % (0-3) Neutrophils # (Auto) 10.3 x10^3/uL (1.8-7.7) Lymphocytes # (Auto) 1.3 x10^3/uL (1.0-4.8) Monocytes # (Auto) 0.7 x10^3/uL (0.0-1.1) Eosinophils # (Auto) 0.0 x10^3/uL (0.0-0.7) Basophils # (Auto) 0.0 x10^3/uL (0.0-0.2) Sodium Level 142 mmol/L (136-145) Potassium Level 3.6 mmol/L (3.5-5.1) Chloride Level 106 mmol/L (98-107) Carbon Dioxide Level 29 mmol/L (21-32) Anion Gap 7 (6-14) Blood Urea Nitrogen 24 mg/dL (7-20) Creatinine 1.2 mg/dL (0.6-1.0) Estimated GFR (Cockcroft-Gault) 44.2 Glucose Level 182 mg/dL (70-99) Calcium Level 8.2 mg/dL (8.5-10.1) Test 08/09/19 07:33 08/09/19 11:14 Glucose (Fingerstick) 221 mg/dL (70-99) 205 mg/dL (70-99) Assessment and Plan Assessmemt and Plan Respiratory failure Shortness of breath, hypoxia, hyperkalemia, renal failure, fevers, suspect possible acute renal failure. Allergic rhinitis, muscle spasms, hypertension, chronic pain, arthritis, depression, anxiety, GERD and diabetes. Her COVID test was negative1. Acute hypoxic respiratory failure secondary to septic shock. Fever of 103. ( Fever of unknown origin) Obesity Hyperkalemia Acute kidney injury Resolving sepsis Malnutrition Rheumatoid arthritis on steroids chronically Plan Await further subspecialist input (infectious disease pulmonary and nephrology) IV Zosyn O2 per nasal cannula IV fluids Home meds DVT prophylaxis Full code Family does not want long term on discharge Per pulmonary see the following; 1. Continue with present oxygen, keep saturation 94 and above. 2. Broad-spectrum antibiotics per ID, Dapto and Zosyn, renal dosing. CPK 560 off vancomycin due to AVI. 3. fu Blood cultures and urine cultures, Cultures neg to date 4. COVID-19 neg, last week covid19 neg 5. Follow renal recommendation regarding hyperkalemia and AVI. 6. P.r.n. bronchodilators. 7. taper Hydrocortisone ( Pt on chronic steroids for RA) 8. hep sq and protonix for prophylaxis Comment Review of Relevant I have reviewed the following items jasper (where applicable) has been applied. Medications: Current Medications Medications (Trade) Dose Ordered Sig/Manish Route PRN Reason Start Time Stop Time Status Last Admin Dose Admin Meropenem 500 mg/ Sodium Chloride 50 ml @ 100 mls/hr Q8HRS IV 08/08/19 15:00 08/09/19 12:54 DC 08/09/19 05:42 Heparin Sodium (Porcine) (Heparin Sodium) 5,000 unit Q8HRS SQ 08/08/19 14:00 08/09/19 06:04 Metoprolol Tartrate (Lopressor) 25 mg BID PO 08/08/19 21:00 08/09/19 07:24 THAD WHIPPLE III DO August 09, 2019 12:58
[2019-08-09] MEDS: cloNIDine HCL 0.2 MG TABLET PO PRN ×2 (15:22→17:38)
[2019-08-09] MEDS: traMADol 50 MG TABLET PO PRN (17:30)
[2019-08-09] MEDS: AMOXICILLIN/K CLAV 875/125MG TABLET. PO SCH (20:13)
[2019-08-09] MEDS: CYCLOBENZAPRINE 10 MG TABLET. PO SCH (20:13)
[2019-08-09] MEDS: AMITRIPTYLINE HCL 25 MG TABLET. PO SCH (20:13)
[2019-08-10] MEDS: traMADol 50 MG TABLET PO PRN ×2 (00:16→11:35)
[2019-08-10 02:30] VITALS: BP 169/80
[2019-08-10 05:22] LABS: CALCIUM 7.4 mg/dL (8.5-10.1); CREATININE 1.6 mg/dL (0.6-1.0); GFR 31.7; MAGNESIUM 1.8 mg/dL (1.8-2.4); POTASSIUM 3.6 mmol/L (3.5-5.1)
[2019-08-10] MEDS: HYDROCORTISONE SOD SUCC/PF 100 MG/2 ML VIAL. IVP SCH (06:24)
[2019-08-10] MEDS: HEPARIN for SUB-Q USE 5,000 UNIT/ML VIAL. SQ SCH ×2 (06:27→14:04)
[2019-08-10 06:59] VITALS: BP 182/96
[2019-08-10] MEDS: PANTOPRAZOLE 40 MG TABLET.DR. PO SCH (08:22)
[2019-08-10] MEDS: AMOXICILLIN/K CLAV 875/125MG TABLET. PO SCH (08:23)
[2019-08-10] MEDS: CETIRIZINE HCL 10 MG TABLET. PO SCH (08:23)
[2019-08-10] MEDS: ACETAMINOPHEN 325 MG TABLET. PO PRN (08:23)
[2019-08-10] MEDS: ASPIRIN ENTERIC COATED 81 MG TABLET.DR. PO SCH (08:24)
[2019-08-10] MEDS: VENLAFAXINE XR 37.5 MG CAP.ER.24H. PO SCH (08:24)
[2019-08-10] MEDS: METOPROLOL TART IMMED RELEASE 25 MG TABLET. PO SCH (08:24)
[2019-08-10] MEDS: INSULIN GLARGINE SYRINGE. SQ SCH (08:31)
[2019-08-10] MEDS: INSULIN LISPRO 300 UNITS/3 ML VIAL. SQ SCH ×2 (08:31→12:08)
--- NOTE | 2019-08-10 08:56 | PDOC ---
Infectious Disease Note Subjective Subjective feeling good, wants to go home ROS ROS no n/v/d/sob/fever Vital Sign Vital Signs Vital Signs Date Time Temp Pulse Resp B/P (MAP) Pulse Ox O2 Delivery O2 Flow Rate FiO2 08/10/19 08:24 100 182/96 08/10/19 06:59 98.1 16 96 Room Air 98.1 08/10/19 01:16 2.0 Physical Exam PHYSICAL EXAM GENERAL: Resting with no apparent distress NECK: Supple LUNGS: Decreased breath sounds at the bases. No accessory muscle use. HEART: S1, S2. regular ABDOMEN: Obese, soft, no guarding, bowel sounds present : Benson in place EXTREMITIES: No edema, no clubbing, no cyanosis. SKIN: Warm, dry. No generalized rash. 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 Lab Laboratory Tests Test 08/09/19 11:14 08/09/19 16:09 08/09/19 20:51 08/10/19 04:02 Glucose (Fingerstick) 205 mg/dL (70-99) 74 mg/dL (70-99) 150 mg/dL (70-99) Sodium Level 139 mmol/L (136-145) Potassium Level 3.6 mmol/L (3.5-5.1) Chloride Level 102 mmol/L (98-107) Carbon Dioxide Level 26 mmol/L (21-32) Anion Gap 11 (6-14) Blood Urea Nitrogen 38 mg/dL (7-20) Creatinine 1.6 mg/dL (0.6-1.0) Estimated GFR (Cockcroft-Gault) 31.7 Glucose Level 297 mg/dL (70-99) Calcium Level 7.4 mg/dL (8.5-10.1) Magnesium Level 1.8 mg/dL (1.8-2.4) Test 08/10/19 07:03 Glucose (Fingerstick) 232 mg/dL (70-99) Micro Microbiology 08/06/19 Urine Culture - Final, Complete 08/06/19 Blood Culture - Preliminary, Resulted NO GROWTH AFTER 3 DAYS Objective Assessment Fever - better Leukocytosis and lactic acidosis - better Sepsis, source unclear - improving Acute hypoxic respiratory failure Acute kidney injury, hyperkalemia. History of ALLERGIES TO SULFA, CLINDAMYCIN. History of kidney stone. History of recent pneumonia and urinary tract infection. Diabetes mellitus. History of kidney stones. Coronary artery disease. Rheumatoid arthritis. Irritable bowel syndrome, gastroesophageal reflux disease. History of recurrent urinary tract infection. Encephalopathy - improving Anemia. COVID-19 neg Plan Plan of Care po augmentin for 5 days Cultures neg to date Supportive care. PT/OT ok to d/c home D/w nursing SUZIE FRITZ MD Aug 10, 2019 08:55
--- NOTE | 2019-08-10 09:16 | PDOC ---
SUBJECTIVE ROS No complaints,states feeling good OBJECTIVE Vital Signs Vital Signs Date Time Temp Pulse Resp B/P (MAP) Pulse Ox O2 Delivery O2 Flow Rate FiO2 08/10/19 08:24 100 182/96 08/10/19 08:00 Room Air 2.0 08/10/19 06:59 98.1 16 96 98.1 I & 0 Intake and Output 08/10/19 07:00 Intake Total 1380 ml Output Total 400 ml Balance 980 ml Intake Oral 1280 ml IV Total 100 ml Output Urine Total 400 ml # Bowel Movements 1 PHYSICAL EXAM Physical Exam GENERAL: NAD NECK: Supple LUNGS: Decreased breath sounds at the bases. No accessory muscle use. HEART: S1, S2. regular, tachy ABDOMEN: Obese, soft, EXTREMITIES: No edema, no clubbing, no cyanosis. SKIN: Warm, dry. No generalized rash. TIN WORKER: Briefly opens eyes to name : Iniguez in place DIAGNOSIS/ASSESSMENT Assessment & Plan AVI - ATN, non oliguric Lasix , MAYNOR-I held Improving renal function was back to baseline , noted increase in Cr to 1.6 this am, Supportive care, avoid nephrotoxins ? UOP accuracy after iniguez removal , bladder scan to r/o retention Hyperkalemia- at presentation, resolved Met Acidosis - Resolved Sepsis Abx Hypotension -Off pressors Resolved, BP high Ac resp Failure - resolved , On RA DM II COVID negative Discharge planning per primary. Recommend FU renal function with PCP in 1-2 weeks FU with Renal as OP next available COMMENT/RELEVANT DATA Meds Current Medications Medications (Trade) Dose Ordered Sig/Manish Start Time Stop Time Status Last Admin Dose Admin Acetaminophen (Tylenol Supp) 650 mg PRN Q6HRS PRN 08/06/19 18:15 08/06/19 21:01 650 MG Acetaminophen (Tylenol) 650 mg PRN Q6HRS PRN 08/07/19 12:15 08/10/19 08:23 650 MG Amitriptyline HCl (Elavil) 25 mg HS 08/07/19 21:00 08/09/19 20:13 25 MG Amoxicillin/ Clavulanate Potassium (Augmentin 875/ 125mg) 1 tab BID 08/09/19 21:00 08/10/19 08:23 1 TAB Aspirin (Ecotrin) 81 mg DAILY 08/08/19 09:00 08/10/19 08:24 81 MG Calcium Gluconate 1000 mg/Sodium Chloride 110 ml @ 220 mls/hr 1X ONCE 08/07/19 11:00 08/07/19 11:29 DC 08/07/19 11:14 220 MLS/HR Cetirizine HCl (ZyrTEC) 10 mg DAILY 08/08/19 09:00 08/10/19 08:23 10 MG Clonidine HCl (Catapres) 0.2 mg PRN Q2HRS PRN 08/09/19 11:30 08/09/19 17:38 0.2 MG Cyclobenzaprine HCl (Flexeril) 10 mg HS 08/07/19 21:00 08/09/19 20:13 10 MG Daptomycin 500 mg/ Sodium Chloride 50 ml @ 100 mls/hr Q24H 08/08/19 11:00 08/09/19 12:54 DC 08/09/19 11:12 100 MLS/HR Dextrose (Dextrose 50%-Water Syringe) 25 gm 1X ONCE 08/07/19 10:45 08/07/19 10:46 DC 08/07/19 11:14 25 GM Heparin Sodium (Porcine) (Heparin Sodium) 5,000 unit Q8HRS 08/08/19 14:00 08/10/19 06:27 5,000 UNIT Hydrocortisone Sodium Succinate (Solu-CORTEF) 50 mg Q8HRS 08/09/19 14:00 08/10/19 06:24 50 MG Insulin Glargine (Lantus Syringe) 85 unit DAILY 08/08/19 10:18 08/10/19 08:31 85 UNIT Insulin Human Lispro (HumaLOG) 20 units TIDWMEALS 08/07/19 17:00 08/10/19 08:31 20 UNITS Insulin Human Regular (HumuLIN R VIAL) 10 unit 1X ONCE 08/07/19 11:00 08/07/19 11:01 DC 08/07/19 11:19 10 UNIT Lorazepam (Ativan Inj) 1 mg PRN Q6HRS PRN 08/06/19 23:45 08/07/19 00:59 1 MG Meclizine HCl (Antivert) 25 mg PRN Q8HRS PRN 08/07/19 14:30 Meropenem 500 mg/ Sodium Chloride 50 ml @ 100 mls/hr Q8HRS 08/08/19 15:00 08/09/19 12:54 DC 08/09/19 05:42 100 MLS/HR Metoprolol Tartrate (Lopressor) 25 mg BID 08/08/19 21:00 08/10/19 08:24 25 MG Morphine Sulfate (Morphine Sulfate) 4 mg PRN Q2HR PRN 08/06/19 23:45 08/09/19 07:25 4 MG Norepinephrine Bitartrate 8 mg/ Dextrose 258 ml @ 17.454 mls/ hr CONT PRN 08/06/19 22:00 08/06/19 22:30 17.454 MLS/HR Pantoprazole Sodium (Protonix) 40 mg DAILYAC 08/08/19 07:30 08/10/19 08:22 40 MG Piperacillin Sod/ Tazobactam Sod (Zosyn Per Pharmacy) 1 each PRN DAILY PRN 08/06/19 18:15 08/07/19 09:50 DC Piperacillin Sod/ Tazobactam Sod 3.375 gm/Sodium Chloride 50 ml @ 100 mls/hr Q6HRS 08/06/19 19:00 08/07/19 09:50 DC 08/07/19 06:09 100 MLS/HR Sodium Bicarbonate 50 meq/Sodium Chloride 1,050 ml @ 150 mls/hr Q7H 08/06/19 22:30 08/08/19 13:54 DC 08/08/19 06:16 150 MLS/HR Sodium Polystyrene Sulfonate (Kayexalate) 30 gm Q6H 08/07/19 07:00 08/07/19 13:01 DC 08/07/19 12:51 30 GM Sodium Bicarbonate (Sodium Bicarb Adult 8.4% Syr) 50 meq 1X ONCE 08/07/19 10:45 08/07/19 10:46 DC 08/07/19 11:14 50 MEQ Sodium Chloride 1,000 ml @ 0 mls/hr Q0M 08/08/19 14:00 08/08/19 15:33 DC Tramadol HCl (Ultram) 50 mg PRN Q6HRS PRN 08/09/19 11:45 08/10/19 00:16 50 MG Vancomycin HCl (Vanco Per Pharmacy) 1 each PRN DAILY PRN 08/06/19 18:15 08/07/19 09:50 DC 08/06/19 18:16 1 EACH Vancomycin HCl (Vancomycin Trough Level) 1 each 1X ONCE 08/10/19 19:30 08/07/19 09:59 DC Vancomycin HCl 1.5 gm/Sodium Chloride 500 ml @ 250 mls/hr Q48H 08/06/19 20:00 08/07/19 09:50 DC 08/06/19 21:13 250 MLS/HR Venlafaxine HCl (Effexor Xr) 37.5 mg DAILY 08/08/19 09:00 08/10/19 08:24 37.5 MG Lab Laboratory Tests Test 08/09/19 11:14 08/09/19 16:09 08/09/19 20:51 08/10/19 04:02 Glucose (Fingerstick) 205 mg/dL (70-99) 74 mg/dL (70-99) 150 mg/dL (70-99) Sodium Level 139 mmol/L (136-145) Potassium Level 3.6 mmol/L (3.5-5.1) Chloride Level 102 mmol/L (98-107) Carbon Dioxide Level 26 mmol/L (21-32) Anion Gap 11 (6-14) Blood Urea Nitrogen 38 mg/dL (7-20) Creatinine 1.6 mg/dL (0.6-1.0) Estimated GFR (Cockcroft-Gault) 31.7 Glucose Level 297 mg/dL (70-99) Calcium Level 7.4 mg/dL (8.5-10.1) Magnesium Level 1.8 mg/dL (1.8-2.4) Test 08/10/19 07:03 Glucose (Fingerstick) 232 mg/dL (70-99) Results All relevant outside records, renal labs, imaging studies, telemetry/EKG's were reviewed. SHRUTI KILGORE MD Aug 10, 2019 09:16
--- NOTE | 2019-08-10 09:48 | PDOC ---
PULMONARY PROGRESS NOTES Subjective denies sob, has occ cough, no cp, on ra Vitals Vital Signs Date Time Temp Pulse Resp B/P (MAP) Pulse Ox O2 Delivery O2 Flow Rate FiO2 08/10/19 08:24 100 182/96 08/10/19 08:00 Room Air 2.0 08/10/19 06:59 98.1 16 96 98.1 Comments ros as mentioned as above other sys otherwise neg General: Alert, No acute distress HEENT: Other (nc at perrl nose throat clear neck no lad no thyromegaly) Lungs: Clear Cardiovascular: S1, S2 Abdomen: Soft, Non-tender Neuro Exam: Alert Extremities: No Edema Skin: Warm Labs Laboratory Tests Test 08/08/19 10:13 08/08/19 12:11 08/08/19 16:28 08/08/19 20:42 Glucose (Fingerstick) 232 mg/dL (70-99) 268 mg/dL (70-99) 123 mg/dL (70-99) 75 mg/dL (70-99) Test 08/09/19 03:11 08/09/19 04:00 08/09/19 07:33 08/09/19 11:14 Glucose (Fingerstick) 129 mg/dL (70-99) 221 mg/dL (70-99) 205 mg/dL (70-99) White Blood Count 12.4 x10^3/uL (4.0-11.0) Red Blood Count 3.11 x10^6/uL (3.50-5.40) Hemoglobin 8.3 g/dL (12.0-15.5) Hematocrit 25.6 % (36.0-47.0) Mean Corpuscular Volume 83 fL (79-100) Mean Corpuscular Hemoglobin 27 pg (25-35) Mean Corpuscular Hemoglobin Concent 32 g/dL (31-37) Red Cell Distribution Width 16.4 % (11.5-14.5) Platelet Count 196 x10^3/uL (140-400) Neutrophils (%) (Auto) 83 % (31-73) Lymphocytes (%) (Auto) 11 % (24-48) Monocytes (%) (Auto) 6 % (0-9) Eosinophils (%) (Auto) 0 % (0-3) Basophils (%) (Auto) 0 % (0-3) Neutrophils # (Auto) 10.3 x10^3/uL (1.8-7.7) Lymphocytes # (Auto) 1.3 x10^3/uL (1.0-4.8) Monocytes # (Auto) 0.7 x10^3/uL (0.0-1.1) Eosinophils # (Auto) 0.0 x10^3/uL (0.0-0.7) Basophils # (Auto) 0.0 x10^3/uL (0.0-0.2) Sodium Level 142 mmol/L (136-145) Potassium Level 3.6 mmol/L (3.5-5.1) Chloride Level 106 mmol/L (98-107) Carbon Dioxide Level 29 mmol/L (21-32) Anion Gap 7 (6-14) Blood Urea Nitrogen 24 mg/dL (7-20) Creatinine 1.2 mg/dL (0.6-1.0) Estimated GFR (Cockcroft-Gault) 44.2 Glucose Level 182 mg/dL (70-99) Calcium Level 8.2 mg/dL (8.5-10.1) Test 08/09/19 16:09 08/09/19 20:51 08/10/19 04:02 08/10/19 07:03 Glucose (Fingerstick) 74 mg/dL (70-99) 150 mg/dL (70-99) 232 mg/dL (70-99) Sodium Level 139 mmol/L (136-145) Potassium Level 3.6 mmol/L (3.5-5.1) Chloride Level 102 mmol/L (98-107) Carbon Dioxide Level 26 mmol/L (21-32) Anion Gap 11 (6-14) Blood Urea Nitrogen 38 mg/dL (7-20) Creatinine 1.6 mg/dL (0.6-1.0) Estimated GFR (Cockcroft-Gault) 31.7 Glucose Level 297 mg/dL (70-99) Calcium Level 7.4 mg/dL (8.5-10.1) Magnesium Level 1.8 mg/dL (1.8-2.4) Laboratory Tests Test 08/09/19 11:14 08/09/19 16:09 08/09/19 20:51 08/10/19 04:02 Glucose (Fingerstick) 205 mg/dL (70-99) 74 mg/dL (70-99) 150 mg/dL (70-99) Sodium Level 139 mmol/L (136-145) Potassium Level 3.6 mmol/L (3.5-5.1) Chloride Level 102 mmol/L (98-107) Carbon Dioxide Level 26 mmol/L (21-32) Anion Gap 11 (6-14) Blood Urea Nitrogen 38 mg/dL (7-20) Creatinine 1.6 mg/dL (0.6-1.0) Estimated GFR (Cockcroft-Gault) 31.7 Glucose Level 297 mg/dL (70-99) Calcium Level 7.4 mg/dL (8.5-10.1) Magnesium Level 1.8 mg/dL (1.8-2.4) Test 08/10/19 07:03 Glucose (Fingerstick) 232 mg/dL (70-99) Medications Active Scripts Medications Dose Route/Sig Max Daily Dose Days Date Category Humalog (Insulin Lispro) 100 Unit/1 Ml Cartridge 20 Unit SQ TID 08/06/19 Reported Tramadol Hcl 50 Mg Tablet 50 Mg PO DAILY PRN 08/06/19 Reported Lasix (Furosemide) 40 Mg Tablet 1 Tab PO DAILY 30 08/06/19 Reported Lisinopril 5 Mg Tablet 1 Tab PO DAILY 08/06/19 Reported Meclizine Hcl 25 Mg Tablet 1 Tab PO TID 08/06/19 Reported Pantoprazole Sodium (Pantoprazole Sodium) 40 Mg Tablet.dr 40 Mg PO DAILYAC 08/06/19 Reported Venlafaxine Hcl 37.5 Mg Tablet 1 Tab PO DAILY 08/06/19 Reported Calcium 500 + D Tablet (Calcium Carbonate/Vitamin D3) 1 Each Tablet 1 Tab PO DAILY 30 08/06/19 Reported Aspirin Ec (Aspirin) 81 Mg Tablet.dr 1 Tab PO DAILY 08/06/19 Reported Metoprolol Tartrate 25 Mg Tablet 1 Tab PO BID 08/06/19 Reported Prednisone 20 Mg Tablet 10 Mg PO DAILY 05/16/17 Reported Tresiba Flextouch U-100 (Insulin Degludec) 100 Unit/1 Ml Insuln.pen 85 Unit SQ DAILY08 05/16/17 Reported Zyrtec (Cetirizine Hcl) 10 Mg Tab.chew 10 Mg PO DAILY 07/01/15 Reported Amitriptyline Hcl 25 Mg Tablet 25 Mg PO HS 07/01/15 Reported Cyclobenzaprine Hcl 10 Mg Tablet 10 Mg PO HS 07/01/15 Reported Klor-Con (Potassium Chloride) 20 Meq Packet Unknown Dose PO DAILY 07/01/15 Reported Enbrel (Etanercept) 50 Mg/1 Ml Disp.syrin 50 Mg SQ WEEKLY 07/01/15 Reported Comments le doppelr neg Impression . 1. Acute hypoxic respiratory failure secondary to septic shock. 2. Fever of 103, resolved. Source is not so obvious. The chest x-ray is clear. She did have mild ground-glass infiltrates on 07/24/[address] chest and chest x-ray and these are no longer visible. One should look for other sources of infection. The urine appears to be benign so far. COVID neg. There are no obvious wounds. Infectious Disease following. Pt is immuno-suppresed (on chronic steroids for RA.) 3. No significant tobacco history. 4. Obesity contributing to hypoxia as well. 5. Hyperkalemia and acute kidney injury related to septic shock. Renal has been following 6. Moderate protein-calorie malnutrition. 7. Venous Dopplers with no evidence of deep venous thrombosis. Clinical suspicion for thromboembolic disease is low and would not pursue at this point for a V/Q scan. 8. RA, on chronic steroids 9. Worsening AVI 10. Anemia Plan . 1. on RA now 2. antibiotics per ID 3. fu Blood cultures and urine cultures, Cultures neg to date 4. COVID-19 neg, last week covid19 neg 5. Follow renal recommendation regarding AVI. 6. P.r.n. bronchodilators. 7. taper Hydrocortisone ( Pt on chronic steroids for RA) 8. hep sq and protonix for prophylaxis 9. Monitor Hb Discussed with RN, detail plan discussed. GLORIA BENNETT MD Aug 10, 2019 09:48
[2019-08-10 10:05] VITALS: BP 181/85
[2019-08-10] MEDS: cloNIDine HCL 0.2 MG TABLET PO PRN ×2 (10:21→14:06)
--- NOTE | 2019-08-10 11:21 | NUR ---
SS following up with discharge planning. SS reviewed pt chart and discussed with pt RN. Pt is currently on room air. PT/OT recommended home with assistance. Pt has twenty four hour caregiver at home. Per RN, pt should discharge today. SS will continue to follow for discharge planning.
--- NOTE | 2019-08-10 11:43 | SNU/HH DC ---
DISCHARGE WITH HOME HEALTH DISCHARGE INFORMATION: Condition on Discharge: Stable CODE STATUS: Code Status: Full HOME HEALTH: Face to Face: I certify this patient is under my care and that I, or a nurse practitioner or physician's educational/development assistant working with me, had a face to face encounter that meets the physician face to face encounter requirements with this patient on []. Medical Complications: Pneumonia, Other (Debility) Residential For: Assess & Educate Safety RN For Eval/Treatment: Yes Physical Therapy For: Evalulation/Treatment Occupational Therapy For: Evaluation/Treatment Speech Language Pathology For: Evaluation/Treatment Home Health Aide For: Self-care CONSUMER AFFAIRS SPECIALIST For: Community Resources Pt Meets Homebound Status: Poor coordination w/ amb. POST DISCHARGE ORDERS: Activity Instructions for Disc: Activity as tolerated Weight Bearing Status after Di: As tolerated DIET AFTER DISCHARGE: Cardiac Wound/Incision Care: Ice to area for comfort CHECKS AFTER DISCHARGE: Checks after discharge: Check blood press - daily, Check blood sugar, ac/hs, Check your Temp as needed TREATMENT/EQUIPMENT ORDERS: Adaptive Equipment Issued: None CERTIFICATION STATEMENT: Certification Statement: Certification Statement: Based on the above finding, I certify that this patient is confined to the home and needs intermittent alf care, physical therapy and/or speech therapy, or continues to need occupational therapy.~ This patient is under my care, and I have initiated the establishment of the plan of care.~ This patient will be followed by myself or a community physician who will periodically review the plan of care. Home Meds Reported Medications Insulin Lispro (HUMALOG) 100 Unit/1 Ml Cartridge, 20 UNIT SQ TID for DM, EACH 08/06/19 Tramadol Hcl (TRAMADOL HCL) 50 Mg Tablet, 50 MG PO DAILY PRN for PAIN, TAB 0 Refills 08/06/19 Furosemide (LASIX) 40 Mg Tablet, 1 TAB PO DAILY for CHF for 30 Days, #30 TAB 0 Refills 08/06/19 Lisinopril (LISINOPRIL) 5 Mg Tablet, 1 TAB PO DAILY for HTN, #30 TAB 5 Refills 08/06/19 Meclizine Hcl (MECLIZINE HCL) 25 Mg Tablet, 1 TAB PO TID for dizzy , #90 TAB 08/06/19 Pantoprazole Sodium (PANTOPRAZOLE SODIUM ) 40 Mg Tablet.dr, 40 MG PO DAILYAC for GERD, TAB 08/06/19 Venlafaxine Hcl (VENLAFAXINE HCL) 37.5 Mg Tablet, 1 TAB PO DAILY for h, #60 TAB 1 Refill 08/06/19 Calcium Carbonate/Vitamin D3 (CALCIUM 500 + D TABLET) 1 Each Tablet, 1 TAB PO DAILY for supplement for 30 Days, #30 TAB 0 Refills 08/06/19 Aspirin (ASPIRIN EC) 81 Mg Tablet.dr, 1 TAB PO DAILY for HH, #30 TAB 3 Refills 08/06/19 Metoprolol Tartrate (METOPROLOL TARTRATE) 25 Mg Tablet, 1 TAB PO BID for HTN, #180 TAB 1 Refill 08/06/19 Prednisone (PREDNISONE) 20 Mg Tablet, 10 MG PO DAILY, TAB 05/16/17 Insulin Degludec (Tresiba Flextouch U-100) 100 Unit/1 Ml Insuln.pen, 85 UNIT SQ DAILY08, EACH 05/16/17 Cetirizine Hcl (ZYRTEC) 10 Mg Tab.chew, 10 MG PO DAILY, TAB.CHEW 07/01/15 Amitriptyline Hcl (AMITRIPTYLINE HCL) 25 Mg Tablet, 25 MG PO HS, TAB 07/01/15 Cyclobenzaprine Hcl (CYCLOBENZAPRINE HCL) 10 Mg Tablet, 10 MG PO HS, TAB 07/01/15 Potassium Chloride (KLOR-CON) 20 Meq Packet, PO DAILY, PACKET 07/01/15 Etanercept (ENBREL) 50 Mg/1 Ml Disp.syrin, 50 MG SQ WEEKLY 07/01/15 THAD WHIPPLE III DO Aug 10, 2019 11:43
--- NOTE | 2019-08-10 12:15 | DS ---
DATE OF DISCHARGE: 08/10/2019 ADMISSION DIAGNOSIS: Sepsis. DISCHARGE DIAGNOSIS: Resolving sepsis. CONSULTS: Infectious Disease, Nephrology, and Pulmonary. PROCEDURES: None. HOSPITAL COURSE: The patient is a pleasant elderly female who presented with mental status change, fever, shortness of breath and appeared to possibly have COVID-19. She was admitted to the ICU. We ruled out COVID-19, but she did have pneumonia. We gave her IV antibiotics, breathing treatments, oxygen, home meds, DVT prophylaxis, and over the next few days, she returned to her baseline. Today, I saw her and examined her. She is doing much better. We plan to discharge to home with home health. PHYSICAL EXAMINATION: HEART: Tones are normal. LUNGS: Clear. ABDOMEN: Soft. EXTREMITIES: No edema. DISPOSITION: Home with home health. ACTIVITY: As tolerated. DIET: Low sodium. MEDICATIONS: Please see the MRAD. TOTAL TIME: 32 minutes THAD WHIPPLE DO DR: RICK/samantha JOB#: [id number] / [id number]
--- NOTE | 2019-08-10 12:16 | NUR ---
SS following up with discharge planning. Discharge order received for home healthcare. SS met with pt and discussed home healthcare. Pt declining home healthcare stating that she has a lot of jewelry in her home and does not want strangers in her home. Pt's RN notified.
[2019-08-10] MEDS ORDERED: hydrALAZINE 20 MG/ML VIAL. IVP PRN (13:00)
[2019-08-10] MEDS ORDERED: METOPROLOL TART IMMED RELEASE 50 MG TABLET. PO ONE (13:45)
[2019-08-10 14:13] VITALS: BP 187/85
[2019-08-10] MEDS ORDERED: METO50TA6 PO (15:05)
--- NOTE | 2019-08-10 17:13 | NUR ---
Discharge Note: CHEI[facility] DUMONT [address] Discharge instructions and discharge home medications reviewed with Patient and a copy given. All questions have been answered and understanding verbalized. The following instructions and handouts were given: AVI and HTN Discontinued IV line Patient discharged to home with self care via wheelchair
[2019-08-10] MEDS ORDERED: HYDROCORTISONE SOD SUCC/PF 100 MG/2 ML VIAL. IVP SCH (18:00)
== END 2019-08-10 17:14 | disposition home or self-care (01) | DRG 871 ==
LOC: 6 SOUTH 16:09 → 1 WEST ICU 20:44 → 2 NORTH 08-08 14:50
PROVIDERS: ADMIT Internal Medicine; ATTEND Internal Medicine
DX: A41.9 Sepsis, unspecified organism (principal); G93.41 Metabolic encephalopathy; J96.01 Acute respiratory failure with hypoxia; N17.0 Acute kidney failure with tubular necrosis; R65.21 Severe sepsis with septic shock; J18.9 Pneumonia, unspecified organism; E44.0 Moderate protein-calorie malnutrition; E87.2 Acidosis; I10 Essential (primary) hypertension; G89.29 Other chronic pain; M19.90 Unspecified osteoarthritis, unspecified site; F41.9 Anxiety disorder, unspecified; F32.9 Major depressive disorder, single episode, unspecified; K21.9 Gastro-esophageal reflux disease without esophagitis; E11.9 Type 2 diabetes mellitus without complications; Z88.5 Allergy status to narcotic agent; Z88.2 Allergy status to sulfonamides; Z88.8 Allergy status to other drugs, medicaments and biological substances; Z91.041 Radiographic dye allergy status; Z82.49 Family history of ischemic heart disease and other diseases of the circulatory system; E87.5 Hyperkalemia; Z20.828 Contact with and (suspected) exposure to other viral communicable diseases; E66.01 Morbid (severe) obesity due to excess calories; Z68.31 Body mass index [BMI] 31.0-31.9, adult; J30.9 Allergic rhinitis, unspecified; M06.9 Rheumatoid arthritis, unspecified; I25.10 Atherosclerotic heart disease of native coronary artery without angina pectoris; K58.9 Irritable bowel syndrome, unspecified; Z87.01 Personal history of pneumonia (recurrent); Z87.440 Personal history of urinary (tract) infections; E78.5 Hyperlipidemia, unspecified; Z90.710 Acquired absence of both cervix and uterus; Z90.49 Acquired absence of other specified parts of digestive tract; Z98.42 Cataract extraction status, left eye; Z98.41 Cataract extraction status, right eye; Z96.653 Presence of artificial knee joint, bilateral; Z87.442 Personal history of urinary calculi; D64.9 Anemia, unspecified; Z82.3 Family history of stroke; Z79.52 Long term (current) use of systemic steroids
CPT/HCPCS: 36415; 71250; 74176; 80048; 80053; 81001; 82550; 82805; 82962; 83605; 83735; 84100; 84132; 84145; 85007; 85025; 85027; 87040; 87086; 93970; J0360; J0610; J0878; J1644; J1720; J1815; J2060; J2185; J2270; J2543; J3370; J3490; J7030; J7040; J7042; J7060; 97110-GP; 97535-GO; G0378; U0003-CS

== ENCOUNTER 2019-08-20 17:15 | Inpatient (IN) | payer MEDICARE, OTHER ==
[~2019-08-20] VITALS: Ht 170.2 cm; Wt 94.4 kg
[~2019-08-20 17:15] MED LIST changes: +ASPI-612 PO; +CALC-31 PO; +FURO-68 PO; +INSU100C SQ; +LISI-338 PO; +MECL-75 PO; +METO25TA4 PO; +METO50TA6 PO; +PANT40TA77 PO; +TRAM50TA PO; +VENL37.56 PO
[2019-08-20 17:34] VITALS: BP 122/58
[2019-08-20] MEDS ORDERED: ALBUTEROL SULFATE 2.5 MG/3 ML NEBU. NEB PRN (17:45)
[2019-08-20] MEDS ORDERED: MECLIZINE HCL 12.5 MG TABLET. PO PRN (17:45)
[2019-08-20] MEDS ORDERED: 0.9 % SODIUM CHLORIDE 10 ML DISP.SYRIN. IV PRN (17:45)
[2019-08-20] MEDS: VANCOMYCIN PER PHARMACY MC PRN (18:34)
[2019-08-20 19:00] VITALS: BP 120/55
[2019-08-20] MEDS: INSULIN LISPRO 300 UNITS/3 ML VIAL. SQ SCH (19:00)
--- NOTE | 2019-08-20 19:58 | NUR ---
Received report from Josie at [facility]. Patient was brought to the room by EMS from [facility] at approximately 1725 hours. The patient received a food tray - Glucose 60. Patient's vitals were taken, placed on telemetry, medications entered, consult orders placed in the computer for Cardiology and Ortho Surgery, admit orders entered. Patient's admission is incomplete, medication reconciliation incomplete, consults were placed on the Greene's desk, Head to Toe will be completed by MARSHAL Casper night nurse.
[2019-08-20] MEDS ORDERED: INSULIN GLARGINE SYRINGE. SQ SCH (21:00)
[2019-08-20] MEDS: LACTOBACILLUS RHAMNOSUS GG 1 CAPSULE. PO SCH (22:02)
[2019-08-20] MEDS: METOPROLOL TART IMMED RELEASE 25 MG TABLET. PO SCH (22:03)
[2019-08-20] MEDS: AMITRIPTYLINE HCL 25 MG TABLET. PO SCH (22:03)
[2019-08-20] MEDS: CEFEPIME HCL IV Push 1 GM VIAL. IVP SCH (22:04)
[2019-08-20] MEDS: TRESIBA 200 UNIT/ML SQ SCH (22:06)
[2019-08-20 23:00] VITALS: BP 141/66
[2019-08-20] MEDS: DICLOFENAC SODIUM 1% TOPICAL GEL 100GM TUBE. TP SCH (23:08)
[2019-08-21 03:00] VITALS: BP 156/79
[2019-08-21] MEDS: traMADol 50 MG TABLET PO PRN ×2 (03:15→04:06)
[2019-08-21] MEDS: HYDROcodone/APAP 5/325MG 1 TAB TABLET PO PRN ×4 (04:20→19:52)
[2019-08-21] MEDS: VANCOMYCIN 1 GM in IV NORMAL SALINE 250ML 250 ML IV SCH ×2 (06:12→23:06)
[2019-08-21 07:00] VITALS: BP 152/71
[2019-08-21] MEDS: INSULIN LISPRO 300 UNITS/3 ML VIAL. SQ SCH ×3 (08:00→17:43)
[2019-08-21] MEDS ORDERED: predniSONE 20 MG TABLET PO SCH (09:00)
[2019-08-21] MEDS: CALCIUM CARB/VIT D3 500/200 TABLET. PO SCH (09:00)
[2019-08-21] MEDS: CETIRIZINE HCL 10 MG TABLET. PO SCH (09:00)
[2019-08-21] MEDS ORDERED: FUROSEMIDE 40 MG TABLET. PO SCH (09:00)
[2019-08-21] MEDS: CHOLECALCIFEROL (VITAMIN D3) 1,000 UNIT TABLET PO SCH (09:00)
[2019-08-21] MEDS: ASPIRIN ENTERIC COATED 81 MG TABLET.DR. PO SCH (09:00)
[2019-08-21] MEDS: ENOXAPARIN 40 MG/0.4 ML SYRINGE. SQ SCH (09:01)
[2019-08-21] MEDS: LACTOBACILLUS RHAMNOSUS GG 1 CAPSULE. PO SCH ×2 (09:01→20:40)
[2019-08-21] MEDS: METOPROLOL TART IMMED RELEASE 25 MG TABLET. PO SCH (09:01)
[2019-08-21] MEDS: VENLAFAXINE XR 37.5 MG CAP.ER.24H. PO SCH (09:02)
[2019-08-21] MEDS: DICLOFENAC SODIUM 1% TOPICAL GEL 100GM TUBE. TP SCH ×4 (09:02→20:42)
[2019-08-21] MEDS: PANTOPRAZOLE 40 MG TABLET.DR. PO SCH (09:02)
[2019-08-21] MEDS: CEFEPIME HCL IV Push 1 GM VIAL. IVP SCH ×2 (09:03→20:43)
[2019-08-21 11:22] VITALS: BP 141/54
--- NOTE | 2019-08-21 11:26 | HP ---
ADMIT DATE: HISTORY OF PRESENT ILLNESS: The patient is a 74-year-old female patient who was admitted to [facility] to the Emergency Room. She apparently had fallen. She was walking with her walker and lost her balance and fell to the ground, landing on her left side. Her primary complaint was her left hip pain. There was also apparently a puncture wound to that area. CT scan showed possible gas in that area, so there is a possibility of an infection as well as avascular necrosis, perhaps fracture. The patient also had a problem with an elevated temperature as well as blood pressure was vacillating. The patient was admitted with possible sepsis as her blood pressure was low at 90/45 with a heart rate of 120 and temperature of 100.6. She was treated with IV vancomycin as well as cefepime. She continued to have pain in her left hip joint. A decision was made to transfer her to [facility] to arrange for an MRI. Consult the orthopedic surgeon as well as the Infectious Disease specialist. PAST MEDICAL HISTORY: Significant for coronary artery disease, morbid obesity, hyperlipidemia, type 2 diabetes, previous episode of pneumonia, irritable bowel syndrome, gastroesophageal reflux disease, chronic deforming rheumatoid arthritis and frequent urinary tract infection. PAST SURGICAL HISTORY: Significant for total abdominal hysterectomy, cholecystectomy, bilateral cataract extraction, bilateral foot surgery and bilateral total knee arthroplasty. SOCIAL HISTORY: She is and lives with her . She does not smoke, drink alcohol or use recreational drugs. FAMILY HISTORY: Noncontributory. ALLERGIES: SHE IS ALLERGIC TO GADOLINIUM CONTRAST, INFLUENZA VACCINE, SULFA DRUGS, ALOGLIPTIN, CAPSAICIN, CLINDAMYCIN AND CODEINE. MEDICATIONS: She is currently on following medications: She is on prednisone 20 mg once a day, venlafaxine 37.5 mg once a day, furosemide 40 mg once a day, Lovenox 40 mg subcutaneously once a day, vitamin D 1000 units daily, cetirizine 10 mg once a day, calcium with vitamin D 1 tablet once a day with breakfast, aspirin 81 mg once a day, Protonix 40 mg once a day, vancomycin 1 gram IV q. 18 hours, hydrocodone/APAP 5/325 one tablet every 4 hours as needed. She is on metoprolol tartrate 25 mg twice a day, lactobacillus rhamnosus 1 capsule b.i.d., diclofenac sodium 1 application 4 times a day, cefepime 1 gram IV q. 12 hourly, amitriptyline 25 mg at bedtime, Humalog insulin 20 units before meals, tramadol 50 mg every 8 hours, meclizine 25 mg every 8 hours, ibuprofen 400 mg at bedtime, cyclobenzaprine 10 mg 3 times a day, albuterol sulfate 2.5 mg 4 times a day. REVIEW OF SYSTEMS: As per history of present illness. PHYSICAL EXAMINATION: GENERAL: When I examined her, she looked well and was clearly in no apparent respiratory distress, pale, but no jaundice or cyanosis. No lymphadenopathy, no thyromegaly. No jugular venous distention. No lower limb edema. VITAL SIGNS: Her heart rate was 100, blood pressure 152/71, temperature was 98.5, respiratory rate was 17 and oxygen saturation was 96% on room air. HEAD, EYES, EARS, NOSE AND THROAT: Showed normocephalic, atraumatic. NECK: Supple. HEART: Normal first and second heart sounds. No gallop, rub or murmur. CHEST: Showed central trachea, equal bilateral expansion, air entry, vesicular sounds. No crepitation or rhonchi. ABDOMEN: Distended, soft, nontender. No guarding or rigidity. No organomegaly. All hernial orifices intact. Bowel sounds normal. NEUROLOGIC: She is awake, alert, responding appropriately. All cranial nerves intact. She moves all extremities except her left lower extremity where both passive and active movement of her left hip joint elicits severe pain. She has marked tenderness on the left trochanteric area. ASSESSMENT AND PLAN: In summary, this is a 74-year-old female patient who was admitted after a fall with complaint of severe pain in her left hip joint. She had had a CT scan at [facility] of the abdomen and pelvis, which basically showed that she has gas in the pelvic soft tissue and deformity to the left femoral head that could reflect changes, recent blunt trauma, correlate clinically, penetrating trauma and right hip avascular necrosis. Skin appears similar. My plan is to consult the orthopedic surgeon to arrange for an MRI of the left hip joint. Continue with IV antibiotic. Continue with all her other medications. Consult the Infectious Disease specialist. MAGUE PALAFOX MD DR: ROMULO/samantha JOB#: [id number] / [id number]
[2019-08-21] MEDS ORDERED: PANTOPRAZOLE 40 MG TABLET.DR. PO SCH (11:30)
[2019-08-21] MEDS ORDERED: CETIRIZINE HCL 10 MG PO SCH (12:00)
[2019-08-21] MEDS ORDERED: CETIRIZINE HCL 10 MG TABLET. PO SCH (12:00)
[2019-08-21] MEDS: LISINOPRIL 5 MG TABLET. PO SCH (12:43)
[2019-08-21 12:44] LABS: BASO # 0.1 x10^3/uL (0.0-0.2); BASO % 1 % (0-3); EOS # 0.1 x10^3/uL (0.0-0.7); EOS % 1 % (0-3); HEMATOCRIT 27.8 % (36.0-47.0); HEMOGLOBIN 8.9 g/dL (12.0-15.5); LYMPH # 0.6 x10^3/uL (1.0-4.8); LYMPH % 7 % (24-48); MEAN CORPUSCULAR HEMOGLOBIN 26 pg (25-35); MEAN CORPUSCULAR HGB CONC 32 g/dL (31-37); MEAN CORPUSCULAR VOLUME 80 fL (79-100); MONO # 0.5 x10^3/uL (0.0-1.1); MONO % 5 % (0-9); NEUT # 7.6 x10^3/uL (1.8-7.7); NEUT % 86 % (31-73); PLATELET COUNT 427 x10^3/uL (140-400); RED BLOOD COUNT 3.47 x10^6/uL (3.50-5.40); RED CELL DISTRIBUTION WIDTH 17.6 % (11.5-14.5); WHITE BLOOD COUNT 8.8 x10^3/uL (4.0-11.0)
[2019-08-21] MEDS: POTASSIUM CHLORIDE 20 MEQ TABLET.ER. PO SCH (12:44)
[2019-08-21] MEDS: METOPROLOL TART IMMED RELEASE 50 MG TABLET. PO SCH ×2 (12:44→20:42)
[2019-08-21 13:12] LABS: % BANDS 2 % (0-9); % BASOS 1 % (0-3); % EOS 2 % (0-5); % LYMPHS 5 % (24-48); % MONOS 4 % (0-10); % SEGS 86 % (35-66)
[2019-08-21 13:13] LABS: ANISOCYTOSIS SLIGHT; PLT ESTIMATE INCREASED (ADEQUATE)
[2019-08-21 13:16] LABS: ALBUMIN 2.3 g/dL (3.4-5.0); ALBUMIN/GLOBULIN RATIO 0.5 (1.0-1.7); C-REACTIVE PROTEIN 118.1 mg/L (0-3.3); CALCIUM 8.3 mg/dL (8.5-10.1); CREATININE 1.2 mg/dL (0.6-1.0); GFR 44.2; POTASSIUM 4.1 mmol/L (3.5-5.1); TOTAL BILIRUBIN 0.3 mg/dL (0.2-1.0); TOTAL PROTEIN 7.4 g/dL (6.4-8.2)
--- NOTE | 2019-08-21 13:16 | NUR ---
Wound Care Wound care consult for coccyx wound, pt has a scratch on her coccyx. Pictured and measured and redressed with xeroform and foam dressing. Recommend to change every 3days and as needed. WC will follow up next week to reassess. No other wounds noted. Pt educated on PU prevention, left on right side.
[2019-08-21] MEDS: MECLIZINE HCL 12.5 MG TABLET. PO SCH ×2 (14:00→20:41)
[2019-08-21] MEDS ORDERED: INSULIN LISPRO 20 UNIT SQ SCH (14:00)
[2019-08-21] MEDS: VANCOMYCIN PER PHARMACY MC PRN (14:11)
--- NOTE | 2019-08-21 14:48 | NUR ---
SW following for discharge planning. SW spoke with RN and reviewed chart. SW met with pt and pt's spouse. Pt from home with spouse. Pt stated she has an adult dtr that lives close and can check on her daily. Pt on room air. PT/OT on hold at this time. Ortho and Infectious Disease has been consulted. Pt on IV Vancomycin. SW to continue following.
[2019-08-21 14:51] VITALS: BP 132/66
--- NOTE | 2019-08-21 15:15 | PDOC2 ---
CONSULT Date of Consult Date of Consult DATE: 08/21/19 TIME: 15:05 Reason for Consult Reason for Consult: CAD, labile blood pressure Referring Physician Referring Physician: Dr. Barreto Identification/Chief Complaint Chief Complaint Hip pain Source Source: Chart review, Patient History of Present Illness Reason for Visit: The patient is a 74-year-old female with an extensive medical history who recently fell and developed left hip pain. She was admitted to [facility] and had a mild fever of 100.6 as well as developing episodes of hypotension with a blood pressure of 90/45 and a heart rate of 120. Reportedly a CT scan showed possible gas in the area of the left hip. She therefore was transferred to [facility] for orthopedic and ID evaluation as well as for an MRI. We have been asked to see patient due to a history of coronary disease and hypertension. She denies any interventions on her heart. She possibly has had a distant heart catheterization although she was unsure of the results. She is resting fairly comfortably in bed except for hip pain. Past Medical History Cardiovascular: CAD, HTN, Hyperlipidemia GI: GERD Musculoskeletal: low back pain Rheumatologic: Rheumatoid arthritis Renal/: No pertinent hx, Other Endocrine: Diabetes Past Surgical History Past Surgical History: Cholecystectomy, Cataract Removal, Total knee replacement, Hysterectomy, Other (Bilateral foot surgery) Family History Family History: No Significant, Hypertension, Stroke Social History No ALCOHOL: none Drugs: None Lives: with Family Domestic Violence: Neg Current Medications Current Medications Current Medications Acetaminophen (Tylenol) 1,000 mg PRN BID PRN PO mild pain 1-3; Start 08/20/19 at 17:45 Albuterol Sulfate (Ventolin Neb Soln) 2.5 mg PRN QID PRN NEB shortness of breath; Start 08/20/19 at 17:45 Amitriptyline HCl (Elavil) 25 mg QHS PO Last administered on 08/20/19at 22:03; Start 08/20/19 at 21:00 Aspirin (Ecotrin) 81 mg DAILYWBKFT PO Last administered on 08/21/19at 09:00; Start 08/21/19 at 08:00 Calcium/Vitamin D (Oscal D 500mg/ 200uts) 1 tab DAILYWBKFT PO Last administered on 08/21/19at 09:00; Start 08/21/19 at 08:00 Cefepime HCl (Maxipime) 1 gm Q12HR IVP Last administered on 08/21/19at 09:03; Start 08/20/19 at 21:00 Cetirizine HCl (ZyrTEC) 10 mg DAILY PO Last administered on 08/21/19at 09:00; Start 08/21/19 at 09:00 Vitamin D (Vitamin D3) 1,000 unit DAILY PO Last administered on 08/21/19at 09:00; Start 08/21/19 at 09:00 Sodium Chloride (Normal Saline Flush) 3 ml QSHIFT PRN IV AFTER MEDS AND BLOOD DRAWS; Start 08/20/19 at 17:45 Enoxaparin Sodium (Lovenox 40mg Syringe) 40 mg Q24H SQ Last administered on 08/21/19at 09:01; Start 08/21/19 at 09:00 Vancomycin HCl (Vanco Per Pharmacy) 1 each PRN DAILY PRN MC SEE COMMENTS Last administered on 08/21/19at 14:11; Start 08/20/19 at 17:45 Cyclobenzaprine HCl (Flexeril) 10 mg PRN TID PRN PO MUSCLE SPASMS; Start 08/20/19 at 17:45 Diclofenac Sodium (Voltaren) 1 gage QID TP Last administered on 08/21/19at 12:50; Start 08/20/19 at 21:00 Furosemide (Lasix) 40 mg DAILY PO Last administered on 08/21/19at 09:01; Start 08/21/19 at 09:00; Stop 08/21/19 at 11:25; Status DC Ibuprofen (Motrin) 400 mg PRN QHS PRN PO INFLAMMATION; Start 08/20/19 at 17:45 Insulin Human Lispro (HumaLOG) 20 units TIDWMEALS SQ Last administered on 08/21/19at 12:49; Start 08/20/19 at 19:00 Lactobacillus Rhamnosus (Culturelle) 1 cap BID PO Last administered on 08/21/19at 09:01; Start 08/20/19 at 21:00 Meclizine HCl (Antivert) 25 mg PRN Q8HRS PRN PO dizziness; Start 08/20/19 at 17:45; Stop 08/21/19 at 11:30; Status DC Metoprolol Tartrate (Lopressor) 25 mg TID PO Last administered on 08/21/19at 09:01; Start 08/20/19 at 21:00; Stop 08/21/19 at 11:23; Status DC Insulin Glargine (Lantus Syringe) 98 unit QHS SQ ; Start 08/20/19 at 21:00; Status Cancel Pantoprazole Sodium (Protonix) 40 mg DAILYAC PO Last administered on 08/21/19at 09:02; Start 08/21/19 at 07:30 Vancomycin HCl 1 gm/Sodium Chloride 250 ml @ 250 mls/hr Q18H IV Last admini stered on 08/21/19at 06:12; Start 08/21/19 at 05:30 Venlafaxine HCl (Effexor Xr) 37.5 mg DAILY PO Last administered on 08/21/19at 09:02; Start 08/21/19 at 09:00 Prednisone (Prednisone) 20 mg DAILY PO Last administered on 08/21/19at 09:01; Start 08/21/19 at 09:00; Stop 08/21/19 at 11:28; Status DC Tramadol HCl (Ultram) 50 mg PRN Q8HRS PRN PO moderate pain Last administered on 08/21/19at 03:15; Start 08/20/19 at 17:45 Non-Formulary Medication 1 ea QHS SQ Last administered on 08/20/19at 22:06; Start 08/20/19 at 21:00 Acetaminophen/ Hydrocodone Bitart (Lortab 5/325) 1 tab PRN Q4HRS PRN PO PAIN Last administered on 08/21/19at 14:03; Start 08/21/19 at 04:15 Furosemide (Lasix) 40 mg DAILY PO ; Start 08/22/19 at 09:00 Lisinopril (Prinivil) 5 mg DAILY PO Last administered on 08/21/19at 12:43; Start 08/21/19 at 12:00 Metoprolol Tartrate (Lopressor) 50 mg BID PO Last administered on 08/21/19at 12:44; Start 08/21/19 at 12:00 Pantoprazole Sodium (Protonix) 40 mg DAILYAC PO ; Start 08/21/19 at 11:30; Stop 08/21/19 at 11:26; Status DC Prednisone (Prednisone) 10 mg DAILY PO ; Start 08/22/19 at 09:00 Non-Formulary Medication (Calcium Carbonate/Vitamin D3 (Calcium 500 + D Tablet)) 1 tab DAILY PO ; Start 08/22/19 at 09:00; Status UNV Non-Formulary Medication (Cetirizine Hcl (Zyrtec)) 10 mg DAILY PO ; Start 08/21/19 at 12:00; Stop 08/21/19 at 11:32; Status DC Non-Formulary Medication (Etanercept (Enbrel)) 50 mg WEEKLY SQ ; Start 08/28/19 at 09:00; Status UNV Non-Formulary Medication (Insulin Lispro (Humalog)) 20 unit TID SQ ; Start 08/21/19 at 14:00; Status UNV Meclizine HCl (Antivert) 25 mg TID PO ; Start 08/21/19 at 14:00 Non-Formulary Medication (Venlafaxine Hcl ) 1 tab DAILY PO ; Start 08/22/19 at 09:00; Status UNV Potassium Chloride (Klor-Con) 20 meq DAILYWBKFT PO Last administered on 08/21/19at 12:44; Start 08/21/19 at 12:00 Fentanyl Citrate (Fentanyl 2ml Vial) 50 mcg PRN Q3HRS PRN IVP MODERATE T0 SEVERE PAIN; Start 08/21/19 at 11:30 Cetirizine HCl (ZyrTEC) 10 mg DAILY PO ; Start 08/21/19 at 12:00; Status Cancel Active Scripts Active Reported Metoprolol Tartrate 50 Mg Tablet 1 Tab PO BID Humalog (Insulin Lispro) 100 Unit/1 Ml Cartridge 20 Unit SQ TID Tramadol Hcl 50 Mg Tablet 50 Mg PO DAILY PRN Lasix (Furosemide) 40 Mg Tablet 1 Tab PO DAILY 30 Days Lisinopril 5 Mg Tablet 1 Tab PO DAILY Meclizine Hcl 25 Mg Tablet 1 Tab PO TID Pantoprazole Sodium (Pantoprazole Sodium) 40 Mg Tablet.dr 40 Mg PO DAILYAC Venlafaxine Hcl 37.5 Mg Tablet 1 Tab PO DAILY Calcium 500 + D Tablet (Calcium Carbonate/Vitamin D3) 1 Each Tablet 1 Tab PO DAILY 30 Days Aspirin Ec (Aspirin) 81 Mg Tablet.dr 1 Tab PO DAILY Prednisone 20 Mg Tablet 10 Mg PO DAILY Tresiba Flextouch U-100 (Insulin Degludec) 100 Unit/1 Ml Insuln.pen 85 Unit SQ DAILY08 Zyrtec (Cetirizine Hcl) 10 Mg Tab.chew 10 Mg PO DAILY Amitriptyline Hcl 25 Mg Tablet 25 Mg PO HS Cyclobenzaprine Hcl 10 Mg Tablet 10 Mg PO HS Klor-Con (Potassium Chloride) 20 Meq Packet Unknown Dose PO DAILY Enbrel (Etanercept) 50 Mg/1 Ml Disp.syrin 50 Mg SQ WEEKLY Allergies Allergies: Coded Allergies: Gadolinium-Containing Contrast Medi (Verified Allergy, Intermediate, Itching, 07/21/19) Pt states she has had MRI contrast here in the past and was itching afterward but did not report it to anyone until today. Office was notified. mb Sulfa (Sulfonamide Antibiotics) (Verified Allergy, Intermediate, 05/17/17) alogliptin (Verified Allergy, Intermediate, 05/17/17) capsaicin (Verified Allergy, Intermediate, 05/17/17) clindamycin (Verified Allergy, Intermediate, 05/17/17) codeine (Verified Allergy, Intermediate, 05/17/17) iodine (Verified Allergy, Intermediate, 05/18/17) levofloxacin (Verified Allergy, Intermediate, 05/17/17) menthol (Verified Allergy, Intermediate, 05/17/17) metformin (Verified Allergy, Intermediate, 05/17/17) naproxen (Verified Allergy, Intermediate, 05/17/17) pioglitazone (Verified Allergy, Intermediate, 05/17/17) ROS General: YES: Fatigue Musculoskeletal: Yes Other (Hip pain) Physical Exam General: mild distress HEENT: Atraumatic Lungs: Clear to auscultation Heart: Regular rate Abdomen: Normal bowel sounds Vitals VITALS Vital Signs Date Time Temp Pulse Resp B/P (MAP) Pulse Ox O2 Delivery O2 Flow Rate FiO2 08/21/19 14:51 98.8 92 16 132/66 (88) 98 Room Air 98.8 Labs Labs Laboratory Tests Test 08/20/19 18:06 08/20/19 20:54 08/21/19 03:19 08/21/19 07:21 Glucose (Fingerstick) 60 mg/dL (70-99) 174 mg/dL (70-99) 114 mg/dL (70-99) 67 mg/dL (70-99) Test 08/21/19 07:58 08/21/19 11:36 08/21/19 12:35 Glucose (Fingerstick) 79 mg/dL (70-99) 181 mg/dL (70-99) White Blood Count 8.8 x10^3/uL (4.0-11.0) Red Blood Count 3.47 x10^6/uL (3.50-5.40) Hemoglobin 8.9 g/dL (12.0-15.5) Hematocrit 27.8 % (36.0-47.0) Mean Corpuscular Volume 80 fL (79-100) Mean Corpuscular Hemoglobin 26 pg (25-35) Mean Corpuscular Hemoglobin Concent 32 g/dL (31-37) Red Cell Distribution Width 17.6 % (11.5-14.5) Platelet Count 427 x10^3/uL (140-400) Neutrophils (%) (Auto) 86 % (31-73) Lymphocytes (%) (Auto) 7 % (24-48) Monocytes (%) (Auto) 5 % (0-9) Eosinophils (%) (Auto) 1 % (0-3) Basophils (%) (Auto) 1 % (0-3) Neutrophils # (Auto) 7.6 x10^3/uL (1.8-7.7) Lymphocytes # (Auto) 0.6 x10^3/uL (1.0-4.8) Monocytes # (Auto) 0.5 x10^3/uL (0.0-1.1) Eosinophils # (Auto) 0.1 x10^3/uL (0.0-0.7) Basophils # (Auto) 0.1 x10^3/uL (0.0-0.2) Segmented Neutrophils % 86 % (35-66) Band Neutrophils % 2 % (0-9) Lymphocytes % 5 % (24-48) Monocytes % 4 % (0-10) Eosinophils % 2 % (0-5) Basophils % 1 % (0-3) Platelet Estimate Increased (ADEQUATE) Large Platelets Occ Anisocytosis Slight Sodium Level 138 mmol/L (136-145) Potassium Level 4.1 mmol/L (3.5-5.1) Chloride Level 101 mmol/L (98-107) Carbon Dioxide Level 25 mmol/L (21-32) Anion Gap 12 (6-14) Blood Urea Nitrogen 15 mg/dL (7-20) Creatinine 1.2 mg/dL (0.6-1.0) Estimated GFR (Cockcroft-Gault) 44.2 BUN/Creatinine Ratio 13 (6-20) Glucose Level 201 mg/dL (70-99) Calcium Level 8.3 mg/dL (8.5-10.1) Total Bilirubin 0.3 mg/dL (0.2-1.0) Aspartate Amino Transf (AST/SGOT) 37 U/L (15-37) Alanine Aminotransferase (ALT/SGPT) 24 U/L (14-59) Alkaline Phosphatase 111 U/L (46-116) C-Reactive Protein, Quantitative 118.1 mg/L (0-3.3) Total Protein 7.4 g/dL (6.4-8.2) Albumin 2.3 g/dL (3.4-5.0) Albumin/Globulin Ratio 0.5 (1.0-1.7) Laboratory Tests Test 08/20/19 18:06 08/20/19 20:54 08/21/19 03:19 08/21/19 07:21 Glucose (Fingerstick) 60 mg/dL (70-99) 174 mg/dL (70-99) 114 mg/dL (70-99) 67 mg/dL (70-99) Test 08/21/19 07:58 08/21/19 11:36 08/21/19 12:35 Glucose (Fingerstick) 79 mg/dL (70-99) 181 mg/dL (70-99) White Blood Count 8.8 x10^3/uL (4.0-11.0) Red Blood Count 3.47 x10^6/uL (3.50-5.40) Hemoglobin 8.9 g/dL (12.0-15.5) Hematocrit 27.8 % (36.0-47.0) Mean Corpuscular Volume 80 fL (79-100) Mean Corpuscular Hemoglobin 26 pg (25-35) Mean Corpuscular Hemoglobin Concent 32 g/dL (31-37) Red Cell Distribution Width 17.6 % (11.5-14.5) Platelet Count 427 x10^3/uL (140-400) Neutrophils (%) (Auto) 86 % (31-73) Lymphocytes (%) (Auto) 7 % (24-48) Monocytes (%) (Auto) 5 % (0-9) Eosinophils (%) (Auto) 1 % (0-3) Basophils (%) (Auto) 1 % (0-3) Neutrophils # (Auto) 7.6 x10^3/uL (1.8-7.7) Lymphocytes # (Auto) 0.6 x10^3/uL (1.0-4.8) Monocytes # (Auto) 0.5 x10^3/uL (0.0-1.1) Eosinophils # (Auto) 0.1 x10^3/uL (0.0-0.7) Basophils # (Auto) 0.1 x10^3/uL (0.0-0.2) Segmented Neutrophils % 86 % (35-66) Band Neutrophils % 2 % (0-9) Lymphocytes % 5 % (24-48) Monocytes % 4 % (0-10) Eosinophils % 2 % (0-5) Basophils % 1 % (0-3) Platelet Estimate Increased (ADEQUATE) Large Platelets Occ Anisocytosis Slight Sodium Level 138 mmol/L (136-145) Potassium Level 4.1 mmol/L (3.5-5.1) Chloride Level 101 mmol/L (98-107) Carbon Dioxide Level 25 mmol/L (21-32) Anion Gap 12 (6-14) Blood Urea Nitrogen 15 mg/dL (7-20) Creatinine 1.2 mg/dL (0.6-1.0) Estimated GFR (Cockcroft-Gault) 44.2 BUN/Creatinine Ratio 13 (6-20) Glucose Level 201 mg/dL (70-99) Calcium Level 8.3 mg/dL (8.5-10.1) Total Bilirubin 0.3 mg/dL (0.2-1.0) Aspartate Amino Transf (AST/SGOT) 37 U/L (15-37) Alanine Aminotransferase (ALT/SGPT) 24 U/L (14-59) Alkaline Phosphatase 111 U/L (46-116) C-Reactive Protein, Quantitative 118.1 mg/L (0-3.3) Total Protein 7.4 g/dL (6.4-8.2) Albumin 2.3 g/dL (3.4-5.0) Albumin/Globulin Ratio 0.5 (1.0-1.7) Assessment/Plan Assessment/Plan 1. Status post fall with hip pain. Previous history as noted above including fever, hypotension and abnormal CT scan. Patient states she is feeling better at this time but still has hip pain. Her blood pressure and heart rate are significantly improved. We will continue present treatment. Orthopedic and ID evaluations are pending. 2. History of possible coronary artery disease. No episodes of chest pain. Some hypotension with fever as noted above. Will continue as per ID and orthopedics. Will check an echocardiogram for LV function. 3. Hyperlipidemia. Will check lab. Continue present medications. 4. Diabetes mellitus. As per the primary service. 5. Rheumatoid arthritis. Thank you for allowing us to participate in the care of your patient. HARINI LOPEZ MD Aug 21, 2019 15:14
[2019-08-21 19:40] VITALS: BP 108/52
[2019-08-21] MEDS: AMITRIPTYLINE HCL 25 MG TABLET. PO SCH (20:42)
[2019-08-21] MEDS: TRESIBA 200 UNIT/ML SQ SCH (20:43)
--- NOTE | 2019-08-21 21:40 | CONS ---
DATE OF CONSULTATION: 08/21/2019 REQUESTING PHYSICIAN: Kaleigh Barreto MD REASON FOR CONSULTATION: Left hip pain. HISTORY OF PRESENT ILLNESS: The patient is a 74-year-old female who reports that she has had symptoms of rheumatoid arthritis for about 50 years and also is a diabetic. She has had bilateral total knees in the past that are working well and has had left hip pain for several years, but indicates that it had been significantly worse for approximately the 6 months prior to a fall that happened to her in October, timeframe of last year. She said ever since that fall, now about 9-10 months ago, the hip is much worse. It grinds and clunks and as a result, she actually saw an orthopedic surgeon, Dr. Olmos in [place], [place], who acknowledged that she would need a total hip arthroplasty, but was concerned with her poorly controlled diabetes and as she had a hemoglobin A1c at that time of around 11 and she wanted it under a threshold of about 8 prior to planning a procedure. In the interim, unfortunately, and just recently she had just fallen again and had a significant increase again and left hip pain and difficulty walking, resulting in her evaluation at [facility]. She is normally a patient of Dr. Nicole. PAST MEDICAL HISTORY: Significant for poorly controlled, although better recently controlled type 2 diabetes, episode of hospital admission for kidney infection and pneumonia in and 06/2019 timeframe. History of heart disease, hyperlipidemia, reflux, irritable bowel syndrome, rheumatoid arthritis and recurrent urinary tract infections. PAST SURGICAL HISTORY: Significant for bilateral total knee arthroplasties, a left third toe amputation, which she had in about 2004, hysterectomy, cholecystectomy, and cataract surgery. SOCIAL HISTORY: Denies smoking, alcohol or drug use. , lives at home with her . FAMILY HISTORY: Denies any significant family history. ALLERGIES: SHE HAS MULTIPLE ALLERGIES INCLUDING GADOLINIUM CONTRAST, SULFA, CODEINE, CLINDAMYCIN AND INFLUENZA VACCINE. MEDICATIONS: List is reviewed. REVIEW OF SYSTEMS: She denies any recent febrile illness. No chills or night sweats. She does indicate a better control of her blood sugar with a recent hemoglobin A1c of 9, improved from 11 previously. She does have left groin area pain, does not radiate. She notes no focal weakness, numbness, tingling or any circulation problems. Denies any head injury associated with her fall or other joint related pain. PHYSICAL EXAMINATION: GENERAL: A pleasant, cooperative 74-year-old female, resting comfortably in bed, no acute distress. EXTREMITIES: On examination of the left hip, leg lengths are equal. No instability is present. She is able to gently flex and extend the hip as long as there is no rotation. She is very tender in the left groin area with any type of rotation, which is minimal. Negative straight leg raise is present. There is no tenderness over the trochanteric bursa. Normal examination of the right hip in terms of her range of motion and stability. Well-healed incisions over both knees from total knee arthroplasties, which otherwise has good patellofemoral tracking alignment, stability. She has good alignment, stability of both ankles. Has a healed left third toe amputation. Distal pulses and sensation are intact in both lower extremities. I see no skin compromise in the lower extremities on my evaluation. LABORATORY DATA: Currently, her white blood cell count is 8.8. IMAGING: CT scan of the pelvis by my review of the images shows significant narrowing and some mild superior collapse of the femoral head. There is obliteration of the joint space constituting severe degenerative arthritis of the left hip and perhaps an element of some avascular necrosis. On radiology interpretation, there is some concern for gas, although there was some report of a CT scan at [facility] of the abdomen and pelvis showing gas in some of the pelvic soft tissues. IMPRESSION: 1. 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 2. Improving, but still poorly controlled type 2 diabetes. Hemoglobin A1c of 9 versus 11 previously. TREATMENT PLAN: I went over with her that overall, although she has severe hip pain markedly worsened following a fall that my concern in terms of more definitive treatment of her arthritis and avascular necrosis would be a total hip arthroplasty, but would have to be subjected to ongoing medical treatment to optimize her condition. Otherwise, she faces high degrees of possible complications and possible infection. I do not think there is any clear evidence of infection in the hip area based on her history, presentation or the CT findings and while I noted that doctor had contemplated an MRI of the left hip. I do not think this is going to be OF much more use than her current imaging in terms of the condition of the hip itself if there is concern for infection in the pelvic area. I note that she is ALLERGIC TO GADOLINIUM CONTRAST, which would be most useful in terms of any further imaging and MRI, but since that is not available, I am not really sure of the utility of MRI at this point and if any joint infection is suspected, which my degree of suspicion is very low. We could instead perhaps attempt a CT-guided aspiration of the hip joint or other concerning areas as necessary. Otherwise, I think ongoing medical treatment and optimization would be recommended in accordance with Dr. Pelaez's previous evaluation and recommendations. Otherwise, mobilization with assistance as symptomatically tolerated would be allowed and follow up per Dr. Pelaez's ongoing treatment plan as above. DIEUDONNE AYALA MD DR: ALLEGRA/samantha JOB#: [id number] / [id number] ANSON Edouard MD
[2019-08-21 23:21] VITALS: BP 142/64
[2019-08-21] MEDS: fentaNYL PF VIAL 100 MCG/2 ML VIAL IVP PRN (23:28)
[2019-08-21] MEDS: CYCLOBENZAPRINE 10 MG TABLET. PO PRN (23:28)
[2019-08-22 03:59] VITALS: BP 182/53
[2019-08-22 04:36] LABS: BASO # 0.1 x10^3/uL (0.0-0.2); BASO % 1 % (0-3); EOS # 0.2 x10^3/uL (0.0-0.7); EOS % 2 % (0-3); HEMATOCRIT 27.6 % (36.0-47.0); HEMOGLOBIN 8.8 g/dL (12.0-15.5); LYMPH # 2.1 x10^3/uL (1.0-4.8); LYMPH % 24 % (24-48); MEAN CORPUSCULAR HEMOGLOBIN 26 pg (25-35); MEAN CORPUSCULAR HGB CONC 32 g/dL (31-37); MEAN CORPUSCULAR VOLUME 80 fL (79-100); MONO # 0.8 x10^3/uL (0.0-1.1); MONO % 10 % (0-9); NEUT # 5.3 x10^3/uL (1.8-7.7); NEUT % 63 % (31-73); PLATELET COUNT 442 x10^3/uL (140-400); RED BLOOD COUNT 3.43 x10^6/uL (3.50-5.40); RED CELL DISTRIBUTION WIDTH 17.5 % (11.5-14.5); WHITE BLOOD COUNT 8.4 x10^3/uL (4.0-11.0)
[2019-08-22 04:58] LABS: CALCIUM 8.2 mg/dL (8.5-10.1); GFR 54.5; POTASSIUM 3.8 mmol/L (3.5-5.1)
[2019-08-22 05:03] LABS: CHOLESTEROL/HDL RATIO 5.6
[2019-08-22] MEDS: HYDROcodone/APAP 5/325MG 1 TAB TABLET PO PRN ×2 (05:34→20:43)
[2019-08-22 07:15] VITALS: BP 171/70
--- NOTE | 2019-08-22 08:22 | PDOC ---
Infectious Disease Note Vital Sign Vital Signs Vital Signs Date Time Temp Pulse Resp B/P (MAP) Pulse Ox O2 Delivery O2 Flow Rate FiO2 08/22/19 07:15 98.3 95 16 171/70 (103) 99 Room Air 98.3 Labs Lab Laboratory Tests Test 08/21/19 11:36 08/21/19 12:35 08/21/19 16:34 08/21/19 20:13 Glucose (Fingerstick) 181 mg/dL (70-99) 171 mg/dL (70-99) 75 mg/dL (70-99) White Blood Count 8.8 x10^3/uL (4.0-11.0) Red Blood Count 3.47 x10^6/uL (3.50-5.40) Hemoglobin 8.9 g/dL (12.0-15.5) Hematocrit 27.8 % (36.0-47.0) Mean Corpuscular Volume 80 fL (79-100) Mean Corpuscular Hemoglobin 26 pg (25-35) Mean Corpuscular Hemoglobin Concent 32 g/dL (31-37) Red Cell Distribution Width 17.6 % (11.5-14.5) Platelet Count 427 x10^3/uL (140-400) Neutrophils (%) (Auto) 86 % (31-73) Lymphocytes (%) (Auto) 7 % (24-48) Monocytes (%) (Auto) 5 % (0-9) Eosinophils (%) (Auto) 1 % (0-3) Basophils (%) (Auto) 1 % (0-3) Neutrophils # (Auto) 7.6 x10^3/uL (1.8-7.7) Lymphocytes # (Auto) 0.6 x10^3/uL (1.0-4.8) Monocytes # (Auto) 0.5 x10^3/uL (0.0-1.1) Eosinophils # (Auto) 0.1 x10^3/uL (0.0-0.7) Basophils # (Auto) 0.1 x10^3/uL (0.0-0.2) Segmented Neutrophils % 86 % (35-66) Band Neutrophils % 2 % (0-9) Lymphocytes % 5 % (24-48) Monocytes % 4 % (0-10) Eosinophils % 2 % (0-5) Basophils % 1 % (0-3) Platelet Estimate Increased (ADEQUATE) Large Platelets Occ Anisocytosis Slight Sodium Level 138 mmol/L (136-145) Potassium Level 4.1 mmol/L (3.5-5.1) Chloride Level 101 mmol/L (98-107) Carbon Dioxide Level 25 mmol/L (21-32) Anion Gap 12 (6-14) Blood Urea Nitrogen 15 mg/dL (7-20) Creatinine 1.2 mg/dL (0.6-1.0) Estimated GFR (Cockcroft-Gault) 44.2 BUN/Creatinine Ratio 13 (6-20) Glucose Level 201 mg/dL (70-99) Calcium Level 8.3 mg/dL (8.5-10.1) Total Bilirubin 0.3 mg/dL (0.2-1.0) Aspartate Amino Transf (AST/SGOT) 37 U/L (15-37) Alanine Aminotransferase (ALT/SGPT) 24 U/L (14-59) Alkaline Phosphatase 111 U/L (46-116) C-Reactive Protein, Quantitative 118.1 mg/L (0-3.3) Total Protein 7.4 g/dL (6.4-8.2) Albumin 2.3 g/dL (3.4-5.0) Albumin/Globulin Ratio 0.5 (1.0-1.7) Test 08/21/19 23:49 08/22/19 03:50 08/22/19 07:19 Glucose (Fingerstick) 184 mg/dL (70-99) 164 mg/dL (70-99) White Blood Count 8.4 x10^3/uL (4.0-11.0) Red Blood Count 3.43 x10^6/uL (3.50-5.40) Hemoglobin 8.8 g/dL (12.0-15.5) Hematocrit 27.6 % (36.0-47.0) Mean Corpuscular Volume 80 fL (79-100) Mean Corpuscular Hemoglobin 26 pg (25-35) Mean Corpuscular Hemoglobin Concent 32 g/dL (31-37) Red Cell Distribution Width 17.5 % (11.5-14.5) Platelet Count 442 x10^3/uL (140-400) Neutrophils (%) (Auto) 63 % (31-73) Lymphocytes (%) (Auto) 24 % (24-48) Monocytes (%) (Auto) 10 % (0-9) Eosinophils (%) (Auto) 2 % (0-3) Basophils (%) (Auto) 1 % (0-3) Neutrophils # (Auto) 5.3 x10^3/uL (1.8-7.7) Lymphocytes # (Auto) 2.1 x10^3/uL (1.0-4.8) Monocytes # (Auto) 0.8 x10^3/uL (0.0-1.1) Eosinophils # (Auto) 0.2 x10^3/uL (0.0-0.7) Basophils # (Auto) 0.1 x10^3/uL (0.0-0.2) Sodium Level 138 mmol/L (136-145) Potassium Level 3.8 mmol/L (3.5-5.1) Chloride Level 102 mmol/L (98-107) Carbon Dioxide Level 26 mmol/L (21-32) Anion Gap 10 (6-14) Blood Urea Nitrogen 22 mg/dL (7-20) Creatinine 1.0 mg/dL (0.6-1.0) Estimated GFR (Cockcroft-Gault) 54.5 Glucose Level 163 mg/dL (70-99) Calcium Level 8.2 mg/dL (8.5-10.1) Triglycerides Level 128 mg/dL (0-150) Cholesterol Level 95 mg/dL (0-200) LDL Cholesterol, Calculated 52 mg/dL (0-100) VLDL Cholesterol, Calculated 26 mg/dL (0-40) Non-HDL Cholesterol Calculated 78 mg/dL (0-129) HDL Cholesterol 17 mg/dL (40-60) Cholesterol/HDL Ratio 5.6 Objective Assessment Left sacral/coccyx wound Severe L hip pain with ? AVN pain is worse since her fall 3 days ago abx allergies - sulfa mouth swelling. Clinda and Levoflox - itch Dm h/o recurrent UTI Plan Plan of Care Cont Vanc Change to meropenem Check procal F/u labs and cults Local wound care D/w Thank you # [id number] EVE SUTHERLAND MD Aug 22, 2019 08:22
--- NOTE | 2019-08-22 08:41 | CONS ---
DATE OF CONSULTATION: 08/22/2019 PATIENT'S ROOM: 665. REQUESTING PHYSICIAN: Dr. Barreto. REASON FOR CONSULTATION: Left hip puncture wound, questionable infected hip. HISTORY OF PRESENT ILLNESS: The patient is a 74-year-old female with a history of diabetes, also a longstanding left hip pain with avascular necrosis and in need of a hip replacement; however, it has been delayed secondary to elevation of her hemoglobin A1c. She usually ambulates with a walker, but 2 days ago fell and fell on top of her walker and had developed a cut on her wound. She did not realize that she had a wound until she noticed some blood on the sheet pill. Apparently, she presented to [facility] on the because of pain. She underwent a CT scan that showed some gas in the pelvic soft tissues and deformity of the left femoral head, reflective of either recent blunt trauma or penetrating trauma to the right avascular necrosis could appear similar. She did not have any fracture or focal infiltrate seen on her chest. CT scan of her head was negative. She had no fracture of her hip. No abnormalities of her superior thoracic vertebral bodies on lateral view, she had a white blood cell count of 12.9. On arrival her urinalysis was clean. Her glucose was 66. Lactic acid was 2.1. Creatinine was 1.2. She has been admitted and placed on vancomycin and cefepime. She has since been transferred to [facility]. Currently, she is lying in bed. She is more comfortable. She denies any current fevers, chills, sweats, nausea, vomiting, diarrhea or constipation. Denies any rash, but she does have continued left hip pain. PAST MEDICAL HISTORY: Positive for coronary artery disease, morbid obesity, hyperlipidemia, type 2 diabetes, irritable bowel, gastroesophageal reflux disease, rheumatoid arthritis, recurrent UTIs, recent pneumonia, history of falls. PAST SURGICAL HISTORY: Positive for total abdominal hysterectomy, cholecystectomy, bilateral cataract extractions, bilateral foot surgery, bilateral total knee arthroplasties. Her left third toe has a previous amputation site. REVIEW OF SYSTEMS: Otherwise negative. ALLERGIES: LISTED CLINDAMYCIN AND LEVAQUIN, WHICH CAUSE ITCHING. SULFA CAUSES SWELLING. GADOLINIUM LISTED INFLUENZA. CODEINE, CAPSAICIN CREAM AND ALOGLIPTIN. SOCIAL HISTORY: She is and lives with her . No tobacco or alcohol. She does have a dog at home. FAMILY HISTORY: Noncontributory. CURRENT MEDICATIONS: Include vancomycin, cefepime, Ventolin, Elavil, Ecotrin, calcium carbonate, Zyrtec, vitamin D3, Flexeril, Lovenox, Lasix, Motrin, insulin, lactobacillus, Prinivil, Antivert, metoprolol, Protonix, prednisone, tramadol, Effexor XR. PHYSICAL EXAMINATION: VITAL SIGNS: She is afebrile, temperature is 98.3, pulse 95, respirations 16, blood pressure 171/70, satting 99% on room air. CONSTITUTIONAL: She is very pleasant. She is cooperative. She is in no acute distress. She is lying in bed. HEENT: Pupils are status post cataract surgery. Oral cavity, pharynx is dry. She has dentures. NECK: Supple, no JVD. LUNGS: Decreased in bases. HEART: S1, S2. ABDOMEN: Obese, soft, no guarding. GENITOURINARY: Benson in place. EXTREMITIES: Without clubbing, cyanosis. Her left third toe has a previous amputation site. SKIN: Warm without generalized signs of rash. On her left coccyx sacral area she has a wound that appears more like a scratch, it is approximately 5 cm or so, it is healed over. There is no purulence. There is no drainage. There is no surrounding gross erythema. She does move her extremities, but has severe pain in her left hip, but it is fairly standard, she states but has worsened since her fall. NEUROLOGIC: She is nonfocal. PSYCHIATRIC: Affect is appropriate. LABORATORY VALUES: White count 8.4, hemoglobin 8.8, platelets of 442, neutrophils 63, lymphs are 424, creatinine 1, glucose of 163. Normal liver function study tests. No imaging here since the . IMPRESSION: 1. Left sacral coccyx wound. 2. Severe left hip pain with questionable avascular necrosis, pain is worse since her fall 3 days ago. 3. Antibiotic allergies as mentioned above. 4. Diabetes. 5. History of recurrent urinary tract infections, but cultures here did not show that she has had any positive recent cultures. She had been evaluated by Orthopedics who believes she has severe avascular necrosis. RECOMMENDATIONS: For now, continue vancomycin. We will change to meropenem from cefepime given her recurrent urinary tract infections and risk for resistance. We will check a procalcitonin. Follow up labs and cultures. Continue local wound care. This was discussed with nursing as well as her . Thank you for allowing me to participate in the patient's care. Should you have any questions, please do not hesitate to contact me.. EVE SUTHERLAND MD DR: ALISA/samantha JOB#: [id number] / [id number]
[2019-08-22] MEDS: ASPIRIN ENTERIC COATED 81 MG TABLET.DR. PO SCH (08:58)
[2019-08-22] MEDS: MECLIZINE HCL 12.5 MG TABLET. PO SCH ×3 (08:58→20:43)
[2019-08-22] MEDS: LACTOBACILLUS RHAMNOSUS GG 1 CAPSULE. PO SCH ×2 (08:59→20:44)
[2019-08-22] MEDS: CALCIUM CARB/VIT D3 500/200 TABLET. PO SCH (08:59)
[2019-08-22] MEDS: FUROSEMIDE 40 MG TABLET. PO SCH (08:59)
[2019-08-22] MEDS: CHOLECALCIFEROL (VITAMIN D3) 1,000 UNIT TABLET PO SCH (08:59)
[2019-08-22] MEDS: PANTOPRAZOLE 40 MG TABLET.DR. PO SCH (08:59)
[2019-08-22] MEDS: POTASSIUM CHLORIDE 20 MEQ TABLET.ER. PO SCH (08:59)
[2019-08-22] MEDS: CETIRIZINE HCL 10 MG TABLET. PO SCH (08:59)
[2019-08-22] MEDS: predniSONE 10 MG TABLET PO SCH (09:00)
[2019-08-22] MEDS: DICLOFENAC SODIUM 1% TOPICAL GEL 100GM TUBE. TP SCH ×4 (09:00→20:44)
[2019-08-22] MEDS ORDERED: VITAMIN D3 PO SCH (09:00)
[2019-08-22] MEDS: VENLAFAXINE XR 37.5 MG CAP.ER.24H. PO SCH (09:00)
[2019-08-22] MEDS: LISINOPRIL 5 MG TABLET. PO SCH (09:00)
[2019-08-22] MEDS: METOPROLOL TART IMMED RELEASE 50 MG TABLET. PO SCH ×2 (09:00→20:44)
[2019-08-22] MEDS ORDERED: CALCIUM CARBONATE PO SCH (09:00)
[2019-08-22] MEDS ORDERED: VENLAFAXINE HCL PO SCH (09:00)
[2019-08-22] MEDS: ENOXAPARIN 40 MG/0.4 ML SYRINGE. SQ SCH (09:01)
[2019-08-22] MEDS: INSULIN LISPRO 300 UNITS/3 ML VIAL. SQ SCH ×3 (09:10→17:00)
--- NOTE | 2019-08-22 10:21 | PN ---
DATE: 08/22/2019 SUBJECTIVE: The patient is sitting at the edge of the bed comfortably in no apparent distress. She continued to complain of pain in her left hip joint. She was seen by Dr. Barker and apparently, he does not think that there is any evidence of infection in her hip joint and that most of her findings are consistent with severe osteoarthritis and avascular necrosis and that ultimately, she needs her hip to be replaced. She was seen also by Dr. Fernando and he switched her antibiotic to meropenem. PHYSICAL EXAMINATION: GENERAL: So far, when I saw her this morning, she looked pale, but no jaundice, cyanosis or thyromegaly. No jugular venous distention. No lower limb edema. VITAL SIGNS: Her heart rate was 95, blood pressure was 171/70, temperature was 98.3, respiratory rate was 16, and oxygen saturation was 99% on room air. HEAD, EYES, EARS, NOSE AND THROAT: Normocephalic, atraumatic. NECK: Supple. HEART: Showed normal first and second heart sounds. No gallop or murmur. CHEST: Clear to auscultation. No crepitation or rhonchi. ABDOMEN: Distended, soft, nontender. NEUROLOGIC: She was awake, alert, responding appropriately. All cranial nerves intact. She moves extremities without difficulty, although she has severe pain in her left hip joint. Her intake and output were incompletely recorded. LABORATORY DATA: As of this morning showed a white cell count of 8400, hemoglobin 8.8, hematocrit 27.6, MCV 80 and platelet count of 442,000. Her serum sodium was 138, potassium 3.8, chloride 102, bicarbonate 26, anion gap of 10, BUN 22, creatinine 1, estimated GFR was 54 mL per minute. Her glucose 163, calcium was 8.2. Serum triglycerides 128, total cholesterol 95, LDL was 52, VLDL was 26, HDL was 17 and the ratio was 5.6. Her procalcitonin was 0.25. ASSESSMENT: 1. Left sacrococcygeal wound. 2. Severe left hip pain with questionable avascular necrosis. Her pain is worse since she fell about 4 days ago. 3. Type 2 diabetes mellitus seems to be well controlled. 4. Recurrent urinary tract infection. PLAN: To continue with IV vancomycin as well as meropenem. Her cultures at [facility] showed no growth after 3 days. Plan is to continue with IV antibiotic. Continue with DVT prophylaxis. Continue with physical and occupational therapy. Continue with pain management. Apparently, she follows with Dr. Pelaez, orthopedic surgeon, at [place] in [facility] and once she is stable and can be discharged. She should follow with her orthopedic surgeon there. MAGUE PALAFOX MD DR: ROMULO/samantha JOB#: [id number] / [id number]
[2019-08-22 11:00] VITALS: BP 133/53
[2019-08-22] MEDS: VANCOMYCIN PER PHARMACY MC PRN ×2 (13:21→13:23)
[2019-08-22] MEDS: MEROPENEM 500 MG in IV NORMAL SALINE 50ML 50 ML IV SCH ×2 (13:29→18:25)
[2019-08-22 15:02] VITALS: BP 142/68
[2019-08-22] MEDS: VANCOMYCIN 1 GM in IV NORMAL SALINE 250ML 250 ML IV SCH (19:21)
[2019-08-22 19:30] VITALS: BP 179/72
[2019-08-22] MEDS: AMITRIPTYLINE HCL 25 MG TABLET. PO SCH (20:44)
[2019-08-22] MEDS: TRESIBA 200 UNIT/ML SQ SCH (21:00)
--- NOTE | 2019-08-22 22:00 | NUR ---
There were no more of pt's home medication Tresiba, so schedule 2100 was not administered. Pt stated that she is okay with not taking it tonight. Pt called her and stated he will bring her home medications in the AM. Will continue to monitor pt closely.
[2019-08-22 23:14] VITALS: BP 140/73
[2019-08-23] MEDS: HYDROcodone/APAP 5/325MG 1 TAB TABLET PO PRN ×4 (03:26→23:41)
[2019-08-23 04:10] VITALS: BP 159/52
[2019-08-23 05:12] LABS: HEMATOCRIT 30.6 % (36.0-47.0); HEMOGLOBIN 9.8 g/dL (12.0-15.5); RED BLOOD COUNT 3.85 x10^6/uL (3.50-5.40); RED CELL DISTRIBUTION WIDTH 18.2 % (11.5-14.5); WHITE BLOOD COUNT 8.6 x10^3/uL (4.0-11.0)
[2019-08-23 05:38] LABS: CALCIUM 8.3 mg/dL (8.5-10.1); CREATININE 1.2 mg/dL (0.6-1.0); GFR 44.2; POTASSIUM 3.8 mmol/L (3.5-5.1)
[2019-08-23] MEDS: MEROPENEM 500 MG in IV NORMAL SALINE 50ML 50 ML IV SCH ×5 (05:44→17:26)
[2019-08-23] MEDS: CYCLOBENZAPRINE 10 MG TABLET. PO PRN (05:50)
[2019-08-23] MEDS: fentaNYL PF VIAL 100 MCG/2 ML VIAL IVP PRN ×2 (06:16→12:06)
[2019-08-23 07:00] VITALS: BP 144/106
--- NOTE | 2019-08-23 07:32 | PDOC ---
Infectious Disease Note Subjective Subjective Feels at baseline No F/c/S/N/V/D/SOA Doesn't eat much and hip same ROS ROS o/w neg Vital Sign Vital Signs Vital Signs Date Time Temp Pulse Resp B/P (MAP) Pulse Ox O2 Delivery O2 Flow Rate FiO2 08/23/19 07:00 97 Room Air 08/23/19 04:10 98.8 85 22 159/52 (87) 98.8 Physical Exam PHYSICAL EXAM CONSTITUTIONAL: She is very pleasant. She is cooperative. She is in no acute distress. She is lying in bed. HEENT: Pupils are status post cataract surgery. Oral cavity, pharynx is dry. She has dentures. NECK: Supple, no JVD. LUNGS: Decreased in bases. HEART: S1, S2. ABDOMEN: Obese, soft, no guarding. GENITOURINARY: Benson in place. EXTREMITIES: Without clubbing, cyanosis. Her left third toe has a previous amputation site. SKIN: Warm without generalized signs of rash. On her left coccyx sacral area she has a wound that appears more like a scratch, it is approximately 5 cm or so, it is healed over. There is no purulence. There is no drainage. There is no surrounding gross erythema. She does move her extremities, but has severe pain in her left hip, but it is fairly standard, she states but has worsened since her fall. NEUROLOGIC: She is nonfocal. PSYCHIATRIC: Affect is appropriate Labs Lab Laboratory Tests Test 08/22/19 11:46 08/22/19 16:29 08/22/19 21:01 08/23/19 04:00 Glucose (Fingerstick) 84 mg/dL (70-99) 76 mg/dL (70-99) 211 mg/dL (70-99) White Blood Count 8.6 x10^3/uL (4.0-11.0) Red Blood Count 3.85 x10^6/uL (3.50-5.40) Hemoglobin 9.8 g/dL (12.0-15.5) Hematocrit 30.6 % (36.0-47.0) Mean Corpuscular Volume 80 fL (79-100) Mean Corpuscular Hemoglobin 26 pg (25-35) Mean Corpuscular Hemoglobin Concent 32 g/dL (31-37) Red Cell Distribution Width 18.2 % (11.5-14.5) Platelet Count 435 x10^3/uL (140-400) Sodium Level 136 mmol/L (136-145) Potassium Level 3.8 mmol/L (3.5-5.1) Chloride Level 98 mmol/L (98-107) Carbon Dioxide Level 27 mmol/L (21-32) Anion Gap 11 (6-14) Blood Urea Nitrogen 20 mg/dL (7-20) Creatinine 1.2 mg/dL (0.6-1.0) Estimated GFR (Cockcroft-Gault) 44.2 Glucose Level 175 mg/dL (70-99) Calcium Level 8.3 mg/dL (8.5-10.1) Objective Assessment Left sacral/coccyx wound Severe L hip pain with ? AVN pain is worse since her fall 3 days ago procal only mild elevation but could reflect renal change abx allergies - sulfa mouth swelling. Clinda and Levoflox - itch Dm h/o recurrent UTI Plan Plan of Care Discont Vanc with Cr elevation and begin Dapto Change to meropenem F/u labs and cults Local wound care D/w EVE SUTHERLAND MD Aug 23, 2019 07:32
[2019-08-23] MEDS: ENOXAPARIN 40 MG/0.4 ML SYRINGE. SQ SCH (08:19)
[2019-08-23] MEDS: ASPIRIN ENTERIC COATED 81 MG TABLET.DR. PO SCH (08:19)
[2019-08-23] MEDS: DICLOFENAC SODIUM 1% TOPICAL GEL 100GM TUBE. TP SCH ×4 (08:19→21:00)
[2019-08-23] MEDS: METOPROLOL TART IMMED RELEASE 50 MG TABLET. PO SCH ×2 (08:20→21:39)
[2019-08-23] MEDS: POTASSIUM CHLORIDE 20 MEQ TABLET.ER. PO SCH (08:20)
[2019-08-23] MEDS: PANTOPRAZOLE 40 MG TABLET.DR. PO SCH (08:21)
[2019-08-23] MEDS: LISINOPRIL 5 MG TABLET. PO SCH (08:21)
[2019-08-23] MEDS: predniSONE 10 MG TABLET PO SCH (08:21)
[2019-08-23] MEDS: MECLIZINE HCL 12.5 MG TABLET. PO SCH ×3 (08:21→21:39)
[2019-08-23] MEDS: CALCIUM CARB/VIT D3 500/200 TABLET. PO SCH (08:21)
[2019-08-23] MEDS: CHOLECALCIFEROL (VITAMIN D3) 1,000 UNIT TABLET PO SCH (08:21)
[2019-08-23] MEDS: FUROSEMIDE 40 MG TABLET. PO SCH (08:21)
[2019-08-23] MEDS: VENLAFAXINE XR 37.5 MG CAP.ER.24H. PO SCH (08:22)
[2019-08-23] MEDS: CETIRIZINE HCL 10 MG TABLET. PO SCH (08:22)
[2019-08-23] MEDS: LACTOBACILLUS RHAMNOSUS GG 1 CAPSULE. PO SCH ×2 (08:22→21:39)
[2019-08-23] MEDS: INSULIN LISPRO 300 UNITS/3 ML VIAL. SQ SCH ×3 (08:35→17:31)
[2019-08-23] MEDS: DAPTOmycin (GENERIC) IVPB 450 MG in IV NORMAL SALINE 50ML 50 ML IV SCH (09:00)
--- NOTE | 2019-08-23 10:36 | PN ---
DATE: 08/23/2019 SUBJECTIVE: The patient is resting, slightly propped up in bed, sleeping comfortably, in no apparent respiratory distress. She is arousable. On questioning her, she denied any complaints; however, she has just now received her pain medication. Nursing staff stated that she has been restless, agitated. PHYSICAL EXAMINATION: GENERAL: When I examined her this morning, she was pale, but no jaundice, cyanosis or thyromegaly. No jugular venous distention. No lower limb edema. VITAL SIGNS: Her heart rate was 85, blood pressure was 159/52, temperature 97.8, respiratory rate 20, and oxygen saturation was 97% on room air. HEAD, EYES, EARS, NOSE AND THROAT: Showed normocephalic, atraumatic. NECK: Supple. CARDIAC: Normal first and second heart sounds. No gallop or murmur. CHEST: Clear to auscultation. No crepitation or rhonchi. ABDOMEN: Distended, soft, nontender. NEUROLOGIC: She was sleepy, but arousable. All cranial nerves are intact. She moves extremities without difficulty. She continued to have pain in her left hip joint, although she apparently managed to walk with a walker yesterday with physical therapy. Her intake was 780, output was 3025. LABORATORY DATA: Her lab work this morning showed a serum sodium 136, potassium 3.8, chloride 98, bicarbonate 27, anion gap of 11, BUN 20, creatinine 1.2, estimated GFR was 44 mL per minute. Her glucose 175, calcium was 8.3. Her white cell count was 8600, hemoglobin 9.8, hematocrit 30, MCV 80 and platelet count 435,000. ASSESSMENT: 1. Left sacrococcygeal wound. 2. Severe left hip pain with questionable avascular necrosis. Her pain is worse and so she fell about 4 days ago. 3. Type 2 diabetes mellitus, seems to be well controlled. 4. Recurrent urinary tract infection. Other medical problems include: 1. Coronary artery disease, she apparently has no angioplasty or stent deployment. 2. Morbid obesity. 3. Hyperlipidemia. 4. Irritable bowel syndrome. 5. Gastroesophageal reflux disease. 6. Chronic deforming rheumatoid arthritis. PLAN: To continue with IV meropenem as well as daptomycin as recommended by the Infectious Disease specialist. Her cultures at [facility] are so far negative and has not shown any growth after 4 days. MAGUE PALAFOX MD DR: ROMULO/samantha JOB#: [id number] / [id number]
[2019-08-23] MEDS: OLANZapine 2.5 MG TABLET PO PRN (10:41)
[2019-08-23 11:00] VITALS: BP 182/53
[2019-08-23] MEDS: ACETAMINOPHEN 500 MG TABLET PO PRN (12:02)
[2019-08-23] MEDS: IV NORMAL SALINE 1000ML BAG 1,000 ML IV SCH (12:30)
[2019-08-23 15:00] VITALS: BP 106/41
[2019-08-23 19:46] VITALS: BP 141/61
[2019-08-23] MEDS: TRESIBA 200 UNIT/ML SQ SCH (21:00)
[2019-08-23] MEDS: AMITRIPTYLINE HCL 25 MG TABLET. PO SCH (21:39)
[2019-08-23 23:26] VITALS: BP 113/52
[2019-08-24] MEDS: MEROPENEM 500 MG in IV NORMAL SALINE 50ML 50 ML IV SCH ×5 (00:44→23:54)
[2019-08-24] MEDS: fentaNYL PF VIAL 100 MCG/2 ML VIAL IVP PRN ×2 (00:49→13:41)
[2019-08-24] MEDS: IV NORMAL SALINE 1000ML BAG 1,000 ML IV SCH ×3 (00:52→23:55)
[2019-08-24 03:29] LABS: CALCIUM 7.9 mg/dL (8.5-10.1); CREATININE 1.2 mg/dL (0.6-1.0); GFR 44.2; POTASSIUM 4.3 mmol/L (3.5-5.1)
[2019-08-24 03:35] VITALS: BP 142/64
[2019-08-24] MEDS: HYDROcodone/APAP 5/325MG 1 TAB TABLET PO PRN ×2 (06:13→10:12)
[2019-08-24 07:00] VITALS: BP 141/70
[2019-08-24] MEDS: INSULIN LISPRO 300 UNITS/3 ML VIAL. SQ SCH ×3 (08:00→17:08)
[2019-08-24] MEDS: METOPROLOL TART IMMED RELEASE 50 MG TABLET. PO SCH ×2 (08:36→20:42)
[2019-08-24] MEDS: MECLIZINE HCL 12.5 MG TABLET. PO SCH ×3 (08:36→20:42)
[2019-08-24] MEDS: LISINOPRIL 5 MG TABLET. PO SCH (08:36)
[2019-08-24] MEDS: CHOLECALCIFEROL (VITAMIN D3) 1,000 UNIT TABLET PO SCH (08:36)
[2019-08-24] MEDS: ASPIRIN ENTERIC COATED 81 MG TABLET.DR. PO SCH (08:36)
[2019-08-24] MEDS: VENLAFAXINE XR 37.5 MG CAP.ER.24H. PO SCH (08:36)
[2019-08-24] MEDS: LACTOBACILLUS RHAMNOSUS GG 1 CAPSULE. PO SCH ×2 (08:36→20:42)
[2019-08-24] MEDS: CALCIUM CARB/VIT D3 500/200 TABLET. PO SCH (08:36)
[2019-08-24] MEDS: predniSONE 10 MG TABLET PO SCH (08:36)
[2019-08-24] MEDS: IBUPROFEN 400 MG TABLET. PO PRN ×2 (08:37→20:44)
[2019-08-24] MEDS: POTASSIUM CHLORIDE 20 MEQ TABLET.ER. PO SCH (08:37)
[2019-08-24] MEDS: CETIRIZINE HCL 10 MG TABLET. PO SCH (08:37)
[2019-08-24] MEDS: PANTOPRAZOLE 40 MG TABLET.DR. PO SCH (08:37)
[2019-08-24] MEDS: FUROSEMIDE 40 MG TABLET. PO SCH (08:37)
[2019-08-24] MEDS: ENOXAPARIN 40 MG/0.4 ML SYRINGE. SQ SCH (08:55)
[2019-08-24] MEDS: DICLOFENAC SODIUM 1% TOPICAL GEL 100GM TUBE. TP SCH ×4 (09:00→20:43)
[2019-08-24] MEDS: DAPTOmycin (GENERIC) IVPB 450 MG in IV NORMAL SALINE 50ML 50 ML IV SCH (10:09)
[2019-08-24 11:02] VITALS: BP 116/50
--- NOTE | 2019-08-24 11:51 | PN ---
DATE: 08/24/2019 SUBJECTIVE: The patient is resting, slightly propped up in bed, in no apparent respiratory distress. She is awake, alert. She obviously continued to have pain in her left hip joint. She did spike her temperature yesterday up to 101.6, however, Dr. Barker did not think that the patient has any infection in her hip joint and that the CT scan findings are more consistent with avascular necrosis. PHYSICAL EXAMINATION: GENERAL: When I examined her, she looked pale, but no jaundice or cyanosis. No lymphadenopathy. No thyromegaly. No jugular venous distention. No lower limb edema. VITAL SIGNS: Her heart rate was 91, blood pressure was 141/70, temperature 98.2, respiratory rate was 17 and oxygen saturation was 98% on room air. HEAD, EYES, EARS, NOSE AND THROAT: Showed normocephalic, atraumatic. NECK: Supple. HEART: Showed normal first and second heart sounds. No gallop, rub or murmur. CHEST: Clear to auscultation. No crepitation or rhonchi. ABDOMEN: Distended, soft, nontender. No guarding or rigidity. No organomegaly. All hernial orifice intact. Bowel sounds normal. NEUROLOGIC: She was awake, alert, responding appropriately. All cranial nerves intact. She moves extremities without difficulty, although she is obviously having severe pain in her left hip joint. Her intake over the last 24 hours was 960 and output was 4150. LABORATORY DATA: As of this morning, her serum sodium was 139, potassium 4.3, chloride 104, bicarbonate 28, anion gap of 7, BUN 22, creatinine 1.2, estimated GFR was 44 mL per minute. Her glucose 144, calcium was 7.9. Her white cell count was 8600; hemoglobin 10; hematocrit 30; MCV 80; and platelet count 435,000. ASSESSMENT: 1. Left sacrococcygeal wound. 2. Severe left hip pain with questionable avascular necrosis. Her pain is worse since she fell about 5 days ago. 3. Type 2 diabetes mellitus, seems to be well controlled. 4. Recurrent urinary tract infection. 5. The patient has other medical problems, including: A. Coronary artery disease. B. Morbid obesity. C. Hyperlipidemia. D. Irritable bowel syndrome. E. Gastroesophageal reflux disease. F. Chronic deforming rheumatoid arthritis. PLAN: Is to continue IV meropenem as well as daptomycin. Continue with pain management. Her blood cultures done at [facility] showed no growth after 5 days. MAGUE PALAFOX MD DR: ROMULO/samantha JOB#: [id number] / [id number]
--- NOTE | 2019-08-24 12:02 | NUR ---
SW following for discharge planning. SW reviewed chart and spoke with RN. SW met with pt and her dtr today. Pt continues to decline HH at discharge. 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 Pt's dtr stated she works from home and will be with pt daily. Pt remains on room air. SW to continue following for possible home infusion needs.
--- NOTE | 2019-08-24 12:10 | PDOC ---
Infectious Disease Note Subjective Subjective Feels actually better today No F/c/S/N/V/D/SOA Eating more and hip same Vital Sign Vital Signs Vital Signs Date Time Temp Pulse Resp B/P (MAP) Pulse Ox O2 Delivery O2 Flow Rate FiO2 08/24/19 11:02 97.7 76 16 116/50 (72) 99 Room Air 97.7 Physical Exam PHYSICAL EXAM CONSTITUTIONAL: She is very pleasant. She is cooperative. She is in no acute distress. She is lying in bed. looks better HEENT: Pupils are status post cataract surgery. Oral cavity, pharynx is dry. She has dentures. NECK: Supple, no JVD. LUNGS: Decreased in bases. HEART: S1, S2. ABDOMEN: Obese, soft, no guarding. GENITOURINARY: Benson in place. EXTREMITIES: Without clubbing, cyanosis. Her left third toe has a previous amputation site. SKIN: Warm without generalized signs of rash. On her left coccyx sacral area she has a wound that appears more like a scratch, it is approximately 5 cm or so, it is healed over. There is no purulence. There is no drainage. There is no surrounding gross erythema. She does move her extremities, but has severe pain in her left hip, but it is fairly standard, she states but has worsened since her fall. No edema/induration/warmth or erythema NEUROLOGIC: She is nonfocal. PSYCHIATRIC: Affect is appropriate Labs Lab Laboratory Tests Test 08/23/19 13:05 08/23/19 16:52 08/23/19 20:16 08/24/19 02:35 Lactic Acid Level 1.4 mmol/L (0.4-2.0) Glucose (Fingerstick) 333 mg/dL (70-99) 258 mg/dL (70-99) Sodium Level 139 mmol/L (136-145) Potassium Level 4.3 mmol/L (3.5-5.1) Chloride Level 104 mmol/L (98-107) Carbon Dioxide Level 28 mmol/L (21-32) Anion Gap 7 (6-14) Blood Urea Nitrogen 22 mg/dL (7-20) Creatinine 1.2 mg/dL (0.6-1.0) Estimated GFR (Cockcroft-Gault) 44.2 Glucose Level 144 mg/dL (70-99) Calcium Level 7.9 mg/dL (8.5-10.1) Test 08/24/19 07:17 08/24/19 11:27 Glucose (Fingerstick) 126 mg/dL (70-99) 235 mg/dL (70-99) Objective Assessment Left sacral/coccyx wound - clean Fever times one - ? Vanc Solo - stable Severe L hip pain with ? AVN pain is worse since her fall 3 days ago procal only mild elevation but could reflect renal change abx allergies - sulfa mouth swelling. Clinda and Levoflox - itch Dm h/o recurrent UTI Plan Plan of Care Discont Vanc with Cr elevation and begin Dapto 08/22 Changed to meropenem F/u labs and cults Local wound care D/w family D/w EVE SUTHERLAND MD Aug 24, 2019 12:10
--- NOTE | 2019-08-24 12:16 | PDOC ---
CARDIO Progress Notes Date and Time Date of Service 08/24/19 Time of Evaluation 1215 Subjective Subjective: No Chest Pain, No shortness of breath, No Palpitations, Other (left hip pain) Vitals Vitals Vital Signs Date Time Temp Pulse Resp B/P (MAP) Pulse Ox O2 Delivery O2 Flow Rate FiO2 08/24/19 11:02 97.7 76 16 116/50 (72) 99 Room Air 97.7 Weight Weight [ ] Input and Output Intake and Output Intake and Output 08/24/19 07:00 Intake Total 900 ml Output Total 2300 ml Balance -1400 ml IV Total 900 ml Output Urine Total 2300 ml Laboratory Labs Laboratory Tests Test 08/23/19 13:05 08/23/19 16:52 08/23/19 20:16 08/24/19 02:35 Lactic Acid Level 1.4 mmol/L (0.4-2.0) Glucose (Fingerstick) 333 mg/dL (70-99) 258 mg/dL (70-99) Sodium Level 139 mmol/L (136-145) Potassium Level 4.3 mmol/L (3.5-5.1) Chloride Level 104 mmol/L (98-107) Carbon Dioxide Level 28 mmol/L (21-32) Anion Gap 7 (6-14) Blood Urea Nitrogen 22 mg/dL (7-20) Creatinine 1.2 mg/dL (0.6-1.0) Estimated GFR (Cockcroft-Gault) 44.2 Glucose Level 144 mg/dL (70-99) Calcium Level 7.9 mg/dL (8.5-10.1) Test 08/24/19 07:17 08/24/19 11:27 Glucose (Fingerstick) 126 mg/dL (70-99) 235 mg/dL (70-99) Physical Exam HEENT: Neck Supple W Full Motion Chest: Symmetric LUNGS: Clear to Auscultation Heart: S1S2, RRR Abdomen: Soft N/T Extremities: No Edema Neurology: alert, oriented, follow commands Assessment Assessment 1. Mechanical fall with left hip pain 2. Left hip degenerative changes . CT with concerns for possible avascular necrosis 3. Left sacral/coccyx wound 4. Leukocytosis, lactic acidosis, fevers. resolved 5. Arrythmia; PSVT vs AFIB. Few brief bursts noted on tele. Otherwise, maintaining SR. Recent echo with preserved LV systolic function. TSH WNL. Event monitor 01/27 without AFIB. PSVT noted 6. Poorly controlled DM2: due to poor diet compliance 7. Hypertension; controlled 8. Hx of RA on immunosuppressive therapy Recommendations Continue metoprolol for rate control ASA therapy. Poor candidate for OAC given fall risk Ongoing antibiotic therapy Supportive care Justicifation of Admission Dx: Justifications for Admission: Justification of Admission Dx: Yes CHF: Cardiac Arrhythmias VALENTINA SIMPSON APRN Aug 24, 2019 12:16
[2019-08-24 15:22] VITALS: BP 143/63
[2019-08-24 19:20] VITALS: BP 139/53
[2019-08-24] MEDS: AMITRIPTYLINE HCL 25 MG TABLET. PO SCH (20:42)
[2019-08-24] MEDS: TRESIBA 200 UNIT/ML SQ SCH (21:00)
--- NOTE | 2019-08-24 21:10 | NUR ---
insulin (tresiba) not able to administer, no pen available from patient. Pt called to bring some but claimed not able to come back to hospital.
[2019-08-24 23:00] VITALS: BP 154/62
[2019-08-25] MEDS: HYDROcodone/APAP 5/325MG 1 TAB TABLET PO PRN ×3 (03:29→18:17)
[2019-08-25 03:30] VITALS: BP 157/95
[2019-08-25 04:12] LABS: BASO # 0.1 x10^3/uL (0.0-0.2); BASO % 1 % (0-3); EOS # 0.3 x10^3/uL (0.0-0.7); EOS % 4 % (0-3); HEMATOCRIT 29.9 % (36.0-47.0); HEMOGLOBIN 9.6 g/dL (12.0-15.5); LYMPH # 1.9 x10^3/uL (1.0-4.8); LYMPH % 22 % (24-48); MEAN CORPUSCULAR HEMOGLOBIN 26 pg (25-35); MEAN CORPUSCULAR HGB CONC 32 g/dL (31-37); MEAN CORPUSCULAR VOLUME 80 fL (79-100); MONO # 0.4 x10^3/uL (0.0-1.1); MONO % 5 % (0-9); NEUT # 5.7 x10^3/uL (1.8-7.7); NEUT % 68 % (31-73); PLATELET COUNT 398 x10^3/uL (140-400); RED BLOOD COUNT 3.73 x10^6/uL (3.50-5.40); RED CELL DISTRIBUTION WIDTH 17.8 % (11.5-14.5); WHITE BLOOD COUNT 8.4 x10^3/uL (4.0-11.0)
[2019-08-25 04:42] LABS: ALBUMIN 2.2 g/dL (3.4-5.0); ALBUMIN/GLOBULIN RATIO 0.5 (1.0-1.7); CALCIUM 8.5 mg/dL (8.5-10.1); CREATININE 1.1 mg/dL (0.6-1.0); GFR 48.8; POTASSIUM 3.9 mmol/L (3.5-5.1); TOTAL BILIRUBIN 0.2 mg/dL (0.2-1.0)
[2019-08-25] MEDS: CYCLOBENZAPRINE 10 MG TABLET. PO PRN (05:46)
[2019-08-25] MEDS: MEROPENEM 500 MG in IV NORMAL SALINE 50ML 50 ML IV SCH ×4 (05:48→23:56)
[2019-08-25] MEDS: PANTOPRAZOLE 40 MG TABLET.DR. PO SCH (05:48)
[2019-08-25] MEDS: ACETAMINOPHEN 500 MG TABLET PO PRN (07:10)
[2019-08-25] MEDS: OLANZapine 2.5 MG TABLET PO PRN ×2 (07:10→19:18)
--- NOTE | 2019-08-25 07:16 | NUR ---
pt refused pain med/tylenol @ this time.
[2019-08-25 07:30] VITALS: BP 168/58
[2019-08-25] MEDS: INSULIN LISPRO 300 UNITS/3 ML VIAL. SQ SCH ×3 (08:00→17:07)
[2019-08-25] MEDS: FUROSEMIDE 40 MG TABLET. PO SCH (08:50)
[2019-08-25] MEDS: ASPIRIN ENTERIC COATED 81 MG TABLET.DR. PO SCH (08:50)
[2019-08-25] MEDS: MECLIZINE HCL 12.5 MG TABLET. PO SCH ×3 (08:50→21:01)
[2019-08-25] MEDS: CALCIUM CARB/VIT D3 500/200 TABLET. PO SCH (08:50)
[2019-08-25] MEDS: CHOLECALCIFEROL (VITAMIN D3) 1,000 UNIT TABLET PO SCH (08:50)
[2019-08-25] MEDS: METOPROLOL TART IMMED RELEASE 50 MG TABLET. PO SCH ×2 (08:50→21:01)
[2019-08-25] MEDS: LACTOBACILLUS RHAMNOSUS GG 1 CAPSULE. PO SCH ×2 (08:51→21:01)
[2019-08-25] MEDS: VENLAFAXINE XR 37.5 MG CAP.ER.24H. PO SCH (08:51)
[2019-08-25] MEDS: CETIRIZINE HCL 10 MG TABLET. PO SCH (08:51)
[2019-08-25] MEDS: predniSONE 10 MG TABLET PO SCH (08:51)
[2019-08-25] MEDS: LISINOPRIL 5 MG TABLET. PO SCH (08:51)
[2019-08-25] MEDS: ENOXAPARIN 40 MG/0.4 ML SYRINGE. SQ SCH (08:52)
[2019-08-25] MEDS: DICLOFENAC SODIUM 1% TOPICAL GEL 100GM TUBE. TP SCH ×4 (08:52→21:00)
[2019-08-25] MEDS: POTASSIUM CHLORIDE 20 MEQ TABLET.ER. PO SCH (08:52)
[2019-08-25] MEDS: DAPTOmycin (GENERIC) IVPB 450 MG in IV NORMAL SALINE 50ML 50 ML IV SCH (08:53)
--- NOTE | 2019-08-25 09:14 | PDOC ---
Infectious Disease Note Subjective Subjective Feels actually better today No F/c/S/N/V/D/SOA Eating some and hip same ROS ROS o/w neg Vital Sign Vital Signs Vital Signs Date Time Temp Pulse Resp B/P (MAP) Pulse Ox O2 Delivery O2 Flow Rate FiO2 08/25/19 08:51 110 168/58 08/25/19 08:51 93 Room Air 08/25/19 07:30 99.3 18 99.3 Physical Exam PHYSICAL EXAM CONSTITUTIONAL: She is very pleasant. She is cooperative. She is in no acute distress. She is sitting on side of bed. looks better HEENT: Pupils are status post cataract surgery. Oral cavity, pharynx is dry. She has dentures. NECK: Supple, no JVD. LUNGS: Decreased in bases. HEART: S1, S2. ABDOMEN: Obese, soft, no guarding. GENITOURINARY: Benson in place. EXTREMITIES: Without clubbing, cyanosis. Her left third toe has a previous amputation site. SKIN: Warm without generalized signs of rash. On her left coccyx sacral area she has a wound that appears more like a scratch, it is approximately 5 cm or so, it is healed over. There is no purulence. There is no drainage. There is no surrounding gross erythema. She does move her extremities, but has severe pain in her left hip, but it is fairly standard, she states but has worsened since her fall. No edema/induration/warmth or erythema NEUROLOGIC: She is nonfocal. PSYCHIATRIC: Affect is appropriate Labs Lab Laboratory Tests Test 08/24/19 11:27 08/24/19 16:43 08/24/19 20:38 08/25/19 03:05 Glucose (Fingerstick) 235 mg/dL (70-99) 214 mg/dL (70-99) 150 mg/dL (70-99) White Blood Count 8.4 x10^3/uL (4.0-11.0) Red Blood Count 3.73 x10^6/uL (3.50-5.40) Hemoglobin 9.6 g/dL (12.0-15.5) Hematocrit 29.9 % (36.0-47.0) Mean Corpuscular Volume 80 fL (79-100) Mean Corpuscular Hemoglobin 26 pg (25-35) Mean Corpuscular Hemoglobin Concent 32 g/dL (31-37) Red Cell Distribution Width 17.8 % (11.5-14.5) Platelet Count 398 x10^3/uL (140-400) Neutrophils (%) (Auto) 68 % (31-73) Lymphocytes (%) (Auto) 22 % (24-48) Monocytes (%) (Auto) 5 % (0-9) Eosinophils (%) (Auto) 4 % (0-3) Basophils (%) (Auto) 1 % (0-3) Neutrophils # (Auto) 5.7 x10^3/uL (1.8-7.7) Lymphocytes # (Auto) 1.9 x10^3/uL (1.0-4.8) Monocytes # (Auto) 0.4 x10^3/uL (0.0-1.1) Eosinophils # (Auto) 0.3 x10^3/uL (0.0-0.7) Basophils # (Auto) 0.1 x10^3/uL (0.0-0.2) Sodium Level 141 mmol/L (136-145) Potassium Level 3.9 mmol/L (3.5-5.1) Chloride Level 104 mmol/L (98-107) Carbon Dioxide Level 27 mmol/L (21-32) Anion Gap 10 (6-14) Blood Urea Nitrogen 18 mg/dL (7-20) Creatinine 1.1 mg/dL (0.6-1.0) Estimated GFR (Cockcroft-Gault) 48.8 BUN/Creatinine Ratio 16 (6-20) Glucose Level 88 mg/dL (70-99) Calcium Level 8.5 mg/dL (8.5-10.1) Total Bilirubin 0.2 mg/dL (0.2-1.0) Aspartate Amino Transf (AST/SGOT) 24 U/L (15-37) Alanine Aminotransferase (ALT/SGPT) 19 U/L (14-59) Alkaline Phosphatase 110 U/L (46-116) Total Protein 7.0 g/dL (6.4-8.2) Albumin 2.2 g/dL (3.4-5.0) Albumin/Globulin Ratio 0.5 (1.0-1.7) Test 08/25/19 07:14 Glucose (Fingerstick) 129 mg/dL (70-99) Objective Assessment Left sacral/coccyx wound - clean Fever times one - ? Vanc Afib AVI - better Severe L hip pain with ? AVN pain is worse since her fall 3 days ago procal only mild elevation but could reflect renal change abx allergies - sulfa mouth swelling. Clinda and Levoflox - itch Dm h/o recurrent UTI Plan Plan of Care Clinically better. Hip without clear signs of infection. cults neg. D/w - will d/c abx and monitor to see if anything declares but avoid risk of C-diff and over exposure to abx F/u labs and cults Local wound care D/w /nursing and Dr. Estevan SUTHERLAND,EVE Helms MD Aug 25, 2019 09:14
--- NOTE | 2019-08-25 10:14 | PDOC ---
VALENTINA SIMPSON MEDICAL CLINIC MANAGER 08/25/19 1014: CARDIO Progress Notes Date and Time Date of Service 08/25/19 Time of Evaluation 1100 Subjective Subjective: No Chest Pain, No shortness of breath, No Palpitations Vitals Vitals Vital Signs Date Time Temp Pulse Resp B/P (MAP) Pulse Ox O2 Delivery O2 Flow Rate FiO2 08/25/19 08:51 110 168/58 08/25/19 08:51 93 Room Air 08/25/19 07:30 99.3 18 99.3 Weight Weight [ ] Input and Output Intake and Output Intake and Output 08/25/19 07:00 Intake Total 600 ml Output Total 3150 ml Balance -2550 ml Intake Oral 600 ml Output Urine Total 3150 ml # Bowel Movements 1 Laboratory Labs Laboratory Tests Test 08/24/19 11:27 08/24/19 16:43 08/24/19 20:38 08/25/19 03:05 Glucose (Fingerstick) 235 mg/dL (70-99) 214 mg/dL (70-99) 150 mg/dL (70-99) White Blood Count 8.4 x10^3/uL (4.0-11.0) Red Blood Count 3.73 x10^6/uL (3.50-5.40) Hemoglobin 9.6 g/dL (12.0-15.5) Hematocrit 29.9 % (36.0-47.0) Mean Corpuscular Volume 80 fL (79-100) Mean Corpuscular Hemoglobin 26 pg (25-35) Mean Corpuscular Hemoglobin Concent 32 g/dL (31-37) Red Cell Distribution Width 17.8 % (11.5-14.5) Platelet Count 398 x10^3/uL (140-400) Neutrophils (%) (Auto) 68 % (31-73) Lymphocytes (%) (Auto) 22 % (24-48) Monocytes (%) (Auto) 5 % (0-9) Eosinophils (%) (Auto) 4 % (0-3) Basophils (%) (Auto) 1 % (0-3) Neutrophils # (Auto) 5.7 x10^3/uL (1.8-7.7) Lymphocytes # (Auto) 1.9 x10^3/uL (1.0-4.8) Monocytes # (Auto) 0.4 x10^3/uL (0.0-1.1) Eosinophils # (Auto) 0.3 x10^3/uL (0.0-0.7) Basophils # (Auto) 0.1 x10^3/uL (0.0-0.2) Sodium Level 141 mmol/L (136-145) Potassium Level 3.9 mmol/L (3.5-5.1) Chloride Level 104 mmol/L (98-107) Carbon Dioxide Level 27 mmol/L (21-32) Anion Gap 10 (6-14) Blood Urea Nitrogen 18 mg/dL (7-20) Creatinine 1.1 mg/dL (0.6-1.0) Estimated GFR (Cockcroft-Gault) 48.8 BUN/Creatinine Ratio 16 (6-20) Glucose Level 88 mg/dL (70-99) Calcium Level 8.5 mg/dL (8.5-10.1) Total Bilirubin 0.2 mg/dL (0.2-1.0) Aspartate Amino Transf (AST/SGOT) 24 U/L (15-37) Alanine Aminotransferase (ALT/SGPT) 19 U/L (14-59) Alkaline Phosphatase 110 U/L (46-116) Total Protein 7.0 g/dL (6.4-8.2) Albumin 2.2 g/dL (3.4-5.0) Albumin/Globulin Ratio 0.5 (1.0-1.7) Test 08/25/19 07:14 Glucose (Fingerstick) 129 mg/dL (70-99) Physical Exam HEENT: Neck Supple W Full Motion Chest: Symmetric LUNGS: Clear to Auscultation Heart: S1S2, RRR Abdomen: Soft N/T Extremities: No Edema Neurology: alert, follow commands, confused Assessment Assessment 1. Mechanical fall with left hip pain 2. Left hip degenerative changes . CT with concerns for possible avascular necrosis 3. Left sacral/coccyx wound 4. Leukocytosis, lactic acidosis, fevers. resolved 5. Arrythmia; PSVT vs AFIB. Few brief bursts noted on tele. Otherwise, maintaining SR. Recent echo with preserved LV systolic function. TSH WNL. Event monitor 01/27 without AFIB. PSVT noted 6. Poorly controlled DM2 7. Hypertension; controlled 8. Hx of RA on immunosuppressive therapy Recommendations Continue metoprolol for rate control ASA therapy. Poor candidate for OAC given fall risk Supportive care Follow up with Dr. Michael as scheduled Supportive care Justicifation of Admission Dx: Justifications for Admission: Justification of Admission Dx: Yes CHF: Cardiac Arrhythmias NAHOMY MICHAEL MD 08/25/19 1649: CARDIO Progress Notes Plan Plan Pt. seen and examined. Agree with above COMMISSARY OFFICER note. Supportive care. Discussed plan of care from CV standpoint with daughter. No acute cardiac issues. Thanks VALENTINA SIMPSON APRN Aug 25, 2019 10:14 NAHOMY MICHAEL MD Aug 25, 2019 16:49
[2019-08-25 11:30] VITALS: BP 100/54
[2019-08-25] MEDS: IV NORMAL SALINE 1000ML BAG 1,000 ML IV SCH ×3 (13:40→23:54)
[2019-08-25 15:02] LABS: BILIRUBIN,URINE NEGATIVE (NEG); CLARITY,URINE CLEAR; COLOR,URINE YELLOW; NITRITE,URINE NEGATIVE (NEG); PROTEIN,URINE NEGATIVE (NEG-TRACE); UROBILINOGEN,URINE 0.2 mg/dL (0.2 mg/dL)
[2019-08-25 15:08] LABS: HYALINE CASTS, URINE FEW /HPF; SQUAMOUS EPITHELIAL CELL,UR FEW /LPF
[2019-08-25 15:09] VITALS: BP 124/60
[2019-08-25 15:09] LABS: BACTERIA,URINE 0 /HPF (0-FEW); YEAST,URINE PRESENT /HPF
--- NOTE | 2019-08-25 15:17 | RAD ---
EXAM: CT Abdomen and Pelvis without IV contrast INDICATION: Reason: elevated temperature / Spl. Instructions: / History: TECHNIQUE: Multi-detector row CT images were acquired from the lung bases through the abdomen and pelvis without the use of IV contrast. Sagittal and coronal images were acquired from the transaxial data. All CT scans performed at this facility utilize dose optimization techniques as appropriate to the exam, including the following: Automated exposure control and adjustment of the mA and/or KV according to patient size (this includes techniques or standardized protocols for targeted exams where dose is indication/reason for exam). ORAL CONTRAST: None COMPARISON: Chest CT of 08/08/2019 FINDINGS: The absence of IV contrast limits evaluation of soft tissue pathology. LOWER CHEST: Right greater than left bilateral patchy airspace opacities are present, new or more conspicuous in the interval. No pleural effusion. LIVER: Unremarkable BILIARY SYSTEM: Gallbladder is surgically absent.. Bile ducts are not dilated. PANCREAS: Unremarkable SPLEEN: Unremarkable ADRENALS: Unremarkable KIDNEYS & URETERS: Unremarkable BLADDER: Decompressed by an indwelling Benson catheter. REPRODUCTIVE ORGANS: Hysterectomy. GASTROINTESTINAL: Stomach and small bowel are unremarkable. The large bowel shows mild wall thickening in the descending colon with very subtle pericolonic soft tissue stranding, best illustrated on axial image 71 of series 2. The appendix is normal.. No dilated fluid-filled bowel loops. MESENTERY/PERITONEUM/RETROPERITONEUM: Unremarkable VASCULAR: Unremarkable LYMPH NODES: No adenopathy OSSEOUS & SOFT TISSUES: There is sclerosis of the left femoral head with partial femoral head collapse in a pattern suggesting avascular necrosis. A moderate left hip joint effusion is present. There is degenerative change in the lower lumbar spine results in degrees of central canal and foraminal narrowing. At L4-L5 in particular, a broad disc protrusion likely flattens the ventral thecal sac. IMPRESSION: 1. Worsening bilateral patchy airspace opacities of the lung bases, compatible with pneumonia in the appropriate clinical context. 2. Mild wall thickening in the distal descending colon with subtle pericolonic stranding could reflect mild colitis. No bowel obstruction, perforation or associated fluid collection. 3. Left femoral head collapse and sclerosis is favored sequelae of avascular necrosis with a moderate joint effusion. Correlate with symptoms. The hip is amenable to aspiration by ultrasound or fluoroscopy guided imaging if clinically warranted. Electronically signed by: Sue Lyons MD (08/25/2019 3:13 PM) [id number]
--- NOTE | 2019-08-25 16:12 | PN ---
DATE: 08/25/2019 SUBJECTIVE: The patient is resting, slightly propped up in bed, no apparent distress. She is awake, alert, complaining of pain in her left hip joint. OBJECTIVE: GENERAL: When I examined her, she looked pale, no jaundice, cyanosis or thyromegaly. No jugular venous distention. No limb edema. VITAL SIGNS: Her heart rate was 110, blood pressure was 168/58, temperature was 99.3, respiratory rate was 18 and oxygen saturation was 93% on room air. HEAD, EYES, EARS, NOSE AND THROAT: Showed normocephalic, atraumatic. NECK: Supple. HEART: Showed normal first and second heart sounds. No gallop or murmur. CHEST: Shows central trachea, equal bilateral expansion, air entry. No crepitation or rhonchi. ABDOMEN: Distended, soft, nontender. No guarding or rigidity. No organomegaly. All hernial orifice intact. Bowel sounds normal. NEUROLOGIC: She was awake, alert, responding appropriately. All cranial nerves are intact. She moves extremities without difficulty. She is able to ambulate with assistance. She managed to get out of the bed to her wheelchair. She did have a shower today. Her intake was 900, output was 2300. LABORATORY DATA: As of this morning, her white cell count was 8400, hemoglobin 9.6, hematocrit 29.9, MCV 80 and platelet count 398,000. Her serum sodium was 141, potassium 3.9, chloride 104, bicarbonate 27, anion gap of 10, BUN 18, creatinine 1.1, estimated GFR was 48 mL per minute. Her glucose was 88, calcium was 8.5. Total bilirubin, AST, ALT, alkaline phosphatase were normal. Total protein 7, albumin was 2.2. ASSESSMENT: 1. Left sacrococcygeal wound. 2. Severe left hip pain with questionable avascular necrosis. Her pain is worse since she fell about 5 days ago. 3. Type 2 diabetes mellitus seems to be well controlled. 4. Recurrent urinary tract infection. 5. The patient has multiple other medical problems including: A. Coronary artery disease. B. Morbid obesity. C. Hyperlipidemia. D. Irritable bowel syndrome. E. Gastroesophageal reflux disease. F. Chronic deforming rheumatoid arthritis. PLAN: The plan is to discontinue her IV antibiotic as per Dr. Fernando's recommendation. She was seen by the Cardiology team. Apparently, the patient has a brief burst of paroxysmal supraventricular tachycardia versus atrial fibrillation that subsides. She is now in sinus rhythm. Recent echocardiogram showed preserved left ventricular systolic function. Her TSH was normal. The plan is to continue monitoring her for next 24-48 hours. I will contact Dr. Pelaez and also check her hemoglobin A1c and see whether she is a candidate for hip replacement. MAGUE PALAFOX MD DR: ROMULO/samantha JOB#: [id number] / [id number]
--- NOTE | 2019-08-25 16:43 | NUR ---
SW following. Reviewed chart and coordinated care with RN and CM. SW phoned and faxed referral to [facility], , (fax) for out-patient infusion r/t IV abx per approval from patient. Pt's dtr is an RN and plans to stay with pt and work from her home during the day. SW completed Patient Choice of Vendor form. SW to continue following.
[2019-08-25 19:00] VITALS: BP 129/51
[2019-08-25] MEDS: IBUPROFEN 400 MG TABLET. PO PRN (19:20)
[2019-08-25] MEDS: AMITRIPTYLINE HCL 25 MG TABLET. PO SCH (21:00)
[2019-08-25] MEDS: TRESIBA 200 UNIT/ML SQ SCH (21:00)
[2019-08-25] MEDS: DEXTROSE 50% 25 GM / 50ML DISP.SYRIN. IV PRN (21:14)
[2019-08-25 23:00] VITALS: BP 142/72
[2019-08-26 01:08] LABS: HEMOGLOBIN A1C 8.9 % (4.8-5.6)
[2019-08-26] MEDS: HYDROcodone/APAP 5/325MG 1 TAB TABLET PO PRN ×2 (01:31→06:38)
[2019-08-26 03:00] VITALS: BP 145/70
[2019-08-26] MEDS: MEROPENEM 500 MG in IV NORMAL SALINE 50ML 50 ML IV SCH ×4 (06:03→23:54)
[2019-08-26] MEDS: PANTOPRAZOLE 40 MG TABLET.DR. PO SCH (06:04)
[2019-08-26 07:50] VITALS: BP 124/48
[2019-08-26] MEDS: INSULIN LISPRO 300 UNITS/3 ML VIAL. SQ SCH ×3 (08:00→16:47)
--- NOTE | 2019-08-26 08:38 | PDOC ---
Infectious Disease Note Subjective Subjective Feels ok. Has some cough with swallowing water Also hands are getting a little more painful with " RA flare" No F/c/S/N/V/D/SOA Eating some and hip same Vital Sign Vital Signs Vital Signs Date Time Temp Pulse Resp B/P (MAP) Pulse Ox O2 Delivery O2 Flow Rate FiO2 08/26/19 07:50 98.2 117 22 124/48 (73) 92 Room Air 98.2 Physical Exam PHYSICAL EXAM CONSTITUTIONAL: She is very pleasant. She is cooperative. She is in no acute distress. She is sitting on side of bed. looks well HEENT: Pupils are status post cataract surgery. Oral cavity, pharynx is dry. She has dentures. NECK: Supple, no JVD. LUNGS: Decreased in bases. HEART: S1, S2. ABDOMEN: Obese, soft, no guarding. GENITOURINARY: Benson in place. EXTREMITIES: Without clubbing, cyanosis. Her left third toe has a previous amputation site. SKIN: Warm without generalized signs of rash. On her left coccyx sacral area she has a wound that appears more like a scratch, it is approximately 5 cm or so, it is healed over. There is no purulence. There is no drainage. There is no surrounding gross erythema. She does move her extremities, but has severe pain in her left hip, but it is fairly standard, she states but has worsened since her fall. No edema/induration/warmth or erythema NEUROLOGIC: She is nonfocal. PSYCHIATRIC: Affect is appropriate Labs Lab Laboratory Tests Test 08/25/19 11:30 08/25/19 12:10 08/25/19 14:30 08/25/19 16:34 Glucose (Fingerstick) 240 mg/dL (70-99) 197 mg/dL (70-99) C-Reactive Protein, Quantitative 91.5 mg/L (0-3.3) Urine Collection Type Unknown Urine Color Yellow Urine Clarity Clear Urine pH 6.0 (<5.0-8.0) Urine Specific [place] 1.010 (1.000-1.030) Urine Protein Negative mg/dL (NEG-TRACE) Urine Glucose (UA) 250 mg/dL (NEG) Urine Ketones (Stick) Negative mg/dL (NEG) Urine Blood Negative (NEG) Urine Nitrite Negative (NEG) Urine Bilirubin Negative (NEG) Urine Urobilinogen Dipstick 0.2 mg/dL (0.2 mg/dL) Urine Leukocyte Esterase Negative (NEG) Urine RBC 1-2 /HPF (0-2) Urine WBC 1-4 /HPF (0-4) Urine Squamous Epithelial Cells Few /LPF Urine Bacteria 0 /HPF (0-FEW) Urine Hyaline Casts Few /HPF Urine Mucus Slight /LPF Urine Yeast Present /HPF Test 08/25/19 21:03 08/25/19 21:28 08/26/19 07:09 Glucose (Fingerstick) 59 mg/dL (70-99) 99 mg/dL (70-99) 214 mg/dL (70-99) Micro IMPRESSION: 1. Worsening bilateral patchy airspace opacities of the lung bases, compatible with pneumonia in the appropriate clinical context. 2. Mild wall thickening in the distal descending colon with subtle pericolonic stranding could reflect mild colitis. No bowel obstruction, perforation or associated fluid collection. 3. Left femoral head collapse and sclerosis is favored sequelae of avascular necrosis with a moderate joint effusion. Correlate with symptoms. The hip is amenable to aspiration by ultrasound or fluoroscopy guided imaging if clinically warranted. Objective Assessment Fever returned - ? RA flare vs possible aspiration with increased Procal and CT with joint effusion and ? pneumonia Left sacral/coccyx wound - clean Afib AVI - better Severe L hip pain with ? AVN pain is worse since her fall 3 days ago procal only mild elevation but could reflect renal change abx allergies - sulfa mouth swelling. Clinda and Levoflox - itch Dm h/o recurrent UTI Plan Plan of Care With Fever ordered CT of pelvis/Procal/CRP and given joint effusion restarted Dapto and Meropenem and requested IR for aspiration Cults/Cell count/Glucose ordered this am on synovial fluid Will Add CK and Sed rate to this am labs With CT suggesting pneumonia now will add Zyvox and D/c Elavil and Zyprexa Speech eval F/u labs and cults Local wound care D/w /nursing EVE SUTHERLAND MD Aug 26, 2019 08:38
[2019-08-26] MEDS: fentaNYL PF VIAL 100 MCG/2 ML VIAL IVP PRN ×3 (09:06→16:46)
[2019-08-26] MEDS: ASPIRIN ENTERIC COATED 81 MG TABLET.DR. PO SCH (09:08)
[2019-08-26] MEDS: LACTOBACILLUS RHAMNOSUS GG 1 CAPSULE. PO SCH ×2 (09:08→21:34)
[2019-08-26] MEDS: predniSONE 10 MG TABLET PO SCH ×2 (09:08→11:40)
[2019-08-26] MEDS: CHOLECALCIFEROL (VITAMIN D3) 1,000 UNIT TABLET PO SCH (09:08)
[2019-08-26] MEDS: CALCIUM CARB/VIT D3 500/200 TABLET. PO SCH (09:08)
[2019-08-26] MEDS: CETIRIZINE HCL 10 MG TABLET. PO SCH (09:09)
[2019-08-26] MEDS: LISINOPRIL 5 MG TABLET. PO SCH (09:09)
[2019-08-26] MEDS: MECLIZINE HCL 12.5 MG TABLET. PO SCH ×3 (09:09→21:34)
[2019-08-26] MEDS: VENLAFAXINE XR 37.5 MG CAP.ER.24H. PO SCH (09:10)
[2019-08-26] MEDS: METOPROLOL TART IMMED RELEASE 50 MG TABLET. PO SCH ×2 (09:10→21:35)
[2019-08-26] MEDS: FUROSEMIDE 40 MG TABLET. PO SCH (09:10)
[2019-08-26] MEDS: POTASSIUM CHLORIDE 20 MEQ TABLET.ER. PO SCH (09:10)
[2019-08-26] MEDS: DAPTOmycin (GENERIC) IVPB 450 MG in IV NORMAL SALINE 50ML 50 ML IV SCH (09:11)
[2019-08-26] MEDS: ENOXAPARIN 40 MG/0.4 ML SYRINGE. SQ SCH (09:19)
[2019-08-26] MEDS: LINEZOLID 600 MG TABLET PO SCH ×2 (09:19→21:34)
[2019-08-26] MEDS: DICLOFENAC SODIUM 1% TOPICAL GEL 100GM TUBE. TP SCH ×4 (09:20→21:34)
[2019-08-26] MEDS ORDERED: IOHEXOL 300 MG/ML 50 ML VIAL. IJ ONE (10:00)
[2019-08-26] MEDS ORDERED: predniSONE 20 MG TABLET PO ONE (11:30)
[2019-08-26] MEDS: IV NORMAL SALINE 1000ML BAG 1,000 ML IV SCH ×2 (11:38→21:33)
[2019-08-26 11:43] VITALS: BP 103/46
[2019-08-26 12:55] LABS: BF CLARITY HAZY; BF COLOR COLORLESS; BF SOURCE SYNOVIAL
[2019-08-26 12:56] LABS: BF MON % 1 %; BF PMN % 99 %; BF RBC COUNT 145 /cmm (Not Established); BF WBC COUNT 1720 /cmm (Not Established)
--- NOTE | 2019-08-26 14:37 | RAD ---
EXAM: Fluoroscopically guided left hip aspiration. HISTORY: 74-year-old woman with history of rheumatoid arthritis previously on DMARD therapy complaining of left-sided hip pain and found to have a left hip effusion and fracture. Request made for imaging guided aspiration to exclude infection. TECHNIQUE: The risks and benefits of the procedure were discussed with the patient and written and verbal consent were obtained. A time out procedure was performed. Fluoroscopic imaging of the left hip was performed. The overlying skin was sterilely prepped and infiltrated with 1% lidocaine for local anesthesia. A 22-gauge spinal needle was then advanced into the joint space under fluoroscopic guidance. Intra-articular positioning positioning was confirmed with a small injection of iodinated contrast. Following confirmation of appropriate needle tip positioning, attempted aspiration was performed with little success. Therefore, a total of 10 mL of sterile saline was injected into the hip joint and a total of 4 mL of slightly milky fluid was collected in 2 vials for laboratory analysis. 4 images were obtained. Total fluoroscopy time was 0.9 minutes. IMPRESSION: Successful fluoroscopically guided left hip joint lavage and aspiration for microbiological culture. Follow-up per patient's referring physician. Electronically signed by: Sue Lyons MD (08/26/2019 2:35 PM) [id number]
--- NOTE | 2019-08-26 14:43 | CARD ---
MR#: [id number] Date of Study: 08/26/2019 Ordering Physician: DOLORES HUNTER, Referring Physician: DOLORES HUNTER Tech: Margaret Garcia [facility] APPROVED REPORT EXAM: Two-dimensional and M-mode echocardiogram with Doppler and color Doppler. Other Information Quality : Good INDICATION Arrythmia, Fever 2D DIMENSIONS RVDd2.8 (2.9-3.5cm)Left Atrium(2D)4.0 (1.6-4.0cm) IVSd0.9 (0.7-1.1cm)Aortic Root(2D)3.6 (2.0-3.7cm) LVDd5.3 (3.9-5.9cm)LVOT Diameter2.3 (1.8-2.4cm) PWd0.8 (0.7-1.1cm)LVDs3.3 (2.5-4.0cm) FS (%) 37.2 %SV90.4 ml LVEF(%)60.0 (>50%) Aortic Valve AoV Peak Jordy.154.5cm/sAoV VTI24.1cm AO Peak GR.9.5mmHgLVOT VTI 18.37cm AO Mean GR.6mmHgAVA (VTI)3.20cm2 Mitral Valve MV E Ppzpnayr597.3cm/sMV DECEL COND683xl MV A Vhmnxwef06.6cm/sE/A Ratio1.6 TDI Lateral E' P. V11.97cm/sMedial E' P. V5.66cm/s E/Lateral E'10.1E/Medial E'21.3 Tricuspid Valve TR P. Gismuqat668al/sRAP [id number] TR Peak Gr.58fvHpNRDO15tuAy LEFT VENTRICLE The left ventricle is normal size. There is normal left ventricular wall thickness. The left ventricu lar systolic function is normal. The Ejection Fraction is 50-55%. Septal motion consistent with condu ction abnormality. Transmitral Doppler flow pattern is Grade II-pseudonormal filling dynamics. RIGHT VENTRICLE The right ventricle is normal size. The right ventricular systolic function is normal. ATRIA The left atrium is mildly dilated. The right atrium size is normal. The interatrial septum is intact with no evidence for an atrial septal defect or patent foramen ovale as noted on 2-D or Doppler imagi ng. AORTIC VALVE The aortic valve is calcified but opens well. Doppler and Color Flow revealed no significant aortic r egurgitation. There is no significant aortic valvular stenosis. MITRAL VALVE The mitral valve is normal in structure and function. There is no evidence of mitral valve prolapse. There is no mitral valve stenosis. Doppler and Color-flow revealed mild mitral regurgitation. TRICUSPID VALVE The tricuspid valve is normal in structure and function. Doppler and Color Flow revealed trace tricus pid regurgitation. The PA pressure was estimated at 25 mmHg. There is no tricuspid valve stenosis. PULMONIC VALVE The pulmonic valve is not well visualized. Doppler and Color Flow revealed trace to mild pulmonic megan vular regurgitation. There is no pulmonic valvular stenosis. GREAT VESSELS The aortic root is normal in size. The ascending aorta is not well seen. The IVC is normal in size an d collapses >50% with inspiration. PERICARDIAL EFFUSION There is no evidence of significant pericardial effusion. Critical Notification Critical Value: No <Conclusion> The left ventricular systolic function is normal. The Ejection Fraction is 50-55%. Mild mitral regurgitation. Trace tricuspid regurgitation. The PA pressure was estimated at 25 mmHg. There is no evidence of significant pericardial effusion. Signed by : Meet Fox, Electronically Approved : 08/26/2019 14:43:37
[2019-08-26 15:24] VITALS: BP 109/46
--- NOTE | 2019-08-26 16:32 | NUR ---
SW following. Reviewed chart and spoke with RN and Dr. Mooney. Dr. Mooney stated pt is not ready for discharge. SW did follow up with [facility] and if pt goes home with IV dapto and IV alayna it will be $228 per day until out of pocket max of $3k is met. Pt currently has met $548 of the out of pocket expense. Pt does not have coverage under Medicare Part D so this would be under pt's . Pt will need a PICC line placed prior to discharge if pt discharges home on IV meds. SW to continue following.
--- NOTE | 2019-08-26 17:17 | PN ---
DATE: 08/26/2019 SUBJECTIVE: The patient is resting, slightly propped up in bed, in no apparent distress. She has just came back from x-ray department where she underwent left hip aspiration and injection. She did spike her temperature yesterday up to 102.7, so we did send blood and urine for culture and sensitivity. She was seen by the Infectious Disease and she was continued on meropenem, daptomycin, and Zyvox. The IR consulted to aspirate left hip joint to make sure that there is no joint infection. When I saw her this morning, she was pale, continued to complain of stiffness and pain in her small joints of both hands. She normally increases her steroids when this happens. There was no jaundice, cyanosis, or thyromegaly. No jugular venous distention. No limb edema. PHYSICAL EXAMINATION: VITAL SIGNS: Her heart rate was 105, blood pressure was 124/48, temperature was 98.2, respiratory rate was 12, and oxygen saturation was 92% on room air. HEAD, EYES, EARS, NOSE, AND THROAT: Normocephalic, atraumatic. NECK: Supple. HEART: Showed normal first and second heart sounds. No gallop, rub, or murmur. CHEST: Clear to auscultation. No crepitation or rhonchi. ABDOMEN: Distended, soft, nontender. No guarding or rigidity. No organomegaly. All hernial orifices intact. Bowel sounds normal. NEUROLOGIC: She is awake, alert, responding appropriately. All cranial nerves intact. She moves extremities without difficulty. LABORATORY DATA: She has no lab work done this morning except that her procalcitonin was up to 1.86 from as low as 0.25. C-reactive protein was up to 91.5. Her hemoglobin A1c was 8.9. ASSESSMENT AND PLAN: In summary, this is a 74-year-old with chronic deforming rheumatoid arthritis, she is on Enbrel and who spiked her temperature yesterday. Her rheumatoid arthritis seems to be flaring up, so I increased her prednisone to 20 mg once a day. She has had her hip joint aspirated and Dr. Recinos started her back on her daptomycin, Zyvox as well as meropenem, where the possibilities are that she has either hip joint infection versus pneumonia. I will repeat all her labs tomorrow and obviously monitor the result of her cultures that we obtained yesterday. MAGUE PALAFOX MD DR: ROMULO/samantha JOB#: [id number] / [id number]
[2019-08-26] MEDS: CYCLOBENZAPRINE 10 MG TABLET. PO PRN (19:20)
[2019-08-26 19:52] VITALS: BP 140/50
--- NOTE | 2019-08-26 20:17 | NUR ---
Bereket- Spouse wants education on how to properly transfer the patient at home.
[2019-08-26] MEDS: TRESIBA 200 UNIT/ML SQ SCH (21:00)
[2019-08-26] MEDS: guaiFENesin DM 200MG/20MG 10 ML SYRUP PO PRN (21:34)
[2019-08-26 23:34] VITALS: BP 150/75
[2019-08-27] VITALS (22 sets, daily range): BP systolic 61–168; BP diastolic 42–93
[2019-08-27] MEDS: guaiFENesin DM 200MG/20MG 10 ML SYRUP PO PRN ×2 (02:37→07:11)
--- NOTE | 2019-08-27 03:00 | NUR ---
Resumed pt. care at this time.
[2019-08-27 04:42] LABS: BASO % 0 % (0-3); EOS % 0 % (0-3); HEMATOCRIT 29.4 % (36.0-47.0); HEMOGLOBIN 9.2 g/dL (12.0-15.5); LYMPH # 1.7 x10^3/uL (1.0-4.8); LYMPH % 14 % (24-48); MEAN CORPUSCULAR HEMOGLOBIN 25 pg (25-35); MEAN CORPUSCULAR HGB CONC 31 g/dL (31-37); MEAN CORPUSCULAR VOLUME 80 fL (79-100); MONO # 0.5 x10^3/uL (0.0-1.1); MONO % 4 % (0-9); NEUT # 9.5 x10^3/uL (1.8-7.7); NEUT % 81 % (31-73); PLATELET COUNT 363 x10^3/uL (140-400); RED CELL DISTRIBUTION WIDTH 18.7 % (11.5-14.5); WHITE BLOOD COUNT 11.7 x10^3/uL (4.0-11.0)
[2019-08-27 05:18] LABS: ALBUMIN/GLOBULIN RATIO 0.4 (1.0-1.7); CALCIUM 8.2 mg/dL (8.5-10.1); CREATININE 1.3 mg/dL (0.6-1.0); GFR 40.3; POTASSIUM 4.3 mmol/L (3.5-5.1); TOTAL BILIRUBIN 0.3 mg/dL (0.2-1.0); TOTAL PROTEIN 6.9 g/dL (6.4-8.2)
[2019-08-27] MEDS: MEROPENEM 500 MG in IV NORMAL SALINE 50ML 50 ML IV SCH ×3 (05:42→18:27)
[2019-08-27] MEDS: PANTOPRAZOLE 40 MG TABLET.DR. PO SCH (05:42)
[2019-08-27] MEDS: IV NORMAL SALINE 1000ML BAG 1,000 ML IV SCH ×3 (05:42→18:27)
[2019-08-27] MEDS: HYDROcodone/APAP 5/325MG 1 TAB TABLET PO PRN ×2 (05:59→11:51)
[2019-08-27] MEDS: CYCLOBENZAPRINE 10 MG TABLET. PO PRN (05:59)
[2019-08-27] MEDS: POTASSIUM CHLORIDE 20 MEQ TABLET.ER. PO SCH (08:57)
[2019-08-27] MEDS: ASPIRIN ENTERIC COATED 81 MG TABLET.DR. PO SCH (08:57)
[2019-08-27] MEDS: predniSONE 10 MG TABLET PO SCH (08:58)
[2019-08-27] MEDS: LACTOBACILLUS RHAMNOSUS GG 1 CAPSULE. PO SCH ×2 (08:58→21:51)
[2019-08-27] MEDS: DAPTOmycin (GENERIC) IVPB 450 MG in IV NORMAL SALINE 50ML 50 ML IV SCH (08:58)
[2019-08-27] MEDS: CALCIUM CARB/VIT D3 500/200 TABLET. PO SCH (08:58)
[2019-08-27] MEDS: VENLAFAXINE XR 37.5 MG CAP.ER.24H. PO SCH (08:58)
[2019-08-27] MEDS: CHOLECALCIFEROL (VITAMIN D3) 1,000 UNIT TABLET PO SCH (08:58)
[2019-08-27] MEDS: FUROSEMIDE 40 MG TABLET. PO SCH (08:59)
[2019-08-27] MEDS: CETIRIZINE HCL 10 MG TABLET. PO SCH (08:59)
[2019-08-27] MEDS: LISINOPRIL 5 MG TABLET. PO SCH (08:59)
[2019-08-27] MEDS: MECLIZINE HCL 12.5 MG TABLET. PO SCH ×3 (08:59→21:50)
[2019-08-27] MEDS: LINEZOLID 600 MG TABLET PO SCH (08:59)
[2019-08-27] MEDS: METOPROLOL TART IMMED RELEASE 50 MG TABLET. PO SCH ×2 (08:59→21:51)
[2019-08-27] MEDS: DICLOFENAC SODIUM 1% TOPICAL GEL 100GM TUBE. TP SCH ×4 (09:00→21:53)
[2019-08-27] MEDS: ENOXAPARIN 40 MG/0.4 ML SYRINGE. SQ SCH (09:00)
[2019-08-27] MEDS: INSULIN LISPRO 300 UNITS/3 ML VIAL. SQ SCH ×3 (09:01→17:00)
--- NOTE | 2019-08-27 09:26 | PDOC ---
Infectious Disease Note Subjective Subjective Feels a little SOA. Has some cough Hands - better Ate a little No F/c/S/N/V/D/SOA Hip same Vital Sign Vital Signs Vital Signs Date Time Temp Pulse Resp B/P (MAP) Pulse Ox O2 Delivery O2 Flow Rate FiO2 08/27/19 08:59 112 166/80 08/27/19 08:30 Room Air 08/27/19 07:29 99.2 18 93 99.2 Physical Exam PHYSICAL EXAM CONSTITUTIONAL: She is very pleasant. She is cooperative. She is mild SOA HEENT: Pupils are status post cataract surgery. Oral cavity, pharynx is dry. She has dentures. NECK: Supple, no JVD. LUNGS: crackles on right HEART: S1, S2. ABDOMEN: Obese, soft, no guarding. GENITOURINARY: Benson in place. EXTREMITIES: Without clubbing, cyanosis. Her left third toe has a previous amputation site. SKIN: Warm without generalized signs of rash. On her left coccyx sacral area she has a wound that appears more like a scratch, it is approximately 5 cm or so, it is healed over. There is no purulence. There is no drainage. There is no surrounding gross erythema. She does move her extremities, but has severe pain in her left hip, but it is fairly standard, she states but has worsened since her fall. No edema/induration/warmth or erythema NEUROLOGIC: She is nonfocal. PSYCHIATRIC: Affect is appropriate Labs Lab Laboratory Tests Test 08/26/19 11:20 08/26/19 11:32 08/26/19 16:25 08/26/19 21:29 Body Fluid Source Synovial Body Fluid Color Colorless Body Fluid Clarity Hazy Body Fluid Nucleated Cells 1720 /cmm (Not Established) Body Fluid Mononuclear WBCs (%) 1 % Body Fluid Polymorphonuclear Cells 99 % Body Fluid Total RBCs Counted 145 /cmm (Not Established) Glucose (Fingerstick) 144 mg/dL (70-99) 109 mg/dL (70-99) 304 mg/dL (70-99) Test 08/27/19 03:45 08/27/19 07:22 White Blood Count 11.7 x10^3/uL (4.0-11.0) Red Blood Count 3.70 x10^6/uL (3.50-5.40) Hemoglobin 9.2 g/dL (12.0-15.5) Hematocrit 29.4 % (36.0-47.0) Mean Corpuscular Volume 80 fL (79-100) Mean Corpuscular Hemoglobin 25 pg (25-35) Mean Corpuscular Hemoglobin Concent 31 g/dL (31-37) Red Cell Distribution Width 18.7 % (11.5-14.5) Platelet Count 363 x10^3/uL (140-400) Neutrophils (%) (Auto) 81 % (31-73) Lymphocytes (%) (Auto) 14 % (24-48) Monocytes (%) (Auto) 4 % (0-9) Eosinophils (%) (Auto) 0 % (0-3) Basophils (%) (Auto) 0 % (0-3) Neutrophils # (Auto) 9.5 x10^3/uL (1.8-7.7) Lymphocytes # (Auto) 1.7 x10^3/uL (1.0-4.8) Monocytes # (Auto) 0.5 x10^3/uL (0.0-1.1) Eosinophils # (Auto) 0.0 x10^3/uL (0.0-0.7) Basophils # (Auto) 0.0 x10^3/uL (0.0-0.2) Sodium Level 135 mmol/L (136-145) Potassium Level 4.3 mmol/L (3.5-5.1) Chloride Level 101 mmol/L (98-107) Carbon Dioxide Level 22 mmol/L (21-32) Anion Gap 12 (6-14) Blood Urea Nitrogen 23 mg/dL (7-20) Creatinine 1.3 mg/dL (0.6-1.0) Estimated GFR (Cockcroft-Gault) 40.3 BUN/Creatinine Ratio 18 (6-20) Glucose Level 296 mg/dL (70-99) Calcium Level 8.2 mg/dL (8.5-10.1) Total Bilirubin 0.3 mg/dL (0.2-1.0) Aspartate Amino Transf (AST/SGOT) 33 U/L (15-37) Alanine Aminotransferase (ALT/SGPT) 15 U/L (14-59) Alkaline Phosphatase 96 U/L (46-116) Total Protein 6.9 g/dL (6.4-8.2) Albumin 2.0 g/dL (3.4-5.0) Albumin/Globulin Ratio 0.4 (1.0-1.7) Glucose (Fingerstick) 260 mg/dL (70-99) Micro IMPRESSION: 1. Worsening bilateral patchy airspace opacities of the lung bases, compatible with pneumonia in the appropriate clinical context. 2. Mild wall thickening in the distal descending colon with subtle pericolonic stranding could reflect mild colitis. No bowel obstruction, perforation or associated fluid collection. 3. Left femoral head collapse and sclerosis is favored sequelae of avascular necrosis with a moderate joint effusion. Correlate with symptoms. The hip is amenable to aspiration by ultrasound or fluoroscopy guided imaging if clinically warranted. Objective Assessment Acute Hypoxic resp failure 02 sats 50s - COVID neg at [facility] Constipation Fever better - ? RA flare vs possible aspiration with increased Procal and CT with joint effusion and ? pneumonia Leukocytosis - S/p Steroid increase 08/25 Left sacral/coccyx wound - clean Afib AVI - Severe L hip pain with ? AVN pain is worse since her fall 3 days ago procal only mild elevation but could reflect renal change - s/p joint aspiration 08/25 - desc ribed as milky but only 1720 WBC - had been on abx abx allergies - sulfa mouth swelling. Clinda and Levoflox - itch Dm h/o recurrent UTI Plan Plan of Care Supplemental oxygen CXR/BNP/ABG/LDH/CRP/Troponin/Legionella/Mycoplasma Consult Pulm - d/w Dr. Nolasco Suppository Add Azithromycin/Micafungin Check Legionella/Mycoplama Cont Dapto/Zyvox and Meropenem and requested IR for aspiration Cults and Glucose ordered on synovial fluid May need Ortho f/u Appreciate Speech eval F/u labs and cults Local wound care D/w /nursing EVE SUTHERLAND MD Aug 27, 2019 09:26
[2019-08-27] MEDS ORDERED: AZITHRMYCN 500MG IVPB FOR OMNI 250 ML IV ONE (10:15)
--- NOTE | 2019-08-27 10:27 | NUR ---
Pt SOB, increasing O2 demand. This RN placed pt on 4 L NC, Dr. Nolasco notified in person. Verbal orders given to keep pt's O2 sat 92% and above, up to 6 L NC or Venti mask at 50% if <92%.
[2019-08-27] MEDS ORDERED: BISACODYL 10 MG SUPP.RECT. PR PRN (10:30)
[2019-08-27 11:09] LABS: C-REACTIVE PROTEIN 229.8 mg/L (0-3.3)
--- NOTE | 2019-08-27 11:24 | RAD ---
CT of the head Axial CT images of the head were obtained without IV contrast. Exposure: One or more of the following individualized dose reduction techniques were utilized for this examination: 1. Automated exposure control 2. Adjustment of the mA and/or kV according to patient size 3. Use of iterative reconstruction technique Comparison: 07/20/2019. Indication: Mental status changes Findings: No mass, mass effect or hemorrhage is seen. The ventricles and cortical sulci are mildly enlarged. There are diffuse periventricular white matter hypodensities. The basilar cisterns are unremarkable. No midline shift is noted. There is no intra or extra axial fluid collection. There is diffuse calcification of the bilateral internal carotid arteries and vertebral arteries. No bony or soft tissue abnormality is seen. The visualized paranasal sinuses are clear. Impression: 1. No acute mass, mass effect or hemorrhage. 2. Periventricular white matter ischemic change. Age appropriate brain atrophy. 3. Diffuse mild atherosclerotic disease of the intracranial vessels. Electronically signed by: Allan Gutierrez MD (08/27/2019 11:21 AM) [id number]
[2019-08-27 12:00] LABS: MYCOPLASMA PATIENT NEGATIVE (NEGATIVE)
--- NOTE | 2019-08-27 12:06 | CONS ---
DATE OF CONSULTATION: PULMONARY CONSULTATION ATTENDING PHYSICIAN: Dr. Barreto. REASON FOR CONSULTATION: Hypoxia. HISTORY OF PRESENT ILLNESS: The patient is a 74-year-old female who is obese and no significant tobacco history. She has history of rheumatoid arthritis for which she has been on low dose prednisone. The patient was admitted at [facility] Emergency Room when she fell after walking with her walker. She lost her balance. She reportedly had avascular necrosis of her hip and she had fever as well. The patient has been seen by Orthopedics. She had a joint aspiration on 08/25. It was reportedly milky. She has been on broad-spectrum antibiotics per Infectious Disease. She was noted to have increased shortness of breath and hypoxia today. Her oxygen requirement increased. She was saturating in the 60s and 70s, now currently on 4 liters with saturation in the low 90s. She had a fever of 99.2. She had a CT abdomen and pelvis, which was reviewed by me, which showed a lower portion of the lungs with bilateral interstitial infiltrates. I have been asked to see her for further evaluation. No headaches, no nausea, vomiting, no diarrhea, no dysuria. No focal weakness. PAST MEDICAL HISTORY: Significant for history of coronary artery disease, history of morbid obesity, hyperlipidemia, and type 2 diabetes. Previous history of pneumonia, irritable bowel syndrome, history of chronic deforming rheumatoid arthritis. History of immunosuppression, on steroids. PAST SURGICAL HISTORY: Total abdominal hysterectomy, cholecystectomy, bilateral foot surgery and bilateral total knee arthroplasties. SOCIAL HISTORY: No significant tobacco history. Lives with her . FAMILY HISTORY: Noncontributory to lungs. ALLERGIES: All reviewed as listed in the MRAD. MEDICATIONS: Were all reviewed as listed in the MRAD including oral prednisone, micafungin, azithromycin was added and meropenem and daptomycin. PHYSICAL EXAMINATION: GENERAL: She is mildly tachypneic. VITAL SIGNS: Blood pressure 166/80, T-max of 99.2, pulse ox 92 on 4 liters. HEENT: Sclerae nonicteric. NECK: Supple. LUNGS: With diminished breath sounds with few crackles posteriorly. CARDIOVASCULAR: With a regular rate. ABDOMEN: Soft, obese. EXTREMITIES: With no pitting edema. LABORATORY DATA: Reviewed. White cell count 11.7, hemoglobin 9.2 and platelets are 363. BUN 23 and a creatinine of 1.3. IMPRESSION: 1. Acute hypoxic respiratory failure, likely secondary to bilateral diffuse interstitial pneumonitis in a patient who is immunocompromised from rheumatoid arthritis and on chronic prednisone./ enbrel. She has been ruled out for COVID-19 at [facility].Differential Dx would include PCP pneumonia/ acute flare up of RA induced ILD/ COVID pneumonia. 2. 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 3. Low-grade fever, monitor closely. 4. No significant tobacco history. 5. History of rheumatoid arthritis, on chronic prednisone/ Enbrel and immunocompromised status. RECOMMENDATIONS: 1. d/w RN/RTand patients daughter. Her respiratory status has deteriorated rapidly. Will transfer her to ICU. 2. BIPAP, stat ABG. May need intubation. 3. She is currently on very broad-spectrum antibiotic and antifungal. d/w Dr Red , will add emperic coverage for PCP and start IV steroids 4. Dean culture. 5. DVT prophylaxis with Lovenox. 6. CT chest reviewed. Diffuse GG interstitial pneumonitis, rapidly worse since her recent ct abd 2 days ago 6. Discussed with and RN and . d/w daughter. full code. transfer to ICU/ cct 40 min GLORIA BENNETT MD DR: COOPER/samantha JOB#: [id number] / [id number] BRYANT
--- NOTE | 2019-08-27 12:30 | NUR ---
Pt's O2 requirements continuing to increase. This RN was informed by Calista nurse sales and marketing manager/RN that pt was going to be transferring to ICU. Orders for transfer put in by nurse Ana sales and marketing manager/RN. Awaiting bed. Orders for a stat ABG and COVID swab also put in by nurse Ana sales and marketing manager/RN. Pt on 6 L NC, O2 sats low 80s to mid 70's. Venti mask placed on pt with no changes. Ejnnifer, RT came to pt's room, nonrebreather placed on pt, O2 sat increased to 85%. DaughterValerie and , Bereket at bedside; aware of transfer and pt condition. This RN and nurse Ana sales and marketing manager/RN transferred pt to ICU, room 111. Addendum: 08/27/19 at 1403 by CHARLIE OSWALD RN Continue from previous note: Dr. Nolasco and Dr. Red at bedside, spoke with family.
--- NOTE | 2019-08-27 12:56 | NUR ---
Patient was transferred to ICU, cell phone went with patient to ICU(per family request)as well as service rig operator. Clothes and walker taken home by family.
[2019-08-27 13:05] LABS: BASE EXCESS ABG -8 mmol/L (-3-3); HCO3 ABG 17 mmol/L (21-28); PCO2 ABG 32 mmHg (35-46); PO2 ABG 232 mmHg (65-108); SAT O2 ABG 99 % (92-99)
--- NOTE | 2019-08-27 13:05 | PDOC ---
DOLORES HUNTER CARPET FLOOR LAYER APPRENTICE 08/27/19 1305: CARDIO Progress Notes Date and Time Date of Service 08/27/2019 Time of Evaluation 1210 Subjective Subjective: No Chest Pain, No Palpitations, Other (anxious and SOA) Vitals Vitals Vital Signs Date Time Temp Pulse Resp B/P (MAP) Pulse Ox O2 Delivery O2 Flow Rate FiO2 08/27/19 11:00 98.1 24 112/55 (74) 90 Nasal Cannula 6.0 98.1 08/27/19 07:29 18 Weight Weight [ ] Input and Output Intake and Output Intake and Output 08/27/19 06:59 Intake Total 1290 ml Output Total 1650 ml Balance -360 ml Intake Oral 1290 ml Output Urine Total 1650 ml # Bowel Movements 1 Laboratory Labs Laboratory Tests Test 08/26/19 16:25 08/26/19 21:29 08/27/19 03:45 08/27/19 07:22 Glucose (Fingerstick) 109 mg/dL (70-99) 304 mg/dL (70-99) 260 mg/dL (70-99) White Blood Count 11.7 x10^3/uL (4.0-11.0) Red Blood Count 3.70 x10^6/uL (3.50-5.40) Hemoglobin 9.2 g/dL (12.0-15.5) Hematocrit 29.4 % (36.0-47.0) Mean Corpuscular Volume 80 fL (79-100) Mean Corpuscular Hemoglobin 25 pg (25-35) Mean Corpuscular Hemoglobin Concent 31 g/dL (31-37) Red Cell Distribution Width 18.7 % (11.5-14.5) Platelet Count 363 x10^3/uL (140-400) Neutrophils (%) (Auto) 81 % (31-73) Lymphocytes (%) (Auto) 14 % (24-48) Monocytes (%) (Auto) 4 % (0-9) Eosinophils (%) (Auto) 0 % (0-3) Basophils (%) (Auto) 0 % (0-3) Neutrophils # (Auto) 9.5 x10^3/uL (1.8-7.7) Lymphocytes # (Auto) 1.7 x10^3/uL (1.0-4.8) Monocytes # (Auto) 0.5 x10^3/uL (0.0-1.1) Eosinophils # (Auto) 0.0 x10^3/uL (0.0-0.7) Basophils # (Auto) 0.0 x10^3/uL (0.0-0.2) Sodium Level 135 mmol/L (136-145) Potassium Level 4.3 mmol/L (3.5-5.1) Chloride Level 101 mmol/L (98-107) Carbon Dioxide Level 22 mmol/L (21-32) Anion Gap 12 (6-14) Blood Urea Nitrogen 23 mg/dL (7-20) Creatinine 1.3 mg/dL (0.6-1.0) Estimated GFR (Cockcroft-Gault) 40.3 BUN/Creatinine Ratio 18 (6-20) Glucose Level 296 mg/dL (70-99) Calcium Level 8.2 mg/dL (8.5-10.1) Total Bilirubin 0.3 mg/dL (0.2-1.0) Aspartate Amino Transf (AST/SGOT) 33 U/L (15-37) Alanine Aminotransferase (ALT/SGPT) 15 U/L (14-59) Alkaline Phosphatase 96 U/L (46-116) Lactate Dehydrogenase 307 U/L (81-234) Troponin I Quantitative < 0.017 ng/mL (0.000-0.055) C-Reactive Protein, Quantitative 229.8 mg/L (0-3.3) ZR-Uli-Y-Type Natriuretic Peptide 3734 pg/mL (0-124) Total Protein 6.9 g/dL (6.4-8.2) Albumin 2.0 g/dL (3.4-5.0) Albumin/Globulin Ratio 0.4 (1.0-1.7) Mycoplasma Serology (LAB) Negative (NEGATIVE) Test 08/27/19 11:24 Glucose (Fingerstick) 166 mg/dL (70-99) Microbiology Micro Microbiology 08/25/19 Blood Culture - Preliminary, Resulted NO GROWTH AFTER 2 DAYS Physical Exam HEENT: Neck Supple W Full Motion Chest: Symmetric LUNGS: Other (diminished;tachypneic) Heart: S1S2, RRR (SR) Abdomen: Soft N/T Extremities: No Edema Neurology: alert, oriented, follow commands, other (periods of confusion) Assessment Assessment 1. Mechanical fall with left hip pain/possible AVN 2. Left sacral/coccyx wound: ID following 3. Acute respiratory failure with pneumonia: presently SOA and tachypneic 4. Arrhythmia; SR. Further delineation noted with WAP/MAT. 5. Poorly controlled DM2 6. Hypertension; controlled 7. Chronic immunosuppression for RA: enbrel and steroids 8. Mild AVI Recommendations 1. Transferring to ICU, ABGs and covid testing initiated. CT chest pending. Antibotics per ID and pulmonary 2. Continue metoprolol and ASA. Monitor rhythm 3. Supportive care Justicifation of Admission Dx: Justifications for Admission: Justification of Admission Dx: Yes CHF: Cardiac Arrhythmias NAHOMY MILTON MD 08/27/19 1427: CARDIO Progress Notes Plan Plan Pt. seen and examined. Agree with above SAS DEVELOPER ANALYST note. Supportive care. Echo wnl. Spoke to patient. DOLORES HUNTER APRN Aug 27, 2019 13:05 NAHOMY MILTON MD Aug 27, 2019 14:27
[2019-08-27] MEDS ORDERED: SODIUM BICARB ADULT 8.4% 50 MEQ/50 ML DISP.SYRIN. ONE (13:07)
[2019-08-27] MEDS ORDERED: SODIUM BICARB ADULT 8.4% 50 MEQ/50 ML DISP.SYRIN. IV ONE (13:15)
--- NOTE | 2019-08-27 13:16 | NUR ---
Pt transferred from 6S, room 656 to ICU, room 111. This RN gave report to MARSHAL Downs in ICU.
[2019-08-27 13:31] LABS: FIO2 ABG 100
[2019-08-27] MEDS: MICAFUNGIN 100 MG in IV DEXTROSE 5% 100ML 100 ML IV SCH (13:33)
[2019-08-27] MEDS: fentaNYL PF VIAL 100 MCG/2 ML VIAL IVP PRN (13:45)
[2019-08-27] MEDS ORDERED: DEXTROSE IV SCH (14:00)
[2019-08-27] MEDS ORDERED: SULFAMETH IV SCH (14:00)
[2019-08-27] MEDS ORDERED: IV NORMAL SALINE 500ML BAG 500 ML IV PRN (14:00)
[2019-08-27] MEDS ORDERED: ATROPINE 0.5 MG/5 ML DISP.SYRINGE. IV PRN (14:00)
[2019-08-27] MEDS ORDERED: methylPREDNISolone SOD SUCC PF 125 MG/2 ML VIAL. IV SCH (14:00)
[2019-08-27] MEDS ORDERED: TRIMETH IV SCH (14:00)
[2019-08-27] MEDS: DEXMEDETOMIDINE 400 MCG in IV NORMAL SALINE 100ML 96 ML IV PRN ×2 (14:48→18:53)
[2019-08-27] MEDS: methylPREDNISolone SOD SUCC PF 125 MG/2 ML VIAL. IV SCH ×2 (14:56→18:31)
[2019-08-27] MEDS ORDERED: NOREPINEPHRINE VIAL 8 MG in IV DEXTROSE 5% 250 ML IV PRN (15:00)
--- NOTE | 2019-08-27 15:11 | RAD ---
CHEST AP ONLY History: Reason: soa / Spl. Instructions: / History: Comparison: July 22, 2019 Findings: Diffuse interstitial and alveolar opacities, right greater than left. No pleural effusion. Normal heart size. No pneumothorax. Impression: 1. Diffuse interstitial and alveolar opacities, may represent pulmonary edema or infection such as viral pneumonia. Electronically signed by: Veto Paige DO (08/27/2019 3:08 PM) [facility]
[2019-08-27] MEDS: DAPSONE 100 MG TABLET PO SCH (15:40)
[2019-08-27] MEDS: ATOVAQUONE 750 MG/5 ML ORAL.SUSP. PO SCH ×2 (15:40→21:00)
--- NOTE | 2019-08-27 16:09 | RAD ---
CT CHEST WO CONTRAST History: Pneumonia. Technique: Noncontrast CT of the chest was performed. Coronal and sagittal reconstructions were performed. Exposure: One or more of the following individualized dose reduction techniques were utilized for this examination: 1. Automated exposure control 2. Adjustment of the mA and/or kV according to patient size 3. Use of iterative reconstruction technique. Comparison: Radiograph August 27, 2019. CT August 08, 2019 Findings: Chest: No pathologic lymphadenopathy. Enlarged pulmonary artery measures 3.6 cm. Coronary artery calcification. Multifocal septal thickening with groundglass opacities and consolidations (crazy paving pattern). No pleural effusion. Upper abdomen: Prior cholecystectomy. Anterior abdominal wall fat-containing hernia. Bones: No pathologic osseous lesions. Impression: 1. Multifocal septal thickening with groundglass opacities and consolidations (crazy paving pattern). Differential considerations include ARDS, pneumonia including viral pneumonia or pulmonary edema. 2. Enlarged pulmonary artery, may indicate pulmonary artery hypertension. Electronically signed by: Veto Paige DO (08/27/2019 4:06 PM) [facility]
[2019-08-27 16:20] LABS: BASE EXCESS ABG -2 mmol/L (-3-3); HCO3 ABG 23 mmol/L (21-28); PCO2 ABG 37 mmHg (35-46); PO2 ABG 82 mmHg (65-108); SAT O2 ABG 95 % (92-99)
--- NOTE | 2019-08-27 16:20 | NUR ---
SS following up with discharge planning. SS reviewed pt chart and discussed with RN. Pt transferred to ICU 111 due to decline. Pt now on BIPAP. Pt on IV Meropenem and Micafungin. SS will continue to follow for discharge planning.
[2019-08-27 16:21] LABS: FIO2 ABG 50%
--- NOTE | 2019-08-27 16:22 | RAD ---
Single view of the abdomen 08/27/2019 INDICATION: Feeding tube placement Discussion: There is a weighted feeding tube with tip projecting over the stomach. The bowel gas pattern is nonspecific. Patchy infiltrates throughout the bilateral lung bases noted. No gross pneumoperitoneum is identified. IMPRESSION: Tip of the weighted feeding tube projects over the stomach Electronically signed by: Keith Gramajo MD (08/27/2019 4:19 PM) [id number]
--- NOTE | 2019-08-27 16:32 | NUR ---
Wound Care Attempted to see pt for wound care f/u, pt has just been transferred to ICU d/t decline and staff psychiatrist stated pt is unstable at this time. Will attempt to f/u with pt tomorrow.
[2019-08-27] MEDS ORDERED: IV NORMAL SALINE 500ML BAG 500 ML IV ONE (17:00)
--- NOTE | 2019-08-27 17:00 | NUR ---
[id number] Received pt from 6S, pt alert to self, mumbles incoherent. Placed on Bipap 20/6 20 100%, blood gas obtained called to Dr Nolasco, orders to give 1 amp of bicarb, pt hypotensive, levophed initiated, low urine output reported to brendan and castro orders to give 500ml bolus. Family updated on status, all questions answered, all agree to plan of care.
--- NOTE | 2019-08-27 18:16 | PDOC ---
Provider Note Provider Note Anesthesiology Called to place a central line in pt requiring access. Requiring BiPap mask, unable to remove neck strap, therefore Right subclavian sight chosen. Multiple unsuccessful attempts due to pt.combativeness and inability to pass J-wire. Suggest PICC line for access. CXR Pending to rule out PTX. Angel Hannah MD Justicifation of Admission Dx: Justifications for Admission: Justification of Admission Dx: Yes CHF: Cardiac Arrhythmias AJ HANNAH MD Aug 27, 2019 18:16
--- NOTE | 2019-08-27 19:06 | RAD ---
AP portable chest radiograph 08/27/2019 Clinical History: Lung infiltrates. An AP erect portable digital radiograph of the chest was obtained. Comparison is made to a CT scan of the chest dated 08/27/2019. A feeding tube has been placed. The tip of this tube is off this radiograph in the region of the body/antrum of the stomach. The cardiac silhouette is mildly enlarged. The thoracic aorta is tortuous. Bilateral perihilar infiltrates are seen right greater than left which appear increased slightly. No pleural effusion or pneumothorax is noted. The osseous structures are unchanged. IMPRESSION: 1. Post feeding tube placement. 2. No pneumothorax is seen. 3. Bilateral perihilar infiltrates which appear increased slightly. Electronically signed by: Koby Matt MD (08/27/2019 7:02 PM) [id number]
[2019-08-27] MEDS: TRESIBA 200 UNIT/ML SQ SCH (21:00)
[2019-08-28] VITALS (24 sets, daily range): BP systolic 87–164; BP diastolic 47–88
[2019-08-28] MEDS: MEROPENEM 500 MG in IV NORMAL SALINE 50ML 50 ML IV SCH ×4 (00:05→18:15)
[2019-08-28] MEDS: methylPREDNISolone SOD SUCC PF 125 MG/2 ML VIAL. IV SCH ×4 (00:08→18:16)
[2019-08-28] MEDS: DEXMEDETOMIDINE 400 MCG in IV NORMAL SALINE 100ML 96 ML IV PRN ×5 (02:34→19:47)
--- NOTE | 2019-08-28 03:40 | PN ---
DATE: 08/27/2019 SUBJECTIVE: The patient developed acute hypoxic respiratory failure secondary to bilateral diffuse interstitial pneumonitis in a patient who is immunocompromised. For rheumatoid arthritis, on chronic prednisone, Enbrel. She presented initially with pain in her left hip joint after she fell. The patient has severe osteoarthritis as well as avascular necrosis. She underwent aspiration of her left hip joint effusion, continued to spike her temperature. Her rheumatoid arthritis has flared up and I did increase her steroids from 10 to 20 mg daily. She apparently has had chest x-ray and also CT scan of the chest ordered by Dr. Nolasco and she was also seen in consultation by the Cardiology team. Cardiologically, it looks like she has pulmonary edema. The patient was transferred to the ICU, started on BiPAP machine and was basically tested again for COVID and we will obviously continue the antibiotic as per Infectious Disease. She is now on dapsone 100 mg once a day, atovaquone 750 mg p.o. b.i.d. She is on steroids and micafungin, meropenem. PHYSICAL EXAMINATION: VITAL SIGNS: When I saw her this, she was definitely tachypneic, tachycardic. Her heart rate was 111, blood pressure was 112/55, temperature was 98.1, respiratory rate 24 and oxygen saturation was 90% on 6 liters of oxygen. HEAD, EYES, EARS, NOSE AND THROAT: Showed she is normocephalic, atraumatic. NECK: Supple. HEART: Showed normal first and second heart sounds. No gallop, rub or murmur. CHEST: Clear to auscultation. No crepitation or rhonchi. ABDOMEN: Distended, soft, nontender. NEUROLOGIC: She is grossly intact. EXTREMITIES: Examination of the extremities shows chronic deforming rheumatoid arthritis. No clubbing, cyanosis or edema. LABORATORY DATA: Her lab work this morning showed a white cell count of 11,700, hemoglobin 9.2, hematocrit 29, MCV 80 and platelet count 363,000. Her chemistry showed a serum sodium 135, potassium 4.3, chloride 101, bicarbonate 22, anion gap of 12, BUN 23, creatinine 1.3, estimated GFR was 40 mL per minute. Her glucose was 296. Calcium was 8.2. Total bilirubin, AST, ALT, alkaline phosphatase were normal. Total protein was 6.9, albumin was 2. Her synovial fluid was colorless, hazy with 1720 of which 99% were polymorphs. Her mycoplasma serology was negative. ASSESSMENT: In summary, acute hypoxic respiratory failure secondary to bilateral diffuse interstitial pneumonitis in a patient who is immunocompromised with rheumatoid arthritis, on chronic prednisone and Enbrel. She has been ruled out for COVID-19 at [facility]. However, differential diagnosis included pneumocystis pneumonia, acute flareup of rheumatoid ____ induced interstitial lung disease, COVID pneumonia. She is status post fall with avascular necrosis of the left femoral head, joint effusion, status post aspiration. PLAN: To continue with all the antibiotic that Dr. Fernando has added dapsone, atovaquone together with meropenem and micafungin. MAGUE PALAFOX MD DR: ROMULO/samantha JOB#: [id number] / [id number]
[2019-08-28] MEDS ORDERED: IV NORMAL SALINE 1000ML BAG 1,000 ML IV ONE (04:30)
[2019-08-28 04:53] LABS: BASO % 0 % (0-3); EOS % 0 % (0-3); HEMATOCRIT 33.8 % (36.0-47.0); HEMOGLOBIN 10.2 g/dL (12.0-15.5); LYMPH # 1.5 x10^3/uL (1.0-4.8); LYMPH % 11 % (24-48); MEAN CORPUSCULAR HEMOGLOBIN 25 pg (25-35); MEAN CORPUSCULAR HGB CONC 30 g/dL (31-37); MEAN CORPUSCULAR VOLUME 81 fL (79-100); MONO # 0.4 x10^3/uL (0.0-1.1); MONO % 3 % (0-9); NEUT # 11.7 x10^3/uL (1.8-7.7); NEUT % 86 % (31-73); PLATELET COUNT 461 x10^3/uL (140-400); RED BLOOD COUNT 4.16 x10^6/uL (3.50-5.40); RED CELL DISTRIBUTION WIDTH 18.6 % (11.5-14.5); WHITE BLOOD COUNT 13.7 x10^3/uL (4.0-11.0)
[2019-08-28 05:10] LABS: ALBUMIN/GLOBULIN RATIO 0.4 (1.0-1.7); CALCIUM 8.2 mg/dL (8.5-10.1); CREATININE 1.9 mg/dL (0.6-1.0); TOTAL BILIRUBIN 0.8 mg/dL (0.2-1.0); TOTAL PROTEIN 7.4 g/dL (6.4-8.2)
[2019-08-28 05:31] LABS: POTASSIUM 6.5 mmol/L (3.5-5.1)
[2019-08-28] MEDS ORDERED: IV NORMAL SALINE 500ML BAG 500 ML IV ONE ×2 (06:00→06:30)
[2019-08-28] MEDS ORDERED: DEXTROSE 50% 25 GM / 50ML DISP.SYRIN. IV ONE (06:30)
[2019-08-28] MEDS ORDERED: SODIUM BICARB ADULT 8.4% 50 MEQ/50 ML DISP.SYRIN. IV ONE ×2 (06:30→09:00)
[2019-08-28] MEDS ORDERED: CALCIUM GLUCONATE 1,000 MG/10 ML VIAL. IVP ONE (06:30)
[2019-08-28] MEDS ORDERED: INSULIN REGULAR 100 UNIT/ML 3ML VIAL. IV ONE (06:30)
--- NOTE | 2019-08-28 07:34 | PDOC ---
Infectious Disease Note Subjective Subjective On precidex and on Bipap ROS ROS o/w neg Vital Sign Vital Signs Vital Signs Date Time Temp Pulse Resp B/P (MAP) Pulse Ox O2 Delivery O2 Flow Rate FiO2 08/28/19 06:00 88 36 146/71 (96) 97 BiPAP/CPAP 08/28/19 04:00 6.0 08/28/19 04:00 98.1 98.1 Physical Exam PHYSICAL EXAM CONSTITUTIONAL: She is on Bipap and appears comfortable HEENT: Pupils are status post cataract surgery. NECK: Supple, no JVD. LUNGS: crackles on right HEART: S1, S2. ABDOMEN: Obese, soft, no guarding.Dobhoff - in place GENITOURINARY: Benson in place. EXTREMITIES: Without clubbing, cyanosis. Her left third toe has a previous amputation site. SKIN: Warm without generalized signs of rash. Coccyx area not seen NEUROLOGIC: She is post precedex bolus PSYCHIATRIC: Affect unable to assess Labs Lab Laboratory Tests Test 08/27/19 07:22 08/27/19 10:10 08/27/19 11:24 08/27/19 13:24 Glucose (Fingerstick) 260 mg/dL (70-99) 166 mg/dL (70-99) 194 mg/dL (70-99) O2 Saturation 99 % (92-99) Arterial Blood pH 7.33 (7.35-7.45) Arterial Blood pCO2 at Patient Temp 32 mmHg (35-46) Arterial Blood pO2 at Patient Temp 232 mmHg (65-108) Arterial Blood HCO3 17 mmol/L (21-28) Arterial Blood Base Excess -8 mmol/L (-3-3) FiO2 100 Test 08/27/19 16:11 08/27/19 17:08 08/27/19 21:50 08/27/19 23:54 O2 Saturation 95 % (92-99) Arterial Blood pH 7.41 (7.35-7.45) Arterial Blood pCO2 at Patient Temp 37 mmHg (35-46) Arterial Blood pO2 at Patient Temp 82 mmHg (65-108) Arterial Blood HCO3 23 mmol/L (21-28) Arterial Blood Base Excess -2 mmol/L (-3-3) FiO2 50% Glucose (Fingerstick) 115 mg/dL (70-99) 211 mg/dL (70-99) Lactic Acid Level 1.7 mmol/L (0.4-2.0) Test 08/28/19 04:30 08/28/19 06:07 White Blood Count 13.7 x10^3/uL (4.0-11.0) Red Blood Count 4.16 x10^6/uL (3.50-5.40) Hemoglobin 10.2 g/dL (12.0-15.5) Hematocrit 33.8 % (36.0-47.0) Mean Corpuscular Volume 81 fL (79-100) Mean Corpuscular Hemoglobin 25 pg (25-35) Mean Corpuscular Hemoglobin Concent 30 g/dL (31-37) Red Cell Distribution Width 18.6 % (11.5-14.5) Platelet Count 461 x10^3/uL (140-400) Neutrophils (%) (Auto) 86 % (31-73) Lymphocytes (%) (Auto) 11 % (24-48) Monocytes (%) (Auto) 3 % (0-9) Eosinophils (%) (Auto) 0 % (0-3) Basophils (%) (Auto) 0 % (0-3) Neutrophils # (Auto) 11.7 x10^3/uL (1.8-7.7) Lymphocytes # (Auto) 1.5 x10^3/uL (1.0-4.8) Monocytes # (Auto) 0.4 x10^3/uL (0.0-1.1) Eosinophils # (Auto) 0.0 x10^3/uL (0.0-0.7) Basophils # (Auto) 0.0 x10^3/uL (0.0-0.2) Sodium Level 137 mmol/L (136-145) Potassium Level 6.5 mmol/L (3.5-5.1) Chloride Level 103 mmol/L (98-107) Carbon Dioxide Level 18 mmol/L (21-32) Anion Gap 16 (6-14) Blood Urea Nitrogen 33 mg/dL (7-20) Creatinine 1.9 mg/dL (0.6-1.0) Estimated GFR (Cockcroft-Gault) 26.0 BUN/Creatinine Ratio 17 (6-20) Glucose Level 174 mg/dL (70-99) Calcium Level 8.2 mg/dL (8.5-10.1) Total Bilirubin 0.8 mg/dL (0.2-1.0) Aspartate Amino Transf (AST/SGOT) 394 U/L (15-37) Alanine Aminotransferase (ALT/SGPT) 97 U/L (14-59) Alkaline Phosphatase 200 U/L (46-116) Total Protein 7.4 g/dL (6.4-8.2) Albumin 2.0 g/dL (3.4-5.0) Albumin/Globulin Ratio 0.4 (1.0-1.7) Glucose (Fingerstick) 110 mg/dL (70-99) Micro CT Chest 08/26 Impression: 1. Multifocal septal thickening with groundglass opacities and consolidations (crazy paving pattern). Differential considerations include ARDS, pneumonia including viral pneumonia or pulmonary edema. 2. Enlarged pulmonary artery, may indicate pulmonary artery hypertension. IMPRESSION: 1. Worsening bilateral patchy airspace opacities of the lung bases, compatible with pneumonia in the appropriate clinical context. 2. Mild wall thickening in the distal descending colon with subtle pericolonic stranding could reflect mild colitis. No bowel obstruction, perforation or associated fluid collection. 3. Left femoral head collapse and sclerosis is favored sequelae of avascular necrosis with a moderate joint effusion. Correlate with symptoms. The hip is amenable to aspiration by ultrasound or fluoroscopy guided imaging if clinically warranted. Objective Assessment Acute Hypoxic resp failure on Bipap 08/26 - COVID neg at [place] previously- rapid progression of infiltrates on CT 08/26.? etiology but differential includes RA/PCP/COVID among others. No peripheral 08/26 or 08/27 Eosinophilia to suggest eosinophilic pneumonia from Dapto. Mycoplasma neg. Speech has evaluated. Steroids increased 08/26 AVI - worse Hypotension on approx 7 mcg of Levophed currently Leukocytosis - S/p Steroid 08/25 but increased 08/26 Transaminitis - ? shock liver Fever - better Constipation - not resolved mild ? colitis on CT 08/25- suppository ordered but not given 08/26 Encephaloapthy - CT head neg 08/26 RA - h/o Enbrel use Fever better - ? RA flare vs possible aspiration with increased Procal and CT with joint effusion and ? pneumonia Left sacral/coccyx wound - clean Afib Severe L hip pain with ? AVN pain is worse since her fall 3 days ago procal only mild elevation but could reflect renal change - s/p joint aspiration 08/25 - described as milky but only 1720 WBC - had been on abx abx allergies - sulfa mouth swelling. Clinda and Levoflox - itch Dm h/o recurrent UTI Plan Plan of Care Add lipase/LDH/TSH//G6PD (miscellanous lab) to this ams labs Renal consulted Central line today - family does not want a PICC line per nursing Suppository today F/u repeat COVID/Legionella Added Azithromycin/Micafungin 08/26 for fungal coverage avoiding Azoles with h/o Afib and dosing Azithro. redose Azithro today Cont meropenem Added Atovoquone and Dapsone 08/26 to cover potential PJP given limited options- allergic to bactrim and Clindamycin Had been on Dapto and Zyvox stopped 08/26 Consider staring Bactrim desensitization if intubated however there is concern from Pulm standpoint that if she is intubated then it will difficult to get her extubated. D/w family risks 08/26 but she will be getting steroids and be on Ventilator - d/w pharmacy will have to monitor renal function F/u Cults and Glucose ordered on synovial fluid from 08/25 Daughter Valerie [phone] EVE SUTHERLAND MD Aug 28, 2019 07:34
[2019-08-28] MEDS: INSULIN LISPRO 300 UNITS/3 ML VIAL. SQ SCH ×3 (08:00→17:00)
[2019-08-28] MEDS: POTASSIUM CHLORIDE 20 MEQ TABLET.ER. PO SCH (08:00)
[2019-08-28] MEDS: IV NORMAL SALINE 1000ML BAG 1,000 ML IV SCH ×2 (08:30→19:46)
[2019-08-28 08:51] LABS: BASE EXCESS ABG -12 mmol/L (-3-3); CORRECTED PCO2 ABG 21 mmHg; CORRECTED PH ABG 7.36; CORRECTED PO2 ABG 77 mmHg; HCO3 ABG 12 mmol/L (21-28); PCO2 ABG 22 mmHg (35-46); PO2 ABG 82 mmHg (65-108); SAT O2 ABG 94 % (92-99)
[2019-08-28] MEDS: ATOVAQUONE 750 MG/5 ML ORAL.SUSP. PO SCH ×2 (09:00→20:04)
[2019-08-28] MEDS ORDERED: NON FORMULARY ITEM (Etanercept (Enbrel) 50 MG) SQ SCH (09:00)
[2019-08-28 09:02] LABS: FIO2 ABG 50
--- NOTE | 2019-08-28 09:18 | PDOC2 ---
CONSULT Date of Consult Date of Consult DATE: 08/28/19 TIME: 09:00 Reason for Consult Reason for Consult: AVI Identification/Chief Complaint Chief Complaint Unable to Obtain, currently on Bipap Source Source: Chart review History of Present Illness Reason for Visit: Hx Obtained from chart review Pt is 74 yo Female admitted on 08/19, has history of diabetes, RA and longstanding left hip pain with avascular necrosis and in need of a hip replacement; it has been delayed secondary to elevation of A1C . She usually ambulates with a walker, but 2 days prior to admission fell on top of her walker and had developed a cut She presented to [facility] on the because of pain,underwent a CT scan that showed some gas in the pelvic soft tissues and deformity of the left femoral head, reflective of either recent blunt trauma or penetrating trauma to the right avascular necrosis could appear similar. . She was transferred to [facility] She developed acute hypoxic respiratory failure , bilateral diffuse interstitial pneumonitis She is on Chronic chronic prednisone, Enbrel for RA She underwent aspiration of her left hip joint effusion, continued to spike temp, currently on Bipap Her baseline Cr is 1.2, has hx AVI in past . She was noted to have decrease UOP and elevation of Cr and K this morning . Past Medical History Cardiovascular: CAD, HTN, Hyperlipidemia GI: GERD Musculoskeletal: low back pain Rheumatologic: Rheumatoid arthritis Renal/: No pertinent hx, Other Endocrine: Diabetes Past Surgical History Past Surgical History: Cholecystectomy, Cataract Removal, Total knee replacement, Hysterectomy, Other (Bilateral foot surgery) Family History Family History: No Significant, Hypertension, Stroke Social History No ALCOHOL: none Drugs: None Lives: with Family Domestic Violence: Neg Current Medications Current Medications Current Medications Acetaminophen (Tylenol) 1,000 mg PRN BID PRN PO mild pain 1-3 Last administered on 08/23/19at 12:02; Start 08/20/19 at 17:45 Albuterol Sulfate (Ventolin Neb Soln) 2.5 mg PRN QID PRN NEB shortness of breath Last administered on 08/27/19at 06:28; Start 08/20/19 at 17:45 Amitriptyline HCl (Elavil) 25 mg QHS PO Last administered on 08/25/19at 21:00; Start 08/20/19 at 21:00; Stop 08/26/19 at 08:39; Status DC Aspirin (Ecotrin) 81 mg DAILYWBKFT PO Last administered on 08/27/19 08:57; Start 08/21/19 at 08:00; Stop 08/28/19 at 08:20; Status DC Calcium/Vitamin D (Oscal D 500mg/ 200uts) 1 tab DAILYWBKFT PO Last administered on 08/27/19 08:58; Start 08/21/19 at 08:00 Cefepime HCl (Maxipime) 1 gm Q12HR IVP Last administered on 08/21/19at 20:43; Start 08/20/19 at 21:00; Stop 08/22/19 at 08:11; Status DC Cetirizine HCl (ZyrTEC) 10 mg DAILY PO Last administered on 08/27/19 08:59; Start 08/21/19 at 09:00 Vitamin D (Vitamin D3) 1,000 unit DAILY PO Last administered on 08/27/19 08:58; Start 08/21/19 at 09:00 Sodium Chloride (Normal Saline Flush) 3 ml QSHIFT PRN IV AFTER MEDS AND BLOOD DRAWS; Start 08/20/19 at 17:45 Enoxaparin Sodium (Lovenox 40mg Syringe) 40 mg Q24H SQ Last administered on 08/27/19 09:00; Start 08/21/19 at 09:00 Vancomycin HCl (Vanco Per Pharmacy) 1 each PRN DAILY PRN MC SEE COMMENTS Last administered on 08/22/19at 13:23; Start 08/20/19 at 17:45; Stop 08/23/19 at 07:26; Status DC Cyclobenzaprine HCl (Flexeril) 10 mg PRN TID PRN PO MUSCLE SPASMS Last administered on 08/27/19 05:59; Start 08/20/19 at 17:45 Diclofenac Sodium (Voltaren) 1 gage QID TP Last administered on 08/27/19 21:53; Start 08/20/19 at 21:00 Furosemide (Lasix) 40 mg DAILY PO Last administered on 08/21/19at 09:01; Start 08/21/19 at 09:00; Stop 08/21/19 at 11:25; Status DC Ibuprofen (Motrin) 400 mg PRN QHS PRN PO INFLAMMATION Last administered on 08/25/19at 19:20; Start 08/20/19 at 17:45 Insulin Human Lispro (HumaLOG) 20 units TIDWMEALS SQ Last administered on 08/27/19at 12:40; Start 08/20/19 at 19:00 Lactobacillus Rhamnosus (Culturelle) 1 cap BID PO Last administered on 08/27/19at 21:51; Start 08/20/19 at 21:00 Meclizine HCl (Antivert) 25 mg PRN Q8HRS PRN PO dizziness; Start 08/20/19 at 17:45; Stop 08/21/19 at 11:30; Status DC Metoprolol Tartrate (Lopressor) 25 mg TID PO Last administered on 08/21/19at 09:01; Start 08/20/19 at 21:00; Stop 08/21/19 at 11:23; Status DC Insulin Glargine (Lantus Syringe) 98 unit QHS SQ ; Start 08/20/19 at 21:00; Status Cancel Pantoprazole Sodium (Protonix) 40 mg DAILYAC PO Last administered on 08/27/19at 05:42; Start 08/21/19 at 07:30; Stop 08/28/19 at 08:20; Status DC Vancomycin HCl 1 gm/Sodium Chloride 250 ml @ 250 mls/hr Q18H IV Last administered on 08/22/19at 19:21; Start 08/21/19 at 05:30; Stop 08/23/19 at 07:26; Status DC Venlafaxine HCl (Effexor Xr) 37.5 mg DAILY PO Last administered on 08/27/19at 08:58; Start 08/21/19 at 09:00 Prednisone (Prednisone) 20 mg DAILY PO Last administered on 08/21/19at 09:01; Start 08/21/19 at 09:00; Stop 08/21/19 at 11:28; Status DC Tramadol HCl (Ultram) 50 mg PRN Q8HRS PRN PO moderate pain Last administered on 08/21/19at 03:15; Start 08/20/19 at 17:45; Stop 08/22/19 at 09:44; Status DC Non-Formulary Medication 1 ea QHS SQ Last administered on 08/27/19at 21:00; Start 08/20/19 at 21:00 Acetaminophen/ Hydrocodone Bitart (Lortab 5/325) 1 tab PRN Q4HRS PRN PO MODERATE PAIN, SEVERE PAIN Last administered on 08/27/19at 11:51; Start 08/21/19 at 04:15 Furosemide (Lasix) 40 mg DAILY PO Last administered on 08/27/19at 08:59; Start 08/22/19 at 09:00 Lisinopril (Prinivil) 5 mg DAILY PO Last administered on 08/27/19at 08:59; Start 08/21/19 at 12:00 Metoprolol Tartrate (Lopressor) 50 mg BID PO Last administered on 08/27/19at 21:51; Start 08/21/19 at 12:00 Pantoprazole Sodium (Protonix) 40 mg DAILYAC PO ; Start 08/21/19 at 11:30; Stop 08/21/19 at 11:26; Status DC Prednisone (Prednisone) 10 mg DAILY PO Last administered on 08/26/19at 09:08; Start 08/22/19 at 09:00; Stop 08/26/19 at 11:20; Status DC Non-Formulary Medication (Calcium Carbonate/Vitamin D3 (Calcium 500 + D Tablet)) 1 tab DAILY PO ; Start 08/22/19 at 09:00; Status UNV Non-Formulary Medication (Cetirizine Hcl (Zyrtec)) 10 mg DAILY PO ; Start 08/21/19 at 12:00; Stop 08/21/19 at 11:32; Status DC Non-Formulary Medication (Etanercept (Enbrel)) 50 mg WEEKLY SQ ; Start 08/28/19 at 09:00; Status UNV Non-Formulary Medication (Insulin Lispro (Humalog)) 20 unit TID SQ ; Start 08/21/19 at 14:00; Status UNV Meclizine HCl (Antivert) 25 mg TID PO Last administered on 08/27/19at 21:50; Start 08/21/19 at 14:00 Non-Formulary Medication (Venlafaxine Hcl ) 1 tab DAILY PO ; Start 08/22/19 at 09:00; Status UNV Potassium Chloride (Klor-Con) 20 meq DAILYWBKFT PO Last administered on 08/27/19at 08:57; Start 08/21/19 at 12:00 Fentanyl Citrate (Fentanyl 2ml Vial) 50 mcg PRN Q3HRS PRN IVP MODERATE T0 SEVERE PAIN Last administered on 08/27/19at 13:45; Start 08/21/19 at 11:30 Cetirizine HCl (ZyrTEC) 10 mg DAILY PO ; Start 08/21/19 at 12:00; Status Cancel Meropenem 500 mg/ Sodium Chloride 50 ml @ 100 mls/hr Q6HRS IV Last administered on 08/28/19at 06:11; Start 08/22/19 at 12:00 Daptomycin 450 mg/ Sodium Chloride 50 ml @ 100 mls/hr Q24H IV Last administered on 08/25/19at 08:53; Start 08/23/19 at 09:00; Stop 08/25/19 at 09:42; Status DC Olanzapine (ZyPREXA) 2.5 mg PRN Q4HRS PRN PO ANXIETY / AGITATION Last administered on 08/25/19at 19:18; Start 08/23/19 at 10:45; Stop 08/26/19 at 08:39; Status DC Sodium Chloride 1,000 ml @ 100 mls/hr Q10H IV Last administered on 08/28/19at 08:30; Start 08/23/19 at 12:30 Daptomycin 450 mg/ Sodium Chloride 50 ml @ 100 mls/hr Q24H IV Last administered on 08/27/19at 08:58; Start 08/26/19 at 09:00; Stop 08/27/19 at 12:36; Status DC Dextrose (Dextrose 50%-Water Syringe) 12.5 gm PRN Q15MIN PRN IV SEE COMMENTS Last administered on 08/25/19at 21:14; Start 08/25/19 at 21:15 Linezolid (Zyvox) 600 mg BID PO Last administered on 08/27/19at 08:59; Start 08/26/19 at 09:00; Stop 08/27/19 at 12:36; Status DC Iohexol (Omnipaque 300 Mg/ml) 10 ml 1X ONCE IJ Last administered on 08/26/19at 10:35; Start 08/26/19 at 10:00; Stop 08/26/19 at 10:03; Status DC Prednisone (Prednisone) 20 mg DAILY PO Last administered on 08/27/19at 08:58; Start 08/26/19 at 12:00; Stop 08/27/19 at 12:17; Status DC Prednisone (Prednisone) 20 mg 1X ONCE PO Last administered on 08/26/19at 11:39; Start 08/26/19 at 11:30; Stop 08/26/19 at 11:31; Status DC Guaifenesin (Robitussin Dm) 5 ml PRN Q4HRS PRN PO COUGH Last administered on 08/27/19at 07:11; Start 08/26/19 at 21:00 Azithromycin 250 ml @ 250 mls/hr 1X ONCE IV Last administered on 08/27/19at 11:35; Start 08/27/19 at 10:15; Stop 08/27/19 at 11:14; Status DC Micafungin Sodium 100 mg/Dextrose 100 ml @ 100 mls/hr Q24H IV Last administered on 08/27/19at 13:33; Start 08/27/19 at 11:00 Bisacodyl (Dulcolax Supp) [address] CONSTIPATION; Start 08/27/19 at 10:30 Methylprednisolone Sodium Succinate (SOLU-Medrol 125MG VIAL) 80 mg Q8HRS IV ; Start 08/27/19 at 14:00; Stop 08/27/19 at 13:41; Status DC Trimethoprim/ Sulfamethoxazole 31.25 ml/Dextrose 531.25 ml @ 354.167 mls/hr Q8HRS IV ; Start 08/27/19 at 14:00; Status Cancel Atovaquone (Mepron) 750 mg BID PO Last administered on 08/27/19at 21:00; Start 08/27/19 at 14:00 Dapsone (Aczone) 100 mg DAILY PO Last administered on 08/27/19at 15:40; Start 08/27/19 at 14:00 Sodium Bicarbonate (Sodium Bicarb Adult 8.4% Syr) 50 meq STK-MED ONCE .ROUTE ; Start 08/27/19 at 13:07; Stop 08/27/19 at 13:07; Status DC Methylprednisolone Sodium Succinate (SOLU-Medrol 125MG VIAL) 80 mg Q6HRS IV Last administered on 08/28/19at 06:11; Start 08/27/19 at 13:15 Sodium Bicarbonate (Sodium Bicarb Adult 8.4% Syr) 50 meq 1X ONCE IV Last administered on 08/27/19at 13:33; Start 08/27/19 at 13:15; Stop 08/27/19 at 13:16; Status DC Dexmedetomidine HCl 400 mcg/ Sodium Chloride 100 ml @ 0 mls/hr CONT PRN IV SEE COMMENTS Last administered on 08/28/19at 07:14; Start 08/27/19 at 14:00 Sodium Chloride 500 ml @ 500 mls/hr 1X PRN PRN IV SEDATION; Start 08/27/19 at 14:00 Atropine Sulfate (ATROPINE 0.5mg SYRINGE) 0.5 mg PRN Q5MIN PRN IV SEE COMMENTS; Start 08/27/19 at 14:00 Norepinephrine Bitartrate 8 mg/ Dextrose 258 ml @ 17.028 mls/ hr CONT PRN IV PER PROTOCOL Last administered on 08/28/19at 05:05; Start 08/27/19 at 15:00 Sodium Chloride 500 ml @ 500 mls/hr 1X ONCE IV Last administered on 08/27/19at 17:00; Start 08/27/19 at 17:00; Stop 08/27/19 at 17:59; Status DC Sodium Chloride 1,000 ml @ 500 mls/hr Q2H ONCE IV Last administered on 08/28/19at 04:24; Start 08/28/19 at 04:30; Stop 08/28/19 at 06:29; Status DC Sodium Chloride 500 ml @ 500 mls/hr 1X ONCE IV ; Start 08/28/19 at 06:00; Stop 08/28/19 at 06:59; Status Cancel Calcium Gluconate (Calcium Gluconate) 1,000 mg 1X ONCE IVP Last administered on 08/28/19at 06:46; Start 08/28/19 at 06:30; Stop 08/28/19 at 06:31; Status DC Sodium Bicarbonate (Sodium Bicarb Adult 8.4% Syr) 50 meq 1X ONCE IV Last administered on 08/28/19at 06:46; Start 08/28/19 at 06:30; Stop 08/28/19 at 06:31; Status DC Dextrose (Dextrose 50%-Water Syringe) 25 gm 1X ONCE IV Last administered on 08/28/19at 06:46; Start 08/28/19 at 06:30; Stop 08/28/19 at 06:31; Status DC Insulin Human Regular (HumuLIN R VIAL) 10 unit 1X ONCE IV Last administered on 08/28/19at 08:32; Start 08/28/19 at 06:30; Stop 08/28/19 at 06:31; Status DC Sodium Chloride 500 ml @ 500 mls/hr 1X ONCE IV Last administered on 08/28/19at 06:00; Start 08/28/19 at 06:30; Stop 08/28/19 at 07:29; Status DC Pantoprazole Sodium (PROTONIX VIAL for IV PUSH) 40 mg DAILYAC IVP ; Start 08/28/19 at 08:30 Active Scripts Active Reported Metoprolol Tartrate 50 Mg Tablet 1 Tab PO BID Humalog (Insulin Lispro) 100 Unit/1 Ml Cartridge 20 Unit SQ TID Tramadol Hcl 50 Mg Tablet 50 Mg PO DAILY PRN Lasix (Furosemide) 40 Mg Tablet 1 Tab PO DAILY 30 Days Lisinopril 5 Mg Tablet 1 Tab PO DAILY Meclizine Hcl 25 Mg Tablet 1 Tab PO TID Pantoprazole Sodium (Pantoprazole Sodium) 40 Mg Tablet.dr 40 Mg PO DAILYAC Venlafaxine Hcl 37.5 Mg Tablet 1 Tab PO DAILY Calcium 500 + D Tablet (Calcium Carbonate/Vitamin D3) 1 Each Tablet 1 Tab PO DAILY 30 Days Aspirin Ec (Aspirin) 81 Mg Tablet.dr 1 Tab PO DAILY Prednisone 20 Mg Tablet 10 Mg PO DAILY Tresiba Flextouch U-100 (Insulin Degludec) 100 Unit/1 Ml Insuln.pen 85 Unit SQ DAILY08 Zyrtec (Cetirizine Hcl) 10 Mg Tab.chew 10 Mg PO DAILY Amitriptyline Hcl 25 Mg Tablet 25 Mg PO HS Cyclobenzaprine Hcl 10 Mg Tablet 10 Mg PO HS Klor-Con (Potassium Chloride) 20 Meq Packet Unknown Dose PO DAILY Enbrel (Etanercept) 50 Mg/1 Ml Disp.syrin 50 Mg SQ WEEKLY Allergies Allergies: Coded Allergies: Gadolinium-Containing Contrast Medi (Verified Allergy, Intermediate, Itching, 07/21/19) Pt states she has had MRI contrast here in the past and was itching afterward but did not report it to anyone until today. Office was notified. mb Sulfa (Sulfonamide Antibiotics) (Verified Allergy, Intermediate, 05/17/17) alogliptin (Verified Allergy, Intermediate, 05/17/17) capsaicin (Verified Allergy, Intermediate, 05/17/17) clindamycin (Verified Allergy, Intermediate, 05/17/17) codeine (Verified Allergy, Intermediate, 05/17/17) iodine (Verified Allergy, Intermediate, 05/18/17) levofloxacin (Verified Allergy, Intermediate, 05/17/17) menthol (Verified Allergy, Intermediate, 05/17/17) metformin (Verified Allergy, Intermediate, 05/17/17) naproxen (Verified Allergy, Intermediate, 05/17/17) pioglitazone (Verified Allergy, Intermediate, 05/17/17) ROS Review of System Unable to obtain 2/2 above Physical Exam Physical Exam GEN : on Bipap and appears comfortable HEENT: On Bipap NECK: Supple, LUNGS: crackles on right HEART: S1, S2. ABDOMEN: Obese, soft, .Dobhoff - in place GENITOURINARY: Benson in place. EXTREMITIES: No edema, left third toe amputation site . SKIN: No rash. 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 likely secondary to bilateral diffuse interstitial pneumonitis in a patient who is immunocompromised from rheumatoid arthritis and Hypotension - was on levophed , currently off Transaminitis - ? shock liver Encephaloapthy - CT head neg 08/26 Afib Severe L hip pain with ? AVN pain is worse since her fall s/p joint aspiration 08/25 - - had been on abx Hx of Urinary retention at last hospitalization with AVI DM- poorly controlled HTN- currently hypotensive , on pressors Hx of recurrent UTI RA - On steroids and Enbrel at home COVid Negative x 2, Repeat Pending ( 2/2 worsening resp status) Labs Labs Laboratory Tests Test 08/26/19 11:20 08/26/19 11:32 08/26/19 16:25 08/26/19 21:29 Body Fluid Source Synovial Body Fluid Color Colorless Body Fluid Clarity Hazy Body Fluid Nucleated Cells 1720 /cmm (Not Established) Body Fluid Mononuclear WBCs (%) 1 % Body Fluid Polymorphonuclear Cells 99 % Body Fluid Total RBCs Counted 145 /cmm (Not Established) Glucose (Fingerstick) 144 mg/dL (70-99) 109 mg/dL (70-99) 304 mg/dL (70-99) Test 08/27/19 03:45 08/27/19 07:22 08/27/19 10:10 08/27/19 11:24 White Blood Count 11.7 x10^3/uL (4.0-11.0) Red Blood Count 3.70 x10^6/uL (3.50-5.40) Hemoglobin 9.2 g/dL (12.0-15.5) Hematocrit 29.4 % (36.0-47.0) Mean Corpuscular Volume 80 fL (79-100) Mean Corpuscular Hemoglobin 25 pg (25-35) Mean Corpuscular Hemoglobin Concent 31 g/dL (31-37) Red Cell Distribution Width 18.7 % (11.5-14.5) Platelet Count 363 x10^3/uL (140-400) Neutrophils (%) (Auto) 81 % (31-73) Lymphocytes (%) (Auto) 14 % (24-48) Monocytes (%) (Auto) 4 % (0-9) Eosinophils (%) (Auto) 0 % (0-3) Basophils (%) (Auto) 0 % (0-3) Neutrophils # (Auto) 9.5 x10^3/uL (1.8-7.7) Lymphocytes # (Auto) 1.7 x10^3/uL (1.0-4.8) Monocytes # (Auto) 0.5 x10^3/uL (0.0-1.1) Eosinophils # (Auto) 0.0 x10^3/uL (0.0-0.7) Basophils # (Auto) 0.0 x10^3/uL (0.0-0.2) Sodium Level 135 mmol/L (136-145) Potassium Level 4.3 mmol/L (3.5-5.1) Chloride Level 101 mmol/L (98-107) Carbon Dioxide Level 22 mmol/L (21-32) Anion Gap 12 (6-14) Blood Urea Nitrogen 23 mg/dL (7-20) Creatinine 1.3 mg/dL (0.6-1.0) Estimated GFR (Cockcroft-Gault) 40.3 BUN/Creatinine Ratio 18 (6-20) Glucose Level 296 mg/dL (70-99) Calcium Level 8.2 mg/dL (8.5-10.1) Total Bilirubin 0.3 mg/dL (0.2-1.0) Aspartate Amino Transf (AST/SGOT) 33 U/L (15-37) Alanine Aminotransferase (ALT/SGPT) 15 U/L (14-59) Alkaline Phosphatase 96 U/L (46-116) Lactate Dehydrogenase 307 U/L (81-234) Troponin I Quantitative < 0.017 ng/mL (0.000-0.055) C-Reactive Protein, Quantitative 229.8 mg/L (0-3.3) GN-Llm-U-Type Natriuretic Peptide 3734 pg/mL (0-124) Total Protein 6.9 g/dL (6.4-8.2) Albumin 2.0 g/dL (3.4-5.0) Albumin/Globulin Ratio 0.4 (1.0-1.7) Mycoplasma Serology (LAB) Negative (NEGATIVE) Glucose (Fingerstick) 260 mg/dL (70-99) 166 mg/dL (70-99) O2 Saturation 99 % (92-99) Arterial Blood pH 7.33 (7.35-7.45) Arterial Blood pCO2 at Patient Temp 32 mmHg (35-46) Arterial Blood pO2 at Patient Temp 232 mmHg (65-108) Arterial Blood HCO3 17 mmol/L (21-28) Arterial Blood Base Excess -8 mmol/L (-3-3) FiO2 100 Test 08/27/19 13:24 08/27/19 16:11 08/27/19 17:08 08/27/19 21:50 Glucose (Fingerstick) 194 mg/dL (70-99) 115 mg/dL (70-99) O2 Saturation 95 % (92-99) Arterial Blood pH 7.41 (7.35-7.45) Arterial Blood pCO2 at Patient Temp 37 mmHg (35-46) Arterial Blood pO2 at Patient Temp 82 mmHg (65-108) Arterial Blood HCO3 23 mmol/L (21-28) Arterial Blood Base Excess -2 mmol/L (-3-3) FiO2 50% Lactic Acid Level 1.7 mmol/L (0.4-2.0) Test 08/27/19 23:54 08/28/19 04:30 08/28/19 06:07 Glucose (Fingerstick) 211 mg/dL (70-99) 110 mg/dL (70-99) White Blood Count 13.7 x10^3/uL (4.0-11.0) Red Blood Count 4.16 x10^6/uL (3.50-5.40) Hemoglobin 10.2 g/dL (12.0-15.5) Hematocrit 33.8 % (36.0-47.0) Mean Corpuscular Volume 81 fL (79-100) Mean Corpuscular Hemoglobin 25 pg (25-35) Mean Corpuscular Hemoglobin Concent 30 g/dL (31-37) Red Cell Distribution Width 18.6 % (11.5-14.5) Platelet Count 461 x10^3/uL (140-400) Neutrophils (%) (Auto) 86 % (31-73) Lymphocytes (%) (Auto) 11 % (24-48) Monocytes (%) (Auto) 3 % (0-9) Eosinophils (%) (Auto) 0 % (0-3) Basophils (%) (Auto) 0 % (0-3) Neutrophils # (Auto) 11.7 x10^3/uL (1.8-7.7) Lymphocytes # (Auto) 1.5 x10^3/uL (1.0-4.8) Monocytes # (Auto) 0.4 x10^3/uL (0.0-1.1) Eosinophils # (Auto) 0.0 x10^3/uL (0.0-0.7) Basophils # (Auto) 0.0 x10^3/uL (0.0-0.2) Sodium Level 137 mmol/L (136-145) Potassium Level 6.5 mmol/L (3.5-5.1) Chloride Level 103 mmol/L (98-107) Carbon Dioxide Level 18 mmol/L (21-32) Anion Gap 16 (6-14) Blood Urea Nitrogen 33 mg/dL (7-20) Creatinine 1.9 mg/dL (0.6-1.0) Estimated GFR (Cockcroft-Gault) 26.0 BUN/Creatinine Ratio 17 (6-20) Glucose Level 174 mg/dL (70-99) Calcium Level 8.2 mg/dL (8.5-10.1) Total Bilirubin 0.8 mg/dL (0.2-1.0) Aspartate Amino Transf (AST/SGOT) 394 U/L (15-37) Alanine Aminotransferase (ALT/SGPT) 97 U/L (14-59) Alkaline Phosphatase 200 U/L (46-116) Total Protein 7.4 g/dL (6.4-8.2) Albumin 2.0 g/dL (3.4-5.0) Albumin/Globulin Ratio 0.4 (1.0-1.7) Laboratory Tests Test 08/27/19 10:10 08/27/19 11:24 08/27/19 13:24 08/27/19 16:11 O2 Saturation 99 % (92-99) 95 % (92-99) Arterial Blood pH 7.33 (7.35-7.45) 7.41 (7.35-7.45) Arterial Blood pCO2 at Patient Temp 32 mmHg (35-46) 37 mmHg (35-46) Arterial Blood pO2 at Patient Temp 232 mmHg (65-108) 82 mmHg (65-108) Arterial Blood HCO3 17 mmol/L (21-28) 23 mmol/L (21-28) Arterial Blood Base Excess -8 mmol/L (-3-3) -2 mmol/L (-3-3) FiO2 100 50% Glucose (Fingerstick) 166 mg/dL (70-99) 194 mg/dL (70-99) Test 08/27/19 17:08 08/27/19 21:50 08/27/19 23:54 08/28/19 04:30 Glucose (Fingerstick) 115 mg/dL (70-99) 211 mg/dL (70-99) Lactic Acid Level 1.7 mmol/L (0.4-2.0) White Blood Count 13.7 x10^3/uL (4.0-11.0) Red Blood Count 4.16 x10^6/uL (3.50-5.40) Hemoglobin 10.2 g/dL (12.0-15.5) Hematocrit 33.8 % (36.0-47.0) Mean Corpuscular Volume 81 fL (79-100) Mean Corpuscular Hemoglobin 25 pg (25-35) Mean Corpuscular Hemoglobin Concent 30 g/dL (31-37) Red Cell Distribution Width 18.6 % (11.5-14.5) Platelet Count 461 x10^3/uL (140-400) Neutrophils (%) (Auto) 86 % (31-73) Lymphocytes (%) (Auto) 11 % (24-48) Monocytes (%) (Auto) 3 % (0-9) Eosinophils (%) (Auto) 0 % (0-3) Basophils (%) (Auto) 0 % (0-3) Neutrophils # (Auto) 11.7 x10^3/uL (1.8-7.7) Lymphocytes # (Auto) 1.5 x10^3/uL (1.0-4.8) Monocytes # (Auto) 0.4 x10^3/uL (0.0-1.1) Eosinophils # (Auto) 0.0 x10^3/uL (0.0-0.7) Basophils # (Auto) 0.0 x10^3/uL (0.0-0.2) Sodium Level 137 mmol/L (136-145) Potassium Level 6.5 mmol/L (3.5-5.1) Chloride Level 103 mmol/L (98-107) Carbon Dioxide Level 18 mmol/L (21-32) Anion Gap 16 (6-14) Blood Urea Nitrogen 33 mg/dL (7-20) Creatinine 1.9 mg/dL (0.6-1.0) Estimated GFR (Cockcroft-Gault) 26.0 BUN/Creatinine Ratio 17 (6-20) Glucose Level 174 mg/dL (70-99) Calcium Level 8.2 mg/dL (8.5-10.1) Total Bilirubin 0.8 mg/dL (0.2-1.0) Aspartate Amino Transf (AST/SGOT) 394 U/L (15-37) Alanine Aminotransferase (ALT/SGPT) 97 U/L (14-59) Alkaline Phosphatase 200 U/L (46-116) Total Protein 7.4 g/dL (6.4-8.2) Albumin 2.0 g/dL (3.4-5.0) Albumin/Globulin Ratio 0.4 (1.0-1.7) Test 08/28/19 06:07 Glucose (Fingerstick) 110 mg/dL (70-99) Review All relevant outside records, renal labs, imaging studies, telemetry/EKG's were reviewed. Images Images CT Chest 08/26 Impression: 1. Multifocal septal thickening with groundglass opacities and consolidations (crazy paving pattern). Differential considerations include ARDS, pneumonia including viral pneumonia or pulmonary edema. 2. Enlarged pulmonary artery, may indicate pulmonary artery hypertension. IMPRESSION: 1. Worsening bilateral patchy airspace opacities of the lung bases, compatible with pneumonia in the appropriate clinical context. 2. Mild wall thickening in the distal descending colon with subtle pericolonic stranding could reflect mild colitis. No bowel obstruction, perforation or associated fluid collection. 3. Left femoral head collapse and sclerosis is favored sequelae of avascular necrosis with a moderate joint effusion. Correlate with symptoms. The hip is amenable to aspiration by ultrasound or fluoroscopy guided imaging if clinically warranted. SHRUTI KILGORE MD Aug 28, 2019 09:18
--- NOTE | 2019-08-28 09:25 | PDOC ---
DOLORES HUNTER B[employer]K [employer] HANDLER 08/28/19 0925: CARDIO Progress Notes Date and Time Date of Service 08/28/2019 Time of Evaluation 0850 Subjective Subjective: Other (asleep with bipap in place; no discomfort) Vitals Vitals Vital Signs Date Time Temp Pulse Resp B/P (MAP) Pulse Ox O2 Delivery O2 Flow Rate FiO2 08/28/19 07:47 Bi-pap 08/28/19 07:39 97 08/28/19 07:00 94 38 157/77 (103) 08/28/19 04:00 6.0 08/28/19 04:00 98.1 98.1 Weight Weight [ ] Input and Output Intake and Output Intake and Output 08/28/19 07:00 Intake Total 5498.0 ml Output Total 340 ml Balance 5158.0 ml Intake Oral 240 ml IV Total 5258.0 ml Output Urine Total 340 ml Laboratory Labs Laboratory Tests Test 08/27/19 10:10 08/27/19 11:24 08/27/19 13:24 08/27/19 16:11 O2 Saturation 99 % (92-99) 95 % (92-99) Arterial Blood pH 7.33 (7.35-7.45) 7.41 (7.35-7.45) Arterial Blood pCO2 at Patient Temp 32 mmHg (35-46) 37 mmHg (35-46) Arterial Blood pO2 at Patient Temp 232 mmHg (65-108) 82 mmHg (65-108) Arterial Blood HCO3 17 mmol/L (21-28) 23 mmol/L (21-28) Arterial Blood Base Excess -8 mmol/L (-3-3) -2 mmol/L (-3-3) FiO2 100 50% Glucose (Fingerstick) 166 mg/dL (70-99) 194 mg/dL (70-99) Test 08/27/19 17:08 08/27/19 21:50 08/27/19 23:54 08/28/19 04:30 Glucose (Fingerstick) 115 mg/dL (70-99) 211 mg/dL (70-99) Lactic Acid Level 1.7 mmol/L (0.4-2.0) White Blood Count 13.7 x10^3/uL (4.0-11.0) Red Blood Count 4.16 x10^6/uL (3.50-5.40) Hemoglobin 10.2 g/dL (12.0-15.5) Hematocrit 33.8 % (36.0-47.0) Mean Corpuscular Volume 81 fL (79-100) Mean Corpuscular Hemoglobin 25 pg (25-35) Mean Corpuscular Hemoglobin Concent 30 g/dL (31-37) Red Cell Distribution Width 18.6 % (11.5-14.5) Platelet Count 461 x10^3/uL (140-400) Neutrophils (%) (Auto) 86 % (31-73) Lymphocytes (%) (Auto) 11 % (24-48) Monocytes (%) (Auto) 3 % (0-9) Eosinophils (%) (Auto) 0 % (0-3) Basophils (%) (Auto) 0 % (0-3) Neutrophils # (Auto) 11.7 x10^3/uL (1.8-7.7) Lymphocytes # (Auto) 1.5 x10^3/uL (1.0-4.8) Monocytes # (Auto) 0.4 x10^3/uL (0.0-1.1) Eosinophils # (Auto) 0.0 x10^3/uL (0.0-0.7) Basophils # (Auto) 0.0 x10^3/uL (0.0-0.2) Sodium Level 137 mmol/L (136-145) Potassium Level 6.5 mmol/L (3.5-5.1) Chloride Level 103 mmol/L (98-107) Carbon Dioxide Level 18 mmol/L (21-32) Anion Gap 16 (6-14) Blood Urea Nitrogen 33 mg/dL (7-20) Creatinine 1.9 mg/dL (0.6-1.0) Estimated GFR (Cockcroft-Gault) 26.0 BUN/Creatinine Ratio 17 (6-20) Glucose Level 174 mg/dL (70-99) Calcium Level 8.2 mg/dL (8.5-10.1) Total Bilirubin 0.8 mg/dL (0.2-1.0) Aspartate Amino Transf (AST/SGOT) 394 U/L (15-37) Alanine Aminotransferase (ALT/SGPT) 97 U/L (14-59) Alkaline Phosphatase 200 U/L (46-116) Total Protein 7.4 g/dL (6.4-8.2) Albumin 2.0 g/dL (3.4-5.0) Albumin/Globulin Ratio 0.4 (1.0-1.7) Test 08/28/19 06:07 08/28/19 08:48 Glucose (Fingerstick) 110 mg/dL (70-99) O2 Saturation 94 % (92-99) Arterial Blood pH 7.35 (7.35-7.45) Arterial Blood pH (Temp corrected) 7.36 Arterial Blood pCO2 at Patient Temp 22 mmHg (35-46) Arterial Blood pCO2 (Temp correct) 21 mmHg Arterial Blood pO2 at Patient Temp 82 mmHg (65-108) Arterial Blood pO2 (Temp corrected) 77 mmHg Arterial Blood HCO3 12 mmol/L (21-28) Arterial Blood Base Excess -12 mmol/L (-3-3) FiO2 50 Microbiology Micro Microbiology 08/25/19 Blood Culture - Preliminary, Resulted NO GROWTH AFTER 2 DAYS Physical Exam HEENT: Neck Supple W Full Motion Chest: Symmetric LUNGS: Other (Bipap in place, CXR reviwed ) Heart: RRR (SR without ectopies) Abdomen: Soft N/T Neurology: other (asleep; on precedex) Other Exams Discussed with RN, oliguric, BP stable with levophed. diminished lungs. Visual exam performed Assessment Assessment 1. Mechanical fall with left hip pain/possible AVN 2. Left sacral/coccyx wound: ID following 3. Acute respiratory failure with pneumonia: was covid neg x2 from prior testing, awaiting repeat with significant respiratory changes. Per pulmonary 4. Arrhythmia; SR.noted previously with WAP/MAT. No significnat arrhythmia so far 5. Poorly controlled DM2 6. Hypertension; needing levophed 7. Chronic immunosuppression for RA: enbrel and steroids 8. AVI with hyperkalemia: worsening Cr 9. Transaminitis Recommendations 1. Multiorgan failure, Covid pending. on Bipap. Levophed in place. 2. Hold BB for now. Stop K and ACEi. Hold lasix. Likely ATN, oliguric despite volume repletion. K correction in place. Consult nephrology. 3. Supportive care Justicifation of Admission Dx: Justifications for Admission: Justification of Admission Dx: Yes CHF: Cardiac Arrhythmias NAHOMY MILTON MD 08/30/19 1614: CARDIO Progress Notes Plan Plan Late entry for 08/28/2019 Pt. 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 Supportive care. No new CV issues. DOLORES HUNTER APRN Aug 28, 2019 09:25 NAHOMY MILTON MD Aug 30, 2019 16:14
[2019-08-28] MEDS ORDERED: LACTULOSE 20 GM/30 ML SOLUTION. PO PRN (09:30)
[2019-08-28] MEDS ORDERED: CALCIUM GLUCONATE 1,000 MG in IV NORMAL SALINE 100ML 100 ML IV ONE (09:30)
[2019-08-28] MEDS: SODIUM POLYSTYRENE SULFON/SORB 15 GM/60 ML ORAL.SUSP PO ONE ×2 (09:30→09:50)
[2019-08-28] MEDS ORDERED: FUROSEMIDE 40 MG TABLET. PO PRN (09:30)
[2019-08-28] MEDS: MECLIZINE HCL 12.5 MG TABLET. PO SCH ×3 (09:50→20:04)
[2019-08-28] MEDS: CHOLECALCIFEROL (VITAMIN D3) 1,000 UNIT TABLET PO SCH (09:50)
[2019-08-28] MEDS: PANTOPRAZOLE IV PUSH 40 MG VIAL. IVP SCH (09:51)
[2019-08-28] MEDS: VENLAFAXINE XR 37.5 MG CAP.ER.24H. PO SCH (09:51)
[2019-08-28] MEDS: DAPSONE 100 MG TABLET PO SCH (09:51)
[2019-08-28] MEDS: CETIRIZINE HCL 10 MG TABLET. PO SCH (09:51)
[2019-08-28] MEDS: CALCIUM CARB/VIT D3 500/200 TABLET. PO SCH (09:51)
[2019-08-28] MEDS: LACTOBACILLUS RHAMNOSUS GG 1 CAPSULE. PO SCH ×2 (09:51→20:04)
[2019-08-28] MEDS: ENOXAPARIN 40 MG/0.4 ML SYRINGE. SQ SCH (09:52)
--- NOTE | 2019-08-28 10:41 | NUR ---
Morning insulin not given r/t patient not eating and regular insulin being given this AM. BS 183. Dr. Barreto notified. Will check again at 1200
--- NOTE | 2019-08-28 10:43 | PN ---
DATE: 08/28/2019 SUBJECTIVE: The patient is resting, propped up in bed, apparently continued to be encephalopathic, restless, agitated, requiring mittens. She was started also on Precedex. Unfortunately, her kidney function is worsening as her creatinine has risen from 1.3 to 1.9. Her liver enzymes also has risen. Her AST, ALT, alkaline phosphatase were normal yesterday and today. Her liver enzymes has dramatically risen to an AST of 394, ALT of 97 and alkaline phosphatase of 200 although the bilirubin is normal. She also developed hyperkalemia with potassium of 6.5 for which she received 3 amps of sodium bicarbonate and insulin and dextrose. She is also on a small dose of Levophed. PHYSICAL EXAMINATION: GENERAL: When I examined her, she looked pale, but no jaundice, cyanosis or thyromegaly. No jugular venous distention. No lower limb edema. VITAL SIGNS: Her heart rate was 94, blood pressure 157/77, temperature was 98.1, respiratory rate was 38, and oxygen saturation was 96% on 6 liters per minute. HEAD, EYES, EARS, NOSE AND THROAT: Showed normocephalic, atraumatic. NECK: Supple. HEART: Showed normal first and second heart sounds. No gallop or murmur. CHEST: Showed central trachea, equal bilateral expansion, air entry, vesicular sounds with bilateral basal crepitation. I could not appreciate any rhonchi. ABDOMEN: Distended, soft, nontender. NEUROLOGIC: She was confused, agitated, but without any obvious lateralizing sign. Her intake over the last 24 hours was almost 1300, output was 1650. LABORATORY DATA: Her lab work this morning shows a white cell count of 13,700, hemoglobin 10, hematocrit 33, MCV 81 and platelet count 461,000. Her chemistry showed a serum sodium 137, potassium 6.5, chloride 103, bicarbonate 18, anion gap of 16, BUN 33, creatinine 1.9, estimated GFR was 26 mL per minute. Her glucose 174, calcium was 8.2. Total bilirubin is normal. AST, ALT, alkaline phosphatase have dramatically risen. Her total protein was 7.4, albumin 2. Her blood gases showed a pH of 7.35, pCO2 of 22, pO2 of 82 and oxygen saturation was 94% on FiO2 of 50%. ASSESSMENT: 1. Acute hypoxic respiratory failure secondary to bilateral diffuse interstitial pneumonitis in a patient who is immunocompromised with rheumatoid arthritis, on chronic prednisone and Enbrel. 2. Her COVID-19 test was negative at [facility] As the result of that COVID testing is still pending at the time of this dictation. 3. Acute kidney injury with marked oliguria and her output was only 340 after she received a total of almost 5500. 4. Hyperkalemia, serum potassium 6.5. 5. Deranged liver enzyme that could be related to the fact that she was started on dapsone and atovaquone. I will definitely discontinue obviously her potassium and lisinopril and also ibuprofen. I have also ordered calcium gluconate and Kayexalate with lactulose through her NG tube. I have already consulted the Nephrology team and she was also seen by the roving marker as well as Infectious Disease specialist. MAGUE PALAFOX MD DR: ROMULO/samantha JOB#: [id number] / [id number]
--- NOTE | 2019-08-28 10:45 | RAD ---
EXAM: PORTABLE CHEST 1V INDICATION: Reason: PNA/BiPAP / Spl. Instructions: / History: . TECHNIQUE: Single view COMPARISON: 08/27/2019 chest x-ray FINDINGS: An enteric tube is present passing below the diaphragms. The heart size is mildly enlarged. Great vessels show mild engorgement of the SVC. There is no hilar or mediastinal mass. Lungs show slight interval worsening of diffuse patchy airspace opacities. There is no pleural effusion or pneumothorax. There are no significant osseous abnormalities. IMPRESSION: Slight worsening of patchy bilateral airspace opacities compatible with pneumonia Electronically signed by: Sue Lyons MD (08/28/2019 10:42 AM) [id number]
[2019-08-28] MEDS: MICAFUNGIN 100 MG in IV DEXTROSE 5% 100ML 100 ML IV SCH (10:47)
[2019-08-28] MEDS ORDERED: ALBUMIN HUMAN 5% 500 ML IV ONE (11:00)
--- NOTE | 2019-08-28 11:08 | PDOC ---
PULMONARY PROGRESS NOTES Subjective remains on BIPAP/ lethargic developed AVI, with severe met acidosis. no sig response to IVF improving cxr and oxygenation Vitals Vital Signs Date Time Temp Pulse Resp B/P (MAP) Pulse Ox O2 Delivery O2 Flow Rate FiO2 08/28/19 10:00 84 38 140/73 (95) 97 BiPAP/CPAP 08/28/19 08:00 96.9 96.9 08/28/19 04:00 6.0 Comments visual exam done due to COVID-19 pandemia lethargic, on BIPAP mild increase R/R/ obese/ mild leg edema General: Lethargic, Mild Distress Labs Laboratory Tests Test 08/26/19 11:20 08/26/19 11:32 08/26/19 16:25 08/26/19 21:29 Body Fluid Source Synovial Body Fluid Color Colorless Body Fluid Clarity Hazy Body Fluid Nucleated Cells 1720 /cmm (Not Established) Body Fluid Mononuclear WBCs (%) 1 % Body Fluid Polymorphonuclear Cells 99 % Body Fluid Total RBCs Counted 145 /cmm (Not Established) Glucose (Fingerstick) 144 mg/dL (70-99) 109 mg/dL (70-99) 304 mg/dL (70-99) Test 08/27/19 03:45 08/27/19 07:22 08/27/19 10:10 08/27/19 11:24 White Blood Count 11.7 x10^3/uL (4.0-11.0) Red Blood Count 3.70 x10^6/uL (3.50-5.40) Hemoglobin 9.2 g/dL (12.0-15.5) Hematocrit 29.4 % (36.0-47.0) Mean Corpuscular Volume 80 fL (79-100) Mean Corpuscular Hemoglobin 25 pg (25-35) Mean Corpuscular Hemoglobin Concent 31 g/dL (31-37) Red Cell Distribution Width 18.7 % (11.5-14.5) Platelet Count 363 x10^3/uL (140-400) Neutrophils (%) (Auto) 81 % (31-73) Lymphocytes (%) (Auto) 14 % (24-48) Monocytes (%) (Auto) 4 % (0-9) Eosinophils (%) (Auto) 0 % (0-3) Basophils (%) (Auto) 0 % (0-3) Neutrophils # (Auto) 9.5 x10^3/uL (1.8-7.7) Lymphocytes # (Auto) 1.7 x10^3/uL (1.0-4.8) Monocytes # (Auto) 0.5 x10^3/uL (0.0-1.1) Eosinophils # (Auto) 0.0 x10^3/uL (0.0-0.7) Basophils # (Auto) 0.0 x10^3/uL (0.0-0.2) Sodium Level 135 mmol/L (136-145) Potassium Level 4.3 mmol/L (3.5-5.1) Chloride Level 101 mmol/L (98-107) Carbon Dioxide Level 22 mmol/L (21-32) Anion Gap 12 (6-14) Blood Urea Nitrogen 23 mg/dL (7-20) Creatinine 1.3 mg/dL (0.6-1.0) Estimated GFR (Cockcroft-Gault) 40.3 BUN/Creatinine Ratio 18 (6-20) Glucose Level 296 mg/dL (70-99) Calcium Level 8.2 mg/dL (8.5-10.1) Total Bilirubin 0.3 mg/dL (0.2-1.0) Aspartate Amino Transf (AST/SGOT) 33 U/L (15-37) Alanine Aminotransferase (ALT/SGPT) 15 U/L (14-59) Alkaline Phosphatase 96 U/L (46-116) Lactate Dehydrogenase 307 U/L (81-234) Troponin I Quantitative < 0.017 ng/mL (0.000-0.055) C-Reactive Protein, Quantitative 229.8 mg/L (0-3.3) NU-Ssb-L-Type Natriuretic Peptide 3734 pg/mL (0-124) Total Protein 6.9 g/dL (6.4-8.2) Albumin 2.0 g/dL (3.4-5.0) Albumin/Globulin Ratio 0.4 (1.0-1.7) Mycoplasma Serology (LAB) Negative (NEGATIVE) Glucose (Fingerstick) 260 mg/dL (70-99) 166 mg/dL (70-99) O2 Saturation 99 % (92-99) Arterial Blood pH 7.33 (7.35-7.45) Arterial Blood pCO2 at Patient Temp 32 mmHg (35-46) Arterial Blood pO2 at Patient Temp 232 mmHg (65-108) Arterial Blood HCO3 17 mmol/L (21-28) Arterial Blood Base Excess -8 mmol/L (-3-3) FiO2 100 Test 08/27/19 13:24 08/27/19 16:11 08/27/19 17:08 08/27/19 21:50 Glucose (Fingerstick) 194 mg/dL (70-99) 115 mg/dL (70-99) O2 Saturation 95 % (92-99) Arterial Blood pH 7.41 (7.35-7.45) Arterial Blood pCO2 at Patient Temp 37 mmHg (35-46) Arterial Blood pO2 at Patient Temp 82 mmHg (65-108) Arterial Blood HCO3 23 mmol/L (21-28) Arterial Blood Base Excess -2 mmol/L (-3-3) FiO2 50% Lactic Acid Level 1.7 mmol/L (0.4-2.0) Test 08/27/19 23:54 08/28/19 04:30 08/28/19 06:07 08/28/19 08:48 Glucose (Fingerstick) 211 mg/dL (70-99) 110 mg/dL (70-99) White Blood Count 13.7 x10^3/uL (4.0-11.0) Red Blood Count 4.16 x10^6/uL (3.50-5.40) Hemoglobin 10.2 g/dL (12.0-15.5) Hematocrit 33.8 % (36.0-47.0) Mean Corpuscular Volume 81 fL (79-100) Mean Corpuscular Hemoglobin 25 pg (25-35) Mean Corpuscular Hemoglobin Concent 30 g/dL (31-37) Red Cell Distribution Width 18.6 % (11.5-14.5) Platelet Count 461 x10^3/uL (140-400) Neutrophils (%) (Auto) 86 % (31-73) Lymphocytes (%) (Auto) 11 % (24-48) Monocytes (%) (Auto) 3 % (0-9) Eosinophils (%) (Auto) 0 % (0-3) Basophils (%) (Auto) 0 % (0-3) Neutrophils # (Auto) 11.7 x10^3/uL (1.8-7.7) Lymphocytes # (Auto) 1.5 x10^3/uL (1.0-4.8) Monocytes # (Auto) 0.4 x10^3/uL (0.0-1.1) Eosinophils # (Auto) 0.0 x10^3/uL (0.0-0.7) Basophils # (Auto) 0.0 x10^3/uL (0.0-0.2) Sodium Level 137 mmol/L (136-145) Potassium Level 6.5 mmol/L (3.5-5.1) Chloride Level 103 mmol/L (98-107) Carbon Dioxide Level 18 mmol/L (21-32) Anion Gap 16 (6-14) Blood Urea Nitrogen 33 mg/dL (7-20) Creatinine 1.9 mg/dL (0.6-1.0) Estimated GFR (Cockcroft-Gault) 26.0 BUN/Creatinine Ratio 17 (6-20) Glucose Level 174 mg/dL (70-99) Calcium Level 8.2 mg/dL (8.5-10.1) Total Bilirubin 0.8 mg/dL (0.2-1.0) Aspartate Amino Transf (AST/SGOT) 394 U/L (15-37) Alanine Aminotransferase (ALT/SGPT) 97 U/L (14-59) Alkaline Phosphatase 200 U/L (46-116) Total Protein 7.4 g/dL (6.4-8.2) Albumin 2.0 g/dL (3.4-5.0) Albumin/Globulin Ratio 0.4 (1.0-1.7) Thyroid Stimulating Hormone (TSH) 0.629 uIU/mL (0.358-3.74) O2 Saturation 94 % (92-99) Arterial Blood pH 7.35 (7.35-7.45) Arterial Blood pH (Temp corrected) 7.36 Arterial Blood pCO2 at Patient Temp 22 mmHg (35-46) Arterial Blood pCO2 (Temp correct) 21 mmHg Arterial Blood pO2 at Patient Temp 82 mmHg (65-108) Arterial Blood pO2 (Temp corrected) 77 mmHg Arterial Blood HCO3 12 mmol/L (21-28) Arterial Blood Base Excess -12 mmol/L (-3-3) FiO2 50 Test 08/28/19 10:30 Glucose (Fingerstick) 183 mg/dL (70-99) Laboratory Tests Test 08/27/19 11:24 08/27/19 13:24 08/27/19 16:11 08/27/19 17:08 Glucose (Fingerstick) 166 mg/dL (70-99) 194 mg/dL (70-99) 115 mg/dL (70-99) O2 Saturation 95 % (92-99) Arterial Blood pH 7.41 (7.35-7.45) Arterial Blood pCO2 at Patient Temp 37 mmHg (35-46) Arterial Blood pO2 at Patient Temp 82 mmHg (65-108) Arterial Blood HCO3 23 mmol/L (21-28) Arterial Blood Base Excess -2 mmol/L (-3-3) FiO2 50% Test 08/27/19 21:50 08/27/19 23:54 08/28/19 04:30 08/28/19 06:07 Lactic Acid Level 1.7 mmol/L (0.4-2.0) Glucose (Fingerstick) 211 mg/dL (70-99) 110 mg/dL (70-99) White Blood Count 13.7 x10^3/uL (4.0-11.0) Red Blood Count 4.16 x10^6/uL (3.50-5.40) Hemoglobin 10.2 g/dL (12.0-15.5) Hematocrit 33.8 % (36.0-47.0) Mean Corpuscular Volume 81 fL (79-100) Mean Corpuscular Hemoglobin 25 pg (25-35) Mean Corpuscular Hemoglobin Concent 30 g/dL (31-37) Red Cell Distribution Width 18.6 % (11.5-14.5) Platelet Count 461 x10^3/uL (140-400) Neutrophils (%) (Auto) 86 % (31-73) Lymphocytes (%) (Auto) 11 % (24-48) Monocytes (%) (Auto) 3 % (0-9) Eosinophils (%) (Auto) 0 % (0-3) Basophils (%) (Auto) 0 % (0-3) Neutrophils # (Auto) 11.7 x10^3/uL (1.8-7.7) Lymphocytes # (Auto) 1.5 x10^3/uL (1.0-4.8) Monocytes # (Auto) 0.4 x10^3/uL (0.0-1.1) Eosinophils # (Auto) 0.0 x10^3/uL (0.0-0.7) Basophils # (Auto) 0.0 x10^3/uL (0.0-0.2) Sodium Level 137 mmol/L (136-145) Potassium Level 6.5 mmol/L (3.5-5.1) Chloride Level 103 mmol/L (98-107) Carbon Dioxide Level 18 mmol/L (21-32) Anion Gap 16 (6-14) Blood Urea Nitrogen 33 mg/dL (7-20) Creatinine 1.9 mg/dL (0.6-1.0) Estimated GFR (Cockcroft-Gault) 26.0 BUN/Creatinine Ratio 17 (6-20) Glucose Level 174 mg/dL (70-99) Calcium Level 8.2 mg/dL (8.5-10.1) Total Bilirubin 0.8 mg/dL (0.2-1.0) Aspartate Amino Transf (AST/SGOT) 394 U/L (15-37) Alanine Aminotransferase (ALT/SGPT) 97 U/L (14-59) Alkaline Phosphatase 200 U/L (46-116) Total Protein 7.4 g/dL (6.4-8.2) Albumin 2.0 g/dL (3.4-5.0) Albumin/Globulin Ratio 0.4 (1.0-1.7) Thyroid Stimulating Hormone (TSH) 0.629 uIU/mL (0.358-3.74) Test 08/28/19 08:48 08/28/19 10:30 O2 Saturation 94 % (92-99) Arterial Blood pH 7.35 (7.35-7.45) Arterial Blood pH (Temp corrected) 7.36 Arterial Blood pCO2 at Patient Temp 22 mmHg (35-46) Arterial Blood pCO2 (Temp correct) 21 mmHg Arterial Blood pO2 at Patient Temp 82 mmHg (65-108) Arterial Blood pO2 (Temp corrected) 77 mmHg Arterial Blood HCO3 12 mmol/L (21-28) Arterial Blood Base Excess -12 mmol/L (-3-3) FiO2 50 Glucose (Fingerstick) 183 mg/dL (70-99) Medications Active Scripts Medications Dose Route/Sig Max Daily Dose Days Date Category Metoprolol Tartrate 50 Mg Tablet 1 Tab PO BID 08/10/19 Reported Humalog (Insulin Lispro) 100 Unit/1 Ml Cartridge 20 Unit SQ TID 08/06/19 Reported Tramadol Hcl 50 Mg Tablet 50 Mg PO DAILY PRN 08/06/19 Reported Lasix (Furosemide) 40 Mg Tablet 1 Tab PO DAILY 30 08/06/19 Reported Lisinopril 5 Mg Tablet 1 Tab PO DAILY 08/06/19 Reported Meclizine Hcl 25 Mg Tablet 1 Tab PO TID 08/06/19 Reported Pantoprazole Sodium (Pantoprazole Sodium) 40 Mg Tablet. 40 Mg PO DAILYAC 08/06/19 Reported Venlafaxine Hcl 37.5 Mg Tablet 1 Tab PO DAILY 08/06/19 Reported Calcium 500 + D Tablet (Calcium Carbonate/Vitamin D3) 1 Each Tablet 1 Tab PO DAILY 30 08/06/19 Reported Aspirin Ec (Aspirin) 81 Mg Tablet.dr 1 Tab PO DAILY 08/06/19 Reported Prednisone 20 Mg Tablet 10 Mg PO DAILY 05/16/17 Reported Tresiba Flextouch U-100 (Insulin Degludec) 100 Unit/1 Ml Insuln.pen 85 Unit SQ DAILY08 05/16/17 Reported Zyrtec (Cetirizine Hcl) 10 Mg Tab.chew 10 Mg PO DAILY 07/01/15 Reported Amitriptyline Hcl 25 Mg Tablet 25 Mg PO HS 07/01/15 Reported Cyclobenzaprine Hcl 10 Mg Tablet 10 Mg PO HS 07/01/15 Reported Klor-Con (Potassium Chloride) 20 Meq Packet Unknown Dose PO DAILY 07/01/15 Reported Enbrel (Etanercept) 50 Mg/1 Ml Disp.syrin 50 Mg SQ WEEKLY 07/01/15 Reported Comments cxr 08/27 improving bilateral infiltrates Impression . 1. Acute hypoxic respiratory failure, likely secondary to bilateral diffuse interstitial pneumonitis in a patient who is immunocompromised from rheumatoid arthritis and on chronic prednisone./ Enbrel. CT chest with diffuse interstitial infiltrates. She has been ruled out for COVID-19 at [facility]. Differential Dx would include highly likely PCP pneumonia/ acute flare up of RA induced ILD/ COVID pneumonia.less likely 2. 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 3. Low-grade fever, monitor closely. 4. No significant tobacco history. 5. History of rheumatoid arthritis, on chronic prednisone/ Enbrel and immunocompromised status. 6. New AVI with severe metabolic acidosis/ likely due to hypotension, off levo now 7. Abnormal LFT , likely shock liver Plan . 1. d/w RN/RTand patients daughter. 2. BIPAP/ alternating with Vapotherm 3. She is currently on very broad-spectrum antibiotic and antifungal. d/w oksana Renteria added emperic coverage for PCP and started IV steroids/ improving cxr and oxygenation 4. Dean culture. 5. DVT prophylaxis with Lovenox. 6. CT chest reviewed. Diffuse GG interstitial pneumonitis, rapidly worse since her recent ct abd 2 days ago, cxr 08/27 improving 7. Will continue with IVF 8. IV bicarb prn 9. Will need HD today with high bicarb 6. Discussed with daughter and RN and . full code. cct 35 min GLORIA BENNETT MD Aug 28, 2019 11:08
--- NOTE | 2019-08-28 11:21 | NUR ---
SS following up with discharge planning. SS reviewed pt chart and discussed with pt RN. Pt is currently on BIPAP and getting dialysis cath today. Pt on IV Micafungin and Meropenem. SS met with family in ER waiting room and discussed discharge planning and possible LTACH need. Pt's family reporting that they will discuss together over the weekend. Pt's family understanding of why LTACH may be necessary. SS discussed options for LTACH and pt's family reported that they would not want pt outside of the [place], [place] area so [facility] would be there only option. Family provided with contact information for [facility] if questions arise in regards to facility. SS phoned and faxed referral to [facility]. SS will continue to follow for discharge planning.
[2019-08-28] MEDS ORDERED: LIDOCAINE WITH 8.4% SOD BICARB 3 ML DISP.SYRIN. ONE (11:55)
[2019-08-28] MEDS ORDERED: LIDOCAINE WITH 8.4% SOD BICARB 3 ML DISP.SYRIN. INJ ONE (12:30)
--- NOTE | 2019-08-28 12:57 | RAD ---
Single AP view of the chest. Comparison: 08/28/2019 at 9:38 AM. Indication: Dialysis catheter placement Findings: New right internal jugular hemodialysis catheter seen with the tip in the right atrium which is well seated The heart is enlarged but stable. There is no pneumothorax or effusion. Pulmonary vascular congestion is seen. Dobbhoff tube is reidentified with tip not seen. Impression: 1. Stable cardiopulmonary findings. 2. Right internal jugular hemodialysis catheter seen with the tip well situated in the right atrium. No pneumothorax. Electronically signed by: Allan Gutierrez MD (08/28/2019 12:54 PM) [id number]
--- NOTE | 2019-08-28 14:06 | NUR ---
MANSI contacted by [facility] r/t discharge planning. MANSI informed Jacquie with [facility], that pt is not ready for discharge and may no be able to return home from the hospital at this time. MANSI also spoke with Lisa from [facility] as she called to confirm that she received LTAC referral. SW to continue following. Pt remains in ICU.
--- NOTE | 2019-08-28 15:38 | RAD ---
Procedure: Ultrasound-guided placement of right internal jugular central venous catheter08/28/2019 1:34 PM Clinical Indication: Temporary Dialysis Catheter Placement Discussion: The risks and benefits of the procedure were discussed the patient and/or their physician relations representative. Informed consent was obtained. A timeout procedure was performed. All elements of maximal sterile barrier technique including the use of a cap, mask, sterile gown, sterile gloves, large sterile sheet, appropriate hand hygiene, and 2% chlorhexidine for cutaneous antisepsis (or acceptable alternative antiseptic per current guidelines) were followed for this procedure. The patient was prepped and draped in the usual sterile fashion. Ultrasound interrogation of the right neck revealed patency and compressibility of the right internal jugular vein. A 21-gauge micropuncture was then used to gain access to this vein under ultrasound guidance. A hard copy ultrasound image was recorded. A guidewire was advanced centrally. 5 [place] sheath was placed. Over a wire following dilatation, a triple-lumen central venous catheter was advanced centrally. Catheter was found to flush and aspirate normally. Follow-up chest radiograph demonstrates tip at the cavoatrial junction. Catheter secured in place and a sterile dressing was applied. No immediate complications were identified. Impression: Successful ultrasound-guided placement of right internal jugular triple-lumen central venous catheter
--- NOTE | 2019-08-28 15:57 | NUR ---
Wound Care Attempted to see pt for wound care f/u, pt has just been transferred to ICU d/t decline and staff home therapy rn stated pt is just being hooked up to dialysis. Will attempt to f/u with pt saturday.
--- NOTE | 2019-08-28 16:03 | RAD ---
PORTABLE CHEST 1V History: Reason: Decreased SPO2 post Dobhoff attempt. / Spl. Instructions: / History: Comparison: August 28, 2019 Findings: Diffuse interstitial and alveolar opacities. No pneumothorax. No pleural effusion. Unchanged heart size. Stable right IJ central line. Impression: 1. No significant interval change compared to prior. Electronically signed by: Veto Paige DO (08/28/2019 4:00 PM) [facility]
--- NOTE | 2019-08-28 16:20 | NUR ---
Patient's dobhoff tube was clogged, unable to unclog. Dobhoff was removed. Attempted to place a new dobhoff, patient vagaled with HR in the low 40s with occasional PVCs, SPO2 decreased to the mid 60s, patient's lips turned blue and was gasping. Dobhoff was removed, placed back on BiPAP at 100%, stat CXR ordered. Patient's SPO2 quickly recovered, and when CXR resulted in no change, patient's FIO2 was titrated back to 50%.
[2019-08-28] MEDS ORDERED: IV NORMAL SALINE 1000ML BAG 1,000 ML IV PRN ×2 (17:01)
[2019-08-28] MEDS ORDERED: ALBUMIN HUMAN 25% 200 ML IV PRN (17:15)
[2019-08-28] MEDS ORDERED: DIALYSIS PATIENT. MC PRN (17:15)
[2019-08-28] MEDS ORDERED: diphenhydrAMINE 50 MG/ML VIAL IV PRN ×2 (17:15)
[2019-08-28] MEDS: TRESIBA 200 UNIT/ML SQ SCH (21:00)
--- NOTE | 2019-08-28 21:23 | NUR ---
Lengthy phone conversation with several family members on conference call including daughter Beata. Updated on current pt. status including dialysis, pt. resting comfortably on BiPAP at this time, etc. Informed family that pt. would not be receiving oral medications this evening as she is unable to take PO and will not be attempting Dobhoff tube placement at this time due to pt's poor toleration of attempted placement this afternoon. Family very concerned about pt. missing prescribed medications, stated that I would attempt to place tube at the if the family requested me to do so, declined at this time. Pt's daughter who is a respiratory therapist concerned that pt. does not have an NGT to decompress stomach and concerned pt. is dyssynchronous with BiPAP, I stated that it is not typical to place an NGT to decompress stomach on pt's requiring BiPAP and that the pt. 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 Family also upset that no central line was placed today, lengthy discussion including that a temporary dialysis catheter had been placed as dialysis today was a high priority given pt's hyperkalemia and that orders had been obtained that dialysis access could be used for medication infusion tonight. Stated that there was a PICC nurse available this evening to place a central like, the family was not interested in a nurse placing a central like and stated they would prefer a physician. Stated that I will speak with the day RN to contact anesthesia for line placement. Family member voiced her frustration that she felt I was not hearing them and that I was interrupting them when they were speaking, apologized for this appearance and stated I am available at any time to address the families questions and concerns.
[2019-08-28 21:29] LABS: CALCIUM 7.5 mg/dL (8.5-10.1); CREATININE 1.7 mg/dL (0.6-1.0); GFR 29.5; POTASSIUM 4.3 mmol/L (3.5-5.1)
[2019-08-28] MEDS: fentaNYL PF VIAL 100 MCG/2 ML VIAL IVP PRN (22:02)
--- NOTE | 2019-08-28 23:20 | RAD ---
AP abdomen radiograph 08/28/2019 CLINICAL HISTORY: NG tube placement. AP portable erect digital radiograph of the upper abdomen was obtained. Comparison is made to chest radiograph performed earlier today at 1528 hours. The right internal jugular central venous catheter is unchanged position. A NG tube is seen with its tip overlying the expected location of the mid thoracic esophagus. Surgical clips overlie the right upper quadrant abdomen consistent with a cholecystectomy. Diffuse perihilar infiltrates are seen. Air distention of the stomach scattered small large bowel loops is noted. The visualized abdominal bowel gas pattern is nonspecific. The osseous structures are unchanged. IMPRESSION: The tip of the NG tube extends to overlie the mid thoracic esophagus. Electronically signed by: Koby Matt MD (08/28/2019 11:17 PM) [id number]
--- NOTE | 2019-08-28 23:48 | RAD ---
AP abdomen radiograph 08/28/2019 CLINICAL HISTORY: NG tube placement. Two AP portable digital radiographs of the upper abdomen/lower chest were obtained. Comparison study is dated 1013 hours. Surgical clips overlie the right upper quadrant abdomen consistent with a cholecystectomy. A right internal jugular large bore central venous catheter is unchanged in position. The NG tube appears to been advanced slightly. Tip of this tube is difficult to localize but appears to overlie the mid thoracic esophagus. Bilateral perihilar infiltrates are seen. The cardiac silhouette is mildly enlarged. The abdominal bowel gas pattern is nonspecific. The osseous structures are unchanged. IMPRESSION: The tip of the NG tube overlies the mid thoracic esophagus. Electronically signed by: Koby Matt MD (08/28/2019 11:45 PM) [id number]
[2019-08-29] VITALS (23 sets, daily range): BP systolic 118–168; BP diastolic 60–92
--- NOTE | 2019-08-29 02:39 | NUR ---
Placed NGT, KUB obtained, NGT not in proper position, removed. Attempted to place Dobhoff, pt. became apneic and bradycardic, immediately withdrew tube and replaced BiPAP mask, pt. recovered quickly.
[2019-08-29] MEDS: methylPREDNISolone SOD SUCC PF 125 MG/2 ML VIAL. IV SCH ×4 (05:33→21:40)
[2019-08-29] MEDS: MEROPENEM 500 MG in IV NORMAL SALINE 50ML 50 ML IV SCH ×5 (05:33→18:00)
[2019-08-29] MEDS: DEXMEDETOMIDINE 400 MCG in IV NORMAL SALINE 100ML 96 ML IV PRN ×5 (05:35→22:46)
[2019-08-29 06:43] LABS: ALBUMIN 2.1 g/dL (3.4-5.0); ALBUMIN/GLOBULIN RATIO 0.5 (1.0-1.7); GFR 24.5; POTASSIUM 4.8 mmol/L (3.5-5.1); TOTAL BILIRUBIN 0.4 mg/dL (0.2-1.0); TOTAL PROTEIN 6.1 g/dL (6.4-8.2)
[2019-08-29] MEDS: DEXTROSE 50% 25 GM / 50ML DISP.SYRIN. IV PRN ×4 (06:48→16:17)
[2019-08-29 07:11] LABS: BASO % 0 % (0-3); EOS % 0 % (0-3); HEMATOCRIT 26.7 % (36.0-47.0); HEMOGLOBIN 8.5 g/dL (12.0-15.5); LYMPH # 0.9 x10^3/uL (1.0-4.8); LYMPH % 8 % (24-48); MEAN CORPUSCULAR HEMOGLOBIN 25 pg (25-35); MEAN CORPUSCULAR HGB CONC 32 g/dL (31-37); MEAN CORPUSCULAR VOLUME 77 fL (79-100); MONO # 0.2 x10^3/uL (0.0-1.1); MONO % 2 % (0-9); NEUT # 10.1 x10^3/uL (1.8-7.7); NEUT % 90 % (31-73); PLATELET COUNT 299 x10^3/uL (140-400); RED BLOOD COUNT 3.45 x10^6/uL (3.50-5.40); RED CELL DISTRIBUTION WIDTH 18.6 % (11.5-14.5); WHITE BLOOD COUNT 11.2 x10^3/uL (4.0-11.0)
--- NOTE | 2019-08-29 07:34 | RAD ---
PORTABLE CHEST 1V History: Pneumonia Comparison: August 28, 2019 Findings: Single view of the chest is submitted. There is again right internal jugular venous catheter with the tip in the right atrium. No convincing pneumothorax is identified although there is some new gas in the right neck soft tissues. There is fairly diffuse airspace opacity of the bilateral hemithoraces, right greater than left overall fairly similar. Pericardial cardiac silhouette is somewhat enlarged although similar. There is degenerative change of the shoulders greater on the right. Impression: 1. There is new gas in the right neck soft tissues, no convincing pneumothorax identified. There is again airspace opacity of the bilateral hemithoraces, not convincingly changed. Electronically signed by: Lang Velez MD (08/29/2019 7:31 AM) [id number]
[2019-08-29] MEDS: fentaNYL PF VIAL 100 MCG/2 ML VIAL IVP PRN ×2 (07:45→10:50)
[2019-08-29] MEDS: INSULIN LISPRO 300 UNITS/3 ML VIAL. SQ SCH (08:00)
[2019-08-29] MEDS: CALCIUM CARB/VIT D3 500/200 TABLET. PO SCH (08:00)
[2019-08-29] MEDS: PANTOPRAZOLE IV PUSH 40 MG VIAL. IVP SCH (08:26)
[2019-08-29] MEDS: IV NORMAL SALINE 1000ML BAG 1,000 ML IV SCH ×2 (08:27→20:14)
--- NOTE | 2019-08-29 08:34 | PDOC ---
PULMONARY PROGRESS NOTES Subjective remains on BIPAP/ fio2 40%, lethargic developed AVI, with severe met acidosis. no sig response to IVF improving oxygenation Vitals Vital Signs Date Time Temp Pulse Resp B/P (MAP) Pulse Ox O2 Delivery O2 Flow Rate FiO2 08/29/19 07:45 29 97 BiPAP/CPAP 08/29/19 06:00 75 137/75 (95) 08/29/19 04:00 99.0 99.0 Comments ros unable to obtain on bipap lethargic General: Lethargic, Mild Distress HEENT: Other (nc at perrl bipap mask on neck no lad) Lungs: Crackles Cardiovascular: S1, S2 Abdomen: Soft, Non-tender Extremities: Other (edema) Skin: Warm Labs Laboratory Tests Test 08/27/19 10:10 08/27/19 11:24 08/27/19 13:24 08/27/19 15:45 O2 Saturation 99 % (92-99) Arterial Blood pH 7.33 (7.35-7.45) Arterial Blood pCO2 at Patient Temp 32 mmHg (35-46) Arterial Blood pO2 at Patient Temp 232 mmHg (65-108) Arterial Blood HCO3 17 mmol/L (21-28) Arterial Blood Base Excess -8 mmol/L (-3-3) FiO2 100 Glucose (Fingerstick) 166 mg/dL (70-99) 194 mg/dL (70-99) Coronavirus (COVID-19)(PCR) Not detected (NOT DETECT.) Test 08/27/19 16:11 08/27/19 17:08 08/27/19 21:50 08/27/19 23:54 O2 Saturation 95 % (92-99) Arterial Blood pH 7.41 (7.35-7.45) Arterial Blood pCO2 at Patient Temp 37 mmHg (35-46) Arterial Blood pO2 at Patient Temp 82 mmHg (65-108) Arterial Blood HCO3 23 mmol/L (21-28) Arterial Blood Base Excess -2 mmol/L (-3-3) FiO2 50% Glucose (Fingerstick) 115 mg/dL (70-99) 211 mg/dL (70-99) Lactic Acid Level 1.7 mmol/L (0.4-2.0) Test 08/28/19 04:30 08/28/19 06:07 08/28/19 08:48 08/28/19 10:00 White Blood Count 13.7 x10^3/uL (4.0-11.0) Red Blood Count 4.16 x10^6/uL (3.50-5.40) Hemoglobin 10.2 g/dL (12.0-15.5) Hematocrit 33.8 % (36.0-47.0) Mean Corpuscular Volume 81 fL (79-100) Mean Corpuscular Hemoglobin 25 pg (25-35) Mean Corpuscular Hemoglobin Concent 30 g/dL (31-37) Red Cell Distribution Width 18.6 % (11.5-14.5) Platelet Count 461 x10^3/uL (140-400) Neutrophils (%) (Auto) 86 % (31-73) Lymphocytes (%) (Auto) 11 % (24-48) Monocytes (%) (Auto) 3 % (0-9) Eosinophils (%) (Auto) 0 % (0-3) Basophils (%) (Auto) 0 % (0-3) Neutrophils # (Auto) 11.7 x10^3/uL (1.8-7.7) Lymphocytes # (Auto) 1.5 x10^3/uL (1.0-4.8) Monocytes # (Auto) 0.4 x10^3/uL (0.0-1.1) Eosinophils # (Auto) 0.0 x10^3/uL (0.0-0.7) Basophils # (Auto) 0.0 x10^3/uL (0.0-0.2) Sodium Level 137 mmol/L (136-145) Potassium Level 6.5 mmol/L (3.5-5.1) Chloride Level 103 mmol/L (98-107) Carbon Dioxide Level 18 mmol/L (21-32) Anion Gap 16 (6-14) Blood Urea Nitrogen 33 mg/dL (7-20) Creatinine 1.9 mg/dL (0.6-1.0) Estimated GFR (Cockcroft-Gault) 26.0 BUN/Creatinine Ratio 17 (6-20) Glucose Level 174 mg/dL (70-99) Calcium Level 8.2 mg/dL (8.5-10.1) Total Bilirubin 0.8 mg/dL (0.2-1.0) Aspartate Amino Transf (AST/SGOT) 394 U/L (15-37) Alanine Aminotransferase (ALT/SGPT) 97 U/L (14-59) Alkaline Phosphatase 200 U/L (46-116) Total Protein 7.4 g/dL (6.4-8.2) Albumin 2.0 g/dL (3.4-5.0) Albumin/Globulin Ratio 0.4 (1.0-1.7) Thyroid Stimulating Hormone (TSH) 0.629 uIU/mL (0.358-3.74) Glucose (Fingerstick) 110 mg/dL (70-99) O2 Saturation 94 % (92-99) Arterial Blood pH 7.35 (7.35-7.45) Arterial Blood pH (Temp corrected) 7.36 Arterial Blood pCO2 at Patient Temp 22 mmHg (35-46) Arterial Blood pCO2 (Temp correct) 21 mmHg Arterial Blood pO2 at Patient Temp 82 mmHg (65-108) Arterial Blood pO2 (Temp corrected) 77 mmHg Arterial Blood HCO3 12 mmol/L (21-28) Arterial Blood Base Excess -12 mmol/L (-3-3) FiO2 50 Hepatitis B Surface Antigen Nonreactive (Nonreactive) Hepatitis B Surface Antibody, Quant <3.1 mIU/mL (Immunity>9.9) Hepatitis B Core Total Antibody Nonreactive (Nonreactive) Test 08/28/19 10:30 08/28/19 12:55 08/28/19 20:56 08/28/19 21:00 Glucose (Fingerstick) 183 mg/dL (70-99) 149 mg/dL (70-99) 102 mg/dL (70-99) Sodium Level 142 mmol/L (136-145) Potassium Level 4.3 mmol/L (3.5-5.1) Chloride Level 104 mmol/L (98-107) Carbon Dioxide Level 26 mmol/L (21-32) Anion Gap 12 (6-14) Blood Urea Nitrogen 34 mg/dL (7-20) Creatinine 1.7 mg/dL (0.6-1.0) Estimated GFR (Cockcroft-Gault) 29.5 Glucose Level 101 mg/dL (70-99) Calcium Level 7.5 mg/dL (8.5-10.1) Test 08/29/19 05:50 08/29/19 07:26 White Blood Count 11.2 x10^3/uL (4.0-11.0) Red Blood Count 3.45 x10^6/uL (3.50-5.40) Hemoglobin 8.5 g/dL (12.0-15.5) Hematocrit 26.7 % (36.0-47.0) Mean Corpuscular Volume 77 fL (79-100) Mean Corpuscular Hemoglobin 25 pg (25-35) Mean Corpuscular Hemoglobin Concent 32 g/dL (31-37) Red Cell Distribution Width 18.6 % (11.5-14.5) Platelet Count 299 x10^3/uL (140-400) Neutrophils (%) (Auto) 90 % (31-73) Lymphocytes (%) (Auto) 8 % (24-48) Monocytes (%) (Auto) 2 % (0-9) Eosinophils (%) (Auto) 0 % (0-3) Basophils (%) (Auto) 0 % (0-3) Neutrophils # (Auto) 10.1 x10^3/uL (1.8-7.7) Lymphocytes # (Auto) 0.9 x10^3/uL (1.0-4.8) Monocytes # (Auto) 0.2 x10^3/uL (0.0-1.1) Eosinophils # (Auto) 0.0 x10^3/uL (0.0-0.7) Basophils # (Auto) 0.0 x10^3/uL (0.0-0.2) Sodium Level 144 mmol/L (136-145) Potassium Level 4.8 mmol/L (3.5-5.1) Chloride Level 107 mmol/L (98-107) Carbon Dioxide Level 27 mmol/L (21-32) Anion Gap 10 (6-14) Blood Urea Nitrogen 48 mg/dL (7-20) Creatinine 2.0 mg/dL (0.6-1.0) Estimated GFR (Cockcroft-Gault) 24.5 BUN/Creatinine Ratio 24 (6-20) Glucose Level 40 mg/dL (70-99) Calcium Level 7.0 mg/dL (8.5-10.1) Total Bilirubin 0.4 mg/dL (0.2-1.0) Aspartate Amino Transf (AST/SGOT) 127 U/L (15-37) Alanine Aminotransferase (ALT/SGPT) 71 U/L (14-59) Alkaline Phosphatase 159 U/L (46-116) Total Protein 6.1 g/dL (6.4-8.2) Albumin 2.1 g/dL (3.4-5.0) Albumin/Globulin Ratio 0.5 (1.0-1.7) Glucose (Fingerstick) 109 mg/dL (70-99) Laboratory Tests Test 08/28/19 08:48 08/28/19 10:00 08/28/19 10:30 08/28/19 12:55 O2 Saturation 94 % (92-99) Arterial Blood pH 7.35 (7.35-7.45) Arterial Blood pH (Temp corrected) 7.36 Arterial Blood pCO2 at Patient Temp 22 mmHg (35-46) Arterial Blood pCO2 (Temp correct) 21 mmHg Arterial Blood pO2 at Patient Temp 82 mmHg (65-108) Arterial Blood pO2 (Temp corrected) 77 mmHg Arterial Blood HCO3 12 mmol/L (21-28) Arterial Blood Base Excess -12 mmol/L (-3-3) FiO2 50 Hepatitis B Surface Antigen Nonreactive (Nonreactive) Hepatitis B Surface Antibody, Quant <3.1 mIU/mL (Immunity>9.9) Hepatitis B Core Total Antibody Nonreactive (Nonreactive) Glucose (Fingerstick) 183 mg/dL (70-99) 149 mg/dL (70-99) Test 08/28/19 20:56 08/28/19 21:00 08/29/19 05:50 08/29/19 07:26 Glucose (Fingerstick) 102 mg/dL (70-99) 109 mg/dL (70-99) Sodium Level 142 mmol/L (136-145) 144 mmol/L (136-145) Potassium Level 4.3 mmol/L (3.5-5.1) 4.8 mmol/L (3.5-5.1) Chloride Level 104 mmol/L (98-107) 107 mmol/L (98-107) Carbon Dioxide Level 26 mmol/L (21-32) 27 mmol/L (21-32) Anion Gap 12 (6-14) 10 (6-14) Blood Urea Nitrogen 34 mg/dL (7-20) 48 mg/dL (7-20) Creatinine 1.7 mg/dL (0.6-1.0) 2.0 mg/dL (0.6-1.0) Estimated GFR (Cockcroft-Gault) 29.5 24.5 Glucose Level 101 mg/dL (70-99) 40 mg/dL (70-99) Calcium Level 7.5 mg/dL (8.5-10.1) 7.0 mg/dL (8.5-10.1) White Blood Count 11.2 x10^3/uL (4.0-11.0) Red Blood Count 3.45 x10^6/uL (3.50-5.40) Hemoglobin 8.5 g/dL (12.0-15.5) Hematocrit 26.7 % (36.0-47.0) Mean Corpuscular Volume 77 fL (79-100) Mean Corpuscular Hemoglobin 25 pg (25-35) Mean Corpuscular Hemoglobin Concent 32 g/dL (31-37) Red Cell Distribution Width 18.6 % (11.5-14.5) Platelet Count 299 x10^3/uL (140-400) Neutrophils (%) (Auto) 90 % (31-73) Lymphocytes (%) (Auto) 8 % (24-48) Monocytes (%) (Auto) 2 % (0-9) Eosinophils (%) (Auto) 0 % (0-3) Basophils (%) (Auto) 0 % (0-3) Neutrophils # (Auto) 10.1 x10^3/uL (1.8-7.7) Lymphocytes # (Auto) 0.9 x10^3/uL (1.0-4.8) Monocytes # (Auto) 0.2 x10^3/uL (0.0-1.1) Eosinophils # (Auto) 0.0 x10^3/uL (0.0-0.7) Basophils # (Auto) 0.0 x10^3/uL (0.0-0.2) BUN/Creatinine Ratio 24 (6-20) Total Bilirubin 0.4 mg/dL (0.2-1.0) Aspartate Amino Transf (AST/SGOT) 127 U/L (15-37) Alanine Aminotransferase (ALT/SGPT) 71 U/L (14-59) Alkaline Phosphatase 159 U/L (46-116) Total Protein 6.1 g/dL (6.4-8.2) Albumin 2.1 g/dL (3.4-5.0) Albumin/Globulin Ratio 0.5 (1.0-1.7) Medications Active Scripts Medications Dose Route/Sig Max Daily Dose Days Date Category Metoprolol Tartrate 50 Mg Tablet 1 Tab PO BID 08/10/19 Reported Humalog (Insulin Lispro) 100 Unit/1 Ml Cartridge 20 Unit SQ TID 08/06/19 Reported Tramadol Hcl 50 Mg Tablet 50 Mg PO DAILY PRN 08/06/19 Reported Lasix (Furosemide) 40 Mg Tablet 1 Tab PO DAILY 30 08/06/19 Reported Lisinopril 5 Mg Tablet 1 Tab PO DAILY 08/06/19 Reported Meclizine Hcl 25 Mg Tablet 1 Tab PO TID 08/06/19 Reported Pantoprazole Sodium (Pantoprazole Sodium) 40 Mg Tablet.dr 40 Mg PO DAILYAC 08/06/19 Reported Venlafaxine Hcl 37.5 Mg Tablet 1 Tab PO DAILY 08/06/19 Reported Calcium 500 + D Tablet (Calcium Carbonate/Vitamin D3) 1 Each Tablet 1 Tab PO DAILY 30 08/06/19 Reported Aspirin Ec (Aspirin) 81 Mg Tablet.dr 1 Tab PO DAILY 08/06/19 Reported Prednisone 20 Mg Tablet 10 Mg PO DAILY 05/16/17 Reported Tresiba Flextouch U-100 (Insulin Degludec) 100 Unit/1 Ml Insuln.pen 85 Unit SQ DAILY08 05/16/17 Reported Zyrtec (Cetirizine Hcl) 10 Mg Tab.chew 10 Mg PO DAILY 07/01/15 Reported Amitriptyline Hcl 25 Mg Tablet 25 Mg PO HS 07/01/15 Reported Cyclobenzaprine Hcl 10 Mg Tablet 10 Mg PO HS 07/01/15 Reported Klor-Con (Potassium Chloride) 20 Meq Packet Unknown Dose PO DAILY 07/01/15 Reported Enbrel (Etanercept) 50 Mg/1 Ml Disp.syrin 50 Mg SQ WEEKLY 07/01/15 Reported Comments cxr 08/28 b lat infilt Impression . 1. Acute hypoxic respiratory failure, likely secondary to bilateral diffuse interstitial pneumonitis in a patient who is immunocompromised from rheumatoid arthritis and on chronic prednisone./ Enbrel. CT chest with diffuse interstitial infiltrates. She has been ruled out for COVID-19 at [facility]. Differential Dx would include highly likely PCP pneumonia/ acute flare up of RA induced ILD/ COVID pneumonia.less likely 2. 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 3. Low-grade fever, monitor closely. 4. No significant tobacco history. 5. History of rheumatoid arthritis, on chronic prednisone/ Enbrel and immunocompromised status. 6. AVI with severe metabolic acidosis/ likely due to hypotension, off levo now, per nephro 7. Abnormal LFT , likely shock liver Plan . 1. d/w RN/RT, her 2. BIPAP/ alternating with Vapotherm, setting reviewed 3. cont broad-spectrum antibiotic and antifungal. id following ,emperic coverage for PCP added. change steroids to 80 q 8hrs/ improving oxygenation 4. fu Dean culture. 5. DVT prophylaxis with hep sg 6. CT chest reviewed. Diffuse GG interstitial pneumonitis, rapidly worse since her recent ct abd 2 days ago, 7. IVF per nephro 8. IV bicarb prn 9. HD per nephro 6. full code. critically ill, cct 30 min no overlap ELEANOR WING MD Aug 29, 2019 08:34
[2019-08-29] MEDS: CETIRIZINE HCL 10 MG TABLET. PO SCH (09:00)
[2019-08-29] MEDS: DAPSONE 100 MG TABLET PO SCH (09:00)
[2019-08-29] MEDS: VENLAFAXINE XR 37.5 MG CAP.ER.24H. PO SCH (09:00)
[2019-08-29] MEDS: CHOLECALCIFEROL (VITAMIN D3) 1,000 UNIT TABLET PO SCH (09:00)
[2019-08-29] MEDS ORDERED: ENOXAPARIN 30 MG/0.3 ML SYRINGE. SQ SCH (09:00)
[2019-08-29] MEDS: ATOVAQUONE 750 MG/5 ML ORAL.SUSP. PO SCH ×2 (09:00→21:00)
[2019-08-29] MEDS: MECLIZINE HCL 12.5 MG TABLET. PO SCH ×3 (09:00→21:00)
[2019-08-29] MEDS: LACTOBACILLUS RHAMNOSUS GG 1 CAPSULE. PO SCH ×2 (09:00→21:00)
--- NOTE | 2019-08-29 09:39 | PDOC ---
Infectious Disease Note Subjective Subjective No fevers last 24 hrs Hypoglycemia BiPAP FiO2 40% Decrease UO Off Levophed ROS ROS unobtainable d/t patient's condition Vital Sign Vital Signs Vital Signs Date Time Temp Pulse Resp B/P (MAP) Pulse Ox O2 Delivery O2 Flow Rate FiO2 08/29/19 07:45 29 97 BiPAP/CPAP 08/29/19 06:00 75 137/75 (95) 08/29/19 04:00 99.0 99.0 Physical Exam PHYSICAL EXAM GENERAL: Propped up in bed, unresponsive, on Bipap + mitts HEENT: Pupils are status post cataract surgery. NECK: Supple, no JVD. LUNGS: Clear anteriorly HEART: S1, S2. regular ABDOMEN: Obese, soft, no guarding. GENITOURINARY: Benson in place. EXTREMITIES: Without clubbing, cyanosis Her left third toe has a previous amputation site. SKIN: Warm without generalized signs of rash. Coccyx area not seen NEUROLOGIC: Unresponsive RIJ/HDC clean Labs Lab Laboratory Tests Test 08/28/19 10:00 08/28/19 10:30 08/28/19 12:55 08/28/19 20:56 Hepatitis B Surface Antigen Nonreactive (Nonreactive) Hepatitis B Surface Antibody, Quant <3.1 mIU/mL (Immunity>9.9) Hepatitis B Core Total Antibody Nonreactive (Nonreactive) Glucose (Fingerstick) 183 mg/dL (70-99) 149 mg/dL (70-99) 102 mg/dL (70-99) Test 08/28/19 21:00 08/29/19 05:50 08/29/19 07:26 Sodium Level 142 mmol/L (136-145) 144 mmol/L (136-145) Potassium Level 4.3 mmol/L (3.5-5.1) 4.8 mmol/L (3.5-5.1) Chloride Level 104 mmol/L (98-107) 107 mmol/L (98-107) Carbon Dioxide Level 26 mmol/L (21-32) 27 mmol/L (21-32) Anion Gap 12 (6-14) 10 (6-14) Blood Urea Nitrogen 34 mg/dL (7-20) 48 mg/dL (7-20) Creatinine 1.7 mg/dL (0.6-1.0) 2.0 mg/dL (0.6-1.0) Estimated GFR (Cockcroft-Gault) 29.5 24.5 Glucose Level 101 mg/dL (70-99) 40 mg/dL (70-99) Calcium Level 7.5 mg/dL (8.5-10.1) 7.0 mg/dL (8.5-10.1) White Blood Count 11.2 x10^3/uL (4.0-11.0) Red Blood Count 3.45 x10^6/uL (3.50-5.40) Hemoglobin 8.5 g/dL (12.0-15.5) Hematocrit 26.7 % (36.0-47.0) Mean Corpuscular Volume 77 fL (79-100) Mean Corpuscular Hemoglobin 25 pg (25-35) Mean Corpuscular Hemoglobin Concent 32 g/dL (31-37) Red Cell Distribution Width 18.6 % (11.5-14.5) Platelet Count 299 x10^3/uL (140-400) Neutrophils (%) (Auto) 90 % (31-73) Lymphocytes (%) (Auto) 8 % (24-48) Monocytes (%) (Auto) 2 % (0-9) Eosinophils (%) (Auto) 0 % (0-3) Basophils (%) (Auto) 0 % (0-3) Neutrophils # (Auto) 10.1 x10^3/uL (1.8-7.7) Lymphocytes # (Auto) 0.9 x10^3/uL (1.0-4.8) Monocytes # (Auto) 0.2 x10^3/uL (0.0-1.1) Eosinophils # (Auto) 0.0 x10^3/uL (0.0-0.7) Basophils # (Auto) 0.0 x10^3/uL (0.0-0.2) BUN/Creatinine Ratio 24 (6-20) Total Bilirubin 0.4 mg/dL (0.2-1.0) Aspartate Amino Transf (AST/SGOT) 127 U/L (15-37) Alanine Aminotransferase (ALT/SGPT) 71 U/L (14-59) Alkaline Phosphatase 159 U/L (46-116) Total Protein 6.1 g/dL (6.4-8.2) Albumin 2.1 g/dL (3.4-5.0) Albumin/Globulin Ratio 0.5 (1.0-1.7) Glucose (Fingerstick) 109 mg/dL (70-99) Impression: 1. There is new gas in the right neck soft tissues, no convincing pneumothorax identified. There is again airspace opacity of the bilateral hemithoraces, not convincingly changed. Micro Microbiology 08/25/19 Blood Culture - Preliminary, Resulted NO GROWTH AFTER 3 DAYS Objective Assessment Acute Hypoxic resp failure on Bipap 08/26 - COVID neg at [facility] and here 08/26. Rapid progression of infiltrates on CT 08/26.? etiology but differential includes RA/PCP/COVID among others. No peripheral 08/26 or 08/27 Eosinophilia to suggest eosinophilic pneumonia from Dapto. Mycoplasma neg. Speech has evaluated. Steroids increased 08/26 AVI - worse Hypotension - better, off Levophed Leukocytosis - s/p steroids Transaminitis - ? shock liver Constipation - not resolved mild ? colitis on CT 08/25- suppository ordered but not given 08/26 Encephaloapthy - CT head neg 08/26 RA - h/o Enbrel use Fever better - ? RA flare vs possible aspiration with increased Procal and CT with joint effusion and ? pneumonia Left sacral/coccyx wound - clean Afib Severe left hip pain with ? AVN pain is worse since her fall, procal only mild elevation but could reflect renal change - s/p joint aspiration 08/25 - described as milky but only 1720 WBC - had been on abx Abx allergies - sulfa mouth swelling. Clinda and Levoflox - itch DM h/o recurrent UTI Plan Plan of Care Legionella pending Micafungin 08/26 for fungal coverage avoiding Azoles with h/o Afib meropenem Azithromycin 08/26, 03/19 Atovoquone and Dapsone 08/26 to cover potential PJP given limited options- allergic to Bactrim and Clindamycin Had been on Dapto and Zyvox stopped 08/26 Synovial cultures and glucose from 08/25 still pending Consider staring Bactrim desensitization if intubated however there is concern from Pulm standpoint that if she is intubated then it will difficult to get her extubated. D/w family risks 08/26 but she will be getting steroids and be on Ventilator - d/w pharmacy will have to monitor renal function Maintain aspiration precautions Critically ill Daughter Valerie [phone] D/w at bedside Attending Co-Sign The patient was seen and interviewed as well as examined at the bedside. The chart was reviewed. The case was discussed. Agree with the plan of care. SHILPI CHAN APRN Aug 29, 2019 09:39 SUZIE FRITZ MD Aug 29, 2019 11:19
--- NOTE | 2019-08-29 09:56 | PN ---
DATE: 08/29/2019 SUBJECTIVE: The patient is resting, slightly propped up in bed, in no apparent distress. She is on BiPAP machine, maintaining her oxygen saturations at 97% on FiO2 of 35%. She is off Levophed. Unfortunately, she continued to be oliguric despite aggressive fluid treatment. PHYSICAL EXAMINATION: GENERAL: When I examined her, she looked pale. No jaundice, cyanosis or thyromegaly. No jugular venous distention. No lower limb edema. VITAL SIGNS: Her heart rate was 75, blood pressure was 137/75, temperature was 99, respiratory rate was 29, oxygen saturation was 97% on FiO2 of 35% on BiPAP machine. HEAD, EYES, EARS, NOSE AND THROAT: Showed normocephalic, atraumatic. NECK: Supple. HEART: Showed normal first and second heart sounds. No gallop or murmur. CHEST: Shows central trachea, equal bilateral expansion, air entry, vesicular sounds with bilateral basal crepitation. I could not appreciate any rhonchi. ABDOMEN: Distended, soft, nontender. NEUROLOGIC: She is encephalopathic; however, all her cranial nerves are intact. She moves extremities without difficulty. Her intake over the last 24 hours was 5500, output was only 340. LABORATORY DATA: As of this morning, her white cell count is down to 11,200, hemoglobin 8.5, hematocrit 26.7, MCV 77 and platelet count of 299,000. Her chemistry showed a serum sodium 144, potassium 4.8, chloride 107, bicarbonate 27, anion gap of 10, BUN 48, creatinine 2, estimated GFR was 24 mL per minute. Her glucose was 109, calcium was 7. Total bilirubin, AST, ALT, alkaline phosphatase are elevated, but trending down. Total protein 6.1, albumin was 2.1. ASSESSMENT: 1. Acute hypoxic respiratory failure secondary to bilateral diffuse interstitial pneumonitis in a patient with no compromise, on steroids and Enbrel for rheumatoid arthritis. 2. Her COVID-19 test was negative at [facility] and also here. 3. Acute kidney injury with oliguria. Her urine output was only 340 despite aggressive fluid treatment. 4. Hyperkalemia, resolved. Her serum potassium has normalized and it is 4.8 this morning. 5. Deranged liver enzymes and it could be related to shock liver versus fact that she is now on dapsone, atovaquone. I did discontinue her lisinopril as well as potassium and ibuprofen. She did receive treatment with calcium gluconate as well as Kayexalate and lactulose. We did consult the managed care analyst. The patient is already being seen by grommet worker as well as Infectious Disease specialist. So far, all her blood cultures are negative. MAGUE PALAFOX MD DR: ROMULO/samantha JOB#: [id number] / [id number]
--- NOTE | 2019-08-29 10:20 | PDOC ---
PROGRESS NOTES Subjective Subjective On BiPAP, off pressors Objective Objective Vital Signs Date Time Temp Pulse Resp B/P (MAP) Pulse Ox O2 Delivery O2 Flow Rate FiO2 08/29/19 09:31 96 BiPAP/CPAP 08/29/19 07:45 29 08/29/19 06:00 75 137/75 (95) 08/29/19 04:00 99.0 99.0 Intake and Output 08/29/19 07:00 Intake Total 3272 ml Output Total 206 ml Balance 3066 ml IV Total 2772 ml Tube Feeding 500 ml Output Urine Total 206 ml Physical Exam Abdomen: Normal bowel sounds Heart: Regular rate General: mild distress HEENT: Atraumatic Lungs: Clear to auscultation MUSCULOSKELETAL: No joint tenderness, No deformity Assessment Assessment 1. Mechanical fall with left hip pain/possible AVN 2. Left sacral/coccyx wound: ID following 3. Acute respiratory failure with pneumonia: was covid neg x2 from prior testing, awaiting repeat with significant respiratory changes. Per pulmonary 4. Arrhythmia; SR.noted previously with WAP/MAT. No significnat arrhythmia so far 5. Poorly controlled DM2 6. Hypertension; needing levophed 7. Chronic immunosuppression for RA: enbrel and steroids 8. AVI with hyperkalemia: worsening Cr 9. Transaminitis Recommendations 1. Multiorgan failure, Covid pending. on Bipap. Currently off Levophed 2. Hold BB for now. Stop K and ACEi. Hold lasix. Likely ATN, oliguric despite volume repletion. Potassium replaced Comment Review of Relevant I have reviewed the following items jasper (where applicable) has been applied. Labs Laboratory Tests Test 08/28/19 10:30 08/28/19 12:55 08/28/19 20:56 08/28/19 21:00 Glucose (Fingerstick) 183 mg/dL (70-99) 149 mg/dL (70-99) 102 mg/dL (70-99) Sodium Level 142 mmol/L (136-145) Potassium Level 4.3 mmol/L (3.5-5.1) Chloride Level 104 mmol/L (98-107) Carbon Dioxide Level 26 mmol/L (21-32) Anion Gap 12 (6-14) Blood Urea Nitrogen 34 mg/dL (7-20) Creatinine 1.7 mg/dL (0.6-1.0) Estimated GFR (Cockcroft-Gault) 29.5 Glucose Level 101 mg/dL (70-99) Calcium Level 7.5 mg/dL (8.5-10.1) Test 08/29/19 05:50 08/29/19 07:26 White Blood Count 11.2 x10^3/uL (4.0-11.0) Red Blood Count 3.45 x10^6/uL (3.50-5.40) Hemoglobin 8.5 g/dL (12.0-15.5) Hematocrit 26.7 % (36.0-47.0) Mean Corpuscular Volume 77 fL (79-100) Mean Corpuscular Hemoglobin 25 pg (25-35) Mean Corpuscular Hemoglobin Concent 32 g/dL (31-37) Red Cell Distribution Width 18.6 % (11.5-14.5) Platelet Count 299 x10^3/uL (140-400) Neutrophils (%) (Auto) 90 % (31-73) Lymphocytes (%) (Auto) 8 % (24-48) Monocytes (%) (Auto) 2 % (0-9) Eosinophils (%) (Auto) 0 % (0-3) Basophils (%) (Auto) 0 % (0-3) Neutrophils # (Auto) 10.1 x10^3/uL (1.8-7.7) Lymphocytes # (Auto) 0.9 x10^3/uL (1.0-4.8) Monocytes # (Auto) 0.2 x10^3/uL (0.0-1.1) Eosinophils # (Auto) 0.0 x10^3/uL (0.0-0.7) Basophils # (Auto) 0.0 x10^3/uL (0.0-0.2) Sodium Level 144 mmol/L (136-145) Potassium Level 4.8 mmol/L (3.5-5.1) Chloride Level 107 mmol/L (98-107) Carbon Dioxide Level 27 mmol/L (21-32) Anion Gap 10 (6-14) Blood Urea Nitrogen 48 mg/dL (7-20) Creatinine 2.0 mg/dL (0.6-1.0) Estimated GFR (Cockcroft-Gault) 24.5 BUN/Creatinine Ratio 24 (6-20) Glucose Level 40 mg/dL (70-99) Calcium Level 7.0 mg/dL (8.5-10.1) Total Bilirubin 0.4 mg/dL (0.2-1.0) Aspartate Amino Transf (AST/SGOT) 127 U/L (15-37) Alanine Aminotransferase (ALT/SGPT) 71 U/L (14-59) Alkaline Phosphatase 159 U/L (46-116) Total Protein 6.1 g/dL (6.4-8.2) Albumin 2.1 g/dL (3.4-5.0) Albumin/Globulin Ratio 0.5 (1.0-1.7) Glucose (Fingerstick) 109 mg/dL (70-99) Microbiology 08/25/19 Blood Culture - Preliminary, Resulted NO GROWTH AFTER 3 DAYS Medications Current Medications Albumin Human 200 ml @ 200 mls/hr 1X PRN PRN IV Hypotension; Start 08/28/19 at 17:15; Stop 08/28/19 at 23:14; Status DC Albumin Human 500 ml @ 125 mls/hr 1X ONCE IV Last administered on 08/28/19at 11:31; Start 08/28/19 at 11:00; Stop 08/28/19 at 14:59; Status DC Diphenhydramine HCl (Benadryl) 25 mg 1X PRN PRN IV ITCHING; Start 08/28/19 at 17:15; Stop 08/29/19 at 17:14 Diphenhydramine HCl (Benadryl) 25 mg 1X PRN PRN IV ITCHING; Start 08/28/19 at 17:15; Stop 08/29/19 at 17:14 Enoxaparin Sodium (Lovenox 30mg Syringe) 30 mg Q24H SQ Last administered on 08/29/19at 10:11; Start 08/29/19 at 09:00; Stop 08/29/19 at 12:00 Heparin Sodium (Porcine) (Heparin Sodium) 5,000 unit Q8HRS SQ ; Start 08/30/19 at 06:00 Info (PHARMACY MONITORING -- do not chart) 1 each PRN DAILY PRN MC SEE COMMENTS; Start 08/28/19 at 17:15 Lidocaine HCl (Buffered Lidocaine 1%) 3 ml STK-MED ONCE .ROUTE ; Start 08/28/19 at 11:55; Stop 08/28/19 at 11:56; Status DC Lidocaine HCl (Buffered Lidocaine 1%) 6 ml 1X ONCE INJ Last administered on 08/28/19at 12:28; Start 08/28/19 at 12:30; Stop 08/28/19 at 12:31; Status DC Methylprednisolone Sodium Succinate (SOLU-Medrol 125MG VIAL) 80 mg Q8HRS IV ; Start 08/29/19 at 14:00 Sodium Chloride 1,000 ml @ 400 mls/hr Q2H30M PRN IV PATENCY; Start 08/28/19 at 17:01; Stop 08/29/19 at 05:00; Status DC Sodium Chloride 1,000 ml @ 1,000 mls/hr Q1H PRN IV hypotension; Start 08/28/19 at 17:01; Stop 08/28/19 at 23:00; Status DC Vitals/I & O Vital Sign - Last 24 Hours 08/28/19 08/28/19 08/28/19 08/28/19 11:00 11:12 11:51 12:00 Temp 97.6 97.6 Pulse 81 Resp 35 B/P (MAP) 145/77 (99) Pulse Ox 98 97 O2 Delivery BiPAP/CPAP BiPAP/CPAP Bi-pap 08/28/19 08/28/19 08/28/19 08/28/19 12:00 13:00 14:00 14:55 Pulse 82 82 80 Resp 35 36 36 B/P (MAP) 135/79 (97) 143/88 (106) 152/71 (98) Pulse Ox 97 97 98 98 O2 Delivery BiPAP/CPAP BiPAP/CPAP BiPAP/CPAP BiPAP/CPAP 08/28/19 08/28/19 08/28/19 08/28/19 15:07 16:00 16:00 17:00 Temp 98.6 98.6 Pulse 80 75 73 Resp 36 24 30 B/P (MAP) 152/80 (104) 144/71 (95) 132/65 (87) Pulse Ox 99 95 96 O2 Delivery BiPAP/CPAP Bi-pap BiPAP/CPAP BiPAP/CPAP 08/28/19 08/28/19 08/28/19 08/28/19 18:00 19:00 20:00 20:00 Temp 99.2 99.2 Pulse 83 84 82 Resp 33 34 33 B/P (MAP) 157/72 (100) 164/68 (100) 155/79 (104) Pulse Ox 95 95 94 O2 Delivery BiPAP/CPAP BiPAP/CPAP BiPAP/CPAP Bi-pap 08/28/19 08/28/19 08/28/19 08/28/19 20:21 21:00 22:00 22:02 Pulse 81 96 Resp 29 35 33 B/P (MAP) 157/81 (106) 127/61 (83) Pulse Ox 94 95 100 95 O2 Delivery BiPAP/CPAP BiPAP/CPAP BiPAP/CPAP BiPAP/CPAP 08/28/19 08/28/19 08/29/19 08/29/19 22:32 23:00 00:00 00:00 Temp 99.0 99.0 Pulse 82 76 Resp 36 36 33 B/P (MAP) 157/67 (97) 142/75 (97) Pulse Ox 100 98 98 O2 Delivery BiPAP/CPAP BiPAP/CPAP BiPAP/CPAP Bi-pap 08/29/19 08/29/19 08/29/19 08/29/19 00:10 01:00 02:00 03:00 Pulse 73 75 74 Resp 26 32 26 B/P (MAP) 140/70 (93) 118/82 (94) 133/68 (89) Pulse Ox 98 98 98 100 O2 Delivery BiPAP/CPAP BiPAP/CPAP BiPAP/CPAP BiPAP/CPAP 08/29/19 08/29/19 08/29/19 08/29/19 04:00 04:00 04:13 05:00 Temp 99.0 99.0 Pulse 74 73 Resp 28 27 B/P (MAP) 136/67 (90) 140/67 (91) Pulse Ox 100 96 100 O2 Delivery BiPAP/CPAP Bi-pap BiPAP/CPAP BiPAP/CPAP 08/29/19 08/29/19 08/29/19 06:00 07:45 09:31 Pulse 75 Resp 37 29 B/P (MAP) 137/75 (95) Pulse Ox 100 97 96 O2 Delivery BiPAP/CPAP BiPAP/CPAP BiPAP/CPAP Intake and Output 08/28/19 08/28/19 08/29/19 15:00 23:00 07:00 Intake Total 650 ml 1382 ml 1240 ml Output Total 65 ml 121 ml 20 ml Balance 585 ml 1261 ml 1220 ml MICKI HAILE MD Aug 29, 2019 10:19
[2019-08-29 10:38] LABS: % BANDS 6 % (0-9); % LYMPHS 7 % (24-48); % MONOS 2 % (0-10); % SEGS 85 % (35-66); ANISOCYTOSIS SLIGHT; HYPOCHROMIA SLIGHT; PLT ESTIMATE ADEQUATE (ADEQUATE)
[2019-08-29] MEDS: MICAFUNGIN 100 MG in IV DEXTROSE 5% 100ML 100 ML IV SCH (11:04)
[2019-08-29] MEDS ORDERED: IV NORMAL SALINE 1000ML BAG 1,000 ML IV PRN ×2 (12:22)
[2019-08-29] MEDS ORDERED: 0.9 % SODIUM CHLORIDE 10 ML DISP.SYRIN. IV PRN ×2 (12:30)
[2019-08-29] MEDS ORDERED: DIALYSIS PATIENT. MC PRN (12:30)
[2019-08-29] MEDS ORDERED: ACETAMINOPHEN 500 MG TABLET PO PRN (12:30)
[2019-08-29] MEDS ORDERED: diphenhydrAMINE 50 MG/ML VIAL IV PRN ×2 (12:30)
[2019-08-29] MEDS ORDERED: ALBUMIN HUMAN 25% 200 ML IV PRN (12:30)
--- NOTE | 2019-08-29 12:38 | PDOC ---
SUBJECTIVE ROS Stable , On Bipap OBJECTIVE Vital Signs Vital Signs Date Time Temp Pulse Resp B/P (MAP) Pulse Ox O2 Delivery O2 Flow Rate FiO2 08/29/19 12:30 93 BiPAP/CPAP 08/29/19 10:50 27 08/29/19 06:00 75 137/75 (95) 08/29/19 04:00 99.0 99.0 I & 0 Intake and Output 08/29/19 07:00 Intake Total 3272 ml Output Total 206 ml Balance 3066 ml IV Total 2772 ml Tube Feeding 500 ml Output Urine Total 206 ml PHYSICAL EXAM Physical Exam GEN : on Bipap HEENT: On Bipap NECK: Supple, LUNGS: decreased at bases HEART: S1, S2. ABDOMEN: Obese, soft, .Dobhoff - in place GENITOURINARY: Benson in place. EXTREMITIES: edema, left third toe amputation site . SKIN: No rash. NEUROLOGIC: on bipap DIAGNOSIS/ASSESSMENT Assessment & Plan AVI - suspect ATN sec to Hypotension/Worsening Resp status /InterstitialPneumonitis decline in UOP,Oliguric currently, Initiated on HD 08/27, Dialysis today as David gil Baseline Cr on 08/20- 1.2 with good uop at presentation Hyperkalemia - Resolved post HD Metabolic acidosis- Resolved CKD stage 3- Baseline Cr since 2017-1.2-1.3 Acute Hypoxic resp failure on Bipap 08/26 - COVID neg at [facility] previously- rapid progression of infiltrates on CT 08/26. likely secondary to bilateral diffuse interstitial pneumonitis in a patient who is immunocompromised from rheumatoid arthritis and Hypotension - was on levophed Transaminitis - ? shock liver Encephaloapthy - CT head neg 08/26 Afib Severe L hip pain with ? AVN pain is worse since her fall s/p joint aspiration 08/25 - - had been on abx Hx of Urinary retention at last hospitalization with AVI DM- poorly controlled HTN- currently hypotensive , on pressors Hx of recurrent UTI RA - On steroids and Enbrel at home COVid Negative x 2, Repeat Pending ( 2/2 worsening resp status) COMMENT/RELEVANT DATA Meds Current Medications Medications (Trade) Dose Ordered Sig/Manish Start Time Stop Time Status Last Admin Dose Admin Acetaminophen (Tylenol) 500 mg 1X PRN PRN 08/29/19 12:30 08/30/19 12:29 Acetaminophen/ Hydrocodone Bitart (Lortab 5/325) 1 tab PRN Q4HRS PRN 08/21/19 04:15 08/27/19 11:51 1 TAB Albumin Human 200 ml @ 200 mls/hr 1X PRN PRN 08/29/19 12:30 08/29/19 18:29 Albuterol Sulfate (Ventolin Neb Soln) 2.5 mg PRN QID PRN 08/20/19 17:45 08/27/19 06:28 2.5 MG Amitriptyline HCl (Elavil) 25 mg QHS 08/20/19 21:00 08/26/19 08:39 DC 08/25/19 21:00 25 MG Aspirin (Ecotrin) 81 mg DAILYWBKFT 08/21/19 08:00 08/28/19 08:20 DC 08/27/19 08:57 81 MG Atovaquone (Mepron) 750 mg BID 08/27/19 14:00 08/28/19 09:00 750 MG Atropine Sulfate (ATROPINE 0.5mg SYRINGE) 0.5 mg PRN Q5MIN PRN 08/27/19 14:00 Azithromycin 250 ml @ 250 mls/hr 1X ONCE 08/27/19 10:15 08/27/19 11:14 DC 08/27/19 11:35 250 MLS/HR Bisacodyl (Dulcolax Supp) 10 mg PRN DAILY PRN 08/27/19 10:30 08/28/19 18:23 10 MG Calcium Gluconate (Calcium Gluconate) 1,000 mg 1X ONCE 08/28/19 06:30 08/28/19 06:31 DC 08/28/19 06:46 1,000 MG Calcium Gluconate 1000 mg/Sodium Chloride 110 ml @ 220 mls/hr 1X ONCE 08/28/19 09:30 08/28/19 09:59 DC 08/28/19 09:52 220 MLS/HR Calcium/Vitamin D (Oscal D 500mg/ 200uts) 1 tab DAILYWBKFT 08/21/19 08:00 08/28/19 09:51 1 TAB Cefepime HCl (Maxipime) 1 gm Q12HR 08/20/19 21:00 08/22/19 08:11 DC 08/21/19 20:43 1 GM Cetirizine HCl (ZyrTEC) 10 mg DAILY 08/21/19 12:00 Cancel Cyclobenzaprine HCl (Flexeril) 10 mg PRN TID PRN 08/20/19 17:45 08/27/19 05:59 10 MG Dapsone (Aczone) 100 mg DAILY 08/27/19 14:00 08/28/19 09:51 100 MG Daptomycin 450 mg/ Sodium Chloride 50 ml @ 100 mls/hr Q24H 08/26/19 09:00 08/27/19 12:36 DC 08/27/19 08:58 100 MLS/HR Dexmedetomidine HCl 400 mcg/ Sodium Chloride 100 ml @ 0 mls/hr CONT PRN 08/27/19 14:00 08/29/19 10:05 22 MLS/HR Dextrose (Dextrose 50%-Water Syringe) 25 gm 1X ONCE 08/28/19 06:30 08/28/19 06:31 DC 08/28/19 06:46 25 GM Diclofenac Sodium (Voltaren) 1 gage QID 08/20/19 21:00 08/28/19 09:22 DC 08/27/19 21:53 1 GAGE Diphenhydramine HCl (Benadryl) 25 mg 1X PRN PRN 08/29/19 12:30 08/30/19 12:29 Enoxaparin Sodium (Lovenox 30mg Syringe) 30 mg Q24H 08/29/19 09:00 08/29/19 12:00 DC 08/29/19 10:11 30 MG Enoxaparin Sodium (Lovenox 40mg Syringe) 40 mg Q24H 08/21/19 09:00 08/28/19 17:19 DC 08/28/19 09:52 40 MG Fentanyl Citrate (Fentanyl 2ml Vial) 50 mcg PRN Q3HRS PRN 08/21/19 11:30 08/29/19 10:50 50 MCG Furosemide (Lasix) 40 mg PRN DAILY PRN 08/28/19 09:30 Guaifenesin (Robitussin Dm) 5 ml PRN Q4HRS PRN 08/26/19 21:00 08/27/19 07:11 5 ML Heparin Sodium (Porcine) (Heparin Sodium) 5,000 unit Q8HRS 08/30/19 06:00 Ibuprofen (Motrin) 400 mg PRN QHS PRN 08/20/19 17:45 08/28/19 09:22 DC 08/25/19 19:20 400 MG Info (PHARMACY MONITORING -- do not chart) 1 each PRN DAILY PRN 08/29/19 12:30 08/29/19 12:33 DC Insulin Glargine (Lantus Syringe) 98 unit QHS 08/20/19 21:00 Cancel Insulin Human Lispro (HumaLOG) 20 units TIDWMEALS 08/20/19 19:00 08/27/19 12:40 20 UNITS Insulin Human Regular (HumuLIN R VIAL) 10 unit 1X ONCE 08/28/19 06:30 08/28/19 06:31 DC 08/28/19 08:32 10 UNIT Iohexol (Omnipaque 300 Mg/ml) 10 ml 1X ONCE 08/26/19 10:00 08/26/19 10:03 DC 08/26/19 10:35 10 ML Lactobacillus Rhamnosus (Culturelle) 1 cap BID 08/20/19 21:00 08/28/19 09:51 1 CAP Lactulose (Lactulose) 20 gm PRN DAILY PRN 08/28/19 09:30 Lidocaine HCl (Buffered Lidocaine 1%) 6 ml 1X ONCE 08/28/19 12:30 08/28/19 12:31 DC 08/28/19 12:28 6 ML Linezolid (Zyvox) 600 mg BID 08/26/19 09:00 08/27/19 12:36 DC 08/27/19 08:59 600 MG Lisinopril (Prinivil) 5 mg DAILY 08/21/19 12:00 08/28/19 09:22 DC 08/27/19 08:59 5 MG Meclizine HCl (Antivert) 25 mg TID 08/21/19 14:00 08/28/19 09:50 25 MG Meropenem 500 mg/ Sodium Chloride 50 ml @ 100 mls/hr Q6HRS 08/22/19 12:00 08/29/19 12:22 100 MLS/HR Methylprednisolone Sodium Succinate (SOLU-Medrol 125MG VIAL) 80 mg Q8HRS 08/29/19 14:00 Metoprolol Tartrate (Lopressor) 50 mg BID 08/21/19 12:00 08/28/19 09:22 DC 08/27/19 21:51 50 MG Micafungin Sodium 100 mg/Dextrose 100 ml @ 100 mls/hr Q24H 08/27/19 11:00 08/29/19 11:04 100 MLS/HR Non-Formulary Medication (Calcium Carbonate/Vitamin D3 (Calcium 500 + D Tablet)) 1 tab DAILY 08/22/19 09:00 UNV Non-Formulary Medication (Cetirizine Hcl (Zyrtec)) 10 mg DAILY 08/21/19 12:00 08/21/19 11:32 DC Non-Formulary Medication (Etanercept (Enbrel)) 50 mg WEEKLY 08/28/19 09:00 UNV Non-Formulary Medication (Insulin Lispro (Humalog)) 20 unit TID 08/21/19 14:00 UNV Non-Formulary Medication (Venlafaxine Hcl ) 1 tab DAILY 08/22/19 09:00 UNV Norepinephrine Bitartrate 8 mg/ Dextrose 258 ml @ 17.028 mls/ hr CONT PRN 08/27/19 15:00 08/28/19 05:05 136.224 MLS/HR Olanzapine (ZyPREXA) 2.5 mg PRN Q4HRS PRN 08/23/19 10:45 08/26/19 08:39 DC 08/25/19 19:18 2.5 MG Pantoprazole Sodium (PROTONIX VIAL for IV PUSH) 40 mg DAILYAC 08/28/19 08:30 08/29/19 08:26 40 MG Pantoprazole Sodium (Protonix) 40 mg DAILYAC 08/21/19 11:30 08/21/19 11:26 DC Potassium Chloride (Klor-Con) 20 meq DAILYWBKFT 08/21/19 12:00 08/28/19 09:22 DC 08/27/19 08:57 20 MEQ Prednisone (Prednisone) 20 mg 1X ONCE 08/26/19 11:30 08/26/19 11:31 DC 08/26/19 11:39 20 MG Sodium Polystyrene Sulfonate (Kayexalate) 30 gm 1X ONCE 08/28/19 09:30 08/28/19 09:31 DC Sodium Bicarbonate (Sodium Bicarb Adult 8.4% Syr) 100 meq 1X ONCE 08/28/19 09:00 08/28/19 09:01 DC 08/28/19 09:01 100 MEQ Sodium Chloride 1,000 ml @ 400 mls/hr Q2H30M PRN 08/29/19 12:22 08/30/19 00:21 Sodium Chloride (Normal Saline Flush) 10 ml 1X PRN PRN 08/29/19 12:30 08/30/19 12:29 Tramadol HCl (Ultram) 50 mg PRN Q8HRS PRN 08/20/19 17:45 08/22/19 09:44 DC 08/21/19 03:15 50 MG Trimethoprim/ Sulfamethoxazole 31.25 ml/Dextrose 531.25 ml @ 354.167 mls/hr Q8HRS 08/27/19 14:00 Cancel Vancomycin HCl (Vanco Per Pharmacy) 1 each PRN DAILY PRN 08/20/19 17:45 08/23/19 07:26 DC 08/22/19 13:23 1 EACH Vancomycin HCl 1 gm/Sodium Chloride 250 ml @ 250 mls/hr Q18H 08/21/19 05:30 08/23/19 07:26 DC 08/22/19 19:21 250 MLS/HR Venlafaxine HCl (Effexor Xr) 37.5 mg DAILY 08/21/19 09:00 08/28/19 09:51 37.5 MG Vitamin D (Vitamin D3) 1,000 unit DAILY 08/21/19 09:00 08/28/19 09:50 1,000 UNIT Lab Laboratory Tests Test 08/28/19 12:55 08/28/19 20:56 08/28/19 21:00 08/29/19 05:50 Glucose (Fingerstick) 149 mg/dL (70-99) 102 mg/dL (70-99) Sodium Level 142 mmol/L (136-145) 144 mmol/L (136-145) Potassium Level 4.3 mmol/L (3.5-5.1) 4.8 mmol/L (3.5-5.1) Chloride Level 104 mmol/L (98-107) 107 mmol/L (98-107) Carbon Dioxide Level 26 mmol/L (21-32) 27 mmol/L (21-32) Anion Gap 12 (6-14) 10 (6-14) Blood Urea Nitrogen 34 mg/dL (7-20) 48 mg/dL (7-20) Creatinine 1.7 mg/dL (0.6-1.0) 2.0 mg/dL (0.6-1.0) Estimated GFR (Cockcroft-Gault) 29.5 24.5 Glucose Level 101 mg/dL (70-99) 40 mg/dL (70-99) Calcium Level 7.5 mg/dL (8.5-10.1) 7.0 mg/dL (8.5-10.1) White Blood Count 11.2 x10^3/uL (4.0-11.0) Red Blood Count 3.45 x10^6/uL (3.50-5.40) Hemoglobin 8.5 g/dL (12.0-15.5) Hematocrit 26.7 % (36.0-47.0) Mean Corpuscular Volume 77 fL (79-100) Mean Corpuscular Hemoglobin 25 pg (25-35) Mean Corpuscular Hemoglobin Concent 32 g/dL (31-37) Red Cell Distribution Width 18.6 % (11.5-14.5) Platelet Count 299 x10^3/uL (140-400) Neutrophils (%) (Auto) 90 % (31-73) Lymphocytes (%) (Auto) 8 % (24-48) Monocytes (%) (Auto) 2 % (0-9) Eosinophils (%) (Auto) 0 % (0-3) Basophils (%) (Auto) 0 % (0-3) Neutrophils # (Auto) 10.1 x10^3/uL (1.8-7.7) Lymphocytes # (Auto) 0.9 x10^3/uL (1.0-4.8) Monocytes # (Auto) 0.2 x10^3/uL (0.0-1.1) Eosinophils # (Auto) 0.0 x10^3/uL (0.0-0.7) Basophils # (Auto) 0.0 x10^3/uL (0.0-0.2) Segmented Neutrophils % 85 % (35-66) Band Neutrophils % 6 % (0-9) Lymphocytes % 7 % (24-48) Monocytes % 2 % (0-10) Platelet Estimate Adequate (ADEQUATE) Large Platelets Few Hypochromasia Slight Anisocytosis Slight BUN/Creatinine Ratio 24 (6-20) Total Bilirubin 0.4 mg/dL (0.2-1.0) Aspartate Amino Transf (AST/SGOT) 127 U/L (15-37) Alanine Aminotransferase (ALT/SGPT) 71 U/L (14-59) Alkaline Phosphatase 159 U/L (46-116) Total Protein 6.1 g/dL (6.4-8.2) Albumin 2.1 g/dL (3.4-5.0) Albumin/Globulin Ratio 0.5 (1.0-1.7) Test 08/29/19 07:26 Glucose (Fingerstick) 109 mg/dL (70-99) Results All relevant outside records, renal labs, imaging studies, telemetry/EKG's were reviewed. Justicifation of Admission Dx: Justifications for Admission: Justification of Admission Dx: Yes CHF: Cardiac Arrhythmias SHRUTI KILGORE MD Aug 29, 2019 12:38
[2019-08-29] MEDS: HYDROmorphone 2 MG/ML VIAL IV PRN (14:22)
[2019-08-29] MEDS: IV DEXTROSE 10% 1,000 ML IV SCH (15:09)
[2019-08-30] VITALS (20 sets, daily range): BP systolic 99–171; BP diastolic 57–88
[2019-08-30] MEDS: MEROPENEM 500 MG in IV NORMAL SALINE 50ML 50 ML IV SCH ×5 (00:42→23:42)
[2019-08-30] MEDS: HYDROmorphone 2 MG/ML VIAL IV PRN ×4 (00:53→20:13)
[2019-08-30] MEDS: DEXTROSE 50% 25 GM / 50ML DISP.SYRIN. IV PRN (04:14)
[2019-08-30] MEDS: DEXMEDETOMIDINE 400 MCG in IV NORMAL SALINE 100ML 96 ML IV PRN ×4 (04:24→19:55)
[2019-08-30 04:31] LABS: HEMATOCRIT 26.9 % (36.0-47.0); HEMOGLOBIN 8.5 g/dL (12.0-15.5); RED BLOOD COUNT 3.39 x10^6/uL (3.50-5.40); RED CELL DISTRIBUTION WIDTH 19.1 % (11.5-14.5); WHITE BLOOD COUNT 12.1 x10^3/uL (4.0-11.0)
[2019-08-30 04:47] LABS: ALBUMIN 2.4 g/dL (3.4-5.0); ALBUMIN/GLOBULIN RATIO 0.6 (1.0-1.7); CALCIUM 7.3 mg/dL (8.5-10.1); CREATININE 1.5 mg/dL (0.6-1.0); GFR 34.1; POTASSIUM 4.4 mmol/L (3.5-5.1); TOTAL BILIRUBIN 0.4 mg/dL (0.2-1.0); TOTAL PROTEIN 6.6 g/dL (6.4-8.2)
[2019-08-30] MEDS: methylPREDNISolone SOD SUCC PF 125 MG/2 ML VIAL. IV SCH (06:02)
[2019-08-30] MEDS: HEPARIN for SUB-Q USE 5,000 UNIT/ML VIAL. SQ SCH ×3 (06:04→22:19)
--- NOTE | 2019-08-30 06:55 | PDOC ---
PULMONARY PROGRESS NOTES Subjective remains on BIPAP/ fio2 50%, a bit more alert, responds appropriately at times, hd 08/28 Vitals Vital Signs Date Time Temp Pulse Resp B/P (MAP) Pulse Ox O2 Delivery O2 Flow Rate FiO2 08/30/19 06:00 74 20 151/81 (104) 94 BiPAP/CPAP 08/30/19 04:00 97.9 97.9 08/29/19 16:00 6.0 Comments ros unable to obtain on bipap lethargic General: Lethargic, Mild Distress HEENT: Other (nc at perrl bipap mask on neck no lad) Lungs: Crackles Cardiovascular: S1, S2 Abdomen: Soft, Non-tender Extremities: Other (edema) Skin: Warm Labs Laboratory Tests Test 08/28/19 08:48 08/28/19 10:00 08/28/19 10:30 08/28/19 12:55 O2 Saturation 94 % (92-99) Arterial Blood pH 7.35 (7.35-7.45) Arterial Blood pH (Temp corrected) 7.36 Arterial Blood pCO2 at Patient Temp 22 mmHg (35-46) Arterial Blood pCO2 (Temp correct) 21 mmHg Arterial Blood pO2 at Patient Temp 82 mmHg (65-108) Arterial Blood pO2 (Temp corrected) 77 mmHg Arterial Blood HCO3 12 mmol/L (21-28) Arterial Blood Base Excess -12 mmol/L (-3-3) FiO2 50 Hepatitis B Surface Antigen Nonreactive (Nonreactive) Hepatitis B Surface Antibody, Quant <3.1 mIU/mL (Immunity>9.9) Hepatitis B Core Total Antibody Nonreactive (Nonreactive) Glucose (Fingerstick) 183 mg/dL (70-99) 149 mg/dL (70-99) Test 08/28/19 20:56 08/28/19 21:00 08/29/19 05:50 08/29/19 07:26 Glucose (Fingerstick) 102 mg/dL (70-99) 109 mg/dL (70-99) Sodium Level 142 mmol/L (136-145) 144 mmol/L (136-145) Potassium Level 4.3 mmol/L (3.5-5.1) 4.8 mmol/L (3.5-5.1) Chloride Level 104 mmol/L (98-107) 107 mmol/L (98-107) Carbon Dioxide Level 26 mmol/L (21-32) 27 mmol/L (21-32) Anion Gap 12 (6-14) 10 (6-14) Blood Urea Nitrogen 34 mg/dL (7-20) 48 mg/dL (7-20) Creatinine 1.7 mg/dL (0.6-1.0) 2.0 mg/dL (0.6-1.0) Estimated GFR (Cockcroft-Gault) 29.5 24.5 Glucose Level 101 mg/dL (70-99) 40 mg/dL (70-99) Calcium Level 7.5 mg/dL (8.5-10.1) 7.0 mg/dL (8.5-10.1) White Blood Count 11.2 x10^3/uL (4.0-11.0) Red Blood Count 3.45 x10^6/uL (3.50-5.40) Hemoglobin 8.5 g/dL (12.0-15.5) Hematocrit 26.7 % (36.0-47.0) Mean Corpuscular Volume 77 fL (79-100) Mean Corpuscular Hemoglobin 25 pg (25-35) Mean Corpuscular Hemoglobin Concent 32 g/dL (31-37) Red Cell Distribution Width 18.6 % (11.5-14.5) Platelet Count 299 x10^3/uL (140-400) Neutrophils (%) (Auto) 90 % (31-73) Lymphocytes (%) (Auto) 8 % (24-48) Monocytes (%) (Auto) 2 % (0-9) Eosinophils (%) (Auto) 0 % (0-3) Basophils (%) (Auto) 0 % (0-3) Neutrophils # (Auto) 10.1 x10^3/uL (1.8-7.7) Lymphocytes # (Auto) 0.9 x10^3/uL (1.0-4.8) Monocytes # (Auto) 0.2 x10^3/uL (0.0-1.1) Eosinophils # (Auto) 0.0 x10^3/uL (0.0-0.7) Basophils # (Auto) 0.0 x10^3/uL (0.0-0.2) Segmented Neutrophils % 85 % (35-66) Band Neutrophils % 6 % (0-9) Lymphocytes % 7 % (24-48) Monocytes % 2 % (0-10) Platelet Estimate Adequate (ADEQUATE) Large Platelets Few Hypochromasia Slight Anisocytosis Slight BUN/Creatinine Ratio 24 (6-20) Total Bilirubin 0.4 mg/dL (0.2-1.0) Aspartate Amino Transf (AST/SGOT) 127 U/L (15-37) Alanine Aminotransferase (ALT/SGPT) 71 U/L (14-59) Alkaline Phosphatase 159 U/L (46-116) Total Protein 6.1 g/dL (6.4-8.2) Albumin 2.1 g/dL (3.4-5.0) Albumin/Globulin Ratio 0.5 (1.0-1.7) Test 08/29/19 12:42 08/29/19 13:16 08/29/19 15:07 08/29/19 16:13 Glucose (Fingerstick) 34 mg/dL (70-99) 78 mg/dL (70-99) 20 mg/dL (70-99) 50 mg/dL (70-99) Test 08/29/19 16:58 08/29/19 21:22 08/30/19 04:10 08/30/19 04:20 Glucose (Fingerstick) 97 mg/dL (70-99) 80 mg/dL (70-99) 64 mg/dL (70-99) White Blood Count 12.1 x10^3/uL (4.0-11.0) Red Blood Count 3.39 x10^6/uL (3.50-5.40) Hemoglobin 8.5 g/dL (12.0-15.5) Hematocrit 26.9 % (36.0-47.0) Mean Corpuscular Volume 80 fL (79-100) Mean Corpuscular Hemoglobin 25 pg (25-35) Mean Corpuscular Hemoglobin Concent 32 g/dL (31-37) Red Cell Distribution Width 19.1 % (11.5-14.5) Platelet Count 176 x10^3/uL (140-400) Sodium Level 140 mmol/L (136-145) Potassium Level 4.4 mmol/L (3.5-5.1) Chloride Level 105 mmol/L (98-107) Carbon Dioxide Level 26 mmol/L (21-32) Anion Gap 9 (6-14) Blood Urea Nitrogen 36 mg/dL (7-20) Creatinine 1.5 mg/dL (0.6-1.0) Estimated GFR (Cockcroft-Gault) 34.1 BUN/Creatinine Ratio 24 (6-20) Glucose Level 64 mg/dL (70-99) Calcium Level 7.3 mg/dL (8.5-10.1) Total Bilirubin 0.4 mg/dL (0.2-1.0) Aspartate Amino Transf (AST/SGOT) 290 U/L (15-37) Alanine Aminotransferase (ALT/SGPT) 124 U/L (14-59) Alkaline Phosphatase 150 U/L (46-116) Total Protein 6.6 g/dL (6.4-8.2) Albumin 2.4 g/dL (3.4-5.0) Albumin/Globulin Ratio 0.6 (1.0-1.7) Test 08/30/19 04:26 Glucose (Fingerstick) 76 mg/dL (70-99) Laboratory Tests Test 08/29/19 07:26 08/29/19 12:42 08/29/19 13:16 08/29/19 15:07 Glucose (Fingerstick) 109 mg/dL (70-99) 34 mg/dL (70-99) 78 mg/dL (70-99) 20 mg/dL (70-99) Test 08/29/19 16:13 08/29/19 16:58 08/29/19 21:22 08/30/19 04:10 Glucose (Fingerstick) 50 mg/dL (70-99) 97 mg/dL (70-99) 80 mg/dL (70-99) 64 mg/dL (70-99) Test 08/30/19 04:20 08/30/19 04:26 White Blood Count 12.1 x10^3/uL (4.0-11.0) Red Blood Count 3.39 x10^6/uL (3.50-5.40) Hemoglobin 8.5 g/dL (12.0-15.5) Hematocrit 26.9 % (36.0-47.0) Mean Corpuscular Volume 80 fL (79-100) Mean Corpuscular Hemoglobin 25 pg (25-35) Mean Corpuscular Hemoglobin Concent 32 g/dL (31-37) Red Cell Distribution Width 19.1 % (11.5-14.5) Platelet Count 176 x10^3/uL (140-400) Sodium Level 140 mmol/L (136-145) Potassium Level 4.4 mmol/L (3.5-5.1) Chloride Level 105 mmol/L (98-107) Carbon Dioxide Level 26 mmol/L (21-32) Anion Gap 9 (6-14) Blood Urea Nitrogen 36 mg/dL (7-20) Creatinine 1.5 mg/dL (0.6-1.0) Estimated GFR (Cockcroft-Gault) 34.1 BUN/Creatinine Ratio 24 (6-20) Glucose Level 64 mg/dL (70-99) Calcium Level 7.3 mg/dL (8.5-10.1) Total Bilirubin 0.4 mg/dL (0.2-1.0) Aspartate Amino Transf (AST/SGOT) 290 U/L (15-37) Alanine Aminotransferase (ALT/SGPT) 124 U/L (14-59) Alkaline Phosphatase 150 U/L (46-116) Total Protein 6.6 g/dL (6.4-8.2) Albumin 2.4 g/dL (3.4-5.0) Albumin/Globulin Ratio 0.6 (1.0-1.7) Glucose (Fingerstick) 76 mg/dL (70-99) Medications Active Scripts Medications Dose Route/Sig Max Daily Dose Days Date Category Metoprolol Tartrate 50 Mg Tablet 1 Tab PO BID 08/10/19 Reported Humalog (Insulin Lispro) 100 Unit/1 Ml Cartridge 20 Unit SQ TID 08/06/19 Reported Tramadol Hcl 50 Mg Tablet 50 Mg PO DAILY PRN 08/06/19 Reported Lasix (Furosemide) 40 Mg Tablet 1 Tab PO DAILY 30 08/06/19 Reported Lisinopril 5 Mg Tablet 1 Tab PO DAILY 08/06/19 Reported Meclizine Hcl 25 Mg Tablet 1 Tab PO TID 08/06/19 Reported Pantoprazole Sodium (Pantoprazole Sodium) 40 Mg Tablet.dr 40 Mg PO DAILYAC 08/06/19 Reported Venlafaxine Hcl 37.5 Mg Tablet 1 Tab PO DAILY 08/06/19 Reported Calcium 500 + D Tablet (Calcium Carbonate/Vitamin D3) 1 Each Tablet 1 Tab PO DAILY 30 08/06/19 Reported Aspirin Ec (Aspirin) 81 Mg Tablet.dr 1 Tab PO DAILY 08/06/19 Reported Prednisone 20 Mg Tablet 10 Mg PO DAILY 05/16/17 Reported Tresiba Flextouch U-100 (Insulin Degludec) 100 Unit/1 Ml Insuln.pen 85 Unit SQ DAILY08 05/16/17 Reported Zyrtec (Cetirizine Hcl) 10 Mg Tab.chew 10 Mg PO DAILY 07/01/15 Reported Amitriptyline Hcl 25 Mg Tablet 25 Mg PO HS 07/01/15 Reported Cyclobenzaprine Hcl 10 Mg Tablet 10 Mg PO HS 07/01/15 Reported Klor-Con (Potassium Chloride) 20 Meq Packet Unknown Dose PO DAILY 07/01/15 Reported Enbrel (Etanercept) 50 Mg/1 Ml Disp.syrin 50 Mg SQ WEEKLY 07/01/15 Reported Comments cxr 08/28 b lat infilt Impression . 1. Acute hypoxic respiratory failure, likely secondary to bilateral diffuse interstitial pneumonitis in a patient who is immunocompromised from rheumatoid arthritis and on chronic prednisone./ Enbrel. CT chest with diffuse interstitial infiltrates. She has been ruled out for COVID-19 at [facility]. Differential Dx would include highly likely PCP pneumonia/ acute flare up of RA induced ILD/ COVID pneumonia.less likely 2. 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 3. Low-grade fever, monitor closely. 4. No significant tobacco history. 5. History of rheumatoid arthritis, on chronic prednisone/ Enbrel and immunocompromised status. 6. AVI with severe metabolic acidosis/ likely due to hypotension, off levo now, per nephro 7. Abnormal LFT , likely shock liver Plan . 1. d/w RN/RT, 2. cont BIPAP, setting reviewed, becoming more alert, 02 titration, i personally decreased fi02 to 40%, cxr in am 3. cont broad-spectrum antibiotic and antifungal. id following ,emperic coverage for PCP added. Micafungin 08/26 for fungal coverage avoiding Azoles with h/o Afib meropenem Azithromycin 08/26, 03/19 Atovoquone and Dapsone 08/26 to cover potential PJP given limited options- allergic to Bactrim and Clindamycin Had been on Dapto and Zyvox stopped 6/18 change steroids to 40 q 8hrs/ improving oxygenation 4. fu Dean culture. 5. DVT prophylaxis with hep sg, protonix for stress ulcer prophylaxis 6. CT chest reviewed. Diffuse GG interstitial pneumonitis, 7. IVF per nephro 8. IV bicarb prn 9. HD per nephro 6. full code. critically ill, cct 30 min no overlap ELEANOR WING MD Aug 30, 2019 06:55
[2019-08-30] MEDS: CALCIUM CARB/VIT D3 500/200 TABLET. PO SCH (08:00)
--- NOTE | 2019-08-30 08:22 | PDOC ---
Infectious Disease Note Subjective Subjective No fevers last 24 hrs Minimally responsive to family Remains on BiPAP FiO2 40% Decrease UO Off Levophed ROS ROS unobtainable Vital Sign Vital Signs Vital Signs Date Time Temp Pulse Resp B/P (MAP) Pulse Ox O2 Delivery O2 Flow Rate FiO2 08/30/19 06:00 74 20 151/81 (104) 94 BiPAP/CPAP 08/30/19 04:00 97.9 97.9 08/29/19 16:00 6.0 Physical Exam PHYSICAL EXAM GENERAL: Propped up in bed, minimally responsive, on BiPAP + mitts HEENT: Pupils are status post cataract surgery. Will not open mouth NECK: Supple, no JVD. LUNGS: Clear anteriorly, no accessory muscle use HEART: S1, S2. regular ABDOMEN: Obese, soft, no guarding, bowel sounds present GENITOURINARY: Benson in place. EXTREMITIES: Without clubbing, cyanosis Her left third toe has a previous amputation site. SKIN: Warm without generalized signs of rash. Coccyx area not seen NEUROLOGIC: Squints to voice, but doesn't open eyes or follow commands RIJ/C clean Labs Lab Laboratory Tests Test 08/29/19 12:42 08/29/19 13:16 08/29/19 15:07 08/29/19 16:13 Glucose (Fingerstick) 34 mg/dL (70-99) 78 mg/dL (70-99) 20 mg/dL (70-99) 50 mg/dL (70-99) Test 08/29/19 16:58 08/29/19 21:22 08/30/19 04:10 08/30/19 04:20 Glucose (Fingerstick) 97 mg/dL (70-99) 80 mg/dL (70-99) 64 mg/dL (70-99) White Blood Count 12.1 x10^3/uL (4.0-11.0) Red Blood Count 3.39 x10^6/uL (3.50-5.40) Hemoglobin 8.5 g/dL (12.0-15.5) Hematocrit 26.9 % (36.0-47.0) Mean Corpuscular Volume 80 fL (79-100) Mean Corpuscular Hemoglobin 25 pg (25-35) Mean Corpuscular Hemoglobin Concent 32 g/dL (31-37) Red Cell Distribution Width 19.1 % (11.5-14.5) Platelet Count 176 x10^3/uL (140-400) Sodium Level 140 mmol/L (136-145) Potassium Level 4.4 mmol/L (3.5-5.1) Chloride Level 105 mmol/L (98-107) Carbon Dioxide Level 26 mmol/L (21-32) Anion Gap 9 (6-14) Blood Urea Nitrogen 36 mg/dL (7-20) Creatinine 1.5 mg/dL (0.6-1.0) Estimated GFR (Cockcroft-Gault) 34.1 BUN/Creatinine Ratio 24 (6-20) Glucose Level 64 mg/dL (70-99) Calcium Level 7.3 mg/dL (8.5-10.1) Total Bilirubin 0.4 mg/dL (0.2-1.0) Aspartate Amino Transf (AST/SGOT) 290 U/L (15-37) Alanine Aminotransferase (ALT/SGPT) 124 U/L (14-59) Alkaline Phosphatase 150 U/L (46-116) Total Protein 6.6 g/dL (6.4-8.2) Albumin 2.4 g/dL (3.4-5.0) Albumin/Globulin Ratio 0.6 (1.0-1.7) Test 08/30/19 04:26 Glucose (Fingerstick) 76 mg/dL (70-99) Micro Microbiology 08/25/19 Blood Culture - Preliminary, Resulted NO GROWTH AFTER 34 DAYS Objective Assessment Acute Hypoxic resp failure on Bipap 08/26 - COVID neg at [facility] and here 08/26. Rapid progression of infiltrates on CT 08/26.? etiology but differential includes RA/PCP/COVID among others. No peripheral 08/26 or 08/27 Eosinophilia to suggest eosinophilic pneumonia from Dapto. Mycoplasma neg. Speech has evaluated. Steroids increased 08/26 AVI - worse, now on HD Hypotension - better, off Levophed Leukocytosis - s/p steroids Transaminitis - ? shock liver Constipation - not resolved mild ? colitis on CT 08/25- suppository ordered but not given 08/26 Encephaloapthy - CT head neg 08/26 RA - h/o Enbrel use Fever better - ? RA flare vs possible aspiration with increased Procal and CT with joint effusion and ? pneumonia Left sacral/coccyx wound - clean Afib Severe left hip pain with ? AVN pain is worse since her fall, procal only mild elevation but could reflect renal change - s/p joint aspiration 08/25 - described as milky but only 1720 WBC - had been on abx. cx neg to date Abx allergies - sulfa mouth swelling. Clinda and Levoflox - itch DM h/o recurrent UTI Plan Plan of Care Legionella pending Micafungin 08/26 for fungal coverage avoiding Azoles with h/o Afib meropenem Azithromycin 08/26, 03/19 Atovoquone and Dapsone 08/26 to cover potential PJP given limited options- allergic to Bactrim and Clindamycin Had been on Dapto and Zyvox stopped 08/26 Synovial cultures and glucose from 08/25 still pending Consider staring Bactrim desensitization if intubated however there is concern from Pulm standpoint that if she is intubated then it will difficult to get her extubated. D/w family risks 08/26 but she will be getting steroids and be on Ventilator - d/w pharmacy will have to monitor renal function Maintain aspiration precautions Critically ill Daughter Valerie [phone] D/w and dtr at bedside Attending Co-Sign The patient was seen and interviewed as well as examined at the bedside. The chart was reviewed. The case was discussed. Agree with the plan of care. In detail discussion done with the patient's and daughter at bedside patient is at high risk for P JOSIAH pneumonia secondary to her steroid use and also TNF blockers. Patient is not able to get her overall P JOSIAH drugs because she is on BiPAP and not able to get the BiPAP off to be able to give any anything oral. Did discuss with them about Bactrim allergy apparently had hives. Pros and cons discussed with them the need for medication and take a chance on allergic reaction versus not to give it and take a chance on P JOSIAH if she has it would be fatal. They both agreed to give Bactrim with desensitization protocol. Also patient is on steroids which would help and the response of allergic reaction if at all if she gets it and this is the best place to try as we discussed and she is in ICU. I did discuss with them about the possibility of serious allergic reaction and end up intubation. Daughter and understood clearly the risk benefit and decided to go for it. Discussed with the pharmacy to initiate the desensitization protocol on Bactrim and premed with steroids. About 40 minutes spent with patient care and coordination of care and discussion with the family and also discussed with SHILPI Darling APRN Aug 30, 2019 08:22 SUZIE FRITZ MD Aug 30, 2019 13:07
[2019-08-30] MEDS: PANTOPRAZOLE IV PUSH 40 MG VIAL. IVP SCH (08:53)
[2019-08-30] MEDS: IV NORMAL SALINE 1000ML BAG 1,000 ML IV SCH ×2 (08:57→14:30)
[2019-08-30] MEDS: ATOVAQUONE 750 MG/5 ML ORAL.SUSP. PO SCH ×2 (09:00→21:00)
[2019-08-30] MEDS: LACTOBACILLUS RHAMNOSUS GG 1 CAPSULE. PO SCH ×2 (09:00→21:00)
[2019-08-30] MEDS: MECLIZINE HCL 12.5 MG TABLET. PO SCH ×3 (09:00→21:00)
[2019-08-30] MEDS: DAPSONE 100 MG TABLET PO SCH (09:00)
[2019-08-30] MEDS: VENLAFAXINE XR 37.5 MG CAP.ER.24H. PO SCH (09:00)
[2019-08-30] MEDS: CETIRIZINE HCL 10 MG TABLET. PO SCH (09:00)
[2019-08-30] MEDS: CHOLECALCIFEROL (VITAMIN D3) 1,000 UNIT TABLET PO SCH (09:00)
[2019-08-30] MEDS: IV DEXTROSE 10% 1,000 ML IV SCH (09:44)
--- NOTE | 2019-08-30 09:59 | PN ---
DATE: 08/30/2019 SUBJECTIVE: The patient is resting slightly propped up in bed, clearly very restless, agitated, asking for water. However, she apparently speaks mostly in Haitian and even her daughter is unable to understand what she is wanting. She continues to be on BiPAP machine, maintaining her oxygen saturation at 96% on FiO2 of 40%. PHYSICAL EXAMINATION: GENERAL: When I examined here, she was pale, but not jaundiced, cyanosis or thyromegaly. No jugular venous distention. No lower limb edema. VITAL SIGNS: Her heart rate was 74, blood pressure was 151/81, temperature was 97.9, respiratory rate 20, and oxygen saturation was 96% on BiPAP. HEAD, EYES, EARS, NOSE AND THROAT: Normocephalic, atraumatic. NECK: Supple. HEART: Normal first and second heart sounds. No gallop or murmur. CHEST: Showed central trachea, equal bilateral expansion, air entry, vesicular breath sounds. I could not really appreciate any crepitation or rhonchi anteriorly. ABDOMEN: Distended, soft, nontender. NEUROLOGIC: She is definitely more awake, alert, restless, agitated. Her intake over the last 24 hours was 3272, output was 206. LABORATORY DATA: Her lab work as of this morning showed a white cell count 12,100, hemoglobin 8.5, hematocrit 27, MCV 80 and platelet count of 176,000. Her chemistry showed a serum sodium 140, potassium 4.4, chloride 105, bicarbonate 26, anion gap of 9, BUN 36, creatinine 1.5, estimated GFR was 34 mL per minute. Her glucose was 64, calcium was 7.3. Total bilirubin is normal; however, AST, ALT, alkaline phosphatase are all elevated. Her total protein was 6.6, albumin was 2.4. Her COVID-19 by PCR was negative. Hepatitis B surface antigen nonreactive. Hepatitis B surface antibody is positive. Hepatitis B core total antibody nonreactive and mycoplasma serology was negative. Her synovial fluid Gram stain was negative. There is no growth. Synovial fluid was also negative for acid fast bacilli. The fungal cultures are still pending at the time of this dictation. Her blood cultures showed no growth after 4 days. Her chest x-ray as of yesterday showed that there is new gas in the right neck soft tissue, no convincing pneumothorax identified. There is again airspace opacities to bilateral hemithoraces not convincingly changed. ASSESSMENT: 1. Acute hypoxic respiratory failure secondary to bilateral diffuse interstitial pneumonitis in a patient who is immunocompromised on steroids and Enbrel for rheumatoid arthritis. 2. Her COVID-19 test was negative at [facility] and also here. 3. Acute kidney injury with oliguria. She continued to be oliguric and hemodialysis dependent. 4. Hyperkalemia, resolved. Her potassium normalized and now is 4.4. 5. Deranged liver enzymes, could be related to shock liver versus side effect of dapsone and atovaquone. 6. I did discontinue the lisinopril as well as potassium and ibuprofen. PLAN: 1. Obviously to continue BiPAP machine; however, she seems to be very restless, agitated. We will try to put her on oxygen by nasal cannula and see if she can make her less restless or agitated. 2. Continue with DVT prophylaxis. 3. Continue pain management. 4. Continue with steroids at 80 mg IV every 8 hours. Continue with IV meropenem, micafungin. She is supposed to be on dapsone, atovaquone. Unfortunately, she is on BiPAP and she is unable to swallow. I will arrange for a Speech Therapy to see her also and obviously we will continue her hemodialysis as per Nephrology team. MAGUE PALAFOX MD DR: ROMULO/samantha JOB#: [id number] / [id number]
--- NOTE | 2019-08-30 10:18 | PDOC ---
SUBJECTIVE ROS Stable , On Bipap OBJECTIVE Vital Signs Vital Signs Date Time Temp Pulse Resp B/P (MAP) Pulse Ox O2 Delivery O2 Flow Rate FiO2 08/30/19 09:40 BiPAP/CPAP 08/30/19 09:10 95 08/30/19 09:00 99.1 74 26 126/69 (88) 99.1 08/29/19 16:00 6.0 I & 0 Intake and Output 08/30/19 07:00 Intake Total 5297 ml Output Total 775 ml Balance 4522 ml IV Total 5297 ml Output Urine Total 775 ml PHYSICAL EXAM Physical Exam GEN : on Bipap HEENT: On Bipap NECK: Supple, LUNGS: decreased at bases HEART: S1, S2. ABDOMEN: Obese, soft, .Dobhoff - in place GENITOURINARY: Benson in place. EXTREMITIES: edema, left third toe amputation site . SKIN: No rash. NEUROLOGIC: on bipap DIAGNOSIS/ASSESSMENT Assessment & Plan AVI - suspect ATN-Oliguric - sec to Hypotension/Worsening Resp status /InterstitialPneumonitis Initiated on HD 08/27, HD x 2 ,Improvement in UOP, Hold off today, Re-eval in am Baseline Cr on 08/20- 1.2 with good uop at presentation Hyperkalemia - Resolved post HD Metabolic acidosis- Resolved CKD stage 3- Baseline Cr since 2017-1.2-1.3 Acute Hypoxic resp failure on Bipap 08/26 - COVID neg at [facility] previously- rapid progression of infiltrates on CT 08/26. likely secondary to bilateral diffuse interstitial pneumonitis in a patient who is immunocompromised from rheumatoid arthritis OD recommends IV Bactrim to cover potential PJP Hypotension - was on levophed Transaminitis - ? shock liver Encephaloapthy - CT head neg 08/26 Afib Severe L hip pain with ? AVN pain is worse since her fall s/p joint aspiration 08/25 - - had been on abx Hx of Urinary retention at last hospitalization with AVI DM- poorly controlled HTN- currently hypotensive , on pressors Hx of recurrent UTI RA - On steroids and Enbrel at home COVid Negative x 2, Repeat Pending ( 2/2 worsening resp status) COMMENT/RELEVANT DATA Meds Current Medications Medications (Trade) Dose Ordered Sig/Manish Start Time Stop Time Status Last Admin Dose Admin Acetaminophen (Tylenol) 500 mg 1X PRN PRN 08/29/19 12:30 08/30/19 12:29 Acetaminophen/ Hydrocodone Bitart (Lortab 5/325) 1 tab PRN Q4HRS PRN 08/21/19 04:15 08/27/19 11:51 1 TAB Albumin Human 200 ml @ 200 mls/hr 1X PRN PRN 08/29/19 12:30 08/29/19 18:29 DC Albuterol Sulfate (Ventolin Neb Soln) 2.5 mg PRN QID PRN 08/20/19 17:45 08/27/19 06:28 2.5 MG Amitriptyline HCl (Elavil) 25 mg QHS 08/20/19 21:00 08/26/19 08:39 DC 08/25/19 21:00 25 MG Aspirin (Ecotrin) 81 mg DAILYWBKFT 08/21/19 08:00 08/28/19 08:20 DC 08/27/19 08:57 81 MG Atovaquone (Mepron) 750 mg BID 08/27/19 14:00 08/28/19 09:00 750 MG Atropine Sulfate (ATROPINE 0.5mg SYRINGE) 0.5 mg PRN Q5MIN PRN 08/27/19 14:00 Azithromycin 250 ml @ 250 mls/hr 1X ONCE 08/27/19 10:15 08/27/19 11:14 DC 08/27/19 11:35 250 MLS/HR Bisacodyl (Dulcolax Supp) 10 mg PRN DAILY PRN 08/27/19 10:30 08/28/19 18:23 10 MG Calcium Gluconate (Calcium Gluconate) 1,000 mg 1X ONCE 08/28/19 06:30 08/28/19 06:31 DC 08/28/19 06:46 1,000 MG Calcium Gluconate 1000 mg/Sodium Chloride 110 ml @ 220 mls/hr 1X ONCE 08/28/19 09:30 08/28/19 09:59 DC 08/28/19 09:52 220 MLS/HR Calcium/Vitamin D (Oscal D 500mg/ 200uts) 1 tab DAILYWBKFT 08/21/19 08:00 08/28/19 09:51 1 TAB Cefepime HCl (Maxipime) 1 gm Q12HR 08/20/19 21:00 08/22/19 08:11 DC 08/21/19 20:43 1 GM Cetirizine HCl (ZyrTEC) 10 mg DAILY 08/21/19 12:00 Cancel Cyclobenzaprine HCl (Flexeril) 10 mg PRN TID PRN 08/20/19 17:45 08/27/19 05:59 10 MG Dapsone (Aczone) 100 mg DAILY 08/27/19 14:00 08/28/19 09:51 100 MG Daptomycin 450 mg/ Sodium Chloride 50 ml @ 100 mls/hr Q24H 08/26/19 09:00 08/27/19 12:36 DC 08/27/19 08:58 100 MLS/HR Dexmedetomidine HCl 400 mcg/ Sodium Chloride 100 ml @ 0 mls/hr CONT PRN 08/27/19 14:00 08/30/19 09:43 19.8 MLS/HR Dextrose 1,000 ml @ 50 mls/hr Q20H 08/29/19 13:15 08/30/19 09:44 50 MLS/HR Dextrose (Dextrose 50%-Water Syringe) 25 gm 1X ONCE 08/28/19 06:30 08/28/19 06:31 DC 08/28/19 06:46 25 GM Diclofenac Sodium (Voltaren) 1 gage QID 08/20/19 21:00 08/28/19 09:22 DC 08/27/19 21:53 1 GAGE Diphenhydramine HCl (Benadryl) 25 mg 1X PRN PRN 08/29/19 12:30 08/30/19 12:29 Enoxaparin Sodium (Lovenox 30mg Syringe) 30 mg Q24H 08/29/19 09:00 08/29/19 12:00 DC 08/29/19 10:11 30 MG Enoxaparin Sodium (Lovenox 40mg Syringe) 40 mg Q24H 08/21/19 09:00 08/28/19 17:19 DC 08/28/19 09:52 40 MG Fentanyl Citrate 30 ml @ 0 mls/hr CONT PRN 08/30/19 06:30 UNV Fentanyl Citrate (Fentanyl 2ml Vial) 50 mcg PRN Q3HRS PRN 08/21/19 11:30 08/29/19 13:51 DC 08/29/19 10:50 50 MCG Furosemide (Lasix) 40 mg PRN DAILY PRN 08/28/19 09:30 Guaifenesin (Robitussin Dm) 5 ml PRN Q4HRS PRN 08/26/19 21:00 08/27/19 07:11 5 ML Heparin Sodium (Porcine) (Heparin Sodium) 5,000 unit Q8HRS 08/30/19 06:00 08/30/19 06:04 5,000 UNIT Hydromorphone HCl (Dilaudid) 2 mg PRN Q3HRS PRN 08/29/19 14:00 08/30/19 09:10 2 MG Ibuprofen (Motrin) 400 mg PRN QHS PRN 08/20/19 17:45 08/28/19 09:22 DC 08/25/19 19:20 400 MG Info (PHARMACY MONITORING -- do not chart) 1 each PRN DAILY PRN 08/29/19 12:30 08/29/19 12:33 DC Insulin Glargine (Lantus Syringe) 98 unit QHS 08/20/19 21:00 Cancel Insulin Human Lispro (HumaLOG) 20 units TIDWMEALS 08/20/19 19:00 08/29/19 13:15 DC 08/27/19 12:40 20 UNITS Insulin Human Regular (HumuLIN R VIAL) 10 unit 1X ONCE 08/28/19 06:30 08/28/19 06:31 DC 08/28/19 08:32 10 UNIT Iohexol (Omnipaque 300 Mg/ml) 10 ml 1X ONCE 08/26/19 10:00 08/26/19 10:03 DC 08/26/19 10:35 10 ML Lactobacillus Rhamnosus (Culturelle) 1 cap BID 08/20/19 21:00 08/28/19 09:51 1 CAP Lactulose (Lactulose) 20 gm PRN DAILY PRN 08/28/19 09:30 Lidocaine HCl (Buffered Lidocaine 1%) 6 ml 1X ONCE 08/28/19 12:30 08/28/19 12:31 DC 08/28/19 12:28 6 ML Linezolid (Zyvox) 600 mg BID 08/26/19 09:00 08/27/19 12:36 DC 08/27/19 08:59 600 MG Lisinopril (Prinivil) 5 mg DAILY 08/21/19 12:00 08/28/19 09:22 DC 08/27/19 08:59 5 MG Meclizine HCl (Antivert) 25 mg TID 08/21/19 14:00 08/28/19 09:50 25 MG Meropenem 500 mg/ Sodium Chloride 50 ml @ 100 mls/hr Q6HRS 08/22/19 12:00 08/30/19 06:01 100 MLS/HR Methylprednisolone Sodium Succinate (SOLU-Medrol 125MG VIAL) 80 mg Q8HRS 08/29/19 14:00 08/30/19 06:02 80 MG Metoprolol Tartrate (Lopressor) 50 mg BID 08/21/19 12:00 08/28/19 09:22 DC 08/27/19 21:51 50 MG Micafungin Sodium 100 mg/Dextrose 100 ml @ 100 mls/hr Q24H 08/27/19 11:00 08/29/19 11:04 100 MLS/HR Non-Formulary Medication (Calcium Carbonate/Vitamin D3 (Calcium 500 + D Tablet)) 1 tab DAILY 08/22/19 09:00 UNV Non-Formulary Medication (Cetirizine Hcl (Zyrtec)) 10 mg DAILY 08/21/19 12:00 08/21/19 11:32 DC Non-Formulary Medication (Etanercept (Enbrel)) 50 mg WEEKLY 08/28/19 09:00 UNV Non-Formulary Medication (Insulin Lispro (Humalog)) 20 unit TID 08/21/19 14:00 UNV Non-Formulary Medication (Venlafaxine Hcl ) 1 tab DAILY 08/22/19 09:00 UNV Norepinephrine Bitartrate 8 mg/ Dextrose 258 ml @ 17.028 mls/ hr CONT PRN 08/27/19 15:00 08/28/19 05:05 136.224 MLS/HR Olanzapine (ZyPREXA) 2.5 mg PRN Q4HRS PRN 08/23/19 10:45 08/26/19 08:39 DC 08/25/19 19:18 2.5 MG Pantoprazole Sodium (PROTONIX VIAL for IV PUSH) 40 mg DAILYAC 08/28/19 08:30 08/30/19 08:53 40 MG Pantoprazole Sodium (Protonix) 40 mg DAILYAC 08/21/19 11:30 08/21/19 11:26 DC Potassium Chloride (Klor-Con) 20 meq DAILYWBKFT 08/21/19 12:00 08/28/19 09:22 DC 08/27/19 08:57 20 MEQ Prednisone (Prednisone) 20 mg 1X ONCE 08/26/19 11:30 08/26/19 11:31 DC 08/26/19 11:39 20 MG Sodium Polystyrene Sulfonate (Kayexalate) 30 gm 1X ONCE 08/28/19 09:30 08/28/19 09:31 DC Sodium Bicarbonate (Sodium Bicarb Adult 8.4% Syr) 100 meq 1X ONCE 08/28/19 09:00 08/28/19 09:01 DC 08/28/19 09:01 100 MEQ Sodium Chloride 1,000 ml @ 400 mls/hr Q2H30M PRN 08/29/19 12:22 08/30/19 00:21 DC Sodium Chloride (Normal Saline Flush) 10 ml 1X PRN PRN 08/29/19 12:30 08/30/19 12:29 Tramadol HCl (Ultram) 50 mg PRN Q8HRS PRN 08/20/19 17:45 08/22/19 09:44 DC 08/21/19 03:15 50 MG Trimethoprim/ Sulfamethoxazole 31.25 ml/Dextrose 531.25 ml @ 354.167 mls/hr Q8HRS 08/27/19 14:00 Cancel Vancomycin HCl (Vanco Per Pharmacy) 1 each PRN DAILY PRN 08/20/19 17:45 08/23/19 07:26 DC 08/22/19 13:23 1 EACH Vancomycin HCl 1 gm/Sodium Chloride 250 ml @ 250 mls/hr Q18H 08/21/19 05:30 08/23/19 07:26 DC 08/22/19 19:21 250 MLS/HR Venlafaxine HCl (Effexor Xr) 37.5 mg DAILY 08/21/19 09:00 08/28/19 09:51 37.5 MG Vitamin D (Vitamin D3) 1,000 unit DAILY 08/21/19 09:00 08/28/19 09:50 1,000 UNIT Lab Laboratory Tests Test 08/29/19 12:42 08/29/19 13:16 08/29/19 15:07 08/29/19 16:13 Glucose (Fingerstick) 34 mg/dL (70-99) 78 mg/dL (70-99) 20 mg/dL (70-99) 50 mg/dL (70-99) Test 08/29/19 16:58 08/29/19 21:22 08/30/19 04:10 08/30/19 04:20 Glucose (Fingerstick) 97 mg/dL (70-99) 80 mg/dL (70-99) 64 mg/dL (70-99) White Blood Count 12.1 x10^3/uL (4.0-11.0) Red Blood Count 3.39 x10^6/uL (3.50-5.40) Hemoglobin 8.5 g/dL (12.0-15.5) Hematocrit 26.9 % (36.0-47.0) Mean Corpuscular Volume 80 fL (79-100) Mean Corpuscular Hemoglobin 25 pg (25-35) Mean Corpuscular Hemoglobin Concent 32 g/dL (31-37) Red Cell Distribution Width 19.1 % (11.5-14.5) Platelet Count 176 x10^3/uL (140-400) Sodium Level 140 mmol/L (136-145) Potassium Level 4.4 mmol/L (3.5-5.1) Chloride Level 105 mmol/L (98-107) Carbon Dioxide Level 26 mmol/L (21-32) Anion Gap 9 (6-14) Blood Urea Nitrogen 36 mg/dL (7-20) Creatinine 1.5 mg/dL (0.6-1.0) Estimated GFR (Cockcroft-Gault) 34.1 BUN/Creatinine Ratio 24 (6-20) Glucose Level 64 mg/dL (70-99) Calcium Level 7.3 mg/dL (8.5-10.1) Total Bilirubin 0.4 mg/dL (0.2-1.0) Aspartate Amino Transf (AST/SGOT) 290 U/L (15-37) Alanine Aminotransferase (ALT/SGPT) 124 U/L (14-59) Alkaline Phosphatase 150 U/L (46-116) Total Protein 6.6 g/dL (6.4-8.2) Albumin 2.4 g/dL (3.4-5.0) Albumin/Globulin Ratio 0.6 (1.0-1.7) Test 08/30/19 04:26 08/30/19 08:48 Glucose (Fingerstick) 76 mg/dL (70-99) 87 mg/dL (70-99) Results All relevant outside records, renal labs, imaging studies, telemetry/EKG's were reviewed. Justicifation of Admission Dx: Justifications for Admission: Justification of Admission Dx: Yes CHF: Cardiac Arrhythmias SHRUTI KILGORE MD Aug 30, 2019 10:18
[2019-08-30] MEDS ORDERED: SULFAMETH IV ONE ×8 (12:00→17:40)
[2019-08-30] MEDS ORDERED: TRIMETH IV ONE ×8 (12:00→17:40)
[2019-08-30] MEDS ORDERED: TOTAL VOLUME IV ONE ×8 (12:00→17:40)
[2019-08-30] MEDS: MICAFUNGIN 100 MG in IV DEXTROSE 5% 100ML 100 ML IV SCH (12:01)
--- NOTE | 2019-08-30 12:34 | RAD ---
Right upper extremity venous duplex Doppler ultrasound HISTORY: Right upper extremity swelling and edema. FINDINGS: Right internal jugular vein cannot be assessed given the presence of a jugular dialysis catheter. No DVT evident of the right subclavian and axillary veins with patent color Doppler blood flow and augmentation of flow. Soft tissue edema of the upper extremity. No DVT evident with compressibility, patent color Doppler blood flow and augmentation of blood flow the right brachial veins. No DVT evident with patent color Doppler blood flow the right radial and ulnar veins. No thrombosis with compressibility and patent color Doppler blood flow and augmentation of flow the right basilic vein and cephalic vein. IMPRESSION: Negative right upper extremity for DVT. Soft tissue edema. See above. Electronically signed by: Rafiq Sarabia MD (08/30/2019 12:32 PM) ZHANE
--- NOTE | 2019-08-30 13:14 | PDOC ---
PROGRESS NOTES Subjective Subjective Agitated and restless, continues to need BiPAP Objective Objective Vital Signs Date Time Temp Pulse Resp B/P (MAP) Pulse Ox O2 Delivery O2 Flow Rate FiO2 08/30/19 11:56 94 BiPAP/CPAP 08/30/19 10:00 98.9 72 18 144/75 (98) 98.9 08/30/19 08:00 6.0 Intake and Output 08/30/19 07:00 Intake Total 5297 ml Output Total 775 ml Balance 4522 ml IV Total 5297 ml Output Urine Total 775 ml Physical Exam Abdomen: Normal bowel sounds Heart: Regular rate General: mild distress HEENT: Atraumatic Lungs: Clear to auscultation MUSCULOSKELETAL: No joint tenderness, No deformity Assessment Assessment 1. Mechanical fall with left hip pain/possible AVN s/p joint aspirations with negative cultures 2. Left sacral/coccyx wound: ID following 3. Acute respiratory failure with pneumonia: COVID test negative. Treat per pulmonary team. 4. Arrhythmia; SR.noted previously with WAP/MAT. Brief episode of atrial tachycardia noted on telemetry. Continue to monitor. 5. Poorly controlled DM2: Treat per IM 6. Hypotension, presently off pressors. 7. Chronic immunosuppression for RA: enbrel and steroids 8. AVI with hyperkalemia: worsening Cr 9. Transaminitis Comment Review of Relevant I have reviewed the following items jasper (where applicable) has been applied. Labs Laboratory Tests Test 08/29/19 13:16 08/29/19 15:07 08/29/19 16:13 08/29/19 16:58 Glucose (Fingerstick) 78 mg/dL (70-99) 20 mg/dL (70-99) 50 mg/dL (70-99) 97 mg/dL (70-99) Test 08/29/19 21:22 08/30/19 04:10 08/30/19 04:20 08/30/19 04:26 Glucose (Fingerstick) 80 mg/dL (70-99) 64 mg/dL (70-99) 76 mg/dL (70-99) White Blood Count 12.1 x10^3/uL (4.0-11.0) Red Blood Count 3.39 x10^6/uL (3.50-5.40) Hemoglobin 8.5 g/dL (12.0-15.5) Hematocrit 26.9 % (36.0-47.0) Mean Corpuscular Volume 80 fL (79-100) Mean Corpuscular Hemoglobin 25 pg (25-35) Mean Corpuscular Hemoglobin Concent 32 g/dL (31-37) Red Cell Distribution Width 19.1 % (11.5-14.5) Platelet Count 176 x10^3/uL (140-400) Sodium Level 140 mmol/L (136-145) Potassium Level 4.4 mmol/L (3.5-5.1) Chloride Level 105 mmol/L (98-107) Carbon Dioxide Level 26 mmol/L (21-32) Anion Gap 9 (6-14) Blood Urea Nitrogen 36 mg/dL (7-20) Creatinine 1.5 mg/dL (0.6-1.0) Estimated GFR (Cockcroft-Gault) 34.1 BUN/Creatinine Ratio 24 (-20) Glucose Level 64 mg/dL (70-99) Calcium Level 7.3 mg/dL (8.5-10.1) Total Bilirubin 0.4 mg/dL (0.2-1.0) Aspartate Amino Transf (AST/SGOT) 290 U/L (15-37) Alanine Aminotransferase (ALT/SGPT) 124 U/L (14-59) Alkaline Phosphatase 150 U/L (46-116) Total Protein 6.6 g/dL (6.4-8.2) Albumin 2.4 g/dL (3.4-5.0) Albumin/Globulin Ratio 0.6 (1.0-1.7) Test 08/30/19 08:48 Glucose (Fingerstick) 87 mg/dL (70-99) Microbiology 08/26/19 Gram Stain - Final, Resulted 08/26/19 Aerobic and Anaerobic Culture - Preliminary, Resulted 08/25/19 Blood Culture - Final, Complete NO GROWTH AFTER 5 DAYS Medications Current Medications Dextrose 1,000 ml @ 50 mls/hr Q20H IV Last administered on 08/30/19at 09:44; Start 08/29/19 at 13:15 Fentanyl Citrate 30 ml @ 0 mls/hr CONT PRN IV SEE PROTOCOL; Start 08/30/19 at 06:30; Status UNV Heparin Sodium (Porcine) (Heparin Sodium) 5,000 unit Q8HRS SQ Last administered on 08/30/19at 06:04; Start 08/30/19 at 06:00 Hydromorphone HCl (Dilaudid) 2 mg PRN Q3HRS PRN IV PAIN Last administered on 08/30/19at 09:10; Start 08/29/19 at 14:00 Methylprednisolone Sodium Succinate (SOLU-Medrol 40MG VIAL) 40 mg Q8HRS IV ; Start 08/30/19 at 14:00 Methylprednisolone Sodium Succinate (SOLU-Medrol 125MG VIAL) 80 mg Q8HRS IV Last administered on 08/30/19at 06:02; Start 08/29/19 at 14:00; Stop 08/30/19 at 10:46; Status DC Trimethoprim/ Sulfamethoxazole 10.2 ml/ Miscellaneous 10.2 ml @ 40.8 mls/hr 1X ONCE IV ; Start 08/30/19 at 12:00; Stop 08/30/19 at 12:14; Status DC Vitals/I & O Vital Sign - Last 24 Hours 08/29/19 08/29/19 08/29/19 08/29/19 14:00 14:22 14:50 15:00 Pulse 74 76 Resp 29 23 29 23 B/P (MAP) 141/77 (98) Pulse Ox 94 97 94 94 O2 Delivery BiPAP/CPAP BiPAP/CPAP BiPAP/CPAP BiPAP/CPAP 08/29/19 08/29/19 08/29/19 08/29/19 15:45 16:00 16:00 17:00 Pulse 74 70 Resp 17 18 B/P (MAP) 128/78 (95) 156/82 (106) Pulse Ox 97 98 98 O2 Delivery BiPAP/CPAP BiPAP/CPAP Bi-pap BiPAP/CPAP O2 Flow Rate 6.0 08/29/19 08/29/19 08/29/19 08/29/19 17:52 18:00 19:00 20:00 Pulse 66 71 Resp 22 B/P (MAP) 168/91 (116) 135/74 (94) Pulse Ox 97 96 93 O2 Delivery BiPAP/CPAP BiPAP/CPAP BiPAP/CPAP Bi-pap 08/29/19 08/29/19 08/29/19 08/29/19 20:00 21:00 21:09 22:00 Temp 97.9 97.9 Pulse 72 66 75 Resp 23 20 21 B/P (MAP) 157/91 (113) 163/89 (113) 157/92 (113) Pulse Ox 98 100 97 99 O2 Delivery BiPAP/CPAP BiPAP/CPAP BiPAP/CPAP BiPAP/CPAP 08/29/19 08/30/19 08/30/19 08/30/19 23:00 00:00 00:00 00:53 Temp 98.8 98.8 Pulse 71 70 Resp 20 26 36 B/P (MAP) 147/83 (104) 147/75 (99) Pulse Ox 99 100 99 O2 Delivery BiPAP/CPAP Bi-pap BiPAP/CPAP BiPAP/CPAP 08/30/19 08/30/19 08/30/19 08/30/19 01:00 01:23 02:00 03:00 Pulse 66 73 71 Resp 23 20 B/P (MAP) 160/79 (106) 157/85 (109) 171/84 (113) Pulse Ox 99 99 99 O2 Delivery BiPAP/CPAP BiPAP/CPAP BiPAP/CPAP BiPAP/CPAP 08/30/19 08/30/19 08/30/19 08/30/19 04:00 04:00 04:34 05:00 Temp 97.9 97.9 Pulse 71 83 Resp 20 21 B/P (MAP) 148/88 (108) 154/79 (104) Pulse Ox 97 97 99 O2 Delivery Bi-pap BiPAP/CPAP BiPAP/CPAP BiPAP/CPAP 08/30/19 08/30/19 08/30/19 08/30/19 06:00 07:00 08:00 08:00 Temp 98.6 98.6 Pulse 74 74 72 Resp 20 26 18 B/P (MAP) 151/81 (104) 154/80 (104) 147/76 (99) Pulse Ox 94 94 96 O2 Delivery BiPAP/CPAP BiPAP/CPAP BiPAP/CPAP O2 Flow Rate 6.0 08/30/19 08/30/19 08/30/19 08/30/19 08:00 08:44 09:00 09:10 Temp 99.1 99.1 Pulse 74 Resp 26 B/P (MAP) 126/69 (88) Pulse Ox 96 97 95 O2 Delivery Bi-pap BiPAP/CPAP BiPAP/CPAP BiPAP/CPAP 08/30/19 08/30/19 08/30/19 09:40 10:00 11:56 Temp 98.9 98.9 Pulse 72 Resp 18 B/P (MAP) 144/75 (98) Pulse Ox 92 94 O2 Delivery BiPAP/CPAP BiPAP/CPAP BiPAP/CPAP Intake and Output 08/29/19 08/29/19 08/30/19 15:00 23:00 07:00 Intake Total 150 ml 3110 ml 2037 ml Output Total 350 ml 255 ml 170 ml Balance -200 ml 2855 ml 1867 ml MICKI HAILE MD Aug 30, 2019 13:14
[2019-08-30] MEDS: methylPREDNISolone SOD SUCC PF 40 MG/ML VIAL. IV SCH ×2 (15:34→22:17)
--- NOTE | 2019-08-30 21:07 | NUR ---
Received call from and daughter asking pt to be changed to partial code- no chest compressions. Educated family on different code status options and what they entail. Family stated they would only want pt intubated. Call placed to Dr. Barreto. Received order- ok to change to partial code status. Order updated in computer.
[2019-08-31] VITALS (18 sets, daily range): BP systolic 110–140; BP diastolic 58–84
[2019-08-31] MEDS: IV NORMAL SALINE 1000ML BAG 1,000 ML IV SCH (01:47)
[2019-08-31] MEDS: DEXMEDETOMIDINE 400 MCG in IV NORMAL SALINE 100ML 96 ML IV PRN ×4 (01:48→14:56)
[2019-08-31] MEDS: DEXTROSE IV SCH ×2 (02:20→10:06)
[2019-08-31] MEDS: TRIMETH IV SCH ×2 (02:20→10:06)
[2019-08-31] MEDS: SULFAMETH IV SCH ×2 (02:20→10:06)
[2019-08-31] MEDS: HYDROmorphone 2 MG/ML VIAL IV PRN ×3 (02:57→14:43)
[2019-08-31 04:22] LABS: HEMATOCRIT 25.7 % (36.0-47.0); HEMOGLOBIN 8.1 g/dL (12.0-15.5); RED BLOOD COUNT 3.24 x10^6/uL (3.50-5.40); RED CELL DISTRIBUTION WIDTH 19.9 % (11.5-14.5); WHITE BLOOD COUNT 8.7 x10^3/uL (4.0-11.0)
[2019-08-31 04:43] LABS: ALBUMIN/GLOBULIN RATIO 0.5 (1.0-1.7); CALCIUM 6.7 mg/dL (8.5-10.1); CREATININE 1.5 mg/dL (0.6-1.0); GFR 34.1; MAGNESIUM 2.1 mg/dL (1.8-2.4); POTASSIUM 4.9 mmol/L (3.5-5.1); TOTAL BILIRUBIN 0.3 mg/dL (0.2-1.0)
[2019-08-31] MEDS: IV DEXTROSE 10% 1,000 ML IV SCH (05:15)
[2019-08-31] MEDS: HEPARIN for SUB-Q USE 5,000 UNIT/ML VIAL. SQ SCH ×2 (05:51→14:56)
[2019-08-31] MEDS: MEROPENEM 500 MG in IV NORMAL SALINE 50ML 50 ML IV SCH ×2 (05:51→13:30)
[2019-08-31] MEDS: methylPREDNISolone SOD SUCC PF 40 MG/ML VIAL. IV SCH ×2 (05:52→14:48)
[2019-08-31 07:23] LABS: BASE EXCESS ABG -3 mmol/L (-3-3); HCO3 ABG 22 mmol/L (21-28); PCO2 ABG 38 mmHg (35-46); PO2 ABG 68 mmHg (65-108); SAT O2 ABG 89 % (92-99)
[2019-08-31 07:26] LABS: FIO2 ABG 45%
[2019-08-31] MEDS: CALCIUM CARB/VIT D3 500/200 TABLET. PO SCH (08:00)
[2019-08-31] MEDS: PANTOPRAZOLE IV PUSH 40 MG VIAL. IVP SCH (08:54)
[2019-08-31] MEDS: DAPSONE 100 MG TABLET PO SCH (08:57)
[2019-08-31] MEDS: LACTOBACILLUS RHAMNOSUS GG 1 CAPSULE. PO SCH (08:57)
[2019-08-31] MEDS: ATOVAQUONE 750 MG/5 ML ORAL.SUSP. PO SCH (08:57)
[2019-08-31] MEDS: CETIRIZINE HCL 10 MG TABLET. PO SCH (08:57)
[2019-08-31] MEDS: VENLAFAXINE XR 37.5 MG CAP.ER.24H. PO SCH (08:57)
[2019-08-31] MEDS: MECLIZINE HCL 12.5 MG TABLET. PO SCH ×2 (08:57→13:53)
[2019-08-31] MEDS: CHOLECALCIFEROL (VITAMIN D3) 1,000 UNIT TABLET PO SCH (09:00)
--- NOTE | 2019-08-31 09:29 | RAD ---
CHEST AP ONLY History: Reason: fu infilt / Spl. Instructions: / History: Comparison: August 29, 2019 Findings: Diffuse interstitial and alveolar opacities, similar compared to prior allowing for differences in technique. Increased right lower neck subcutaneous gas. Stable right IJ central line. Unchanged heart size. No pneumothorax. No pleural effusion. Impression: 1. Diffuse interstitial and alveolar opacities, similar compared to prior. 2. Increased right lower neck subcutaneous gas. Electronically signed by: Veto Paige DO (08/31/2019 9:26 AM) [id number]
[2019-08-31] MEDS ORDERED: DEXTROSE 50% 25 GM / 50ML DISP.SYRIN. IV PRN ×2 (09:30)
[2019-08-31] MEDS ORDERED: AMINO AC 3%/ELECTROLYTE/GLYCER 1,000 ML IV SCH ×2 (09:30)
--- NOTE | 2019-08-31 10:21 | PDOC ---
PULMONARY PROGRESS NOTES Subjective remains on BIPAP/ fio2 45%, responds appropriately but lethargic did not tolerated vapotherm Vitals Vital Signs Date Time Temp Pulse Resp B/P (MAP) Pulse Ox O2 Delivery O2 Flow Rate FiO2 08/31/19 08:55 35 96 BiPAP/CPAP 08/31/19 06:00 76 110/63 (79) 08/31/19 04:00 98.2 98.2 08/30/19 16:00 6.0 Comments ros unable to obtain on bipap lethargic General: Lethargic HEENT: Other (mild crepitus right neck) Lungs: Crackles Cardiovascular: S1, S2 Abdomen: Soft, Non-tender Extremities: Other (edema) Skin: Warm Labs Laboratory Tests Test 08/29/19 12:42 08/29/19 13:16 08/29/19 15:07 08/29/19 16:13 Glucose (Fingerstick) 34 mg/dL (70-99) 78 mg/dL (70-99) 20 mg/dL (70-99) 50 mg/dL (70-99) Test 08/29/19 16:58 08/29/19 21:22 08/30/19 04:10 08/30/19 04:20 Glucose (Fingerstick) 97 mg/dL (70-99) 80 mg/dL (70-99) 64 mg/dL (70-99) White Blood Count 12.1 x10^3/uL (4.0-11.0) Red Blood Count 3.39 x10^6/uL (3.50-5.40) Hemoglobin 8.5 g/dL (12.0-15.5) Hematocrit 26.9 % (36.0-47.0) Mean Corpuscular Volume 80 fL (79-100) Mean Corpuscular Hemoglobin 25 pg (25-35) Mean Corpuscular Hemoglobin Concent 32 g/dL (31-37) Red Cell Distribution Width 19.1 % (11.5-14.5) Platelet Count 176 x10^3/uL (140-400) Sodium Level 140 mmol/L (136-145) Potassium Level 4.4 mmol/L (3.5-5.1) Chloride Level 105 mmol/L (98-107) Carbon Dioxide Level 26 mmol/L (21-32) Anion Gap 9 (6-14) Blood Urea Nitrogen 36 mg/dL (7-20) Creatinine 1.5 mg/dL (0.6-1.0) Estimated GFR (Cockcroft-Gault) 34.1 BUN/Creatinine Ratio 24 (6-20) Glucose Level 64 mg/dL (70-99) Calcium Level 7.3 mg/dL (8.5-10.1) Total Bilirubin 0.4 mg/dL (0.2-1.0) Aspartate Amino Transf (AST/SGOT) 290 U/L (15-37) Alanine Aminotransferase (ALT/SGPT) 124 U/L (14-59) Alkaline Phosphatase 150 U/L (46-116) Total Protein 6.6 g/dL (6.4-8.2) Albumin 2.4 g/dL (3.4-5.0) Albumin/Globulin Ratio 0.6 (1.0-1.7) Test 08/30/19 04:26 08/30/19 08:48 08/30/19 13:25 08/30/19 18:23 Glucose (Fingerstick) 76 mg/dL (70-99) 87 mg/dL (70-99) 131 mg/dL (70-99) 276 mg/dL (70-99) Test 08/30/19 23:48 08/31/19 04:00 08/31/19 06:04 08/31/19 07:20 Glucose (Fingerstick) 257 mg/dL (70-99) 320 mg/dL (70-99) White Blood Count 8.7 x10^3/uL (4.0-11.0) Red Blood Count 3.24 x10^6/uL (3.50-5.40) Hemoglobin 8.1 g/dL (12.0-15.5) Hematocrit 25.7 % (36.0-47.0) Mean Corpuscular Volume 79 fL (79-100) Mean Corpuscular Hemoglobin 25 pg (25-35) Mean Corpuscular Hemoglobin Concent 31 g/dL (31-37) Red Cell Distribution Width 19.9 % (11.5-14.5) Platelet Count 208 x10^3/uL (140-400) Sodium Level 138 mmol/L (136-145) Potassium Level 4.9 mmol/L (3.5-5.1) Chloride Level 104 mmol/L (98-107) Carbon Dioxide Level 25 mmol/L (21-32) Anion Gap 9 (6-14) Blood Urea Nitrogen 45 mg/dL (7-20) Creatinine 1.5 mg/dL (0.6-1.0) Estimated GFR (Cockcroft-Gault) 34.1 BUN/Creatinine Ratio 30 (6-20) Glucose Level 341 mg/dL (70-99) Calcium Level 6.7 mg/dL (8.5-10.1) Phosphorus Level 4.0 mg/dL (2.6-4.7) Magnesium Level 2.1 mg/dL (1.8-2.4) Total Bilirubin 0.3 mg/dL (0.2-1.0) Aspartate Amino Transf (AST/SGOT) 168 U/L (15-37) Alanine Aminotransferase (ALT/SGPT) 137 U/L (14-59) Alkaline Phosphatase 128 U/L (46-116) Total Protein 6.0 g/dL (6.4-8.2) Albumin 2.0 g/dL (3.4-5.0) Albumin/Globulin Ratio 0.5 (1.0-1.7) O2 Saturation 89 % (92-99) Arterial Blood pH 7.38 (7.35-7.45) Arterial Blood pCO2 at Patient Temp 38 mmHg (35-46) Arterial Blood pO2 at Patient Temp 68 mmHg (65-108) Arterial Blood HCO3 22 mmol/L (21-28) Arterial Blood Base Excess -3 mmol/L (-3-3) FiO2 45% Laboratory Tests Test 08/30/19 13:25 08/30/19 18:23 08/30/19 23:48 08/31/19 04:00 Glucose (Fingerstick) 131 mg/dL (70-99) 276 mg/dL (70-99) 257 mg/dL (70-99) White Blood Count 8.7 x10^3/uL (4.0-11.0) Red Blood Count 3.24 x10^6/uL (3.50-5.40) Hemoglobin 8.1 g/dL (12.0-15.5) Hematocrit 25.7 % (36.0-47.0) Mean Corpuscular Volume 79 fL (79-100) Mean Corpuscular Hemoglobin 25 pg (25-35) Mean Corpuscular Hemoglobin Concent 31 g/dL (31-37) Red Cell Distribution Width 19.9 % (11.5-14.5) Platelet Count 208 x10^3/uL (140-400) Sodium Level 138 mmol/L (136-145) Potassium Level 4.9 mmol/L (3.5-5.1) Chloride Level 104 mmol/L (98-107) Carbon Dioxide Level 25 mmol/L (21-32) Anion Gap 9 (6-14) Blood Urea Nitrogen 45 mg/dL (7-20) Creatinine 1.5 mg/dL (0.6-1.0) Estimated GFR (Cockcroft-Gault) 34.1 BUN/Creatinine Ratio 30 (6-20) Glucose Level 341 mg/dL (70-99) Calcium Level 6.7 mg/dL (8.5-10.1) Phosphorus Level 4.0 mg/dL (2.6-4.7) Magnesium Level 2.1 mg/dL (1.8-2.4) Total Bilirubin 0.3 mg/dL (0.2-1.0) Aspartate Amino Transf (AST/SGOT) 168 U/L (15-37) Alanine Aminotransferase (ALT/SGPT) 137 U/L (14-59) Alkaline Phosphatase 128 U/L (46-116) Total Protein 6.0 g/dL (6.4-8.2) Albumin 2.0 g/dL (3.4-5.0) Albumin/Globulin Ratio 0.5 (1.0-1.7) Test 08/31/19 06:04 08/31/19 07:20 Glucose (Fingerstick) 320 mg/dL (70-99) O2 Saturation 89 % (92-99) Arterial Blood pH 7.38 (7.35-7.45) Arterial Blood pCO2 at Patient Temp 38 mmHg (35-46) Arterial Blood pO2 at Patient Temp 68 mmHg (65-108) Arterial Blood HCO3 22 mmol/L (21-28) Arterial Blood Base Excess -3 mmol/L (-3-3) FiO2 45% Medications Active Scripts Medications Dose Route/Sig Max Daily Dose Days Date Category Metoprolol Tartrate 50 Mg Tablet 1 Tab PO BID 08/10/19 Reported Humalog (Insulin Lispro) 100 Unit/1 Ml Cartridge 20 Unit SQ TID 08/06/19 Reported Tramadol Hcl 50 Mg Tablet 50 Mg PO DAILY PRN 08/06/19 Reported Lasix (Furosemide) 40 Mg Tablet 1 Tab PO DAILY 30 08/06/19 Reported Lisinopril 5 Mg Tablet 1 Tab PO DAILY 08/06/19 Reported Meclizine Hcl 25 Mg Tablet 1 Tab PO TID 08/06/19 Reported Pantoprazole Sodium (Pantoprazole Sodium) 40 Mg Tablet.dr 40 Mg PO DAILYAC 08/06/19 Reported Venlafaxine Hcl 37.5 Mg Tablet 1 Tab PO DAILY 08/06/19 Reported Calcium 500 + D Tablet (Calcium Carbonate/Vitamin D3) 1 Each Tablet 1 Tab PO DAILY 30 08/06/19 Reported Aspirin Ec (Aspirin) 81 Mg Tablet.dr 1 Tab PO DAILY 08/06/19 Reported Prednisone 20 Mg Tablet 10 Mg PO DAILY 05/16/17 Reported Tresiba Flextouch U-100 (Insulin Degludec) 100 Unit/1 Ml Insuln.pen 85 Unit SQ DAILY08 05/16/17 Reported Zyrtec (Cetirizine Hcl) 10 Mg Tab.chew 10 Mg PO DAILY 07/01/15 Reported Amitriptyline Hcl 25 Mg Tablet 25 Mg PO HS 07/01/15 Reported Cyclobenzaprine Hcl 10 Mg Tablet 10 Mg PO HS 07/01/15 Reported Klor-Con (Potassium Chloride) 20 Meq Packet Unknown Dose PO DAILY 07/01/15 Reported Enbrel (Etanercept) 50 Mg/1 Ml Disp.syrin 50 Mg SQ WEEKLY 07/01/15 Reported Comments cxr 08/30 mildly increased infiltrates sc air in right neck/ no PTX Impression . 1. Acute hypoxic respiratory failure, likely secondary to bilateral diffuse interstitial pneumonitis in a patient who is immunocompromised from rheumatoid arthritis and on chronic prednisone./ Enbrel. CT chest with diffuse interstitial infiltrates. She has been ruled out for COVID-19 at [facility]. Differential Dx would include highly likely PCP pneumonia/ less likely acute flare up of RA induced ILD/ COVID pneumonia ruled out 2. 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 3. Low-grade fever, monitor closely. 4. No significant tobacco history. 5. History of rheumatoid arthritis, on chronic prednisone/ Enbrel and immunocompromised status. 6. AVI with severe metabolic acidosis/ likely due to hypotension, off levo now, per nephro, improved MA with HD 7. Abnormal LFT , likely shock liver Plan . 1. d/w RN/RT, 2. cont BIPAP, setting reviewed, Monitor cxr closely 3. cont broad-spectrum antibiotic and antifungal. id following ,emperic coverage for PCP added. Micafungin 08/26 for fungal coverage avoiding Azoles with h/o Afib meropenem Azithromycin 08/26, 03/19 Atovoquone and Dapsone 08/26 to cover potential PJP given limited options- aller gic to Bactrim and Clindamycin Had been on Dapto and Zyvox stopped 08/26 steroids to 40 q 8hrs/ improving oxygenation 4. fu Dean culture. 5. DVT prophylaxis with hep sg, protonix for stress ulcer prophylaxis 6. CT chest reviewed. Diffuse GG interstitial pneumonitis,cxr 08/30 mild increase in infiltrate, ? some fluid overload, consider HD vs diuresis 7. dc IVF 8. IV bicarb prn 9. HD per nephro 6. full code. critically ill, cct 35 min no overlap d/w RN/ daughter GLORIA BENNETT MD Aug 31, 2019 10:21
[2019-08-31] MEDS ORDERED: FUROSEMIDE 20 MG/2 ML VIAL. IVP ONE (10:30)
[2019-08-31] MEDS: INSULIN LISPRO 300 UNITS/3 ML VIAL. SQ SCH ×2 (10:42→15:14)
[2019-08-31] MEDS ORDERED: FUROSEMIDE 40 MG/4 ML VIAL. IVP ONE (11:00)
--- NOTE | 2019-08-31 11:01 | PN ---
DATE: 08/31/2019 SUBJECTIVE: The patient is a 74-year-old female patient who was initially admitted with severe pain in her left hip joint after she fell and underwent aspiration of her left hip. She also spiked her temperature and developed acute hypoxic respiratory failure. Her chest x-ray showed diffuse interstitial alveolar opacities that may represent pulmonary edema or infection such as viral pneumonia and her COVID-19 by PCR was not detectable and the patient was basically transferred to ICU with acute on chronic kidney injury and acute hypoxic respiratory failure. She was started on BiPAP and also has had temporary hemodialysis catheter and was started on hemodialysis. She was initially started on dapsone and atovaquone for possible pneumocystis carinii infection; however, she was unable to swallow and a decision was made to treat her with trimethoprim/sulfamethoxazole intravenously twice a day. She was also started on antibiotics in the form of meropenem and micafungin. PHYSICAL EXAMINATION: GENERAL: When I saw her today, she was sedated slightly, sitting slightly propped up in bed with mild tachypnea. She is on BiPAP machine. She was pale, but no jaundice, cyanosis or thyromegaly. No jugular venous distention. No limb edema. VITAL SIGNS: Her heart rate was 77, blood pressure was 131/73, temperature was 98.7, respiratory rate was 24, and oxygen saturation was 96% on BiPAP machine on FiO2 of 45%. HEAD, EYES, EARS, NOSE AND THROAT: Showed normocephalic, atraumatic. NECK: Supple. HEART: Showed normal first and second heart sounds with no gallop, rub or murmur. CHEST: Clear to auscultation. No crepitation or rhonchi. ABDOMEN: Distended, soft, and nontender. NEUROLOGIC: She is sedated. Her intake over the last 24 hours was 5297. LABORATORY DATA: Her lab work this morning showed a white cell count of 8700, hemoglobin 8.1, hematocrit 25.7, MCV was 79, and platelet count 208,000. Her chemistry this morning showed a serum sodium 138, potassium 4.9, chloride 104, bicarbonate 25, anion gap of 9, BUN 45, creatinine 1.5, and estimated GFR was 34 mL per minute. Her glucose was 341, calcium was 6.7, phosphorus 4, and magnesium was 2.1. Total bilirubin normal; however, AST, ALT, and alkaline phosphatase are elevated, although they seem to be trending down. Her total protein was 6 and albumin was 2. Her arterial blood gases this morning showed a pH of 7.38, pCO2 of 38, pO2 of 68 and oxygen saturation was 89% on FiO2 of 45%. Her right upper extremity venous Doppler ultrasound was negative for DVT, but does have soft tissue edema. Has had a chest x-ray done this morning, which showed continued diffuse infiltrate. ASSESSMENT: 1. Acute hypoxic respiratory failure secondary to bilateral diffuse interstitial pneumonitis in a patient who is immunocompromised, on steroids and Enbrel for rheumatoid arthritis. 2. Her COVID-19 test was negative at [facility] and also here. 3. Acute kidney injury with oliguria. Her urine output over the last 24 hours was 775. At least looking at her lab work, she does not need for urgent dialysis for hyperkalemia, resolved. Her potassium is down to 3.9. 4. Deranged liver enzymes, it could be related to shock liver versus side effects without ____ they are still elevated, but trending down. She is now on sulfamethoxazole/trimethoprim to cover the PCP. Given limited option, I have discussed with her and her daughter that we will transfer her to [facility] and apparently they are agreeable. Arrangement is made for the interventional radiologist to place a central line, so that we can start her on eventually TPN and continue with all these medications. MAGUE PALAFOX MD DR: ROMULO/samantha JOB#: [id number] / [id number]
--- NOTE | 2019-08-31 11:13 | PDOC ---
Infectious Disease Note Subjective Subjective Patient is awake and nods some still on BiPAP ROS ROS No nausea vomiting diarrhea chest pain or fever Vital Sign Vital Signs Vital Signs Date Time Temp Pulse Resp B/P (MAP) Pulse Ox O2 Delivery O2 Flow Rate FiO2 08/31/19 08:55 35 96 BiPAP/CPAP 08/31/19 06:00 76 110/63 (79) 08/31/19 04:00 98.2 98.2 08/30/19 16:00 6.0 Physical Exam PHYSICAL EXAM GENERAL: Propped up in bed, minimally responsive, on BiPAP + mitts HEENT: Pupils are status post cataract surgery. Will not open mouth NECK: Supple, no JVD. LUNGS: Clear anteriorly, no accessory muscle use HEART: S1, S2. regular ABDOMEN: Obese, soft, no guarding, bowel sounds present GENITOURINARY: Benson in place. EXTREMITIES: Without clubbing, cyanosis Her left third toe has a previous amputation site. SKIN: Warm without generalized signs of rash. Coccyx area not seen NEUROLOGIC: Squints to voice, but doesn't open eyes or follow commands RIJ/HDC clean Labs Lab Laboratory Tests Test 08/30/19 13:25 08/30/19 18:23 08/30/19 23:48 08/31/19 04:00 Glucose (Fingerstick) 131 mg/dL (70-99) 276 mg/dL (70-99) 257 mg/dL (70-99) White Blood Count 8.7 x10^3/uL (4.0-11.0) Red Blood Count 3.24 x10^6/uL (3.50-5.40) Hemoglobin 8.1 g/dL (12.0-15.5) Hematocrit 25.7 % (36.0-47.0) Mean Corpuscular Volume 79 fL (79-100) Mean Corpuscular Hemoglobin 25 pg (25-35) Mean Corpuscular Hemoglobin Concent 31 g/dL (31-37) Red Cell Distribution Width 19.9 % (11.5-14.5) Platelet Count 208 x10^3/uL (140-400) Sodium Level 138 mmol/L (136-145) Potassium Level 4.9 mmol/L (3.5-5.1) Chloride Level 104 mmol/L (98-107) Carbon Dioxide Level 25 mmol/L (21-32) Anion Gap 9 (6-14) Blood Urea Nitrogen 45 mg/dL (7-20) Creatinine 1.5 mg/dL (0.6-1.0) Estimated GFR (Cockcroft-Gault) 34.1 BUN/Creatinine Ratio 30 (6-20) Glucose Level 341 mg/dL (70-99) Calcium Level 6.7 mg/dL (8.5-10.1) Phosphorus Level 4.0 mg/dL (2.6-4.7) Magnesium Level 2.1 mg/dL (1.8-2.4) Total Bilirubin 0.3 mg/dL (0.2-1.0) Aspartate Amino Transf (AST/SGOT) 168 U/L (15-37) Alanine Aminotransferase (ALT/SGPT) 137 U/L (14-59) Alkaline Phosphatase 128 U/L (46-116) Total Protein 6.0 g/dL (6.4-8.2) Albumin 2.0 g/dL (3.4-5.0) Albumin/Globulin Ratio 0.5 (1.0-1.7) Test 08/31/19 06:04 08/31/19 07:20 08/31/19 10:30 Glucose (Fingerstick) 320 mg/dL (70-99) 342 mg/dL (70-99) O2 Saturation 89 % (92-99) Arterial Blood pH 7.38 (7.35-7.45) Arterial Blood pCO2 at Patient Temp 38 mmHg (35-46) Arterial Blood pO2 at Patient Temp 68 mmHg (65-108) Arterial Blood HCO3 22 mmol/L (21-28) Arterial Blood Base Excess -3 mmol/L (-3-3) FiO2 45% Micro Microbiology 08/26/19 Gram Stain - Final, Resulted 08/26/19 Aerobic and Anaerobic Culture - Preliminary, Resulted 08/25/19 Blood Culture - Final, Complete NO GROWTH AFTER 5 DAYS Objective Assessment Acute Hypoxic resp failure on Bipap 08/26 - COVID neg at [place] and here 08/26. Rapid progression of infiltrates on CT 08/26.? etiology but differential includes RA/PCP/COVID among others. No peripheral 08/26 or 08/27 Eosinophilia to suggest eosinophilic pneumonia from Dapto. Mycoplasma neg. Speech has evaluated. Steroids increased 08/26 AVI - worse, now on HD Hypotension - better, off Levophed Leukocytosis - s/p steroids Transaminitis - ? shock liver Constipation - not resolved mild ? colitis on CT 08/25- suppository ordered but not given 08/26 Encephaloapthy - CT head neg 08/26 RA - h/o Enbrel use Fever better - ? RA flare vs possible aspiration with increased Procal and CT with joint effusion and ? pneumonia Left sacral/coccyx wound - clean Afib Severe left hip pain with ? AVN pain is worse since her fall, procal only mild elevation but could reflect renal change - s/p joint aspiration 08/25 - described as milky but only 1720 WBC - had been on abx. cx neg to date Abx allergies - sulfa mouth swelling. Clinda and Levoflox - itch DM h/o recurrent UTI Plan Plan of Care Legionella pending Micafungin 08/26 for fungal coverage avoiding Azoles with h/o Afib meropenem Azithromycin 08/26, 03/19 Patient has tolerated Bactrim without any problem Continue IV Bactrim for suspected PJP pneumonia Continue supportive care Discussed with the daughter at the bedside SUZIE FRITZ MD Aug 31, 2019 11:13
--- NOTE | 2019-08-31 11:30 | NUR ---
SS following up with discharge planning. SS reviewed pt chart and discussed with pt RN and physician. Pt accepted at [facility], ; fax [phone], and bed available today. Discharge orders received for [facility]. SS phoned and faxed discharge orders and clinical updates to [facility]. SS and physician discussed with family. Pt will discharge today and will go to [facility] at 1800 via [facility] transport. Pt, pt's family, and pt's RN notified.
--- NOTE | 2019-08-31 11:59 | PDOC ---
Renal-Progress Notes Subjective Notes Notes ON BIPAP History of Present Illness Hx of present illness NO CHANGES, NO HD NOW WITH UO INCREASING Vitals Vitals Vital Signs Date Time Temp Pulse Resp B/P (MAP) Pulse Ox O2 Delivery O2 Flow Rate FiO2 08/31/19 11:29 98 BiPAP/CPAP 08/31/19 11:00 76 14 135/70 (91) 08/31/19 08:00 99.1 99.1 08/30/19 16:00 6.0 Weight Weight [ ] I.O. Intake and Output Intake and Output 08/31/19 07:00 Intake Total 3232.4 ml Output Total 1040 ml Balance 2192.4 ml Intake Oral 0 ml IV Total 3232.4 ml Output Urine Total 1040 ml Labs Labs Laboratory Tests Test 08/30/19 13:25 08/30/19 18:23 08/30/19 23:48 08/31/19 04:00 Glucose (Fingerstick) 131 mg/dL (70-99) 276 mg/dL (70-99) 257 mg/dL (70-99) White Blood Count 8.7 x10^3/uL (4.0-11.0) Red Blood Count 3.24 x10^6/uL (3.50-5.40) Hemoglobin 8.1 g/dL (12.0-15.5) Hematocrit 25.7 % (36.0-47.0) Mean Corpuscular Volume 79 fL (79-100) Mean Corpuscular Hemoglobin 25 pg (25-35) Mean Corpuscular Hemoglobin Concent 31 g/dL (31-37) Red Cell Distribution Width 19.9 % (11.5-14.5) Platelet Count 208 x10^3/uL (140-400) Sodium Level 138 mmol/L (136-145) Potassium Level 4.9 mmol/L (3.5-5.1) Chloride Level 104 mmol/L (98-107) Carbon Dioxide Level 25 mmol/L (21-32) Anion Gap 9 (6-14) Blood Urea Nitrogen 45 mg/dL (7-20) Creatinine 1.5 mg/dL (0.6-1.0) Estimated GFR (Cockcroft-Gault) 34.1 BUN/Creatinine Ratio 30 (6-20) Glucose Level 341 mg/dL (70-99) Calcium Level 6.7 mg/dL (8.5-10.1) Phosphorus Level 4.0 mg/dL (2.6-4.7) Magnesium Level 2.1 mg/dL (1.8-2.4) Total Bilirubin 0.3 mg/dL (0.2-1.0) Aspartate Amino Transf (AST/SGOT) 168 U/L (15-37) Alanine Aminotransferase (ALT/SGPT) 137 U/L (14-59) Alkaline Phosphatase 128 U/L (46-116) Total Protein 6.0 g/dL (6.4-8.2) Albumin 2.0 g/dL (3.4-5.0) Albumin/Globulin Ratio 0.5 (1.0-1.7) Test 08/31/19 06:04 08/31/19 07:20 08/31/19 10:30 Glucose (Fingerstick) 320 mg/dL (70-99) 342 mg/dL (70-99) O2 Saturation 89 % (92-99) Arterial Blood pH 7.38 (7.35-7.45) Arterial Blood pCO2 at Patient Temp 38 mmHg (35-46) Arterial Blood pO2 at Patient Temp 68 mmHg (65-108) Arterial Blood HCO3 22 mmol/L (21-28) Arterial Blood Base Excess -3 mmol/L (-3-3) FiO2 45% Micro Micro Microbiology 08/26/19 Gram Stain - Final, Resulted 08/26/19 Aerobic and Anaerobic Culture - Preliminary, Resulted 08/25/19 Blood Culture - Final, Complete NO GROWTH AFTER 5 DAYS Review of Systems Constitutional: yes: other (UNABLE TO OBTAIN) Physical Exam General Appearance: no apparent distress Skin: warm Respiratory: decreased breath sounds Abdomen: soft Genitourinary: bladder flat Extremities: pulses present Neurology: confused, other Assessment Assessment IMP AVI-IMPROVING CLEARANCE AND UO HYPERVOLEMIA ACUTE HYPOXIC RESP FAILURE PROBABLE PNUEMONIA IMMUNOCOMPROMISED HX OF RA WITH HX OF PREDNISONE AND EMBREL USE TRANSAMINITS VS LIVER CONGESTION PLAN IV LASIX NO HD FOR NOW MAINTAIN HD CATHETER ANTIBIOTICS BIPAP D/W DR BENNETT UPDATED REMAINS CRITICALLY ILL JOANN LUNSFORD MD Aug 31, 2019 11:59
[2019-08-31] MEDS ORDERED: INSULIN LISPRO 300 UNITS/3 ML VIAL. SQ SCH ×2 (12:00→15:30)
[2019-08-31] MEDS: MICAFUNGIN 100 MG in IV DEXTROSE 5% 100ML 100 ML IV SCH (12:02)
--- NOTE | 2019-08-31 12:38 | PDOC ---
VALENTINA SIMPSON SECURITY ASSESSOR 08/31/19 1238: CARDIO Progress Notes Date and Time Date of Service 08/31/19 Time of Evaluation 1230 Subjective Subjective: Other (asleep with bipap in place) Vitals Vitals Vital Signs Date Time Temp Pulse Resp B/P (MAP) Pulse Ox O2 Delivery O2 Flow Rate FiO2 08/31/19 12:00 6.0 08/31/19 12:00 98.0 74 18 136/68 (90) 98 BiPAP/CPAP 98.0 Weight Weight [ ] Input and Output Intake and Output Intake and Output 08/31/19 07:00 Intake Total 3232.4 ml Output Total 1040 ml Balance 2192.4 ml Intake Oral 0 ml IV Total 3232.4 ml Output Urine Total 1040 ml Laboratory Labs Laboratory Tests Test 08/30/19 13:25 08/30/19 18:23 08/30/19 23:48 08/31/19 04:00 Glucose (Fingerstick) 131 mg/dL (70-99) 276 mg/dL (70-99) 257 mg/dL (70-99) White Blood Count 8.7 x10^3/uL (4.0-11.0) Red Blood Count 3.24 x10^6/uL (3.50-5.40) Hemoglobin 8.1 g/dL (12.0-15.5) Hematocrit 25.7 % (36.0-47.0) Mean Corpuscular Volume 79 fL (79-100) Mean Corpuscular Hemoglobin 25 pg (25-35) Mean Corpuscular Hemoglobin Concent 31 g/dL (31-37) Red Cell Distribution Width 19.9 % (11.5-14.5) Platelet Count 208 x10^3/uL (140-400) Sodium Level 138 mmol/L (136-145) Potassium Level 4.9 mmol/L (3.5-5.1) Chloride Level 104 mmol/L (98-107) Carbon Dioxide Level 25 mmol/L (21-32) Anion Gap 9 (6-14) Blood Urea Nitrogen 45 mg/dL (7-20) Creatinine 1.5 mg/dL (0.6-1.0) Estimated GFR (Cockcroft-Gault) 34.1 BUN/Creatinine Ratio 30 (6-20) Glucose Level 341 mg/dL (70-99) Calcium Level 6.7 mg/dL (8.5-10.1) Phosphorus Level 4.0 mg/dL (2.6-4.7) Magnesium Level 2.1 mg/dL (1.8-2.4) Total Bilirubin 0.3 mg/dL (0.2-1.0) Aspartate Amino Transf (AST/SGOT) 168 U/L (15-37) Alanine Aminotransferase (ALT/SGPT) 137 U/L (14-59) Alkaline Phosphatase 128 U/L (46-116) Total Protein 6.0 g/dL (6.4-8.2) Albumin 2.0 g/dL (3.4-5.0) Albumin/Globulin Ratio 0.5 (1.0-1.7) Test 08/31/19 06:04 08/31/19 07:20 08/31/19 10:30 Glucose (Fingerstick) 320 mg/dL (70-99) 342 mg/dL (70-99) O2 Saturation 89 % (92-99) Arterial Blood pH 7.38 (7.35-7.45) Arterial Blood pCO2 at Patient Temp 38 mmHg (35-46) Arterial Blood pO2 at Patient Temp 68 mmHg (65-108) Arterial Blood HCO3 22 mmol/L (21-28) Arterial Blood Base Excess -3 mmol/L (-3-3) FiO2 45% Microbiology Micro Microbiology 08/26/19 Gram Stain - Final, Resulted 08/26/19 Aerobic and Anaerobic Culture - Preliminary, Resulted 08/25/19 Blood Culture - Final, Complete NO GROWTH AFTER 5 DAYS Review of Systems Constitutional: yes: other (UNABLE TO OBTAIN) Physical Exam HEENT: Other (neck supple ) Chest: Symmetric LUNGS: Other (Bipap in place ) Heart: RRR (SR without ectopies) Abdomen: Soft N/T Extremities: No Edema Neurology: other (sleeping ) Assessment Assessment 1. Mechanical fall with left hip pain/possible AVN s/p joint aspirations with negative cultures 2. Left sacral/coccyx wound 3. Acute respiratory failure with pneumonia: on BiPAP. COVID test negative. 4. Arrhythmia; SR.noted previously with WAP/MAT. Brief episode of atrial tachycardia noted on telemetry, otherwise maintaining SR 5. Poorly controlled DM2 6. Hypotension; off pressor support 7. Chronic immunosuppression for RA: enbrel and steroids 8. AVI with hyperkalemia: improving 9. Transaminitis Recommendations Resume low-dose metoprolol for rate control BiPAP support Ongoing antibiotic therapy Lasix PRN Supportive care Okay to transfer to [facility] from a CV standpoint. Justicifation of Admission Dx: Justifications for Admission: Justification of Admission Dx: Yes CHF: Cardiac Arrhythmias NAHOMY MILTON MD 09/01/19 1255: CARDIO Progress Notes Plan Plan Late entry for 08/31/2019 patient seen and examined. Agree with above nurse practitioner note. Discussed with family at bedside. Supportive care from a cardiac standpoint. Vital signs stable. [facility] VALENTINA SIMPSON APRN Aug 31, 2019 12:38 NAHOMY MILTON MD Sep 01, 2019 12:55
--- NOTE | 2019-08-31 13:18 | SNU/HH DC ---
DISCHARGE ORDERS DISCHARGE INFORMATION: DISCHARGE DATE: Aug 31, 2019 FINAL DIAGNOSIS acute hypoxic respiratory failure acute on chronic kidney injury Possible PCP Pneumonia Rheumatoid Arthritis immune suppressed CONDITION ON DISCHARGE: Stable CODE STATUS: Code Status: Full LTAC: ADMIT TO LTAC: Yes POST DISCHARGE ORDERS: ACTIVITY ORDERS: Activity as tolerated WEIGHT BEARING STATUS: As tolerated DIET AFTER DISCHARGE: Renal WOUND/INCISION CARE: Ice to area for comfort CHECKS AFTER DISCHARGE: CHECKS AFTER DISCHARGE: Check blood press - daily, Check blood sugar, ac/hs, Check your Temp as needed TREATMENT/EQUIPMENT ORDERS: ADAPTIVE EQUIPMENT NEEDED: None Physical Therapy For: Evalulation/Treatment Occupational Therapy For: Evaluation/Treatment Speech Language Pathology For: Evaluation/Treatment DISCHARGE MEDICATIONS: Home Meds Reported Medications Metoprolol Tartrate (METOPROLOL TARTRATE) 50 Mg Tablet, 1 TAB PO BID for HTN, #60 TAB 5 Refills 08/10/19 Insulin Lispro (HUMALOG) 100 Unit/1 Ml Cartridge, 20 UNIT SQ TID for DM, EACH 08/06/19 Tramadol Hcl (TRAMADOL HCL) 50 Mg Tablet, 50 MG PO DAILY PRN for PAIN, TAB 0 Refills 08/06/19 Furosemide (LASIX) 40 Mg Tablet, 1 TAB PO DAILY for CHF for 30 Days, #30 TAB 0 Refills 08/06/19 Lisinopril (LISINOPRIL) 5 Mg Tablet, 1 TAB PO DAILY for HTN, #30 TAB 5 Refills 08/06/19 Meclizine Hcl (MECLIZINE HCL) 25 Mg Tablet, 1 TAB PO TID for dizzy , #90 TAB 08/06/19 Pantoprazole Sodium (PANTOPRAZOLE SODIUM ) 40 Mg Tablet.dr, 40 MG PO DAILYAC for GERD, TAB 08/06/19 Venlafaxine Hcl (VENLAFAXINE HCL) 37.5 Mg Tablet, 1 TAB PO DAILY for h, #60 TAB 1 Refill 08/06/19 Calcium Carbonate/Vitamin D3 (CALCIUM 500 + D TABLET) 1 Each Tablet, 1 TAB PO DAILY for supplement for 30 Days, #30 TAB 0 Refills 08/06/19 Aspirin (ASPIRIN EC) 81 Mg Tablet.dr, 1 TAB PO DAILY for HH, #30 TAB 3 Refills 08/06/19 Prednisone (PREDNISONE) 20 Mg Tablet, 10 MG PO DAILY, TAB 05/16/17 Insulin Degludec (Tresiba Flextouch U-100) 100 Unit/1 Ml Insuln.pen, 85 UNIT SQ DAILY08, EACH 05/16/17 Cetirizine Hcl (ZYRTEC) 10 Mg Tab.chew, 10 MG PO DAILY, TAB.CHEW 07/01/15 Amitriptyline Hcl (AMITRIPTYLINE HCL) 25 Mg Tablet, 25 MG PO HS, TAB 07/01/15 Cyclobenzaprine Hcl (CYCLOBENZAPRINE HCL) 10 Mg Tablet, 10 MG PO HS, TAB 07/01/15 Potassium Chloride (KLOR-CON) 20 Meq Packet, PO DAILY, PACKET 07/01/15 Etanercept (ENBREL) 50 Mg/1 Ml Disp.syrin, 50 MG SQ WEEKLY 07/01/15 MAGUE PALAFOX MD Aug 31, 2019 13:18
--- NOTE | 2019-08-31 13:25 | SNU/HH DC ---
DISCHARGE ORDERS DISCHARGE INFORMATION: DISCHARGE DATE: Aug 31, 2019 FINAL DIAGNOSIS ACUTE HYPOXIC RESPIRATORY FAILURE A/C kidney injury pneumonia CONDITION ON DISCHARGE: Stable CODE STATUS: Code Status: Full LTAC: ADMIT TO LTAC: Yes POST DISCHARGE ORDERS: ACTIVITY ORDERS: Activity as tolerated WEIGHT BEARING STATUS: As tolerated DIET AFTER DISCHARGE: Renal WOUND/INCISION CARE: Ice to area for comfort CHECKS AFTER DISCHARGE: CHECKS AFTER DISCHARGE: Check blood press - daily, Check blood sugar, ac/hs, Check your Temp as needed TREATMENT/EQUIPMENT ORDERS: ADAPTIVE EQUIPMENT NEEDED: None Physical Therapy For: Evalulation/Treatment Occupational Therapy For: Evaluation/Treatment Speech Language Pathology For: Evaluation/Treatment DISCHARGE MEDICATIONS: Home Meds Reported Medications Metoprolol Tartrate (METOPROLOL TARTRATE) 50 Mg Tablet, 1 TAB PO BID for HTN, #60 TAB 5 Refills 08/10/19 Insulin Lispro (HUMALOG) 100 Unit/1 Ml Cartridge, 20 UNIT SQ TID for DM, EACH 08/06/19 Tramadol Hcl (TRAMADOL HCL) 50 Mg Tablet, 50 MG PO DAILY PRN for PAIN, TAB 0 Refills 08/06/19 Furosemide (LASIX) 40 Mg Tablet, 1 TAB PO DAILY for CHF for 30 Days, #30 TAB 0 Refills 08/06/19 Lisinopril (LISINOPRIL) 5 Mg Tablet, 1 TAB PO DAILY for HTN, #30 TAB 5 Refills 08/06/19 Meclizine Hcl (MECLIZINE HCL) 25 Mg Tablet, 1 TAB PO TID for dizzy , #90 TAB 08/06/19 Pantoprazole Sodium (PANTOPRAZOLE SODIUM ) 40 Mg Tablet.dr, 40 MG PO DAILYAC for GERD, TAB 08/06/19 Venlafaxine Hcl (VENLAFAXINE HCL) 37.5 Mg Tablet, 1 TAB PO DAILY for h, #60 TAB 1 Refill 08/06/19 Calcium Carbonate/Vitamin D3 (CALCIUM 500 + D TABLET) 1 Each Tablet, 1 TAB PO DAILY for supplement for 30 Days, #30 TAB 0 Refills 08/06/19 Aspirin (ASPIRIN EC) 81 Mg Tablet.dr, 1 TAB PO DAILY for HH, #30 TAB 3 Refills 08/06/19 Prednisone (PREDNISONE) 20 Mg Tablet, 10 MG PO DAILY, TAB 05/16/17 Insulin Degludec (Tresiba Flextouch U-100) 100 Unit/1 Ml Insuln.pen, 85 UNIT SQ DAILY08, EACH 05/16/17 Cetirizine Hcl (ZYRTEC) 10 Mg Tab.chew, 10 MG PO DAILY, TAB.CHEW 07/01/15 Amitriptyline Hcl (AMITRIPTYLINE HCL) 25 Mg Tablet, 25 MG PO HS, TAB 07/01/15 Cyclobenzaprine Hcl (CYCLOBENZAPRINE HCL) 10 Mg Tablet, 10 MG PO HS, TAB 07/01/15 Potassium Chloride (KLOR-CON) 20 Meq Packet, PO DAILY, PACKET 07/01/15 Etanercept (ENBREL) 50 Mg/1 Ml Disp.syrin, 50 MG SQ WEEKLY 07/01/15 MAGUE PALAFOX MD Aug 31, 2019 13:25
[2019-08-31] MEDS ORDERED: LIDOCAINE WITH 8.4% SOD BICARB 3 ML DISP.SYRIN. ONE (13:39)
[2019-08-31] MEDS ORDERED: LIDOCAINE WITH 8.4% SOD BICARB 3 ML DISP.SYRIN. INJ ONE (13:45)
--- NOTE | 2019-08-31 15:20 | RAD ---
EXAM: CHEST AP ONLY INDICATION: Reason: POST CENTRAL LINE PLACEMENT / Spl. Instructions: IR WILL CALL WHEN READY / History: . TECHNIQUE: Single view COMPARISON: 08/31/2019 chest x-ray FINDINGS: Left jugular approach central venous catheter has since been placed. The tip terminates near the cavoatrial junction. Stable right jugular approach dual-lumen central venous catheter with the tip terminating in the right atrium. Heart is upper normal, unchanged. The great vessels appear unremarkable. There is no hilar or mediastinal mass. Lungs again show diffuse interstitial opacities and alveolar opacities which are gradually improving but still diffusely present. There is no pleural effusion or pneumothorax. There are no significant osseous abnormalities. Subcutaneous emphysema in the lower right neck remains present, similar to prior. IMPRESSION: 1. Satisfactory interval placement of a left jugular approach central venous catheter with the tip terminating near the distal SVC. No pneumothorax. 2. Stable right dual-lumen central venous catheter, tip in the right atrium. 3. Slight interval improvement in diffuse bilateral interstitial and alveolar opacities Electronically signed by: Sue Lyons MD (08/31/2019 3:17 PM) [id number]
--- NOTE | 2019-08-31 17:41 | NUR ---
Wound Care: Pt discharging to [facility]. Coccyx wound appears resolved from Saturday pictures.
--- NOTE | 2019-08-31 18:26 | NUR ---
Discharge Note: [facility] [place] [facility] Care instructions and medications reviewed with [facility] and a copy given. All questions have been answered and understanding verbalized. Patient transferred via [facility] on Bipap. , [place], at bedside during transfer. Left IJ TL central line, Left AC accucath, and Right IJ temp dialysis catheter intact during transfer. Precedex running at 26.4 mls/hr and PPN at 80 mls/hr. Patient discharged to [facility] with Ambulance Personnel via [facility].
[2019-08-31] MEDS ORDERED: METOPROLOL TART IMMED RELEASE 25 MG TABLET. PO SCH (21:00)
--- NOTE | 2019-09-01 13:42 | RAD ---
Procedure: Ultrasound-guided placement of left internal jugular central venous catheter09/01/2019 11:37 AM Clinical Indication: needs central access Discussion: The risks and benefits of the procedure were discussed the patient and/or their quality audit representative. Informed consent was obtained. A timeout procedure was performed. All elements of maximal sterile barrier technique including the use of a cap, mask, sterile gown, sterile gloves, large sterile sheet, appropriate hand hygiene, and 2% chlorhexidine for cutaneous antisepsis (or acceptable alternative antiseptic per current guidelines) were followed for this procedure. The patient was prepped and draped in the usual sterile fashion. Ultrasound interrogation of the left neck revealed patency and compressibility of the left internal jugular vein. A 21-gauge micropuncture was then used to gain access to this vein under ultrasound guidance. A hard copy ultrasound image was recorded. A guidewire was advanced centrally. 5 Yi sheath was placed. Over a wire following dilatation, a triple-lumen central venous catheter was advanced centrally. Catheter was found to flush and aspirate normally. Follow-up chest radiograph demonstrates tip at the cavoatrial junction. Catheter secured in place and a sterile dressing was applied. No immediate complications were identified. Impression: Successful ultrasound-guided placement of left internal jugular triple-lumen central venous catheter
--- NOTE | 2019-09-22 13:49 | DS ---
DATE OF DISCHARGE: 08/31/2019 HOSPITAL COURSE: The patient is a 74-year-old female patient who was initially admitted after she fell sustaining pain in her left hip joint. [place] initially to be avascular necrosis versus fracture. There was also suggestion that she might have sustained a puncture wound and infection in that area and was seen by the Infectious Disease specialist as well as orthopedic surgeon, Dr. Barker did not think that the patient has any infection in her left hip joint and she was seen by Dr. Fernando and was treated with IV antibiotic. While in the hospital, the patient developed acute hypoxic respiratory failure and chest x-ray showed diffuse interstitial and alveolar opacities, may represent pulmonary edema or infection such as viral pneumonia. She was swabbed for COVID-19 and given that she is immunosuppressed on prednisone and Humira for her rheumatoid arthritis. There was a high suspicion that she might have pneumocystis pneumonia. Unfortunately, the patient was ALLERGIC TO SULFA DRUGS. However, after a lengthy discussion between the Infectious diseases, her and her daughter, a decision was made to go ahead and treat her with sulfamethoxazole/trimethoprim after desensitizing care and she was continued to be on BiPAP machine and multiple IV antibiotics and therefore, a decision was made to transfer her to [facility] as she has also continued to be on TPN. PHYSICAL EXAMINATION: GENERAL: On the day of discharge, the patient was resting slightly propped up in bed, in no apparent distress, pale, but no jaundice, cyanosis or thyromegaly. No jugular venous distention. No limb edema. VITAL SIGNS: Her heart rate was 85, blood pressure was 125/68, temperature was 98, respiratory rate was 20, and oxygen saturation was 98% on FiO2 of 40% on BiPAP machine. HEAD, EYES, EARS, NOSE AND THROAT: Normocephalic, atraumatic. NECK: Supple. HEART: Showed normal first and second heart sounds. No gallop or murmur. CHEST: Clear to auscultation. No crepitation or rhonchi. ABDOMEN: Distended, soft, nontender. NEUROLOGIC: She was sleepy, but arousable. All cranial nerves intact. She moves extremities without difficulty; however, she is mostly bedbound. Her intake over the last 24 hours was 5297, output was 775. LABORATORY DATA: On the day of discharge showed a white cell count of 8700, hemoglobin 8.1, hematocrit 25.7, MCV 79 and platelet count 208,000. Her chemistry showed a serum sodium 138, potassium 4.9, chloride 104, bicarbonate 25, anion gap of 9, BUN 45, creatinine 1.5, estimated GFR was 34 mL per minute. Her glucose was high at 341, calcium was 6.7, magnesium was 4, phosphorus was 4, magnesium was 2.1. Total bilirubin is normal. AST, ALT, alkaline phosphatase are elevated. Her total protein was 6, albumin was 2. Her COVID-19 by PCR was negative. Hepatitis B surface antigen was nonreactive. DISCHARGE MEDICATIONS: She was transferred to [facility] to continue on amitriptyline 25 mg at bedtime, aspirin enteric coated 81 mg once a day, calcium carbonate with vitamin D one tablet once a day, cetirizine or Zyrtec 10 mg once a day, cyclosporine 10 mg at bedtime, Enbrel 50 mg subcutaneously once a week, furosemide 40 mg once a day, insulin, Tresiba FlexTouch takes 50 units to 85 units subcutaneous daily. She is also on Humalog 20 units before meals 3 times a day, lisinopril 5 mg once a day, meclizine 25 mg 3 times a day, metoprolol tartrate 50 mg twice a day, Protonix 40 mg once a day, potassium chloride 20 mEq once a day, prednisone 20 mg once a day and tramadol 50 mg every 6 hours together with venlafaxine 37.5 once a day. FINAL DISCHARGE DIAGNOSES: 1. Acute hypoxic respiratory failure secondary to bilateral diffuse interstitial pneumonitis in a patient who is immunocompromised on steroids and Enbrel for rheumatoid arthritis. 2. Her COVID-[address] [facility] and also here. 3. Acute kidney injury with oliguria. Her urine output over the last 24 hours was 375 at least. Looking at her lab work, she does not need dialysis. Hyperkalemia, resolved. 4. Deranged liver enzymes, could be related to shock liver versus side effect of medication. MAGUE PALAFOX MD DR: ROMULO/samantha JOB#: [id number] / [id number]
== END 2019-08-31 18:31 | DRG 553 ==
LOC: 6 SOUTH 17:15 → 1 WEST ICU 08-27 12:45
PROVIDERS: ADMIT Internal Medicine; ATTEND Internal Medicine
PROC: 0S9B3ZX Drainage of Left Hip Joint, Percutaneous Approach, Diagnostic (ICD-10-PCS; 2019-08-26)
PROC: 5A09457 Assistance with Respiratory Ventilation, 24-96 Consecutive Hours, Continuous Positive Airway Pressure (ICD-10-PCS; principal; 2019-08-27)
PROC: 02HV33Z Insertion of Infusion Device into Superior Vena Cava, Percutaneous Approach (ICD-10-PCS; 2019-08-28)
PROC: B548ZZA Ultrasonography of Superior Vena Cava, Guidance (ICD-10-PCS; 2019-08-28)
PROC: 5A1D70Z Performance of Urinary Filtration, Intermittent, Less than 6 Hours Per Day (ICD-10-PCS; 2019-08-28)
PROC: 5A1D70Z Performance of Urinary Filtration, Intermittent, Less than 6 Hours Per Day (ICD-10-PCS; 2019-08-30)
PROC: 02HV33Z Insertion of Infusion Device into Superior Vena Cava, Percutaneous Approach (ICD-10-PCS; 2019-08-31)
PROC: B5181ZA Fluoroscopy of Superior Vena Cava using Low Osmolar Contrast, Guidance (ICD-10-PCS; 2019-08-31)
PROC: B546ZZA Ultrasonography of Right Subclavian Vein, Guidance (ICD-10-PCS; 2019-08-31)
DX: M87.9 Osteonecrosis, unspecified (principal); E43 Unspecified severe protein-calorie malnutrition; J96.01 Acute respiratory failure with hypoxia; J18.9 Pneumonia, unspecified organism; N17.9 Acute kidney failure, unspecified; E87.2 Acidosis; G93.40 Encephalopathy, unspecified; I47.1 Supraventricular tachycardia; E11.65 Type 2 diabetes mellitus with hyperglycemia; E11.22 Type 2 diabetes mellitus with diabetic chronic kidney disease; E11.649 Type 2 diabetes mellitus with hypoglycemia without coma; E66.01 Morbid (severe) obesity due to excess calories; E78.5 Hyperlipidemia, unspecified; E87.5 Hyperkalemia; E87.70 Fluid overload, unspecified; I12.9 Hypertensive chronic kidney disease with stage 1 through stage 4 chronic kidney disease, or unspecified chronic kidney disease; I25.10 Atherosclerotic heart disease of native coronary artery without angina pectoris; I48.91 Unspecified atrial fibrillation; J84.89 Other specified interstitial pulmonary diseases; K21.9 Gastro-esophageal reflux disease without esophagitis; K58.9 Irritable bowel syndrome, unspecified; M06.9 Rheumatoid arthritis, unspecified; M19.90 Unspecified osteoarthritis, unspecified site; N18.9 Chronic kidney disease, unspecified; W01.0XXA Fall on same level from slipping, tripping and stumbling without subsequent striking against object, initial encounter; Y93.01 Activity, walking, marching and hiking; Z20.828 Contact with and (suspected) exposure to other viral communicable diseases; Z79.52 Long term (current) use of systemic steroids; Z82.3 Family history of stroke; Z82.49 Family history of ischemic heart disease and other diseases of the circulatory system; Z87.440 Personal history of urinary (tract) infections; Z87.01 Personal history of pneumonia (recurrent); Z88.1 Allergy status to other antibiotic agents; Z88.2 Allergy status to sulfonamides; Z88.8 Allergy status to other drugs, medicaments and biological substances; Z89.429 Acquired absence of other toe(s), unspecified side; Z90.710 Acquired absence of both cervix and uterus; Z91.81 History of falling; Z96.649 Presence of unspecified artificial hip joint; Z96.653 Presence of artificial knee joint, bilateral; Z98.41 Cataract extraction status, right eye; Z98.42 Cataract extraction status, left eye; Z79.899 Other long term (current) drug therapy; Z90.49 Acquired absence of other specified parts of digestive tract
CPT/HCPCS: 20605; 36415; 36556; 36600; 70450; 71045; 71250; 74018; 74176; 76937; 77002; 80048; 80053; 80061; 81001; 82550; 82805; 82955; 82962; 83036; 83605; 83615; 83735; 83880; 84100; 84145; 84443; 84484; 85007; 85018; 85025; 85027; 86140; 86317; 86704; 86738; 87040; 87071; 87075; 87102; 87116; 87340; 87449; 89050; 93306; 93971; 94640; 94660; C1892; C9113; J0456; J0610; J0692; J0878; J1170; J1644; J1650; J1815; J1940; J2185; J2248; J2920; J2930; J3010; J3370; J3490; J7030; J7040; J7050; J7060; J7512; P9045; Q9967; 92526-GN; 92610-GN; 97110-GP; 97116-GP; 97530-GO; 97530-GP; 97535-GO; G0378; J7613; J8597; U0003-CS